=== PATIENT | male | born 1970 | race Two or more races ===

== ENCOUNTER → 2020-01-04 12:36 | Outpatient (BNVA) | payer OTHER, SELFPAY | PROVIDERS: PCP Family Medicine; Visit Provider Orthopaedic Surgery | DX: M16.0 Bilateral primary osteoarthritis of hip (principal) | CPT/HCPCS: 20610; 99203 ==

== ENCOUNTER → 2020-01-17 14:18 | Outpatient (BNVA) | payer OTHER, SELFPAY | PROVIDERS: PCP Family Medicine; Referring Provider Family Medicine; Visit Provider Internal Medicine Endocrinology, Diabetes & Metabolism | DX: E13.21 Other specified diabetes mellitus with diabetic nephropathy (principal); Z96.41 Presence of insulin pump (external) (internal); E66.9 Obesity, unspecified; Z68.34 Body mass index [BMI] 34.0-34.9, adult; E78.5 Hyperlipidemia, unspecified; I10 Essential (primary) hypertension; E55.9 Vitamin D deficiency, unspecified | CPT/HCPCS: 82947; 99214 ==

== ENCOUNTER 2020-05-30 15:51 | Outpatient (REF) | payer OTHER, SELFPAY ==
--- NOTE | ~2020-05-30 | US_ITS ---
EXAMINATION: US PENILE CLINICAL INFORMATION: Evaluate nodule at base of the dorsal penis. COMPARISON: None TECHNIQUE: Targeted ultrasound of area of clinical concern at the penile base. FINDINGS: Telephone call to the performing it disaster recovery manager Salome at 12:45 PM on 05/31/2020. Imaging findings and real-time imaging findings were reviewed. In the dorsal aspect of the penile base, is a calcific focus measuring 0.5 x 0.6 x 0.15 cm. This is in the dorsal soft tissues generally positioned between the corpus callosum. This same focus is also visualized when the penile tissue was scanned from the ventral aspect, but technically more difficult to characterize. US/US penile IMPRESSION: The palpable abnormality corresponds with a calcific focus in the dorsal soft tissues of the penile base measuring 0.5 x 0.6 x 0.15 cm as detailed above.
--- NOTE | ~2020-05-30 | US_ITS ---
EXAMINATION: US SCROTUM CLINICAL INFORMATION: Scrotal pain. COMPARISON: None TECHNIQUE: A sonogram of the scrotum was performed assessing sparrow-scale appearance and color Doppler flow. Spectral Doppler analysis of the arterial and venous flow were performed in the testes bilaterally. FINDINGS: RIGHT: Right testicle measures 4.9 x 2.4 x 3.4 cm, volume 20.9 mL. No focal testicular parenchymal lesions are visualized. Spectral Doppler analysis of the arterial and venous flow is normal in the right testis. Right epididymal head is normal in size. Epididymal head cyst measuring 1.4 x 0.3 x 0.3 cm. No right hydrocele or varicocele is seen. Right epididymal Doppler flow is normal. LEFT: Left testicle measures 4.8 x 2.5 x 3.3 cm, volume 20.7 mL. No focal testicular parenchymal lesions are visualized. Spectral Doppler analysis of the arterial and venous flow is normal in the left testis. Left epididymal head is normal in size. No left hydrocele or varicocele is seen. Left epididymal Doppler flow is normal. US/US scrotum IMPRESSION: 1. Right epididymal head cyst measuring 1.4 cm. 2. Otherwise unremarkable study.
== END 2020-05-30 15:52 | disposition home or self-care (01) ==
LOC: HO.US 15:51
PROVIDERS: Visit Provider Emergency Medicine
DX: N50.812 Left testicular pain (principal)
CPT/HCPCS: 76857; 76870

== ENCOUNTER 2020-06-25 14:24 | Outpatient (REF) | payer OTHER, SELFPAY ==
[2020-06-25 16:00] LABS: Hemoglobin 15.9 g/dl (14.0-18.0); Mean Corpuscular HGB Conc 33.8 g/dl (31.0-36.0); Mean Corpuscular Hemoglobin 29.7 pg (27.0-33.0); Mean Corpuscular Volume 87.9 fL (80-98); Mean Platelet Volume 11.4 fL (9.4-12.4); Platelet Count 273 X10*3/uL (160-400); Red Blood Count 5.35 X10*6/uL (4.60-5.80); Red Cell Distribution Width 12.1 % (11.0-16.0); White Blood Count 10.7 X10*3/uL (4.8-10.8)
[2020-06-25 16:34] LABS: Alanine Aminotransferase 17 U/L (0-40); Albumin Level 4.5 g/dL (3.5-5.0); Alkaline Phosphatase 113 U/L (39-117); Anion Gap 19 (12-20); Aspartate Amino Transferase 19 U/L (5-37); Bilirubin Total 0.5 mg/dL (0.0-1.0); Blood Urea Nitrogen 17 mg/dL (9-16); Calcium 9.7 mg/dL (8.4-10.2); Carbon Dioxide 23 mmol/L (22-29); Chloride 100 mmol/L (96-108); Cholesterol 131 mg/dL; Estimated Glomerular Filt Rate 51; Glucose Random 276 mg/dL (60-115); HDL Cholesterol 39 mg/dL; LDL Cholesterol Calculated 61 mg/dl; Potassium 4.8 mmol/L (3.3-5.1); Sodium 137 mmol/L (135-145); Total Protein 7.6 g/dL (6.5-8.0); Triglycerides 157 mg/dL
[2020-06-25 16:56] LABS: Free T4 (Free Thyroxine) 0.93 ng/dL (0.71-1.85); Thyroid Stimulating Hormone 2.28 uIU/mL (0.32-4.0); Vitamin D 25-OH Total 26.5 ng/mL (>30)
[2020-06-25 17:00] LABS: Vitamin B12 878 pg/mL (200-900)
[2020-06-25 17:38] LABS: Creatinine Urine 167.67 mg/dL; Microalbum/Creatinine Ratio Ur 17.8 ug/mg cr
[2020-06-26 06:16] LABS: LDL Cholesterol Direct 73 mg/dL (<100)
[2020-06-26 08:09] LABS: Estimated Average Glucose 260 mg/dL; Hemoglobin A1c % 10.7 %
== END 2020-06-25 14:25 | disposition home or self-care (01) ==
LOC: HO.LAB 14:24
PROVIDERS: PCP Family Medicine; Referring Provider Family Medicine; Visit Provider Internal Medicine Endocrinology, Diabetes & Metabolism
DX: E10.65 Type 1 diabetes mellitus with hyperglycemia (principal); E10.21 Type 1 diabetes mellitus with diabetic nephropathy; N50.89 Other specified disorders of the male genital organs; I10 Essential (primary) hypertension; E66.9 Obesity, unspecified; E55.9 Vitamin D deficiency, unspecified; Z87.891 Personal history of nicotine dependence; Z86.19 Personal history of other infectious and parasitic diseases; Z96.41 Presence of insulin pump (external) (internal); Z79.4 Long term (current) use of insulin; Z79.82 Long term (current) use of aspirin; Z79.899 Other long term (current) drug therapy
CPT/HCPCS: 36415; 80053; 80061; 82043; 82306; 82607; 82947; 83036; 83721; 84439; 84443; 85027; 99212

== ENCOUNTER 2020-07-01 14:54 | Outpatient (REF) | payer OTHER, SELFPAY ==
[2020-07-01 16:31] LABS: Anion Gap 16 (12-20); Blood Urea Nitrogen 18 mg/dL (9-16); Calcium 9.8 mg/dL (8.4-10.2); Carbon Dioxide 24 mmol/L (22-29); Chloride 101 mmol/L (96-108); Estimated Glomerular Filt Rate > 60; Glucose Random 138 mg/dL (60-115); Potassium 4.4 mmol/L (3.3-5.1); Sodium 137 mmol/L (135-145)
== END 2020-07-01 14:55 | disposition home or self-care (01) ==
LOC: HO.LAB 14:54
PROVIDERS: PCP Family Medicine; Visit Provider Internal Medicine Endocrinology, Diabetes & Metabolism
DX: R07.89 Other chest pain (principal)
CPT/HCPCS: 36415; 80048

== ENCOUNTER → 2020-07-04 13:53 | Outpatient (BNVA) | payer OTHER, SELFPAY | PROVIDERS: PCP Family Medicine; Visit Provider Urology | DX: R10.31 Right lower quadrant pain (principal) | CPT/HCPCS: 99202 ==

== ENCOUNTER → 2020-09-24 14:51 | Outpatient (BNVA) | payer OTHER, SELFPAY | PROVIDERS: PCP Family Medicine; Visit Provider Internal Medicine Endocrinology, Diabetes & Metabolism | DX: E13.9 Other specified diabetes mellitus without complications (principal); E10.21 Type 1 diabetes mellitus with diabetic nephropathy; E78.5 Hyperlipidemia, unspecified; E66.9 Obesity, unspecified; E55.9 Vitamin D deficiency, unspecified; I10 Essential (primary) hypertension | CPT/HCPCS: 82947; 99212 ==

== ENCOUNTER 2020-10-20 14:21 | Inpatient (IN) | payer OTHER, SELFPAY ==
--- NOTE | ~2020-10-20 | CT_ITS ---
EXAMINATION: CT ABDOMEN AND PELVIS WITH CONTRAST CLINICAL INFORMATION: Suspected abscess. COMPARISON: CT abdomen/pelvis dated 04/15/2013. TECHNIQUE: Multidetector volumetric images were obtained from the superior aspect of the liver through the pubic symphysis following administration 85 mL of Omnipaque 350 intravenous contrast. Sagittal and coronal reformatted images were obtained on the technologist's workstation. Oral contrast: No This CT examination was performed using dose optimization techniques as appropriate, variously including the following: *Automated exposure control. *Adjustment of mA and/or kV according to patient size (this includes techniques or standardized protocols for targeted exams where dose is matched to indication/reason for exam; i.e. extremities or head). *Use of iterative reconstruction technique. DLP: 868.00 mGy-cm FINDINGS: LUNG BASES: The visualized lung bases are unremarkable. LIVER, GALLBLADDER, AND BILIARY TREE: The liver is normal in size, shape, and attenuation. Redemonstration of tiny scattered parenchymal calcifications. No focal hepatic lesion or biliary ductal dilatation is present. The gallbladder is unremarkable with no evidence of radiopaque gallstones, gallbladder wall thickening, or obvious pericholecystic inflammatory changes. PANCREAS: Atrophic. SPLEEN: Unremarkable. ADRENAL GLANDS: Unremarkable. KIDNEYS AND URETERS: The kidneys are normal in size, shape, and attenuation. No hydronephrosis, hydroureter, or calculi seen. No perinephric stranding. BLADDER: Unremarkable. GASTROINTESTINAL TRACT: Sigmoid diverticulosis without evidence of acute diverticulitis. No bowel wall thickening or associated inflammatory change. No small or large bowel obstruction. Unremarkable appendix. PERITONEAL CAVITY: No intraabdominal free air or free fluid. No intra-abdominal mass or organized fluid collection/abscess formation. ABDOMINAL WALL: Tiny, fat-containing periumbilical hernia. Within the anterior right abdominal wall subcutaneous tissues, there is diffuse fat stranding with small lobulated areas of more discrete density. There is overlying skin thickening. Findings could represent cellulitis with early phlegmonous change. No peripherally enhancing fluid collection to suggest abscess formation. LYMPH NODES: Normal. VASCULAR: Unremarkable. PELVIC VISCERA: The prostate and seminal vesicles are unremarkable. OSSEOUS STRUCTURES: Unremarkable. CT/CT abdomen pelvis w con IMPRESSION: 1. Skin thickening with subcutaneous stranding and more lobulated areas of density within the right abdominal wall. Findings could represent cellulitis with early phlegmonous change. No peripherally enhancing fluid collection to suggest abscess formation. 2. Diverticulosis without evidence of acute diverticulitis. No small or large bowel obstruction. Unremarkable appendix.
[2020-10-20 14:27] VITALS: BP 131/84; PULSE 100; RESP 17; TEMP 37.6; O2SAT 96; BMI 33.2
[2020-10-20 16:17] LABS: Glucose, Whole Blood 307 mg/dL (60-115)
[2020-10-20 16:25] LABS: Hematocrit 43.2 % (42-52); Hemoglobin 14.5 g/dl (14.0-18.0); Mean Corpuscular HGB Conc 33.6 g/dl (31.0-36.0); Mean Corpuscular Hemoglobin 29.3 pg (27.0-33.0); Mean Corpuscular Volume 87.3 fL (80-98); Mean Platelet Volume 10.2 fL (9.4-12.4); Platelet Count 266 X10*3/uL (160-400); Red Blood Count 4.95 X10*6/uL (4.60-5.80); Red Cell Distribution Width 12.5 % (11.0-16.0); White Blood Count 18.2 X10*3/uL (4.8-10.8)
--- NOTE | 2020-10-20 16:48 | ECG_ITS ---
Test Reason : MEDICAL Blood Pressure : / mmHG Vent. Rate : 094 BPM Atrial Rate : 094 BPM P-R Int : 142 ms QRS Dur : 086 ms QT Int : 336 ms P-R-T Axes : 035 -15 020 degrees QTc Int : 420 ms Normal sinus rhythm Normal ECG When compared with ECG of 15-JAN-2018 10:47, No significant change was found Referred By: Kaylin Telles Electronically Signed By:Richi Hicks
[2020-10-20 16:50] LABS: Anion Gap 14 (12-20); Blood Urea Nitrogen 15 mg/dL (9-16); Calcium 8.6 mg/dL (8.4-10.2); Carbon Dioxide 22 mmol/L (22-29); Chloride 102 mmol/L (96-108); Creatinine Clr Calc Pharmacy 104.8; Estimated Glomerular Filt Rate > 60; Glucose Random 340 mg/dL (60-115); Potassium 4.1 mmol/L (3.3-5.1); Sodium 134 mmol/L (135-145)
--- NOTE | 2020-10-20 16:51 | ED_ITS ---
HPI - General Adult General Chief complaint: General Medical Stated complaint: Multiple complaints Time Seen by Provider: 10/20/20 16:36 Source: patient Mode of arrival: ambulatory Limitations: no limitations History of Present Illness HPI narrative: 50-year-old male with past medical history of type 1 insulin-dependent diabetes on insulin pump, hypertension, hyperlipidemia, anemia, chronic back pain, hepatitis, and obesity presents with right lower abdominal pain swelling and abscess. States that his insulin pump was attached and he noted that insulin was leaking out of the site starting on . He noted increased pain and swelling wounds able to express some fluid out of the site. Does report having that happen on the opposite side of his abdomen approximately 3 weeks ago. He presented today because he had subjective fevers, chills, and diaphoresis last night. He is unable to get warm and feels fatigued. He did take some Tylenol earlier today which helped him feel little bit better. He does not report any chest pain or pressure, palpitations, shortness of breath, shortness of breath on exertion, abdominal distention, dysuria, hematuria, nausea, vomiting, diarrhea, constipation, and edema. Related Data Home Medications Medication Instructions Recorded Confirmed aspirin 1 tab PO DAILY 10/20/20 10/20/20 atorvastatin 1 tab PO BEDTIME 10/20/20 10/20/20 dulaglutide [Trulicity] 1 mg SUBCUT QWEEK 10/20/20 10/20/20 insulin aspart U-100 [Novolog 0 - 130 unit SUBCUT DAILY 10/20/20 10/20/20 U-100 Insulin aspart] lisinopril 1 tab PO DAILY 10/20/20 10/20/20 sildenafil [Viagra] 0.5 tab PO DAILY PRN 10/20/20 10/20/20 Allergies Allergy/AdvReac Type Severity Reaction Status Date / Time liraglutide Allergy Unknown Unknown Verified 10/20/20 14:27 Review of Systems Review of Systems: Constitutional: Positive Fever, positive Chills, positive malaise ENT/Mouth: No Ear Pain, No Hoarseness, No sore throat Eyes: No Eye Pain, No Swelling, No Redness, No Foreign Body Cardiovascular: No Chest Pain, No SOB Respiratory: No Cough, No Dyspnea Gastrointestinal: No Nausea, No Vomiting, No Diarrhea, No abdominal Pain Genitourinary: No Dysuria, No Hematuria Musculoskeletal: No joint pain, No Myalgias, No Joint Swelling Skin: Positive swelling and erythema from multiple areas on the abdomen, No Skin lacerations, No rash Neuro: No Weakness, No Numbness, No Paresthesias, No Loss of Consciousness, No Dizziness, No Headache Psych: No Anxiety/Panic, No Depression Heme/Lymph: no easy bruising, no Lymphadenopathy Endocrine: No Polyuria, No Polydipsia Yes all other systems are reviewed and are negative [facility] Past Medical History Attestation statement: The following information was validated with the patient. 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 Oriented X3. Moderate distress. Eyes: Pupils equal, round and reactive to light. Sclera nonicteric ENT: Pharynx normal. Moist mucous membranes Neck: Normal inspection. Neck supple. No nuchal rigidity CVS: Tachycardic heart rate and rhythm. Pulses equal with brisk capillary refill to all extremities. Respiratory: No respiratory distress. Breath sounds normal. Abdomen: Soft and dermal tenderness to the dermis of abdomen, multiple areas of cellulitis Skin: Skin warm and dry. Normal skin color. Normal skin turgor. Extremities: No lower extremity edema. Neuro: No motor deficit. No sensory deficit. Course Course Course Narrative: 4:51 p.m. patient moved from [facility] to room 16. Initiated sepsis protocol at this time with fluid resuscitation at 2.5 L per ideal body weight. Will start ceftriaxone. CT abdomen pelvis shows multiple areas of cellulitis and phlegmon without abscess. Discussion with hospitalist regarding plan of care, plan is to admit. Medical Decision Making Differential Diagnosis Differential Diagnosis: Cellulitis, abscess, phlegmon, UTI Medical Records Medical records reviewed: Yes I reviewed the patient's medical records. Lab Data Lab results reviewed: Yes I reviewed the patient's lab results. Result diagrams: 10/20/20 16:19 10/20/20 16:19 Labs: Lab Results 10/20/20 10/20/20 10/20/20 Range/Units 16:13 16:19 16:19 WBC 18.2 H (4.8-10.8) X10*3/uL RBC 4.95 (4.60-5.80) X10*6/uL Hgb 14.5 (14.0-18.0) g/dl Hct 43.2 (42-52) % MCV 87.3 (80-98) fL MCH 29.3 (27.0-33.0) pg MCHC 33.6 (31.0-36.0) g/dl RDW 12.5 (11.0-16.0) % Plt Count 266 (160-400) X10*3/uL MPV 10.2 (9.4-12.4) fL Absolute Nucleated RBC 0.000 (0.0-0.012) X10*3/uL Nucleated RBC % (auto) 0.0 (0.0-0.2) /100WBC Sodium 134 L (135-145) mmol/L Potassium 4.1 (3.3-5.1) mmol/L Chloride 102 (96-108) mmol/L Carbon Dioxide 22 (22-29) mmol/L Anion Gap 14 (12-20) BUN 15 (9-16) mg/dL Creatinine 0.97 (0.5-1.4) mg/dL Estim Creat Clear Calc 104.8 Estimated GFR > 60 POC Glucose 307 H (60-115) mg/dL Random Glucose 340 H D (60-115) mg/dL Lactic Acid (0.5-2.0) mmol/L Calcium 8.6 D (8.4-10.2) mg/dL Troponin I High Sens (<3.5-35.0) ng/L Urine Color Urine Appearance Urine pH (5.0-8.0) Ur Specific [place] (1.005-1.025) Urine Protein (NEG-TRACE) MG/DL Urine Glucose (UA) (NEG) MG/DL Urine Ketones (NEG) MG/DL Urine Blood (NEG) Urine Nitrite (NEG) Ur Leukocyte Esterase (NEG) Urine RBC (0) /HPF Urine WBC (0-4) /HPF Ur Squamous Epith Cells /LPF Urine Bacteria /LPF 10/20/20 10/20/20 10/20/20 Range/Units 17:17 17:19 17:19 WBC (4.8-10.8) X10*3/uL RBC (4.60-5.80) X10*6/uL Hgb (14.0-18.0) g/dl Hct (42-52) % MCV (80-98) fL MCH (27.0-33.0) pg MCHC (31.0-36.0) g/dl RDW (11.0-16.0) % Plt Count (160-400) X10*3/uL MPV (9.4-12.4) fL Absolute Nucleated RBC (0.0-0.012) X10*3/uL Nucleated RBC % (auto) (0.0-0.2) /100WBC Sodium (135-145) mmol/L Potassium (3.3-5.1) mmol/L Chloride (96-108) mmol/L Carbon Dioxide (22-29) mmol/L Anion Gap (12-20) BUN (9-16) mg/dL Creatinine (0.5-1.4) mg/dL Estim Creat Clear Calc Estimated GFR POC Glucose 271 H (60-115) mg/dL Random Glucose (60-115) mg/dL Lactic Acid 1.2 (0.5-2.0) mmol/L Calcium (8.4-10.2) mg/dL Troponin I High Sens < 3.5 (<3.5-35.0) ng/L Urine Color Urine Appearance Urine pH (5.0-8.0) Ur Specific [place] (1.005-1.025) Urine Protein (NEG-TRACE) MG/DL Urine Glucose (UA) (NEG) MG/DL Urine Ketones (NEG) MG/DL Urine Blood (NEG) Urine Nitrite (NEG) Ur Leukocyte Esterase (NEG) Urine RBC (0) /HPF Urine WBC (0-4) /HPF Ur Squamous Epith Cells /LPF Urine Bacteria /LPF 10/20/20 10/20/20 10/20/20 Range/Units 17:19 19:31 21:03 WBC (4.8-10.8) X10*3/uL RBC (4.60-5.80) X10*6/uL Hgb (14.0-18.0) g/dl Hct (42-52) % MCV (80-98) fL MCH (27.0-33.0) pg MCHC (31.0-36.0) g/dl RDW (11.0-16.0) % Plt Count (160-400) X10*3/uL MPV (9.4-12.4) fL Absolute Nucleated RBC (0.0-0.012) X10*3/uL Nucleated RBC % (auto) (0.0-0.2) /100WBC Sodium (135-145) mmol/L Potassium (3.3-5.1) mmol/L Chloride (96-108) mmol/L Carbon Dioxide (22-29) mmol/L Anion Gap (12-20) BUN (9-16) mg/dL Creatinine (0.5-1.4) mg/dL Estim Creat Clear Calc Estimated GFR POC Glucose 258 H 297 H (60-115) mg/dL Random Glucose (60-115) mg/dL Lactic Acid (0.5-2.0) mmol/L Calcium (8.4-10.2) mg/dL Troponin I High Sens (<3.5-35.0) ng/L Urine Color YELLOW Urine Appearance CLEAR Urine pH 6.0 (5.0-8.0) Ur Specific [place] 1.015 (1.005-1.025) Urine Protein NEG (NEG-TRACE) MG/DL Urine Glucose (UA) >=1000 H (NEG) MG/DL Urine Ketones 40 (NEG) MG/DL Urine Blood NEG (NEG) Urine Nitrite NEG (NEG) Ur Leukocyte Esterase NEG (NEG) Urine RBC 0 (0) /HPF Urine WBC 0 (0-4) /HPF Ur Squamous Epith Cells NONE /LPF Urine Bacteria NONE /LPF Imaging Data CT scan - abdomen: Attestation: I personally reviewed and interpreted this imaging study as follows: Radiologist's impression: EXAMINATION: CT ABDOMEN AND PELVIS WITH CONTRAST CLINICAL INFORMATION: Suspected abscess. COMPARISON: CT abdomen/pelvis dated 04/15/2013. TECHNIQUE: Multidetector volumetric images were obtained from the superior aspect of the liver through the pubic symphysis following administration 85 mL of Omnipaque 350 intravenous contrast. Sagittal and coronal reformatted images were obtained on the technologist's workstation. Oral contrast: No This CT examination was performed using dose optimization techniques as appropriate, variously including the following: *Automated exposure control. *Adjustment of mA and/or kV according to patient size (this includes techniques or standardized protocols for targeted exams where dose is matched to indication/reason for exam; i.e. extremities or head). *Use of iterative reconstruction technique. DLP: 868.00 mGy-cm FINDINGS: LUNG BASES: The visualized lung bases are unremarkable. LIVER, GALLBLADDER, AND BILIARY TREE: The liver is normal in size, shape, and attenuation. Redemonstration of tiny scattered parenchymal calcifications. No focal hepatic lesion or biliary ductal dilatation is present. The gallbladder is unremarkable with no evidence of radiopaque gallstones, gallbladder wall thickening, or obvious pericholecystic inflammatory changes. PANCREAS: Atrophic. SPLEEN: Unremarkable. ADRENAL GLANDS: Unremarkable. KIDNEYS AND URETERS: The kidneys are normal in size, shape, and attenuation. No hydronephrosis, hydroureter, or calculi seen. No perinephric stranding. BLADDER: Unremarkable. GASTROINTESTINAL TRACT: Sigmoid diverticulosis without evidence of acute diverticulitis. No bowel wall thickening or associated inflammatory change. No small or large bowel obstruction. Unremarkable appendix. PERITONEAL CAVITY: No intraabdominal free air or free fluid. No intra-abdominal mass or organized fluid collection/abscess formation. ABDOMINAL WALL: Tiny, fat-containing periumbilical hernia. Within the anterior right abdominal wall subcutaneous tissues, there is diffuse fat stranding with small lobulated areas of more discrete density. There is overlying skin thickening. Findings could represent cellulitis with early phlegmonous change. No peripherally enhancing fluid collection to suggest abscess formation. LYMPH NODES: Normal. VASCULAR: Unremarkable. PELVIC VISCERA: The prostate and seminal vesicles are unremarkable. OSSEOUS STRUCTURES: Unremarkable. CT/CT abdomen pelvis w con IMPRESSION: 1. Skin thickening with subcutaneous stranding and more lobulated areas of density within the right abdominal wall. Findings could represent cellulitis with early phlegmonous change. No peripherally enhancing fluid collection to suggest abscess formation. 2. Diverticulosis without evidence of acute diverticulitis. No small or large bowel obstruction. Unremarkable appendix. ECG Data Attestation: I personally reviewed and interpreted this ECG as follows: Interpretation: Vent. rate 94 BPM RI interval 142 ms QRS duration 86 ms QT/QTc 336/420 ms P-R-T axes 35 -15 20 Normal sinus rhythm Normal ECG When compared with ECG of 15-JAN-2018 10:47, No significant change was found 20-OCT-2020 17:00:44 Critical Care Time Critical Care Time Critical Care Time: Yes Total Critical Care Time: 65 Attestation: I have personally provided critical care time exclusive of time spent on separately billable procedures. Time includes review of laboratory data, radio logy results, discussion with consultants, and monitoring for potential decompensation. Interventions were performed as documented. Discharge Plan Discharge Clinical Impression: Phlegmon Cellulitis Qualifiers: Site of cellulitis: trunk Site of cellulitis of trunk: abdominal wall Qualified Code(s): L03.311 - Cellulitis of abdominal wall Patient Disposition: Admitted As Inpatient
[2020-10-20 17:14] VITALS: BP 142/77; PULSE 95; RESP 18; TEMP 38.8; O2SAT 99
[2020-10-20 17:26] LABS: Glucose, Whole Blood 271 mg/dL (60-115)
[2020-10-20 17:37] LABS: Glucose Urine UA >=1000 MG/DL (NEG); Leukocyte Esterase Urine NEG (NEG); Nitrite Urine NEG (NEG); Specific Gravity - Urine 1.015 (1.005-1.025); Urine Blood NEG (NEG); Urine Ketones 40 MG/DL (NEG); Urine Protein NEG (NEG-TRACE)
[2020-10-20 17:43] LABS: Appearance Urine CLEAR; Color Urine YELLOW
[2020-10-20 17:51] LABS: RBC Urine 0 /HPF (0); WBC Urine 0 /HPF (0-4)
[2020-10-20] MEDS: Ketorolac Tromethamine 15 MG/ML VIAL IVPUSH (17:54)
[2020-10-20] MEDS: Acetaminophen 325 MG TABLET 975 MG PO (17:54)
[2020-10-20] MEDS: 0.9 % Sodium Chloride 1,000 ML 999 ML IVCONT ×2 (17:55→19:55)
[2020-10-20] MEDS: cefTRIAXone sodium 1 GM in 0.9 % Sodium Chloride 50 ML IV ×2 (17:55→23:40)
[2020-10-20 18:02] LABS: Lactic Acid 1.2 mmol/L (0.5-2.0)
[2020-10-20 18:09] LABS: Troponin-I High Sensitivity < 3.5 ng/L (<3.5-35.0)
[2020-10-20] MEDS: iohexoL 350 MG/ML 100 ML INFUS..BTL IV (19:06)
[2020-10-20 19:19] VITALS: BP 114/64; PULSE 95; RESP 16; TEMP 37; O2SAT 97
[2020-10-20 19:36] LABS: Glucose, Whole Blood 258 mg/dL (60-115)
[2020-10-20] MEDS: 0.9 % Sodium Chloride 1,000 ML 500 ML IVCONT (19:55)
[2020-10-20] MEDS: Insulin Regular, Human 100 UNIT/ML 3 ML VIAL IVPUSH (19:55)
--- NOTE | 2020-10-20 20:00 | PC.NURSE ---
Pt requested and given ham sandwich, okayed by RISSA Staley. POC Glucose to be obtained, with likely plan to administer Insulin. Will continue to monitor.
--- NOTE | 2020-10-20 20:33 | PC.NURSE ---
Hospitalist at bedside speaking with patient at this time. Aware of plan for admission.
[2020-10-20 21:07] LABS: Glucose, Whole Blood 297 mg/dL (60-115)
[2020-10-20 23:21] VITALS: BP 129/71; PULSE 99; RESP 18; TEMP 36.9; O2SAT 96
[2020-10-20] MEDS: Insulin Glargine,Hum.rec.anlog 100 UNIT/ML 10 ML VIAL 25 UNIT SUBCUT (23:39)
[2020-10-20] MEDS: oxyCODONE HCl Immed Release 5 MG TABLET PO (23:39)
[2020-10-20] MEDS: Acetaminophen 325 MG TABLET 650 MG PO (23:39)
[2020-10-20] MEDS: Enoxaparin Sodium 40 MG/0.4 ML SYRINGE SUBCUT (23:40)
[2020-10-20] MEDS: 0.9 % Sodium Chloride Flush 3 ML SYRINGE IVFLUSH (23:47)
--- NOTE | 2020-10-20 23:59 | P.HPHOSP_ITS ---
History of Present Illness Date of Service: 10/20/20 Chief Complaint: Cellulitis This is a 50-year-old male with type 1 diabetes on insulin pump for the past 5 years, hypertension, HLD, hepatitis-C who presents to the hospital with complaints of redness, and swelling at 1 of the sides for his insulin pump placement. Patient reports that he usually rotates his insulin pump are on his stomach but 1 of the sites that he usually uses has now developed redness, it is becoming more hot, and swollen with tenderness. Reports that these have been going on for the past 3 days, his also noticed a lump. The pain is 7/10. His tried to drain it by pressing on the lump and significant amount of pus came out but they feel like there is still some pus in there. He is having chills with no fever, significant night sweats the night prior, denies any chest pain, no shortness of breath, no nausea or vomiting, no diarrhea or constipation, no urinary symptoms and no lower extremity edema. Reports low oral intake. Vitals on arrival are significant for a temp of 101.8?, heart rate of 95, respiratory rate of 18, blood pressure 142/77, satting 99% on room air For WBC count of 18.2, otherwise unremarkable Skin thickening with subcutaneous stranding and more lobulated areas of density within the right abdominal wall. Finding represents cellulitis with early phlegmonous change. 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), managed as type 1 Obesity (BMI 30-39.9) Vitamin D deficiency Family History Father Diabetes Mother Diabetes Surgical History Hx of exploratory laparotomy Social History Household Members: Spouse and Children Housing: House Do you presently have visiting nurse or other home services: No Patient Tobacco Use Status: Never used Tobacco Use of substances other than those prescribed or required for medical reasons: No Advance Directives: No Advance Directives Information Provided: No Do you have thoughts of harming others: None Do you have a plan to hurt others: No Plan Recently lost weight without trying: No Nutrition Risks: No Nutritional Risk Meds Allergies Allergy/AdvReac Type Severity Reaction Status Date / Time liraglutide Allergy Unknown Unknown Verified 10/20/20 14:27 Active Medications: Current Medications Generic Name Dose Route Start Last Admin Trade Name Freq PRN Reason Stop Dose Admin Acetaminophen 650 mg 10/20/20 23:21 10/20/20 23:39 Acetaminophen 325 Mg Tablet PO 650 mg Q6H PRN Administration Pain, Mild (Pain Scale 1-3) Docusate Sodium 100 mg 10/20/20 23:21 Docusate Sodium 100 Mg Capsule PO DAILY PRN Constipation Enoxaparin Sodium 40 mg 10/20/20 23:21 10/20/20 23:40 Enoxaparin Sodium 40 Mg/0.4 Ml Syringe SUBCUT 40 mg BEDTIME CHRISTOPHER Administration Ceftriaxone Sodium 1 gm/ 50 mls @ 100 mls/hr 10/21/20 18:00 10/20/20 23:40 Sodium Chloride IV 100 mls/hr Q24H CHRISTOPHER Administration Insulin Glargine 25 unit 10/20/20 22:21 10/20/20 23:39 Insulin Glargine,Hum.Rec.Anlog 100 Unit/Ml 10 Ml Vial SUBCUT 25 unit BEDTIME CHRISTOPHER Administration Insulin Human Lispro 0 unit 10/21/20 07:30 Insulin Lispro 100 Unit/Ml 3 Ml Vial SUBCUT QIDACHS [facility] Protocol Insulin Human Lispro 8 unit 10/21/20 07:30 Insulin Lispro 100 Unit/Ml 3 Ml Vial SUBCUT TIDAC [facility] Ondansetron HCl 4 mg 10/20/20 23:21 Ondansetron Hcl 4 Mg/2 Ml Vial IVPUSH Q8H PRN Nausea and Vomiting Oxycodone HCl 5 mg 10/20/20 23:21 10/20/20 23:39 Oxycodone Hcl Immed Release 5 Mg Tablet PO 5 mg Q6H PRN Administration Pain, Severe (Pain Scale 7-10) Pharmacy Consult 1 each 10/20/20 18:35 Consult Rx Perform Med Rec MISCELLANE ONCE PRN Consult order Sodium Chloride 3 ml 10/21/20 00:00 10/20/20 23:47 0.9 % Sodium Chloride Flush 3 Ml [facility] Administration Home Medications Medication Instructions Recorded Confirmed Last Taken Type aspirin 1 tab PO DAILY 10/20/20 10/20/20 10/20/20 History atorvastatin 1 tab PO BEDTIME 10/20/20 10/20/20 10/20/20 History dulaglutide [Trulicity] 1 mg SUBCUT QWEEK 10/20/20 10/20/20 10/20/20 History insulin aspart U-100 [Novolog 0 - 130 unit SUBCUT DAILY 10/20/20 10/20/20 10/20/20 History U-100 Insulin aspart] lisinopril 1 tab PO DAILY 10/20/20 10/20/20 10/20/20 History sildenafil [Viagra] 0.5 tab PO DAILY PRN 10/20/20 10/20/20 Unknown History Physical Exam Vital Signs and Narrative: Vital Signs: Last Vital Signs Temp 98.4 F 10/20/20 23:21 Pulse 99 10/20/20 23:21 Resp 18 10/20/20 23:21 BP 129/71 10/20/20 23:21 Pulse Ox 96 10/20/20 23:21 Body Mass Index 33.2 Const: General: cooperative and no acute distress Orientation/consciousness: patient oriented x3 Eyes: General: appearance normal, both eyes and all related structures Resp: Effort & Inspection: normal respiratory effort, able to speak in complete sentences and abnormal respiratory pattern Cardio: Rate: regular rate Rhythm: regular rhythm GI: Palpation (GI): Soft to palpation Auscultation: normal bowel sounds Skin: Other: Erythema, tenderness, warmth, at the site of insulin pump placement on the right lower quadrant abdominal wall. Neuro: General: patient oriented x3 Cognition (Neuro): normal cognition Extrem: General: Yes normal to inspection and Yes no pedal edema Results Labs CBC and Chem 7: 10/20/20 16:19 10/20/20 16:19 Labs: Laboratory Results - last 24 hr 10/20/20 10/20/20 10/20/20 16:13 16:19 16:19 MCV 87.3 MCH 29.3 MCHC 33.6 RDW 12.5 Plt Count 266 MPV 10.2 Absolute Nucleated RBC 0.000 Nucleated RBC % (auto) 0.0 Anion Gap 14 Estim Creat Clear Calc 104.8 Estimated GFR > 60 POC Glucose 307 H Random Glucose 340 H D Lactic Acid Calcium 8.6 D Troponin I High Sens Urine Color Urine Appearance Urine pH Ur Specific [place] Urine Protein Urine Glucose (UA) Urine Ketones Urine Blood Urine Nitrite Ur Leukocyte Esterase Urine RBC Urine WBC Ur Squamous Epith Cells Urine Bacteria 10/20/20 10/20/20 10/20/20 17:17 17:19 17:19 MCV MCH MCHC RDW Plt Count MPV Absolute Nucleated RBC Nucleated RBC % (auto) Anion Gap Estim Creat Clear Calc Estimated GFR POC Glucose 271 H Random Glucose Lactic Acid 1.2 Calcium Troponin I High Sens < 3.5 Urine Color Urine Appearance Urine pH Ur Specific [place] Urine Protein Urine Glucose (UA) Urine Ketones Urine Blood Urine Nitrite Ur Leukocyte Esterase Urine RBC Urine WBC Ur Squamous Epith Cells Urine Bacteria 10/20/20 10/20/20 10/20/20 17:19 19:31 21:03 MCV MCH MCHC RDW Plt Count MPV Absolute Nucleated RBC Nucleated RBC % (auto) Anion Gap Estim Creat Clear Calc Estimated GFR POC Glucose 258 H 297 H Random Glucose Lactic Acid Calcium Troponin I High Sens Urine Color YELLOW Urine Appearance CLEAR Urine pH 6.0 Ur Specific [place] 1.015 Urine Protein NEG Urine Glucose (UA) >=1000 H Urine Ketones 40 Urine Blood NEG Urine Nitrite NEG Ur Leukocyte Esterase NEG Urine RBC 0 Urine WBC 0 Ur Squamous Epith Cells NONE Urine Bacteria NONE Imaging Radiologist's Impressions: Impressions Abdomen/Pelvis CT 10/20/20 17:05 IMPRESSION: 1. Skin thickening with subcutaneous stranding and more lobulated areas of density within the right abdominal wall. Findings could represent cellulitis with early phlegmonous change. No peripherally enhancing fluid collection to suggest abscess formation. 2. Diverticulosis without evidence of acute diverticulitis. No small or large bowel obstruction. Unremarkable appendix. Assessment and Plan (1) Cellulitis: Qualifiers: Site of cellulitis: trunk Site of cellulitis of trunk: abdominal wall Qualified Code(s): L03.311 - Cellulitis of abdominal wall Status: Acute (2) Phlegmon: Status: Acute (3) Sepsis: Status: Acute This is a 50-year-old male with past medical history of diabetes who presents to the hospital with abdominal wall lump/cellulitis # sepsis - secondary to cellulitis - has fever, leukocytosis - IV antibiotic - follow cultures # cellulitis of abdominal wall with phlegmon formation - warmth, tenderness, erythema - will start him on IV antibiotic - follow culture # type 1 diabetes - patient removed his pump 2 to this cellulitis - will start him on 20/5 of Lantus and 8 of lispro t.i.d., follow glucose closely and adjust insulin as needed - will also add low-dose sliding scale cover - diabetic diet # hypertension -Stable - Continue lisinopril # hyperlipidemia - continue statin DVT prophylaxis: Mozenda Quality Stroke Does the patient have a stroke diagnosis?: No VTE Prior VTE?: No VTE Risk Level:: Medical - moderate - high VTE Device Contraindication: Treatment Not Indicated VTE Drug Contraindication: N/A - Med Ordered
[2020-10-21 04:00] VITALS: BP 109/57; PULSE 93; RESP 18; TEMP 37.2; O2SAT 96
[2020-10-21] MEDS: Morphine Sulfate 4 MG/ML CARTRIDGE IVPUSH (04:53)
[2020-10-21 06:51] LABS: Basophils Percent Auto 0.1 % (0-2); Eosinophils Absolute Auto 0.1 X10*3/uL (0.0-0.4); Eosinophils Percent Auto 0.2 % (0-4); Hematocrit 39.7 % (42-52); Hemoglobin 13.1 g/dl (14.0-18.0); Imm Gran Abs Auto 0.14 X10*3/uL (0.00-0.03); Imm Gran Pct Auto 0.7 % (0.0-0.4); Lymphocytes Absolute Auto 3.3 X10*3/uL (1.2-4.9); Lymphocytes Percent Auto 16.2 % (20-40); MANUAL DIFF FLAG SCAN; Mean Corpuscular Hemoglobin 29.6 pg (27.0-33.0); Mean Corpuscular Volume 89.6 fL (80-98); Mean Platelet Volume 11.2 fL (9.4-12.4); Monocytes Absolute Auto 1.8 X10*3/uL (0.1-1.2); Monocytes Percent Auto 8.8 % (2-11); Neutrophils Absolute Auto 15.2 X10*3/uL (2.0-8.3); Platelet Count 282 X10*3/uL (160-400); Red Blood Count 4.43 X10*6/uL (4.60-5.80); Red Cell Distribution Width 12.5 % (11.0-16.0); SCAN SMEAR FLAG 1; White Blood Count 20.5 X10*3/uL (4.8-10.8)
[2020-10-21 07:17] VITALS: BP 111/65; PULSE 93; RESP 18; TEMP 36.8; O2SAT 95
[2020-10-21 07:27] LABS: SLIDE REVIEW VERIFIED
[2020-10-21 07:44] LABS: Anion Gap 14 (12-20); Blood Urea Nitrogen 11 mg/dL (9-16); Carbon Dioxide 22 mmol/L (22-29); Chloride 106 mmol/L (96-108); Estimated Glomerular Filt Rate > 60; Glucose Random 286 mg/dL (60-115); Potassium 4.3 mmol/L (3.3-5.1); Sodium 138 mmol/L (135-145)
[2020-10-21 07:54] LABS: Glucose, Whole Blood 241 mg/dL (60-115)
[2020-10-21] MEDS: Atorvastatin Calcium 40 MG TABLET PO (08:01)
[2020-10-21] MEDS: Aspirin Enteric Coated 81 MG TABLET.DR PO (08:01)
[2020-10-21] MEDS: lisinopriL 5 MG TABLET PO (08:01)
[2020-10-21] MEDS: Insulin Lispro 100 UNIT/ML 3 ML VIAL SUBCUT ×4 (08:02→21:33)
[2020-10-21] MEDS: Insulin Lispro 100 UNIT/ML 3 ML VIAL 8 UNIT SUBCUT (08:02)
[2020-10-21] MEDS: 0.9 % Sodium Chloride Flush 3 ML SYRINGE IVFLUSH ×2 (08:02→15:59)
[2020-10-21] MEDS: Doxycycline Hyclate 100 MG in 0.9 % Sodium Chloride 250 ML 166.67 MG IV ×2 (08:04→21:31)
--- NOTE | 2020-10-21 10:15 | MHC.CM.PN ---
CM MET WITH PT WHO REPORTS HE LIVES WITH HIS S/O AND KIDS. HE REPORTS HE IS INDEPENDENT WITH CARE AND MOBILITY, HAS NO SERVICES AND WORKS FT. PT DOES USE AN INSULIN PUMP BUT NO OTHER DME. PT IS UNSURE IF HE HAS A HCP AND WOULD LIKE TO TAKE A BLANK ONE WITH HIM TO DISCUSS WITH FAMILY AT A LATER DATE. DOCUMENT PROVIDED. PT CONFIRMS HIS PCP IS YOMI MANCIA CURRENT DC PLAN IS HOME WIHT NO SERVICES PT TO ARRANGE TRANSPORT
[2020-10-21 11:28] VITALS: BP 95/63; PULSE 91; RESP 18; TEMP 36.5; O2SAT 97
[2020-10-21 11:54] LABS: Glucose, Whole Blood 210 mg/dL (60-115)
--- NOTE | 2020-10-21 15:00 | P.PNIM_ITS ---
Subjective Subjective Date of Service: 10/21/20 Interval History: the patient was seen and evaluated this morning Laying in bed, feels comfortable Denies any fever, chills or shortness of breath No reported other overnight events. Systemic review: Reported chills and weakness No chest pain, palpitation No shortness of breath or coughing No abdominal pain, nausea or vomiting No urinary symptoms Pain at the site of the wound Physical Exam Vital Signs: Vital Signs: Last Vital Signs Temp 97.7 F 10/21/20 11:28 Pulse 91 10/21/20 11:28 Resp 18 10/21/20 11:28 BP 95/63 10/21/20 11:28 Pulse Ox 97 10/21/20 11:28 Body Mass Index 33.2 Const: Other: Constitutional : Alert, oriented, not in distress Neck : Normal inspection, Supple Cardiovascular : RRR, S1 S2, no lower extremity edema Respiratory : Good bilateral air entry, no crackles, wheezes or rhonchi Gastrointestinal: soft, lax, Normal bowel sounds, Non tender Skin : Warm/Dry, abdominal wall right lower induration with no drainage noted, erythema and mild tenderness Neurological : Alert & oriented x3, No focal deficit Objective Data Current Medications Generic Name Dose Route Start Last Admin Trade Name Freq PRN Reason Stop Dose Admin Acetaminophen 650 mg 10/20/20 23:21 10/20/20 23:39 Acetaminophen 325 Mg Tablet PO 650 mg Q6H PRN Administration Pain, Mild (Pain Scale 1-3) Aspirin 81 mg 10/21/20 09:00 10/21/20 08:01 Aspirin Enteric Coated 81 Mg Tablet. PO 81 mg DAILY [facility] Administration Atorvastatin Calcium 40 mg 10/21/20 21:00 10/21/20 08:01 Atorvastatin Calcium 40 Mg Tablet PO 40 mg BEDTIME [facility] Administration Docusate Sodium 100 mg 10/20/20 23:21 Docusate Sodium 100 Mg Capsule PO DAILY PRN Constipation Enoxaparin Sodium 40 mg 10/20/20 23:21 10/20/20 23:40 Enoxaparin Sodium 40 Mg/0.4 Ml Syringe SUBCUT 40 mg BEDTIME [facility] Administration Ceftriaxone Sodium 1 gm/ 50 mls @ 100 mls/hr 10/21/20 18:00 10/21/20 04:23 Sodium Chloride IV Infused Q24H [facility] Infusion Doxycycline Hyclate 100 mg/ 250 mls @ 166.67 mls/hr 10/21/20 09:00 10/21/20 09:41 Sodium Chloride IV Infused Q12H [facility] Infusion Insulin Glargine 25 unit 10/20/20 22:21 10/20/20 23:39 Insulin Glargine,Hum.Rec.Anlog 100 Unit/Ml 10 Ml Vial SUBCUT 25 unit BEDTIME [facility] Administration Insulin Human Lispro 0 unit 10/21/20 11:30 10/21/20 12:08 Insulin Lispro 100 Unit/Ml 3 Ml Vial SUBCUT Not Given QIDACHS [facility] Protocol Lisinopril 5 mg 10/21/20 09:00 10/21/20 08:01 Lisinopril 5 Mg Tablet PO 5 mg DAILY [facility] Administration Protocol Morphine Sulfate 4 mg 10/21/20 04:30 10/21/20 04:53 Morphine Sulfate 4 Mg/Ml Cartridge IVPUSH 4 mg Q4H PRN Administration Pain, Severe (Pain Scale 7-10) Ondansetron HCl 4 mg 10/20/20 23:21 Ondansetron Hcl 4 Mg/2 Ml Vial IVPUSH Q8H PRN Nausea and Vomiting Oxycodone HCl 5 mg 10/20/20 23:21 10/20/20 23:39 Oxycodone Hcl Immed Release 5 Mg Tablet PO 5 mg Q6H PRN Administration Pain, Severe (Pain Scale 7-10) Pharmacy Consult 1 each 10/20/20 18:35 Consult Rx Perform Med Rec MISCELLANE ONCE PRN Consult order Sodium Chloride 3 ml 10/21/20 00:00 10/21/20 08:02 0.9 % Sodium Chloride Flush 3 Ml Syringe IVFLUSH 3 ml QSHIFT [facility] Administration Labs CBC & Chem 7: 10/21/20 06:00 10/21/20 06:00 Labs: Laboratory Results - last 24 hr 10/20/20 10/20/20 10/20/20 16:13 16:19 16:19 WBC 18.2 H RBC 4.95 Hgb 14.5 Hct 43.2 MCV 87.3 MCH 29.3 MCHC 33.6 RDW 12.5 Plt Count 266 MPV 10.2 Immature Gran % (Auto) Neut % (Auto) Lymph % (Auto) Bowie % (Auto) Eos % (Auto) Baso % (Auto) Lymph # (Auto) Bowie # (Auto) Eos # (Auto) Baso # (Auto) Abs Immat Gran (auto) Absolute Neuts (auto) Absolute Nucleated RBC 0.000 Nucleated RBC % (auto) 0.0 Smear Tech's Comments Sodium 134 L Potassium 4.1 Chloride 102 Carbon Dioxide 22 Anion Gap 14 BUN 15 Creatinine 0.97 Estim Creat Clear Calc 104.8 Estimated GFR > 60 POC Glucose 307 H Random Glucose 340 H D Lactic Acid Calcium 8.6 D Troponin I High Sens Urine Color Urine Appearance Urine pH Ur Specific [place] Urine Protein Urine Glucose (UA) Urine Ketones Urine Blood Urine Nitrite Ur Leukocyte Esterase Urine RBC Urine WBC Ur Squamous Epith Cells Urine Bacteria 10/20/20 10/20/20 10/20/20 17:17 17:19 17:19 WBC RBC Hgb Hct MCV MCH MCHC RDW Plt Count MPV Immature Gran % (Auto) Neut % (Auto) Lymph % (Auto) Bowie % (Auto) Eos % (Auto) Baso % (Auto) Lymph # (Auto) Bowie # (Auto) Eos # (Auto) Baso # (Auto) Abs Immat Gran (auto) Absolute Neuts (auto) Absolute Nucleated RBC Nucleated RBC % (auto) Smear Tech's Comments Sodium Potassium Chloride Carbon Dioxide Anion Gap BUN Creatinine Estim Creat Clear Calc Estimated GFR POC Glucose 271 H Random Glucose Lactic Acid 1.2 Calcium Troponin I High Sens < 3.5 Urine Color Urine Appearance Urine pH Ur Specific [place] Urine Protein Urine Glucose (UA) Urine Ketones Urine Blood Urine Nitrite Ur Leukocyte Esterase Urine RBC Urine WBC Ur Squamous Epith Cells Urine Bacteria 10/20/20 10/20/20 10/20/20 17:19 19:31 21:03 WBC RBC Hgb Hct MCV MCH MCHC RDW Plt Count MPV Immature Gran % (Auto) Neut % (Auto) Lymph % (Auto) Bowie % (Auto) Eos % (Auto) Baso % (Auto) Lymph # (Auto) Bowie # (Auto) Eos # (Auto) Baso # (Auto) Abs Immat Gran (auto) Absolute Neuts (auto) Absolute Nucleated RBC Nucleated RBC % (auto) Smear Tech's Comments Sodium Potassium Chloride Carbon Dioxide Anion Gap BUN Creatinine Estim Creat Clear Calc Estimated GFR POC Glucose 258 H 297 H Random Glucose Lactic Acid Calcium Troponin I High Sens Urine Color YELLOW Urine Appearance CLEAR Urine pH 6.0 Ur Specific [place] 1.015 Urine Protein NEG Urine Glucose (UA) >=1000 H Urine Ketones 40 Urine Blood NEG Urine Nitrite NEG Ur Leukocyte Esterase NEG Urine RBC 0 Urine WBC 0 Ur Squamous Epith Cells NONE Urine Bacteria NONE 10/21/20 10/21/20 10/21/20 06:00 06:00 07:20 WBC 20.5 H RBC 4.43 L Hgb 13.1 L Hct 39.7 L MCV 89.6 MCH 29.6 MCHC 33.0 RDW 12.5 Plt Count 282 MPV 11.2 Immature Gran % (Auto) 0.7 H Neut % (Auto) 74.0 H Lymph % (Auto) 16.2 L Bowie % (Auto) 8.8 Eos % (Auto) 0.2 Baso % (Auto) 0.1 Lymph # (Auto) 3.3 Bowie # (Auto) 1.8 H Eos # (Auto) 0.1 Baso # (Auto) 0.0 Abs Immat Gran (auto) 0.14 H Absolute Neuts (auto) 15.2 H Absolute Nucleated RBC 0.000 Nucleated RBC % (auto) 0.0 Smear Tech's Comments VERIFIED Sodium 138 Potassium 4.3 Chloride 106 Carbon Dioxide 22 Anion Gap 14 BUN 11 Creatinine 0.90 Estim Creat Clear Calc 113.0 Estimated GFR > 60 POC Glucose 241 H Random Glucose 286 H Lactic Acid Calcium 8.0 L D Troponin I High Sens Urine Color Urine Appearance Urine pH Ur Specific [place] Urine Protein Urine Glucose (UA) Urine Ketones Urine Blood Urine Nitrite Ur Leukocyte Esterase Urine RBC Urine WBC Ur Squamous Epith Cells Urine Bacteria 10/21/20 11:25 WBC RBC Hgb Hct MCV MCH MCHC RDW Plt Count MPV Immature Gran % (Auto) Neut % (Auto) Lymph % (Auto) Bowie % (Auto) Eos % (Auto) Baso % (Auto) Lymph # (Auto) Bowie # (Auto) Eos # (Auto) Baso # (Auto) Abs Immat Gran (auto) Absolute Neuts (auto) Absolute Nucleated RBC Nucleated RBC % (auto) Smear Tech's Comments Sodium Potassium Chloride Carbon Dioxide Anion Gap BUN Creatinine Estim Creat Clear Calc Estimated GFR POC Glucose 210 H Random Glucose Lactic Acid Calcium Troponin I High Sens Urine Color Urine Appearance Urine pH Ur Specific [place] Urine Protein Urine Glucose (UA) Urine Ketones Urine Blood Urine Nitrite Ur Leukocyte Esterase Urine RBC Urine WBC Ur Squamous Epith Cells Urine Bacteria Imaging CT scan - abdomen: Radiologist's impression: Impressions Abdomen/Pelvis CT 10/20/20 17:05 IMPRESSION: 1. Skin thickening with subcutaneous stranding and more lobulated areas of density within the right abdominal wall. Findings could represent cellulitis with early phlegmonous change. No peripherally enhancing fluid collection to suggest abscess formation. 2. Diverticulosis without evidence of acute diverticulitis. No small or large bowel obstruction. Unremarkable appendix. Quality Stroke Does the patient have a stroke diagnosis?: No VTE Prior VTE?: No VTE Risk Level:: Medical - moderate - high VTE Device Contraindication: Treatment Not Indicated VTE Drug Contraindication: N/A - Med Ordered Assessment and Plan (1) Cellulitis: Status: Acute (2) Phlegmon: Status: Acute (3) Sepsis: Status: Acute Assessment and Plan: This is a 50-year-old male with past medical history of diabetes who presents to the hospital with abdominal wall lump/cellulitis # sepsis secondary to cellulitis with phlegmon formation Pending cultures Continue doxycycline and ceftriaxone # hyperglycemia 2/2 type 1 diabetes patient removed his pump 2 to this cellulitis Continue 25 of Lantus and SSI diabetic diet # hypertension Continue lisinopril # hyperlipidemia continue statin DVT prophylaxis: Lovenox
[2020-10-21] MEDS: oxyCODONE HCl Immed Release 5 MG TABLET PO ×2 (15:59→21:45)
[2020-10-21 16:00] VITALS: BP 116/72; PULSE 95; RESP 14; TEMP 37.3; O2SAT 95
[2020-10-21 16:39] LABS: Glucose, Whole Blood 211 mg/dL (60-115)
[2020-10-21 19:24] VITALS: BP 108/72; PULSE 86; RESP 16; TEMP 36.7; O2SAT 97
[2020-10-21 20:45] LABS: Glucose, Whole Blood 391 mg/dL (60-115)
[2020-10-21] MEDS: Insulin Glargine,Hum.rec.anlog 100 UNIT/ML 10 ML VIAL 25 UNIT SUBCUT (21:32)
[2020-10-21] MEDS: Enoxaparin Sodium 40 MG/0.4 ML SYRINGE SUBCUT (21:33)
[2020-10-21 23:47] VITALS: BP 119/76; PULSE 89; RESP 20; TEMP 36.6; O2SAT 95
[2020-10-22 04:00] VITALS: RESP 20
[2020-10-22] MEDS: cefTRIAXone sodium 1 GM in 0.9 % Sodium Chloride 50 ML IV (05:20)
[2020-10-22 06:51] LABS: Hematocrit 42.1 % (42-52); Hemoglobin 13.8 g/dl (14.0-18.0); Mean Corpuscular HGB Conc 32.8 g/dl (31.0-36.0); Mean Corpuscular Hemoglobin 29.4 pg (27.0-33.0); Mean Corpuscular Volume 89.6 fL (80-98); Mean Platelet Volume 10.6 fL (9.4-12.4); Platelet Count 268 X10*3/uL (160-400); Red Cell Distribution Width 12.2 % (11.0-16.0); White Blood Count 16.4 X10*3/uL (4.8-10.8)
[2020-10-22 07:08] LABS: Anion Gap 14 (12-20); Blood Urea Nitrogen 8 mg/dL (9-16); Carbon Dioxide 22 mmol/L (22-29); Chloride 105 mmol/L (96-108); Creatinine Clr Calc Pharmacy 130.4; Estimated Glomerular Filt Rate > 60; Glucose Random 218 mg/dL (60-115); Potassium 4.2 mmol/L (3.3-5.1); Sodium 137 mmol/L (135-145)
[2020-10-22 07:17] LABS: Glucose, Whole Blood 190 mg/dL (60-115)
--- NOTE | 2020-10-22 07:22 | PC.NURSE ---
bs at 391 notified 10 units lispro to give per sliding scale
[2020-10-22 07:46] VITALS: BP 147/88; PULSE 91; RESP 18; TEMP 37; O2SAT 99
[2020-10-22] MEDS: Insulin Lispro 100 UNIT/ML 3 ML VIAL SUBCUT ×4 (08:21→21:18)
[2020-10-22] MEDS: 0.9 % Sodium Chloride Flush 3 ML SYRINGE IVFLUSH ×3 (08:25→21:19)
[2020-10-22] MEDS: Acetaminophen 325 MG TABLET 650 MG PO (09:34)
[2020-10-22] MEDS: Doxycycline Hyclate 100 MG in 0.9 % Sodium Chloride 250 ML 166.67 MG IV ×2 (09:34→21:17)
[2020-10-22] MEDS: Aspirin Enteric Coated 81 MG TABLET.DR PO (09:34)
[2020-10-22] MEDS: lisinopriL 5 MG TABLET PO (09:34)
[2020-10-22] MEDS: Atorvastatin Calcium 40 MG TABLET PO (09:36)
--- NOTE | 2020-10-22 11:42 | HO.PM.IMPN ---
Subjective Subjective Date of Service: 10/22/20 Interval History: seen and examined this AM hoping to go home denies fevers or chills ROS General - no fevers or chills Cardiovascular - no chest pain Respiratory - no shortness of breath or cough Abdominal- no abdominal pain, nausea, vomiting, diarrhea Physical Exam Vital Signs: Vital Signs: Last Vital Signs Temp 98.6 F 10/22/20 07:46 Pulse 91 10/22/20 07:46 Resp 18 10/22/20 07:46 BP 147/88 H 10/22/20 07:46 Pulse Ox 99 10/22/20 07:46 Body Mass Index 33.2 Const: Other: General - no acute distress, appears comfortable Cardiovascular - regular rate and rhythm, S1-S2 Lungs - normal respiratory effort, clear to auscultation bilaterally, no wheezing Abdomen - soft, nontender, no rebound or guarding Extremities - no edema bilaterally Neuro - awake and alert, no focal deficits Skin - R abdominal wall with about 4 cm indurated region with some flutuance, surroudning erythema Objective Data Current Medications Generic Name Dose Route Start Last Admin Trade Name Freq PRN Reason Stop Dose Admin Acetaminophen 650 mg 10/20/20 23:21 10/22/20 09:34 Acetaminophen 325 Mg Tablet PO 650 mg Q6H PRN Administration Pain, Mild (Pain Scale 1-3) Aspirin 81 mg 10/21/20 09:00 10/22/20 09:34 Aspirin Enteric Coated 81 Mg Tablet. PO 81 mg DAILY CHRISTOPHER Administration Atorvastatin Calcium 40 mg 10/21/20 21:00 10/22/20 09:36 Atorvastatin Calcium 40 Mg Tablet PO 40 mg BEDTIME [facility] Administration Docusate Sodium 100 mg 10/20/20 23:21 Docusate Sodium 100 Mg Capsule PO DAILY PRN Constipation Enoxaparin Sodium 40 mg 10/20/20 23:21 10/21/20 21:33 Enoxaparin Sodium 40 Mg/0.4 Ml Syringe SUBCUT 40 mg BEDTIME CH[facility]STOPHER Administration Doxycycline Hyclate 100 mg/ 250 mls @ 166.67 mls/hr 10/21/20 09:00 10/22/20 11:26 Sodium Chloride IV Infused Q12H [facility] Infusion Ceftriaxone Sodium 1 gm/ 50 mls @ 100 mls/hr 10/22/20 04:00 10/22/20 06:31 Sodium Chloride IV Infused Q24H [facility] Infusion Insulin Glargine 25 unit 10/20/20 22:21 10/21/20 21:32 Insulin Glargine,Hum.Rec.Anlog 100 Unit/Ml 10 Ml Vial SUBCUT 25 unit BEDTIME [facility] Administration Insulin Human Lispro 0 unit 10/21/20 11:30 10/22/20 08:21 Insulin Lispro 100 Unit/Ml 3 Ml Vial SUBCUT 2 unit QIDACHS [facility] Administration Protocol Lisinopril 5 mg 10/21/20 09:00 10/22/20 09:34 Lisinopril 5 Mg Tablet PO 5 mg DAILY [facility] Administration Protocol Morphine Sulfate 4 mg 10/21/20 04:30 10/21/20 04:53 Morphine Sulfate 4 Mg/Ml Cartridge IVPUSH 4 mg Q4H PRN Administration Pain, Severe (Pain Scale 7-10) Ondansetron HCl 4 mg 10/20/20 23:21 Ondansetron Hcl 4 Mg/2 Ml Vial IVPUSH Q8H PRN Nausea and Vomiting Oxycodone HCl 5 mg 10/20/20 23:21 10/21/20 21:45 Oxycodone Hcl Immed Release 5 Mg Tablet PO 5 mg Q6H PRN Administration Pain, Severe (Pain Scale 7-10) Pharmacy Consult 1 each 10/20/20 18:35 Consult Rx Perform Med Rec MISCELLANE ONCE PRN Consult order Sodium Chloride 3 ml 10/21/20 00:00 10/22/20 08:25 0.9 % Sodium Chloride Flush 3 Ml Syringe IVFLUSH 3 ml QSHIFT [facility] Administration Labs CBC & Chem 7: 10/22/20 06:12 10/22/20 06:12 Labs: Laboratory Results - last 24 hr 10/21/20 10/21/20 10/21/20 11:25 16:00 20:26 WBC RBC Hgb Hct MCV MCH MCHC RDW Plt Count MPV Absolute Nucleated RBC Nucleated RBC % (auto) Sodium Potassium Chloride Carbon Dioxide Anion Gap BUN Creatinine Estim Creat Clear Calc Estimated GFR POC Glucose 210 H 211 H 391 H* Random Glucose Calcium 10/22/20 10/22/20 10/22/20 06:12 06:12 06:59 WBC 16.4 H RBC 4.70 Hgb 13.8 L Hct 42.1 MCV 89.6 MCH 29.4 MCHC 32.8 RDW 12.2 Plt Count 268 MPV 10.6 Absolute Nucleated RBC 0.000 Nucleated RBC % (auto) 0.0 Sodium 137 Potassium 4.2 Chloride 105 Carbon Dioxide 22 Anion Gap 14 BUN 8 L Creatinine 0.78 Estim Creat Clear Calc 130.4 Estimated GFR > 60 POC Glucose 190 H Random Glucose 218 H Calcium 8.0 L Microbiology Microbiology Results: Microbiology 10/20/20 17:42 Blood Culture - Preliminary Blood - Venous No growth after 24 hours. 10/20/20 17:19 Blood Culture - Preliminary Blood - Venous No growth after 24 hours. Quality Stroke Does the patient have a stroke diagnosis?: No VTE Prior VTE?: No VTE Risk Level:: Medical - moderate - high VTE Device Contraindication: Treatment Not Indicated VTE Drug Contraindication: N/A - Med Ordered Assessment and Plan (1) Cellulitis: Status: Acute (2) Phlegmon: Status: Acute (3) Sepsis: Status: Acute Assessment and Plan: This is a 50-year-old male with past medical history of diabetes who presents to the hospital with abdominal wall lump/cellulitis # sepsis secondary to cellulitis with phlegmon formation ? now some fluctance -- will get Gen Surg to see if I&D is needed Rocephin / Doxy day #2 # DM, type 1 uncontrolled has pump at home using basal bolus here # hypertension Continue lisinopril # hyperlipidemia continue statin DVT prophylaxis: Lovenox
[2020-10-22 11:53] VITALS: BP 126/78; PULSE 86; RESP 18; TEMP 36.7; O2SAT 96
[2020-10-22 11:56] LABS: Glucose, Whole Blood 205 mg/dL (60-115)
--- NOTE | 2020-10-22 15:27 | P.CONGS_ITS ---
History of Present Illness Consult details Consult date: 10/22/20 Narrative: 50-year-old male patient with history of diabetes, found to have an area of redness and swelling in the right lower quadrant at the site of his insulin pump. Patient reports that the lump is increased in size and is increasing in pain. He reports placing a needle within the area of redness and pulling up in a syringe of pus. He has been admitted to the hospitalist service and placed on IV antibiotics. He feels the redness is continue to increase in size. Surgical consultation was requested for possible incision and drainage. Review of Systems Review of Systems: Yes all other systems are reviewed and are negative Constitutional: Constitutional: Reports chills, Reports fever(s) and Reports lethargy Cardiovascular: Cardiovascular: Denies chest pain, Denies pedal edema and Denies irregular heart rhythm Respiratory: Respiratory: Denies chest congestion, Denies cough and Denies wheezing Gastrointestinal: Gastrointestinal: Reports as per HPI and Reports abdominal pain Comments: Mass in the right lower quadrant abdominal wall Allergic/Immunologic: Allergic/Immunologic: Denies wheezing PMFSH Past Medical History Medical History Diabetic nephropathy associated with type 1 diabetes mellitus Elevated serum creatinine Hypertension 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), managed as type 1 Obesity (BMI 30-39.9) Vitamin D deficiency Family History Family History Father Diabetes Mother Diabetes Surgical History Surgical History Hx of exploratory laparotomy Social History Social History Household Members: Spouse and Children Housing: House Do you presently have visiting nurse or other home services: No Patient Tobacco Use Status: Never used Tobacco Use of substances other than those prescribed or required for medical reasons: No Currently Displaying Signs/Symptoms of Drug Intoxication Withdrawal: No Advance Directives: No Advance Directives Information Provided: No Do you have thoughts of harming others: None Do you have a plan to hurt others: No Plan Recently lost weight without trying: No Nutrition Risks: No Nutritional Risk service: No Current occupational status: employed Meds Allergies Allergy/AdvReac Type Severity Reaction Status Date / Time liraglutide Allergy Unknown Unknown Verified 10/20/20 14:27 Active Medications: Current Medications Generic Name Dose Route Start Last Admin Trade Name Freq PRN Reason Stop Dose Admin Acetaminophen 650 mg 10/20/20 23:21 10/22/20 09:34 Acetaminophen 325 Mg Tablet PO 650 mg Q6H PRN Administration Pain, Mild (Pain Scale 1-3) Aspirin 81 mg 10/21/20 09:00 10/22/20 09:34 Aspirin Enteric Coated 81 Mg Tablet.Dr PO 81 mg DAILY CHRISTOPHER Administration Atorvastatin Calcium 40 mg 10/21/20 21:00 10/22/20 09:36 Atorvastatin Calcium 40 Mg Tablet PO 40 mg BEDTIME CHRISTOPHER Administration Docusate Sodium 100 mg 10/20/20 23:21 Docusate Sodium 100 Mg Capsule PO DAILY PRN Constipation Enoxaparin Sodium 40 mg 10/20/20 23:21 10/21/20 21:33 Enoxaparin Sodium 40 Mg/0.4 Ml Syringe SUBCUT 40 mg BEDTIME CHRISTOPHER Administration Doxycycline Hyclate 100 mg/ 250 mls @ 166.67 mls/hr 10/21/20 09:00 10/22/20 11:26 Sodium Chloride IV Infused Q12H CHRISTOPHER Infusion Ceftriaxone Sodium 1 gm/ 50 mls @ 100 mls/hr 10/22/20 04:00 10/22/20 06:31 Sodium Chloride IV Infused Q24H CHRISTOPHER Infusion Insulin Glargine 25 unit 10/20/20 22:21 10/21/20 21:32 Insulin Glargine,Hum.Rec.Anlog 100 Unit/Ml 10 Ml Vial SUBCUT 25 unit BEDTIME CHRISTOPHER Administration Insulin Human Lispro 0 unit 10/21/20 11:30 10/22/20 12:16 Insulin Lispro 100 Unit/Ml 3 Ml Vial SUBCUT 4 unit QIDACHS CHRISTOPHER Administration Protocol Lisinopril 5 mg 10/21/20 09:00 10/22/20 09:34 Lisinopril 5 Mg Tablet PO 5 mg DAILY CHRISTOPHER Administration Protocol Morphine Sulfate 4 mg 10/21/20 04:30 10/21/20 04:53 Morphine Sulfate 4 Mg/Ml Cartridge IVPUSH 4 mg Q4H PRN Administration Pain, Severe (Pain Scale 7-10) Ondansetron HCl 4 mg 10/20/20 23:21 Ondansetron Hcl 4 Mg/2 Ml Vial IVPUSH Q8H PRN Nausea and Vomiting Oxycodone HCl 5 mg 10/20/20 23:21 10/21/20 21:45 Oxycodone Hcl Immed Release 5 Mg Tablet PO 5 mg Q6H PRN Administration Pain, Severe (Pain Scale 7-10) Pharmacy Consult 1 each 10/20/20 18:35 Consult Rx Perform Med Rec MISCELLANE ONCE PRN Consult order Sodium Chloride 3 ml 10/21/20 00:00 10/22/20 08:25 0.9 % Sodium Chloride Flush 3 Ml Syringe IVFLUSH 3 ml QSHIFT CHRISTOPHER Administration Home Medications Medication Instructions Recorded Confirmed Last Taken Type aspirin 1 tab PO DAILY 10/20/20 10/20/20 10/20/20 History atorvastatin 1 tab PO BEDTIME 10/20/20 10/20/20 10/20/20 History dulaglutide [Trulicity] 1 mg SUBCUT QWEEK 10/20/20 10/20/20 10/20/20 History insulin aspart U-100 [Novolog 0 - 130 unit SUBCUT DAILY 10/20/20 10/20/20 10/20/20 History U-100 Insulin aspart] lisinopril 1 tab PO DAILY 10/20/20 10/20/20 10/20/20 History sildenafil [Viagra] 0.5 tab PO DAILY PRN 10/20/20 10/20/20 Unknown History Physical Exam Vital Signs: Vital Signs: Last Vital Signs Temp 98.0 F 10/22/20 11:53 Pulse 86 10/22/20 11:53 Resp 18 10/22/20 11:53 BP 126/78 10/22/20 11:53 Pulse Ox 96 10/22/20 11:53 Body Mass Index 33.2 Const: General: no acute distress and well developed Nutritional Appearance: well nourished Limitations: no limitations Resp: Effort & Inspection: normal respiratory effort, no cough and no stridor Auscultation: clear to auscultation bilaterally Cardio: Rate: regular rate Rhythm: regular rhythm Heart sounds: S1 normal heart sound present and S2 normal heart sound present GI: Other: area of inflammation in the right lower quadrant with possible abscess measuring approximately 10 cm in diameter. The subcutaneous tissue is firm suggestive of either a deep abscess or phlegmon. Site is tender to palpation. There is no definite fluctuance to palpation. Abdomen image: 1. Site of inflammation right lower quadrant Skin: Other: as noted in the abdominal exam above Extrem: General: Yes no clubbing, cyanosis or edema Results Labs Result diagrams: 10/22/20 06:12 10/22/20 06:12 Labs: Abnormal lab results 10/21/20 10/21/20 10/22/20 Range/Units 16:00 20:26 06:12 WBC 16.4 H (4.8-10.8) X10*3/uL Hgb 13.8 L (14.0-18.0) g/dl BUN (9-16) mg/dL POC Glucose 211 H 391 H* (60-115) mg/dL Random Glucose (60-115) mg/dL Calcium (8.4-10.2) mg/dL 10/22/20 10/22/20 10/22/20 Range/Units 06:12 06:59 11:52 WBC (4.8-10.8) X10*3/uL Hgb (14.0-18.0) g/dl BUN 8 L (9-16) mg/dL POC Glucose 190 H 205 H (60-115) mg/dL Random Glucose 218 H (60-115) mg/dL Calcium 8.0 L (8.4-10.2) mg/dL Short CBC 10/22/20 Range/Units 06:12 WBC 16.4 H (4.8-10.8) X10*3/uL Hgb 13.8 L (14.0-18.0) g/dl Hct 42.1 (42-52) % Plt Count 268 (160-400) X10*3/uL BMP 10/22/20 06:12 Sodium 137 Potassium 4.2 Chloride 105 Carbon Dioxide 22 BUN 8 L Creatinine 0.78 Calcium 8.0 L Urine 10/20/20 Range/Units 17:19 Urine Color YELLOW Urine Appearance CLEAR Urine pH 6.0 (5.0-8.0) Ur Specific [place] 1.015 (1.005-1.025) Urine Protein NEG (NEG-TRACE) MG/DL Urine Glucose (UA) >=1000 H (NEG) MG/DL All other labs normal. Assessment and Plan (1) Phlegmon: Status: Acute patient presents with a right lower quadrant phlegmon or possible abscess due to his insulin pump. There is a wide area of inflammation which may contain a purulence collection although it is not definitely fluctuant. I recommended incision and drainage and after discussion of the procedure, risks, and alternatives, he consents to the procedure. I will return later today for this procedure which was performed at the bedside. Procedures Date of Service Date of Service: 10/22/20
[2020-10-22 15:28] VITALS: BP 143/75; PULSE 88; RESP 18; TEMP 36.7; O2SAT 97
[2020-10-22 15:56] LABS: Glucose, Whole Blood 219 mg/dL (60-115)
--- NOTE | 2020-10-22 16:21 | P.OP_ITS ---
Operative Note Operative Note Date of Service: 10/22/20 Narrative: Preoperative diagnosis:Abscess right lower abdomen Postoperative diagnosis:same Procedure:I&D Abscess Right lower abdomen Surgeon: Erik Carlin MD [place]: no physician Anesthesia: Local Indications for procedure: Abscess right lower quadrant Operative findings: Abscess right lower quadrant Specimen:none Estimated blood loss: none Complications:none Procedure details:Procedure was performed at the bedside in a supine position. After assuring the site of surgery in the right lower quadrant, and obtaining informed consent, the skin was prepped and draped in a sterile fashion. Local was infiltrated over the abscess and an 11 blade use to incise the skin. A moderate sized abscess was drained and the wounds irrigated with saline. Wounds were then packed with 1/4 inch Nu Gauze, and covered with DSD. The patient tolerated the procedure well.
[2020-10-22] MEDS: Morphine Sulfate 4 MG/ML CARTRIDGE IVPUSH (18:09)
[2020-10-22 19:05] VITALS: BP 131/93; PULSE 92; RESP 15; TEMP 37.2; O2SAT 95
[2020-10-22 20:25] LABS: Glucose, Whole Blood 187 mg/dL (60-115)
[2020-10-22] MEDS: Enoxaparin Sodium 40 MG/0.4 ML SYRINGE SUBCUT (21:17)
[2020-10-22 23:50] VITALS: BP 130/78; PULSE 98; RESP 18; TEMP 36.6; O2SAT 96
[2020-10-23] MEDS: cefTRIAXone sodium 1 GM in 0.9 % Sodium Chloride 50 ML IV (03:21)
[2020-10-23 04:00] VITALS: BP 131/73; PULSE 100; RESP 18; TEMP 35.8; O2SAT 94
[2020-10-23 07:23] VITALS: BP 141/76; PULSE 99; RESP 18; TEMP 36.6; O2SAT 96
[2020-10-23 07:30] LABS: Glucose, Whole Blood 399 mg/dL (60-115)
[2020-10-23] MEDS: Insulin Lispro 100 UNIT/ML 3 ML VIAL SUBCUT ×2 (07:56→12:13)
[2020-10-23] MEDS: Atorvastatin Calcium 40 MG TABLET PO (07:56)
[2020-10-23] MEDS: 0.9 % Sodium Chloride Flush 3 ML SYRINGE IVFLUSH (07:57)
[2020-10-23] MEDS: Doxycycline Hyclate 100 MG in 0.9 % Sodium Chloride 250 ML 166.67 MG IV (07:57)
[2020-10-23] MEDS: lisinopriL 5 MG TABLET PO (07:57)
[2020-10-23] MEDS: Aspirin Enteric Coated 81 MG TABLET.DR PO (07:57)
[2020-10-23] MEDS: Morphine Sulfate 4 MG/ML CARTRIDGE IVPUSH (10:49)
[2020-10-23 11:40] VITALS: BP 138/81; PULSE 90; RESP 15; TEMP 36.3; O2SAT 98
[2020-10-23 11:43] LABS: Glucose, Whole Blood 236 mg/dL (60-115)
--- NOTE | 2020-10-23 13:26 | P.DS_ITS ---
DS: Providers Provider Date of Service: 10/23/20 Date of admission: 10/20/20 22:21 Primary care physician: Aubree Pinto MD Consults: 10/22/20 10:48 Consult to General Surgery Routine Consulting Provider: Erik Carlin Reason for consultation: cellulitis / early abscess -- needs beside I&D?? DS: Diagnosis Discharge Diagnosis (1) Phlegmon: Status: Acute DS: Medications Discharge Medications Home Medications: Home Medications Medication Instructions Recorded Confirmed Trulicity 1 mg SUBCUT QWEEK 10/20/20 10/20/20 aspirin 1 tab PO DAILY 10/20/20 10/20/20 atorvastatin 1 tab PO BEDTIME 10/20/20 10/20/20 insulin aspart U-100 [Novolog 0 - 130 unit SUBCUT DAILY 10/20/20 10/20/20 U-100 Insulin aspart] lisinopril 1 tab PO DAILY 10/20/20 10/20/20 sildenafil [Viagra] 0.5 tab PO DAILY PRN 10/20/20 10/20/20 Previous Rx's Medication Instructions Recorded Lantus Solostar U-100 Insulin 100 30 unit SUBCUT DAILY 30 Days #15 10/21/20 unit/mL (3 mL) subcutaneous pen ml NS amoxicillin-pot clavulanate 1 tab PO BID #10 tab 10/23/20 [Augmentin] DS: Summary Hospital Course Hospital Course: Chief Complaint: Cellulitis This is a 50-year-old male with type 1 diabetes on insulin pump for the past 5 years, hypertension, HLD, hepatitis-C who presents to the hospital with complaints of redness, and swelling at 1 of the sides for his insulin pump placement. Patient reports that he usually rotates his insulin pump are on his stomach but 1 of the sites that he usually uses has now developed redness, it is becoming more hot, and swollen with tenderness. Reports that these have been going on for the past 3 days, his also noticed a lump. The pain is 7/10. His tried to drain it by pressing on the lump and significant amount of pus came out but they feel like there is still some pus in there. He is having chil ls with no fever, significant night sweats the night prior, denies any chest pain, no shortness of breath, no nausea or vomiting, no diarrhea or constipation, no urinary symptoms and no lower extremity edema. Reports low oral intake. Vitals on arrival are significant for a temp of 101.8?, heart rate of 95, respiratory rate of 18, blood pressure 142/77, satting 99% on room air For WBC count of 18.2, otherwise unremarkable Skin thickening with subcutaneous stranding and more lobulated areas of density within the right abdominal wall. Finding represents cellulitis with early phlegmonous change. Hospital course Abdominal wall abscess/cellulitis 50-year-old male with past medical history of diabetes who presents to the hospital with abdominal wall lump/cellulitis and later noted to have an abscess, patient underwent I&D by general surgeon Dr. Carlin, and receive IV antibiotic Rocephin and doxycycline, blood cultures x2 are negative, patient is feeling better remains afebrile, WBC trending down, patient is eager to be discharged home therefore will discharge him on 5 more days of by mouth Augmentin, recommend to continue daily dressing and have outpatient follow-up with General surgery in 7-10 days and with primary care physician in 1 week. In regard to diabetes mellitus type 1 he has been recommended to resume his pump, and continue baseline medications as before Time Spent with Patient Time attestation: Total time spent providing and/or coordinating discharge services: Discharge coordination time: Greater than 30 minutes Quality: Stroke Does the patient have a stroke diagnosis?: No Physical Exam Vital Signs: Vital Signs: Last Vital Signs Temp 97.3 F 10/23/20 11:40 Pulse 90 10/23/20 11:40 Resp 15 10/23/20 11:40 BP 138/81 10/23/20 11:40 Pulse Ox 98 10/23/20 11:40 Body Mass Index 33.2 General - no acute distress, appears comfortable Cardiovascular - regular rate and rhythm, S1-S2 Lungs - normal respiratory effort, clear to auscultation bilaterally, no wheezing Abdomen - soft, nontender, no rebound or guarding, dressing to right lower abdominal in place, no drainage noted. Extremities - no edema bilaterally Neuro - awake and alert, no focal deficits DS: Data Data Completed and Pending Labs on day of discharge: Laboratory Results - last 24 hr 10/22/20 10/22/20 10/23/20 15:43 20:13 07:25 POC Glucose 219 H 187 H 399 H* 10/23/20 11:39 POC Glucose 236 H Preliminary micro results at discharge 10/20/20 17:42 Blood Culture - Preliminary Blood - Venous No growth after 48 hours. 10/20/20 17:19 Blood Culture - Preliminary Blood - Venous No growth after 48 hours. Discharge Plan Discharge Patient Disposition: Home, Self-Care Discharge Diagnosis: Anterior abdominal wall abscess/cellulitis Diabetes mellitus type 1 Referrals: Aubree Pinto MD [Primary Care Provider] - 1 Week Discharge Medications: New amoxicillin-pot clavulanate [Augmentin] 875-125 mg tablet 1 tab PO BID Qty: 10 RF: 0 Continued Lantus Solostar U-100 Insulin 100 unit/mL (3 mL) insulin pen 30 unit subcut DAILY 30 Days Qty: 15 RF: 6 atorvastatin 40 mg tablet 1 tab PO BEDTIME RF: 0 aspirin 81 mg tablet,delayed release (DR/EC) 1 tab PO DAILY RF: 0 sildenafil [Viagra] 100 mg tablet 0.5 tab PO DAILY PRN (Reason: Erectile Dysfunction) RF: 0 insulin aspart U-100 [Novolog U-100 Insulin aspart] 100 unit/mL solution 0 - 130 unit subcut DAILY RF: 0 lisinopril 5 mg tablet 1 tab PO DAILY RF: 0 Trulicity 0.75 mg/0.5 mL pen injector 1 mg subcut QWEEK RF: 0 Discharge Orders: Discharge Order (Routine); Ordered 10/23/20 Ordered By: Sachin Kong Diet: diabetic diet Activity on Discharge: As tolerated Stand Alone Forms: Patient Portal Discharge page Care Plan Goals: Continue daily dressing to abdominal wall abscess, return to check with any worsening redness fever chills, take Augmentin for 5 more days. Health Concerns: Abdominal wall abscess/diabetes mellitus type 1 Plan of Treatment: Outpatient follow-up with general surgeon in 7-10 days outpatient follow-up with primary care physician in 1 week Assessment: As above
--- NOTE | 2020-10-23 14:15 | MHC.CM.PN ---
Addendum entered by Marycruz Day RN 10/23/20 14:17: PT TO FOLLOW-UP W/DR ZHONG IN 7-10 DAYS. Original Note: PT DISCHARGING HOME SELF-CARE, PT CONFIDENT HE AND CAN PERFORM WOUND CARE AND DRESSING CHANGES, PT'S WILL TRANSPORT.
--- NOTE | 2020-10-23 14:49 | PM.PNGS ---
Subjective Subjective Date of Service: 10/23/20 Interval history: Patient reports feeling much improved with decreased abdominal pain and decreased swelling. Physical Exam Vital Signs: Vital Signs: Last Vital Signs Temp 97.3 F 10/23/20 11:40 Pulse 90 10/23/20 11:40 Resp 15 10/23/20 11:40 BP 138/81 10/23/20 11:40 Pulse Ox 98 10/23/20 11:40 Body Mass Index 33.2 Const: General: well developed and alert Nutritional Appearance: well nourished Orientation/consciousness: patient oriented x3 GI: Other: I and D site in the right lower quadrant is clean and intact. Dressings were changed in packing removed. Clean dressings were applied. The erythema is much improved. There is no residual fluctuance identified. No further drainage is noted. Skin: Other: Warm and dry, no rash Neuro: General: patient oriented x3 Progress Note: A&P Assessment and plan (1) Abscess: Status: Acute Assessment and Plan: Patient is status post incision and drainage of an abscess of the right lower quadrant yesterday. He tolerated the procedure well and feels much improved today. Dressings were changed and packing removed. He was instructed on local wound care and will return to the office in approximately 1 week for wound check. He should call sooner for any concerns. Time Spent With Patient Time: Total time spent is greater than 50% in coordination of care (as documented) at patient's floor/unit and/or counseling patient: Time with patient: 15 - 24 minutes Procedures Date of Service Date of Service: 10/23/20 Quality Stroke Does the patient have a stroke diagnosis?: No VTE Prior VTE?: No VTE Risk Level:: Medical - moderate - high VTE Device Contraindication: Treatment Not Indicated VTE Drug Contraindication: N/A - Med Ordered
== END 2020-10-23 14:33 | disposition home or self-care (01) | DRG 721 ==
LOC: HO.ED 20:11 → HO.EDOVER 22:43 → HO.S3 10-21 03:20
PROVIDERS: Family Medicine; Nurse Practitioner Family; Student in an Organized Health Care Education/Training Program; Admitting Provider Internal Medicine; Emergency Provider Internal Medicine; PCP Family Medicine; Visit Provider Hospitalist
DX: T85.72XA Infection and inflammatory reaction due to insulin pump, initial encounter (principal); A41.9 Sepsis, unspecified organism; E10.65 Type 1 diabetes mellitus with hyperglycemia; L02.211 Cutaneous abscess of abdominal wall; L03.311 Cellulitis of abdominal wall; E78.5 Hyperlipidemia, unspecified; I10 Essential (primary) hypertension; Z79.82 Long term (current) use of aspirin; Z79.899 Other long term (current) drug therapy
CPT/HCPCS: 36415; 74177; 80048; 81001; 82947; 83605; 84484; 85025; 85027; 87040; 93005; 99024; 99285; J0696; J1650; J1885; J2270; Q9967

== ENCOUNTER → 2020-10-29 13:12 | Outpatient (BNVA) | payer OTHER, SELFPAY | PROVIDERS: PCP Family Medicine; Visit Provider Surgery | DX: Z09 Encounter for follow-up examination after completed treatment for conditions other than malignant neoplasm (principal); Z87.2 Personal history of diseases of the skin and subcutaneous tissue | CPT/HCPCS: 99212 ==

== ENCOUNTER 2020-12-14 07:09 | Outpatient (REF) | payer OTHER, SELFPAY ==
[2020-12-14 08:43] LABS: Blood Urea Nitrogen 19 mg/dL (9-16); Estimated Glomerular Filt Rate > 60
[2020-12-16 11:56] LABS: Anti Glomerular Basement Memb <1.0 AI
== END 2020-12-14 07:10 | disposition home or self-care (01) ==
LOC: HO.LAB 07:09
PROVIDERS: PCP Family Medicine; Visit Provider Family Medicine
DX: N18.30 Chronic kidney disease, stage 3 unspecified (principal)
CPT/HCPCS: 36415; 82565; 83520; 84520

== ENCOUNTER 2020-12-16 12:33 | Outpatient (REF) | payer OTHER, SELFPAY ==
--- NOTE | ~2020-12-16 | CT_ITS ---
EXAMINATION: CT ABDOMEN AND PELVIS WITH CONTRAST CLINICAL INFORMATION: Right lower quadrant pain COMPARISON: Previous CT of the abdomen and pelvis most recent October 2020 TECHNIQUE: Multidetector volumetric images were obtained from the superior aspect of the liver through the pubic symphysis following administration 85 mL of Omnipaque 350 intravenous contrast. Sagittal and coronal reformatted images were obtained on the technologist's workstation. Oral contrast: Yes This CT examination was performed using dose optimization techniques as appropriate, variously including the following: *Automated exposure control *Adjustment of mA and/or kV according to patient size (this includes techniques or standardized protocols for targeted exams where dose is matched to indication/reason for exam; i.e. extremities or head) *Use of iterative reconstruction technique DLP: 1315 mGy-cm FINDINGS: LUNG BASES: The visualized lung bases are unremarkable. LIVER, GALLBLADDER, AND BILIARY TREE: There are small calcifications in the liver. The liver is otherwise unremarkable. The gallbladder is unremarkable. There is no biliary duct dilatation. PANCREAS: Unremarkable. SPLEEN: Unremarkable. ADRENAL GLANDS: Unremarkable. KIDNEYS AND URETERS: The kidneys are normal in size, shape, and attenuation. No hydronephrosis, hydroureter, or calculi seen. No perinephric stranding. BLADDER: Unremarkable. GASTROINTESTINAL TRACT: There is diverticulosis of the colon. The small and large bowel are otherwise unremarkable. The appendix is unremarkable. ABDOMINAL WALL: There is an umbilical hernia containing fat. LYMPH NODES: Normal. VASCULAR: Unremarkable. PELVIC VISCERA: Unremarkable. OSSEOUS STRUCTURES: Unremarkable. CT/CT abdomen pelvis w con IMPRESSION: Umbilical hernia containing fat. Diverticulosis of the colon. No evidence of diverticulitis.
[2020-12-16] MEDS: Barium Sulfate Oral (Vanilla) 450 ML ORAL.SUSP 900 ML PO (16:13)
[2020-12-16] MEDS: iohexoL 350 MG/ML 100 ML INFUS..BTL IV (16:13)
== END 2020-12-16 12:34 | disposition home or self-care (01) ==
LOC: HO.CT 12:33
PROVIDERS: PCP Family Medicine; Visit Provider Family Medicine
DX: R10.31 Right lower quadrant pain (principal)
CPT/HCPCS: 74177; Q9967

== ENCOUNTER 2021-04-19 08:11 | Outpatient (REF) | payer OTHER, SELFPAY ==
[2021-04-19 08:25] LABS: MANUAL DIFF FLAG NO
[2021-04-19 08:40] LABS: Basophils Percent Auto 0.4 % (0-2); Eosinophils Absolute Auto 0.2 X10*3/uL (0.0-0.4); Eosinophils Percent Auto 2.2 % (0-4); Hematocrit 45.4 % (42.0-52.0); Hemoglobin 15.3 g/dl (14.0-18.0); Imm Gran Abs Auto 0.03 X10*3/uL (0.00-0.03); Imm Gran Pct Auto 0.4 % (0.0-0.4); Lymphocytes Absolute Auto 2.4 X10*3/uL (1.2-4.9); Lymphocytes Percent Auto 29.3 % (20-40); Mean Corpuscular HGB Conc 33.7 g/dl (31.0-36.0); Mean Corpuscular Hemoglobin 29.4 pg (27.0-33.0); Mean Corpuscular Volume 87.1 fL (80.0-98.0); Mean Platelet Volume 10.1 fL (9.4-12.4); Monocytes Absolute Auto 0.6 X10*3/uL (0.1-1.2); Monocytes Percent Auto 7.6 % (2-11); Neutrophils Absolute Auto 4.9 x10*3/uL (2.0-8.3); Neutrophils Percent Auto 60.1 % (45-73); Platelet Count 316 X10*3/uL (160-400); Red Blood Count 5.21 X10*6/uL (4.60-5.80); Red Cell Distribution Width 12.4 % (11.0-16.0); White Blood Count 8.1 X10*3/uL (4.8-10.8)
[2021-04-19 09:00] LABS: Estimated Average Glucose 246 mg/dL; Hemoglobin A1c % 10.2 %
[2021-04-19 09:13] LABS: Alanine Aminotransferase 15 U/L (0-40); Albumin Level 4.1 g/dL (3.5-5.0); Alkaline Phosphatase 119 U/L (39-117); Anion Gap 11 (12-20); Aspartate Amino Transferase 15 U/L (5-37); Bilirubin Total 0.6 mg/dL (0.0-1.0); Blood Urea Nitrogen 12 mg/dL (9-16); Calcium 9.5 mg/dL (8.4-10.2); Carbon Dioxide 25 mmol/L (22-29); Chloride 104 mmol/L (96-108); Cholesterol 142 mg/dL; Estimated Glomerular Filt Rate > 60; Glucose Random 347 mg/dL (60-115); HDL Cholesterol 40 mg/dL; LDL Cholesterol Calculated 89 mg/dl; Potassium 4.4 mmol/L (3.3-5.1); Sodium 136 mmol/L (135-145); Total Protein 7.1 g/dL (6.5-8.0); Triglycerides 67 mg/dL
[2021-04-19 09:21] LABS: Creatinine Urine 97.53 mg/dL; Microalbum/Creatinine Ratio Ur 28.7 ug/mg cr
[2021-04-19 09:35] LABS: TSH reflex Free T4 1.36 uIU/mL (0.32-4.0)
== END 2021-04-19 08:12 | disposition home or self-care (01) ==
LOC: HO.LAB 08:11
PROVIDERS: PCP Family Medicine; Visit Provider Family Medicine
DX: E10.65 Type 1 diabetes mellitus with hyperglycemia (principal); N18.30 Chronic kidney disease, stage 3 unspecified
CPT/HCPCS: 36415; 80053; 80061; 82043; 83036; 84443; 85025

== ENCOUNTER → 2021-05-15 14:24 | Outpatient (BNVA) | payer OTHER, SELFPAY | PROVIDERS: PCP Family Medicine; Visit Provider Registered Nurse Diabetes Educator ==

== ENCOUNTER → 2021-06-12 13:56 | Outpatient (BNVA) | payer OTHER, SELFPAY | PROVIDERS: PCP Family Medicine; Visit Provider Registered Nurse Diabetes Educator ==

== ENCOUNTER 2021-07-24 14:57 | Outpatient (REF) | payer OTHER, SELFPAY ==
[2021-07-29 15:45] LABS: Glutamic acid decarboxylase Ab >250 IU/mL (<5)
== END 2021-07-24 14:58 | disposition home or self-care (01) ==
LOC: HO.LAB 14:57
PROVIDERS: PCP Family Medicine; Visit Provider Internal Medicine Endocrinology, Diabetes & Metabolism
DX: E13.9 Other specified diabetes mellitus without complications (principal)
CPT/HCPCS: 36415; 82947; 83036; 86341

== ENCOUNTER → 2021-10-30 15:04 | Outpatient (BNVA) | payer OTHER, SELFPAY | PROVIDERS: PCP Family Medicine; Visit Provider Internal Medicine Endocrinology, Diabetes & Metabolism | DX: E13.9 Other specified diabetes mellitus without complications (principal) | CPT/HCPCS: 82947 ==

== ENCOUNTER → 2022-02-20 12:56 | Outpatient (BNVA) | payer OTHER, SELFPAY | PROVIDERS: PCP Family Medicine; Visit Provider Internal Medicine Endocrinology, Diabetes & Metabolism | DX: E11.65 Type 2 diabetes mellitus with hyperglycemia (principal) | CPT/HCPCS: 82947; 83036 ==

== ENCOUNTER 2022-04-04 07:11 | Outpatient (REF) | payer OTHER, SELFPAY ==
[2022-04-04 08:24] LABS: Anion Gap 13 (12-20); Blood Urea Nitrogen 17 mg/dL (9-16); Carbon Dioxide 24 mmol/L (22-29); Chloride 106 mmol/L (96-108); Cholesterol 126 mg/dL; Estimated Glomerular Filt Rate > 60; Glucose Random 215 mg/dL (60-115); HDL Cholesterol 38 mg/dL; LDL Cholesterol Calculated 79 mg/dl; Potassium 4.6 mmol/L (3.3-5.1); Sodium 138 mmol/L (135-145); Triglycerides 46 mg/dL
[2022-04-04 08:50] LABS: Creatinine Urine 163.76 mg/dL; Microalbum/Creatinine Ratio Ur 14.6 ug/mg cr
== END 2022-04-04 07:12 | disposition home or self-care (01) ==
LOC: HO.LAB 07:11
PROVIDERS: Absent Provider Nurse Practitioner Family; PCP Family Medicine; Visit Provider Internal Medicine Endocrinology, Diabetes & Metabolism
DX: E13.9 Other specified diabetes mellitus without complications (principal)
CPT/HCPCS: 36415; 80048; 80061; 82043

== ENCOUNTER 2022-04-11 07:26 | Outpatient (REF) | payer OTHER, SELFPAY ==
--- NOTE | ~2022-04-11 | XR_ITS ---
EXAMINATION: XR LUMBAR SPINE WITH BENDING VIEWS XR HIPS WITH AP PELVIS, BILATERAL CLINICAL INFORMATION: Pain in right hip. COMPARISON: None TECHNIQUE: AP pelvis 1 view. 2 views each hip. Lumbar spine 6 views. FINDINGS: LUMBAR SPINE: There is normal lumbar lordosis. The vertebral heights, alignment and disc heights are normal. On flexion-extension views, there is no subluxation seen. No aggressive lytic or sclerotic process seen. SI joints are symmetrical. There is minimal ventral endplate spondylosis. The soft tissues are normal. AP PELVIS: There is normal symmetry of bilateral hip joints and SI joints. No visible acute fracture, dislocation or subluxation seen. RIGHT HIP: The right hip joint space is maintained. No visible fracture, dislocation. No bony erosive changes. The soft tissues are normal. LEFT HIP: The left hip joint space is maintained normal. No visible acute fracture or dislocation. No bony erosive changes. The soft tissues are normal. XR/XR hip BI w PEL1V IMPRESSION: 1. Unremarkable lumbar spine exam. 2. Unremarkable AP pelvis and bilateral hip exam.
--- NOTE | ~2022-04-11 | XR_ITS ---
EXAMINATION: XR LUMBAR SPINE WITH BENDING VIEWS XR HIPS WITH AP PELVIS, BILATERAL CLINICAL INFORMATION: Pain in right hip. COMPARISON: None TECHNIQUE: AP pelvis 1 view. 2 views each hip. Lumbar spine 6 views. FINDINGS: LUMBAR SPINE: There is normal lumbar lordosis. The vertebral heights, alignment and disc heights are normal. On flexion-extension views, there is no subluxation seen. No aggressive lytic or sclerotic process seen. SI joints are symmetrical. There is minimal ventral endplate spondylosis. The soft tissues are normal. AP PELVIS: There is normal symmetry of bilateral hip joints and SI joints. No visible acute fracture, dislocation or subluxation seen. RIGHT HIP: The right hip joint space is maintained. No visible fracture, dislocation. No bony erosive changes. The soft tissues are normal. LEFT HIP: The left hip joint space is maintained normal. No visible acute fracture or dislocation. No bony erosive changes. The soft tissues are normal. XR/XR lumbar spine 6V w bending IMPRESSION: 1. Unremarkable lumbar spine exam. 2. Unremarkable AP pelvis and bilateral hip exam.
[2022-04-11 08:42] LABS: Estimated Average Glucose 200 mg/dL; Hemoglobin A1c % 8.6 %
== END 2022-04-11 07:27 | disposition home or self-care (01) ==
LOC: HO.LAB 07:26
PROVIDERS: PCP Family Medicine; Referring Provider Internal Medicine Endocrinology, Diabetes & Metabolism; Visit Provider Nurse Practitioner Family
DX: M47.816 Spondylosis without myelopathy or radiculopathy, lumbar region (principal); M16.0 Bilateral primary osteoarthritis of hip; G89.29 Other chronic pain; E13.9 Other specified diabetes mellitus without complications
CPT/HCPCS: 36415; 72114; 73521; 83036

== ENCOUNTER → 2022-04-13 15:18 | Outpatient (BNVA) | payer OTHER, SELFPAY | PROVIDERS: PCP Family Medicine; Visit Provider Registered Nurse Diabetes Educator | DX: Z13.89 Encounter for screening for other disorder (principal) ==

== ENCOUNTER → 2022-05-11 13:06 | Outpatient (BNVA) | payer OTHER, SELFPAY | PROVIDERS: PCP Family Medicine; Visit Provider Nurse Practitioner Family | DX: M53.3 Sacrococcygeal disorders, not elsewhere classified (principal) ==

== ENCOUNTER → 2022-05-19 14:26 | Outpatient (BNVA) | payer OTHER, SELFPAY | PROVIDERS: PCP Family Medicine; Visit Provider Internal Medicine Endocrinology, Diabetes & Metabolism | DX: E13.9 Other specified diabetes mellitus without complications (principal); Z79.4 Long term (current) use of insulin; Z96.41 Presence of insulin pump (external) (internal) | CPT/HCPCS: 82947 ==

== ENCOUNTER 2022-06-02 06:08 | Outpatient (REF) | payer OTHER, SELFPAY ==
--- NOTE | ~2022-06-02 | FL_ITS ---
EXAMINATION: XR FLUOROSCOPY WITH IMAGES CLINICAL INFORMATION: Sacrococcygeal disorders. COMPARISON: None. TECHNIQUE: Fluoroscopy Supervised By: LUCRETIA Reid. Fluoroscopy Time: 0.3 minutes. Cumulative Dose: 11.3 mGy. DAP: 3.09 Gycm2. Images: 2. FINDINGS: There are 2 digital images obtained with needle positioned at the SI joints with contrast opacifying the soft tissues. FL/FL guidance in treatment room IMPRESSION: Fluoroscopy guidance was provided to the referrer for pain management.
== END 2022-06-02 06:09 | disposition home or self-care (01) ==
LOC: CF 06:08
PROVIDERS: Visit Provider Anesthesiology
DX: M53.3 Sacrococcygeal disorders, not elsewhere classified (principal)
CPT/HCPCS: 27096

== ENCOUNTER → 2022-06-09 14:19 | Outpatient (BNVA) | payer OTHER, SELFPAY | PROVIDERS: PCP Family Medicine; Visit Provider Nurse Practitioner Family | DX: Z13.89 Encounter for screening for other disorder (principal) ==

== ENCOUNTER 2022-06-25 17:21 | Outpatient (REF) | payer OTHER, SELFPAY ==
--- NOTE | ~2022-06-25 | MR_ITS ---
EXAMINATION: MR LUMBAR SPINE WITHOUT CONTRAST CLINICAL INFORMATION: Back pain radiating to legs COMPARISON: None TECHNIQUE: MRI of the lumbar spine was obtained using routine sequences without contrast. 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 Normal anatomic alignment. No suspicious marrow signal or focal osseous lesion. Small L5 superior endplate Schmorl's node The vertebral body heights are maintained. Mild disc desiccation with preservation of disc space height at L3-L4. The conus medullaris terminates at the level of L1. The distal spinal cord is normal in appearance. The cauda equina nerve roots appear normal. No significant abnormalities of the paraspinal musculature.. Limited evaluation of the intra-abdominal structures without significant abnormalities. The abdominal aorta is of normal contour and caliber. SPINAL LEVELS: L1-L2: No significant spinal canal or neuroforaminal narrowing. L2-L3: No significant spinal canal or neuroforaminal narrowing. L3-L4: No significant spinal canal or neuroforaminal narrowing. L4-L5: No significant spinal canal or neuroforaminal narrowing. L5-S1: No significant degenerative spinal canal or neuroforaminal narrowing. Circumferential epidural fat results in near effacement of the thecal sac. MR/MR lumbar spine wo con IMPRESSION: Motion degraded examination. 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 At L5-S1, there is near effacement of the thecal sac related to circumferential epidural fat.
== END 2022-06-25 17:22 | disposition home or self-care (01) ==
LOC: HO.MRI 17:21
PROVIDERS: PCP Family Medicine; Visit Provider Nurse Practitioner Family
DX: M47.816 Spondylosis without myelopathy or radiculopathy, lumbar region (principal); M54.16 Radiculopathy, lumbar region; M62.830 Muscle spasm of back
CPT/HCPCS: 72148

== ENCOUNTER 2022-06-27 07:12 | Outpatient (REF) | payer OTHER, SELFPAY ==
[2022-06-27 08:09] LABS: Alanine Aminotransferase 20 U/L (0-40); Albumin Level 4.2 g/dL (3.5-5.0); Alkaline Phosphatase 106 U/L (39-117); Anion Gap 18 (12-20); Aspartate Amino Transferase 17 U/L (5-37); Bilirubin Direct < 0.2 mg/dL (0.0-0.5); Bilirubin Total 0.4 mg/dL (0.0-1.0); Blood Urea Nitrogen 17 mg/dL (9-16); Calcium 9.5 mg/dL (8.4-10.2); Carbon Dioxide 20 mmol/L (22-29); Chloride 105 mmol/L (96-108); Estimated Glomerular Filt Rate > 60; Glucose Random 231 mg/dL (60-115); Potassium 5.2 mmol/L (3.3-5.1); Sodium 138 mmol/L (135-145); Total Protein 7.2 g/dL (6.5-8.0)
[2022-06-29 03:58] LABS: HIV AB/AG Nonreactive (Nonreactive); HIV Num 1 0.08 S/CO (0.00-0.99)
== END 2022-06-27 07:13 | disposition home or self-care (01) ==
LOC: HO.LAB 07:12
PROVIDERS: PCP Family Medicine; Visit Provider Family Medicine
DX: Z11.4 Encounter for screening for human immunodeficiency virus [HIV] (principal); E10.65 Type 1 diabetes mellitus with hyperglycemia; Z86.19 Personal history of other infectious and parasitic diseases
CPT/HCPCS: 36415; 80048; 80076; 87389

== ENCOUNTER → 2022-06-29 13:06 | Outpatient (BNVA) | payer OTHER, SELFPAY | PROVIDERS: PCP Family Medicine; Visit Provider Nurse Practitioner Family | DX: Z13.89 Encounter for screening for other disorder (principal) ==

== ENCOUNTER 2022-07-25 07:25 | Outpatient (REF) | payer OTHER, SELFPAY ==
[2022-07-25 08:15] LABS: Estimated Average Glucose 189 mg/dL; Hemoglobin A1c % 8.2 %
== END 2022-07-25 07:26 | disposition home or self-care (01) ==
LOC: HO.LAB 07:25
PROVIDERS: PCP Family Medicine; Visit Provider Nurse Practitioner Family
DX: E10.21 Type 1 diabetes mellitus with diabetic nephropathy (principal); E66.9 Obesity, unspecified
CPT/HCPCS: 36415; 83036

== ENCOUNTER → 2022-07-28 15:03 | Outpatient (BNVA) | payer OTHER, SELFPAY | PROVIDERS: PCP Family Medicine; Visit Provider Nurse Practitioner Family | DX: M70.61 Trochanteric bursitis, right hip (principal); M70.62 Trochanteric bursitis, left hip; M53.3 Sacrococcygeal disorders, not elsewhere classified; M47.26 Other spondylosis with radiculopathy, lumbar region | CPT/HCPCS: 99212 ==

== ENCOUNTER → 2022-08-18 15:29 | Outpatient (BNVA) | payer OTHER, SELFPAY | PROVIDERS: PCP Family Medicine; Visit Provider Internal Medicine Endocrinology, Diabetes & Metabolism | DX: E13.65 Other specified diabetes mellitus with hyperglycemia (principal); E13.21 Other specified diabetes mellitus with diabetic nephropathy; Z96.41 Presence of insulin pump (external) (internal); Z79.4 Long term (current) use of insulin | CPT/HCPCS: 82947 ==

== ENCOUNTER 2022-08-25 06:18 | Outpatient (REF) | payer OTHER, SELFPAY | END 2022-08-25 06:19 | disposition home or self-care (01) | LOC: CF 06:18 | PROVIDERS: Visit Provider Anesthesiology | DX: Z13.89 Encounter for screening for other disorder (principal) ==

== ENCOUNTER 2022-09-18 07:39 | Outpatient (REF) | payer OTHER, SELFPAY ==
--- NOTE | ~2022-09-18 | XR_ITS ---
EXAMINATION: XR ELBOW, BILATERAL CLINICAL INFORMATION: Pain. COMPARISON: 12/24/2016 TECHNIQUE: Three views of each elbow. FINDINGS: Three views of the left elbow do not demonstrate any evidence of acute fracture or dislocation. No effusion is evident. There is calcific tendinitis about the lateral epicondyle. There is olecranon spurring at site of insertion of the triceps tendon. There is minimal coronoid process spurring. Three views of the right elbow do not demonstrate any evidence of acute fracture or dislocation. Joint spaces are maintained. There is some calcification seen about the medial and lateral epicondyles consistent with calcific tendinitis. There is a small olecranon spur at site of insertion of the triceps tendon. There is minimal spurring of the coronoid process. No effusion is identified. XR/XR elbow LT min 3V IMPRESSION: Medial and lateral calcific tendinitis/epicondylitis of the right elbow. Lateral calcific tendinitis/epicondylitis of the left elbow.
--- NOTE | ~2022-09-18 | XR_ITS ---
EXAMINATION: XR ELBOW, BILATERAL CLINICAL INFORMATION: Pain. COMPARISON: 12/24/2016 TECHNIQUE: Three views of each elbow. FINDINGS: Three views of the left elbow do not demonstrate any evidence of acute fracture or dislocation. No effusion is evident. There is calcific tendinitis about the lateral epicondyle. There is olecranon spurring at site of insertion of the triceps tendon. There is minimal coronoid process spurring. Three views of the right elbow do not demonstrate any evidence of acute fracture or dislocation. Joint spaces are maintained. There is some calcification seen about the medial and lateral epicondyles consistent with calcific tendinitis. There is a small olecranon spur at site of insertion of the triceps tendon. There is minimal spurring of the coronoid process. No effusion is identified. XR/XR elbow RT min 3V IMPRESSION: Medial and lateral calcific tendinitis/epicondylitis of the right elbow. Lateral calcific tendinitis/epicondylitis of the left elbow.
== END 2022-09-18 07:40 | disposition home or self-care (01) ==
LOC: HO.HOSX 07:39
PROVIDERS: Visit Provider Physician Assistant
DX: R20.0 Anesthesia of skin (principal); M77.11 Lateral epicondylitis, right elbow; M77.12 Lateral epicondylitis, left elbow; E11.9 Type 2 diabetes mellitus without complications
CPT/HCPCS: 20551; 73080; J1020

== ENCOUNTER 2022-10-15 14:48 | Outpatient (AMB) | payer OTHER, SELFPAY ==
--- NOTE | 2022-10-15 15:34 | MHC.AMDMED ---
Intake Intake Visit Reasons: DM pump Allergies liraglutide Allergy (Unknown, Verified 09/18/22 15:12) Unknown HPI Comprehensive Diabetes Asmnt Most Recent Diabetes Results: Creatinine 0.84 mg/dL (0.5-1.4) 06/27/22 Blood Urea Nitrogen 17 mg/dL (9-16) H 06/27/22 Sodium 138 mmol/L (135-145) 06/27/22 Potassium 5.2 mmol/L (3.3-5.1) H 06/27/22 Chloride 105 mmol/L (96-108) 06/27/22 Carbon Dioxide 20 mmol/L (22-29) L 06/27/22 Calcium 9.5 mg/dL (8.4-10.2) 06/27/22 AST 17 U/L (5-37) 06/27/22 ALT 20 U/L (0-40) 06/27/22 Total Protein 7.2 g/dL (6.5-8.0) 06/27/22 Albumin 4.2 g/dL (3.5-5.0) 06/27/22 [facility] Medical History Diabetic nephropathy associated with type 1 diabetes mellitus Elevated serum creatinine Hypertension 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), managed as type 1 Obesity (BMI 30-39.9) Vitamin D deficiency Surgical History Hx of exploratory laparotomy Family History Father Diabetes Mother Diabetes Social History Household Members: Spouse and Children Housing: House Do you presently have visiting nurse or other home services: No Alcohol intake: current Alcohol intake frequency: holidays/special occasions only Alcohol type: beer Patient Tobacco Use Status: Never used Tobacco service: No Current occupational status: employed 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 Patient understands the basic concepts of pump therapy, how to give insulin for meals and snacks, how to troubleshoot for hyper and hypoglycemia. Setting verified by [facility], changes made to current basal rate based on patient's last visit with Dr. Silvestre Basal rate(s) (units/hour) : 12 AM? to 5 AM? 2.0 units / hr 5 AM? to 12 PM? 1.75 units / hr 12 PM? to 12 AM? 2.0 units / hr Bolus setting Insulin Carbohydrate Ratio (s) 12 AM to 4 AM? 1:3.5 New 12 AM to 4 AM? 1:3 4 AM to 12 AM 1:3?New 4 AM to 12 AM 1:3.5 Correction Factor / Sensitivity Factor 12 AM to 12 AM?? 1:15 Active Insulin Time:? 2 hours Target(s): 12 AM to !2 AM?? 120 to 120 Medications: Discontinued tizanidine Discontinued Reason: Doctor's Order 2 mg PO TID 30 days PRN 90 tabs 0RF muscle spasticity M54.16 - Radiculopathy, lumbar region, M62.830 - Muscle spasm of back Patient Instructions: Follow-up with ems educator in 2 months Coding Level of Care Code Est Pt Level 1 (57318) Diagnoses Diabetic nephropathy associated with type 1 diabetes mellitus E10.21
== END 2022-10-15 15:36 | disposition home or self-care (01) ==
PROVIDERS: PCP Family Medicine; Visit Provider Registered Nurse Diabetes Educator
DX: E10.21 Type 1 diabetes mellitus with diabetic nephropathy (principal)

== ENCOUNTER → 2022-10-15 14:48 | Outpatient (BNVA) | payer OTHER, SELFPAY | PROVIDERS: PCP Family Medicine; Visit Provider Registered Nurse Diabetes Educator | DX: E10.21 Type 1 diabetes mellitus with diabetic nephropathy (principal); Z46.81 Encounter for fitting and adjustment of insulin pump; Z79.4 Long term (current) use of insulin | CPT/HCPCS: 99211 ==

== ENCOUNTER 2022-11-17 06:04 | Outpatient (REF) | payer OTHER, SELFPAY | END 2022-11-17 06:05 | disposition home or self-care (01) | LOC: CF 06:04 | PROVIDERS: Visit Provider Anesthesiology | DX: Z13.89 Encounter for screening for other disorder (principal) ==

== ENCOUNTER 2022-11-24 06:09 | Outpatient (REF) | payer OTHER, SELFPAY | END 2022-11-24 06:10 | disposition home or self-care (01) | LOC: CF 06:09 | PROVIDERS: Visit Provider Anesthesiology | DX: M70.61 Trochanteric bursitis, right hip (principal); M70.62 Trochanteric bursitis, left hip; M53.3 Sacrococcygeal disorders, not elsewhere classified; M47.816 Spondylosis without myelopathy or radiculopathy, lumbar region; M54.16 Radiculopathy, lumbar region | CPT/HCPCS: 20611; J2795; J3301 ==

== ENCOUNTER 2022-11-24 14:52 | Outpatient (AMB) | payer OTHER, SELFPAY ==
[2022-11-24 15:05] VITALS: BP 108/70; PULSE 65; RESP 19; O2SAT 97; BMI 37.2
--- NOTE | 2022-11-24 15:05 | MHC.OFFVIS ---
Intake Vital Signs 11/24/22 15:05 11/24/22 15:31 Height 5 ft 9 in 5 ft 9 in Weight 252 lb 252 lb BMI 37.2 37.2 BP 108/70 120/86 Blood Pressure Location Lt brachial Lt brachial Position Supine Sitting Respiration 19 19 Pulse 65 100 Pulse Source Pulse Oximeter Pulse Oximeter Pulse Oximetry (%) 97 95 Oxygen Delivery Method Room Air Room Air Comment pre-op post-op Intake Visit Reasons: BILATERAL GREATER TROCHANTERIS BURSA INJECTIONS Allergies liraglutide Allergy (Unknown, Verified 11/24/22 15:33) Unknown [facility] Medical History Diabetic nephropathy associated with type 1 diabetes mellitus Elevated serum creatinine Hypertension 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), managed as type 1 Obesity (BMI 30-39.9) Vitamin D deficiency Surgical History Hx of exploratory laparotomy Family History Father Diabetes Mother Diabetes Social History Household Members: Spouse and Children Housing: House Do you presently have visiting nurse or other home services: No Alcohol intake: current Alcohol intake frequency: holidays/special occasions only Alcohol type: beer Patient Tobacco Use Status: Never used Tobacco service: No Current occupational status: employed 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 Informed consent was thoroughly explained to the patient before the procedure.? The patient came to the examination room.? He was positioned left lateral decubital on bed.? Time-out was performed delineating correct site and side of the procedure, nature of the injection, name and date of of the patient. The non dependent right trochanteric area was prepped with ChloraPrep and draped with sterile utility towels.? Sterilely draped ultrasound probe was brought over the operating field and picture of the trochanter was demonstrated on the screen. Trochanteric bursa was noted in the tissue. Using 1/2 inch 25 gauge needle 5 cc of ropivacaine mixed with Kenalog 20 mg was spread in fan-like fashion in the projection of the trochanteric bursa under direct vision. After that sterile Band-Aid was applied, patient was turned on the right side and the procedure was performed on the left under ultrasound guidance in the same very fashion as above. Patient tolerated procedure well. He left without immediate complications. (2) Sacroiliac joint pain: Code(s): M53.3 - Sacrococcygeal disorders, not elsewhere classified (3) Lumbar spondylosis: Code(s): M47.816 - Spondylosis without myelopathy or radiculopathy, lumbar region (4) Lumbar radiculopathy: Code(s): M54.16 - Radiculopathy, lumbar region Plan Schedule for Bilateral GTB steroid injections with local and fluoroscopy. AP pelvis and bilateral hip imaging was normal. Patient continues to reports bilateral hip pain that radiates to his groins and lateral hip. Encouraged daily physical activity, adequate hydration, healthy food choices, good posture, activity modifications, and weight optimization. All questions and concerns have been answered and patient agreed with the plan. All questions and concerns have been answered and patient agreed with the plan. Follow up after injection and sooner if needed. I hereby testify that I spent 8 minutes in conversation with this patient as well as with planning and coordinating care for this patient and organizing this note. Coding Level of Care Code Procedure Only Diagnoses Greater trochanteric bursitis of both hips M70.61; M70.62 Sacroiliac joint pain M53.3 Lumbar spondylosis M47.816 Lumbar radiculopathy M54.16
[2022-11-24 15:31] VITALS: BP 120/86; PULSE 100; RESP 19; O2SAT 95; BMI 37.2
== END 2022-11-24 15:23 | disposition home or self-care (01) ==
LOC: HO.PMCPRC 14:52
PROVIDERS: PCP Family Medicine; Visit Provider Anesthesiology
DX: M70.61 Trochanteric bursitis, right hip (principal); M70.62 Trochanteric bursitis, left hip
CPT/HCPCS: 20611

== ENCOUNTER 2022-12-21 14:45 | Outpatient (AMB) | payer OTHER, SELFPAY ==
--- NOTE | 2022-12-21 14:55 | A.OFFVIS_ITS ---
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), managed as type 1 Obesity (BMI 30-39.9) Vitamin D deficiency Surgical History Hx of exploratory laparotomy Family History Father Diabetes Mother Diabetes Social History Household Members: Spouse and Children Housing: House Do you presently have visiting nurse or other home services: No Alcohol intake: current Alcohol intake frequency: holidays/special occasions only Alcohol type: beer Patient Tobacco Use Status: Never used Tobacco service: No Current occupational status: employed 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 Also verify that patient could upgrade with guardian 3 sensor. At visit patient reported that he needed the guardian 4 sensor in order to upgrade to 780 G. I explained to patient that this was not necessarily true, however patient was insistent that guardian for was what he needed to upgrade to 780 G. Reviewed with patient importance of changing insulin delivery set/Pod every 72 hours, with site rotation. Patient understands the basic concepts of pump therapy, how to give insulin for meals and snacks, how to troubleshoot for hyper and hypoglycemia. We were unable to download pump at today's visit, at next visit add new pump to patient's [facility] account Basal rate(s) (units/hour) : 12 AM? to 5 AM? 2.0 units / hr 5 AM? to 12 PM? 1.75 units / hr 12 PM? to 12 AM? 2.0 units / hr Bolus setting Insulin Carbohydrate Ratio (s) 12 AM to 4 AM? 1:3 4 AM to 12 AM 1:3.5 Correction Factor / Sensitivity Factor 12 AM to 12 AM?? 1:15 Active Insulin Time:? 2 hours Target(s): 12 AM to !2 AM?? 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
== END 2022-12-21 15:44 | disposition home or self-care (01) ==
PROVIDERS: PCP Family Medicine; Visit Provider Registered Nurse Diabetes Educator
DX: E13.9 Other specified diabetes mellitus without complications (principal)

== ENCOUNTER → 2022-12-21 14:45 | Outpatient (BNVA) | payer OTHER, SELFPAY | PROVIDERS: PCP Family Medicine; Visit Provider Registered Nurse Diabetes Educator | DX: Z46.81 Encounter for fitting and adjustment of insulin pump (principal); E13.9 Other specified diabetes mellitus without complications | CPT/HCPCS: 99211 ==

== ENCOUNTER 2022-12-22 14:42 | Outpatient (AMB) | payer OTHER, SELFPAY ==
--- NOTE | 2022-12-22 14:47 | A.OFFVIS_ITS ---
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 Wolff. He is accompanied by his . Patient reports ongoing 50% pain relief since procedure is partial improvement in his mobility or functioning. He presents is mild localized tenderness on palpation in the projection of both greater trochanteric bursae and right groin and lateral hip pain that also travels to his posterior right thigh. 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 Patient also reports lower abdominal pain and right deep inguinal pain. He has previous history of an abscess in the right lower quadrant due to his insulin pump for which he was hospitalized in 2020. Patient has small visible umbilical hernia which was initially noted on abdominal and pelvis CT scan in 2020. I will refer patient to General surgery for re-evaluation of his hernias. Patient reports his pain is increased with weight-bearing, prolonged walking or sitting and sleeping. Patient reports pain negatively affects his mobility, work, sleep, mood, sexual activity and quality of life and his confirms this. Patient denies any fever, back pain, weakness, numbness or tingling, bowel or bladder dysfunction or saddle anesthesia. Past Procedures: 11/24/22: Bilateral Therapeutic GTB inje ctions-50% ongoing pain relief 06/02/22:Bilateral Diagnostic SIJ inject ions-0% pain relief PRIOR: Patient presents today via telehealth encounter to discuss recent A1C results and procedure discussion for his bilateral hip pain. Patient also continues to endorse lower back pain and with radiation to his buttocks and both lower extremities. Pain increased with driving, prolonged sitting, walking or sleeping. 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 Lumbar spine MRI noted for no significant degenerative spinal canal or neuroforaminal narrowing at all levels L1-S1. Circumferential epidural fat results in near effacement of the thecal sac. The exam was motion degraded per report. Patient is not candidate for steroid ERIK injections due to epidural lipomatosis. He reports bilateral hip pain that radiates to his groins and lateral hip. Previous office visit he also presented with tenderness in his greater trochnateric bursa areas. Imaging for hips was normal. Reports pain with side sleeping positions. Patient denies any cauda equina syndrome symptoms at this time. Patient denies any bowel or bladder incontinence or saddle anesthesia. Most recent A1C was 8.2, a significant decrease from 9.9. Past Procedures: 06/02/22:Bilateral Diagnostic SIJ inject ions-0% pain relief PRIOR: Patient is a 51 years old male who presents today with chronic bilateral hip pain. Patient was referred to us [address] Desai for chronic back pain. Denies any recent trauma, injury or falls. Denies any previous inciting events for hip pain. 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 Pain affects his daily activities, sleep, mood, social interactions and quality of life. Patient received GTB steroid injection on 01/04/[address] Desai which he does not recall. Patient denies previous physical therapy, chiropractic manipulation, acupuncture or TENS unit therapies. He gets a whole body massage 3 times a year with temporary pain relief. Patient also reports bilateral foot pain with decreased sensation, burning, tingling and sharp pain worse at night. His A1C today was 9.9 per endocrinology visit. He is on insulin and has a blood sugar monitoring device. Patient requests steroid injection and pain medication. I have informed the patient that he is not a candidate for steroid injections until his A1C level significantly improves. He was also informed that we do not offer opioid prescribing at this time. Patient also reports symptoms of erectile dysfunction and is interested in urology referral. He currently takes Viagra and is interested in exploring other options. Patient denies previous diabetic foot exams. Denies previous back surgery or injections. Denies any fever, malaise, weakness, abdominal or groin pain, bowel or bladder incontinence or saddle anesthesia. 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), managed as type 1 Surgical History Hx of exploratory laparotomy Family History Father Diabetes Mother Diabetes Social History Household Members: Spouse and Children Housing: House Do you presently have visiting nurse or other home services: No Alcohol intake: current Alcohol intake frequency: holidays/special occasions only Alcohol type: beer Patient Tobacco Use Status: Never used Tobacco service: No Current occupational status: employed 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 Review of Systems Const All systems reviewed & are unremarkable except as noted in HPI and below Reports as per HPI, Denies chills, Denies difficulty sleeping, Reports fatigue, Denies fever(s), Denies malaise, Denies night sweats, Denies poor appetite, Denies weakness and Denies weight loss ENT Reports Normal hearing present Neuro Reports Normal hearing present, Denies Abnormal speech present, Denies confusion, Denies Sensory deficit (Neuro) and Denies weakness Psych Denies confusion Endo Reports fatigue Physical Exam Vital Signs: Last Vital Signs Pulse 88 12/22/22 14:52 BP 127/73 12/22/22 14:52 Pulse Ox 99 12/22/22 14:52 Oxygen Delivery Method Room Air 12/22/22 14:52 BMI result Body Mass Index 36.1 Const General: cooperative, healthy appearing, no acute distress, alert and awake; No confusion Nutritional Appearance: obese centrally obese Orientation/consciousness: No confusion Limitations: no limitations HEENT Head: Yes normal to inspection and Yes normocephalic Ears: hearing grossly normal bilaterally Face and sinus: Yes normal facial exam and Yes face symmetric Eyes General: appearance normal, both eyes and all related structures Resp Effort & Inspection: normal respiratory effort, able to speak in complete sentences, no audible wheezes, no cough and symmetric chest movement Cardio Jugular venous distension: no JVD Bruits: no carotid bruits Peripheral pulses: radial pulses present, posterior tibial pulses present and dorsalis pedis present GI Inspection: Yes normal to inspection, No Abdominal wall edema, Yes Abdominal panniculus present, Yes obesity and Yes visible herniation (umbilical small hernia) Palpation (GI): Soft to palpation, nontender, No hepatosplenomegaly present and No Rebound tenderness present General: Yes no CVA tenderness Back/Spine/Pelvis Back: no CVA tenderness Cervical Spine: normal cervical lordosis, cervical ROM normal and No Cervical spine tenderness Thoracic/Lumbar Spine: thoracic and lumbar spine normal to inspection, No Thoracic/lumbar spine scar(s), thoraco-lumbar ROM normal, Lasegue's sign negative, straight leg raise negative bilaterally, paraspinal muscle tenderness, No thoracic spinal tenderness and No lumbar spinal tenderness Sacroiliac joints: bilaterally (Cj test reproduces right groin and lateral hip, not back pain) tender to palpation Skin General skin exam: no rashes or lesions noted Neuro General: moves all extremities, Normal light touch and pain sensation, CN's II- XI intact bilaterally and No confusion Cranial nerves: Yes Bilaterally intact EOM present and Yes Normal hearing present Cognition (Neuro): normal cognition Speech: No Abnormal speech present Gait exam (Neuro): Antalgic gait present and No Assistive device used Motor exam (neuro): 5/5 motor strength present throughout, no tremor noted, Normal motor muscle tone present throughout and Motor abnormalities not present Sensory Exam: No Sensory deficit (Neuro) Extrem General: Yes capillary refill normal, Yes no clubbing, cyanosis or edema and Yes no calf tenderness Right lower extremity: hip/thigh Details: normal to inspection, tenderness Location: of the hip Location: laterally and over the greater trochanter and normal ROM; no swelling, no crepitus and no unusual warmth Left lower extremity: hip/thigh Details: normal to inspection and tenderness Location: of the hip Location: laterally and over the great trochanter; no crepitus and no unusual warmth Psych Appearance: grossly normal Mental Status: mental status grossly normal Speech and movement: Normal speech and movement present Affect: normal affect Attitude: cooperative Thought process: Normal thought process present Thought content: Normal thought content present Insight: Good insight present (Psych) Judgement: Good judgement present (Psych) Results Reviewed Results Reviewed: MR LUMBAR SPINE WITHOUT CONTRAST 06/25/22 CLINICAL INFORMATION: Back pain radiating to legs FINDINGS: Motion degraded examination There is intrinsic 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 Normal anatomic alignment. No suspicious marrow signal or focal osseous lesion. Small L5 superior endplate Schmorl's node The vertebral body heights are maintained. Mild disc desiccation with preservation of disc space height at L3-L4. The conus medullaris terminates at the level of L1. The distal spinal cord is normal in appearance. The cauda equina nerve roots appear normal. No significant abnormalities of the paraspinal musculature.. Limited evaluation of the intra-abdominal structures without significant abnormalities. The abdominal aorta is of normal contour and caliber. SPINAL LEVELS: L1-L2: No significant spinal canal or neuroforaminal narrowing. L2-L3: No significant spinal canal or neuroforaminal narrowing. L3-L4: No significant spinal canal or neuroforaminal narrowing. L4-L5: No significant spinal canal or neuroforaminal narrowing. L5-S1: No significant degenerative spinal canal or neuroforaminal narrowing. Circumferential epidural fat results in near effacement of the thecal sac. IMPRESSION: Motion degraded examination. 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 At L5-S1, there is near effacement of the thecal sac related to circumferential epidural fat. XR LUMBAR SPINE WITH BENDING VIEWS XR HIPS WITH AP PELVIS, BILATERAL 04/11/22 LUMBAR SPINE: There is normal lumbar lordosis. The vertebral heights, alignment and disc heights are normal. On flexion-extension views, there is no subluxation seen. No aggressive lytic or sclerotic process seen. SI joints are symmetrical. There is minimal ventral endplate spondylosis. The soft tissues are normal. AP PELVIS: There is normal symmetry of bilateral hip joints and SI joints. No visible acute fracture, dislocation or subluxation seen. RIGHT HIP: The right hip joint space is maintained. No visible fracture, dislocation. No bony erosive changes. The soft tissues are normal. LEFT HIP: The left hip joint space is maintained normal. No visible acute fracture or dislocation. No bony erosive changes. The soft tissues are normal. IMPRESSION: 1. Unremarkable lumbar spine exam. 2. Unremarkable AP pelvis and bilateral hip exam. CT/CT abdomen pelvis w con 12/16/20 OSSEOUS STRUCTURES: Unremarkable. IMPRESSION: Umbilical hernia containing fat. Diverticulosis of the colon. No evidence of diverticulitis. Assessment & Plan Assessment & Plan (1) Deep inguinal pain, right: Code(s): R10.31 - Right lower quadrant pain (2) Periumbilical hernia: Code(s): K42.9 - Umbilical hernia without obstruction or gangrene (3) Right hip pain: Code(s): M25.551 - Pain in right hip Plan Patient is status post bilateral therapeutic GTB injections is 50% pain relief. He continues to report significant right hip and groin pain that affects his functioning, mobility, work, sleep, social interactions, and quality of life. We will proceed with right hip MRI to rule out hip pathology. Follow up with [facility] for evaluation of umbilical hernia and deep right inguinal pain. All questions and concerns have been answered and patient agreed to this plan. Follow-up for MRI results and sooner as needed. Orders: Orders MR hip RT wo con 12/22/22 M25.551 - Pain in right hip, R10.31 - Right lower quadrant pain Referrals General Surgery Referral K42.9 - Umbilical hernia without obstruction or gangrene, R10.31 - Right lower quadrant pain Medications: Discontinued meloxicam Take it with food and full glass of water. Avoid other NSAIDs. Discontinued Reason: Patient Completed Course 15 mg PO DAILY 30 days PRN 30 tabs 0RF pain M47.816 - Spondylosis without myelopathy or radiculopathy, lumbar region, M53.3 - Sacrococcygeal disorders, not elsewhere classified, M70.61 - Trochanteric bursitis, right hip, M70.62 - Trochanteric bursitis, left hip Coding Level of Care Code Est Pt Level 4 (78204) Diagnoses Deep inguinal pain, right R10.31 Periumbilical hernia K42.9 Right hip pain M25.551
[2022-12-22 14:52] VITALS: BP 127/73; PULSE 88; O2SAT 99; BMI 36.1
== END 2022-12-22 15:28 | disposition home or self-care (01) ==
PROVIDERS: PCP Family Medicine; Visit Provider Nurse Practitioner Family
DX: R10.31 Right lower quadrant pain (principal); K42.9 Umbilical hernia without obstruction or gangrene; M25.551 Pain in right hip
CPT/HCPCS: 99214

== ENCOUNTER → 2022-12-22 14:42 | Outpatient (BNVA) | payer OTHER, SELFPAY | PROVIDERS: PCP Family Medicine; Visit Provider Nurse Practitioner Family ==

== ENCOUNTER 2023-01-04 13:37 | Outpatient (AMB) | payer OTHER, SELFPAY ==
--- NOTE | 2023-01-04 13:49 | A.OFFVIS_ITS ---
Intake Vital Signs 01/04/23 13:52 Height 5 ft 9 in Weight 247 lb BMI 36.5 BP 128/91 H Blood Pressure Location Rt brachial Position Sitting Pulse 101 H Intake Visit Reasons: Umbilical hernia Intake Note: Patient referred for umbilical hernia. Has been present for 2-3yrs. C/o constant pain that spreads to rt testicle. Industrial Technologist Required: No Accompanied by: Self / Same As Patient Allergies liraglutide Allergy (Unknown, Verified 01/04/23 13:54) Unknown HPI HPI Comments History of Present Illness Details Patient presents 1. For evaluation of umbilical hernia 2. To 3 history of right testicular pain. He has had umbilical hernia for many years time. He thinks his increasing size become more symptomatic. He is otherwise tolerating a diet. He has had of normal bowel habits. He has no other GI issues or complaints. 2. Patient has had right testicular pain for least 1-2 years time which has affected his ability to have intimacy with his significant other. Does not recall having any trauma to the area. 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), managed as type 1 Surgical History Hx of exploratory laparotomy Family History Father Diabetes Mother Diabetes Social History Household Members: Spouse and Children Housing: House Do you presently have visiting nurse or other home services: No Alcohol intake: current Alcohol intake frequency: holidays/special occasions only Alcohol type: beer Patient Tobacco Use Status: Never used Tobacco service: No Current occupational status: employed 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 The markedly corpulent abdomen. Umbilical and supraumbilical reducible hernias he has approximately 2 cm in size. Abdomen otherwise soft benign. Left groin and right groin negative exams. Genitalia : bilateral testicles no obvious masses , but marked right testicular tenderness. Assessment & Plan Assessment & Plan (1) Periumbilical hernia: Code(s): K42.9 - Umbilical hernia without obstruction or gangrene (2) Testicular pain, right: Code(s): N50.811 - Right testicular pain Plan 1. Risks, benefits, alternatives umbilical and ventral hernia repair open technique with mesh were reviewed with the patient included but not limited to bleeding, infection, recurrence, numbness, pain, scarring, bowel injury and the patient wishes to proceed. All questions were answered. Arrangements made for this. 2. Range of were made for formal urologic evaluation for patient's chronic persistent right testicular pain. Coding Level of Care Code New Pt Level 5 (06415) Diagnoses Periumbilical hernia K42.9 Testicular pain, right N50.811
[2023-01-04 13:52] VITALS: BP 128/91; PULSE 101; BMI 36.5
== END 2023-01-04 14:08 | disposition home or self-care (01) ==
PROVIDERS: PCP Family Medicine; Referring Provider Family Medicine; Visit Provider Surgery
DX: K42.9 Umbilical hernia without obstruction or gangrene (principal); N50.811 Right testicular pain
CPT/HCPCS: 99214

== ENCOUNTER → 2023-01-04 13:37 | Outpatient (BNVA) | payer OTHER, SELFPAY | PROVIDERS: PCP Family Medicine; Referring Provider Family Medicine; Visit Provider Surgery ==

== ENCOUNTER 2023-02-02 18:05 | Outpatient (REF) | payer OTHER, SELFPAY ==
--- NOTE | ~2023-02-02 | MR_ITS ---
EXAMINATION: MR HIP WITHOUT CONTRAST, RIGHT CLINICAL INFORMATION: Right groin and testicular pain. COMPARISON: Hip and pelvic radiographs dated 04/11/2022. TECHNIQUE: MRI of the right hip was obtained using routine sequences on a high-field strength magnet. FINDINGS: ACETABULAR LABRUM: No displaced several tear. ARTICULAR CARTILAGE/BONE: Mild articular cartilage signal heterogeneity with thinning at the lateral acetabulum. Tiny marginal osteophytes. No stress reaction, fracture, or avascular necrosis. No concerning lytic or blastic osseous lesion. Partially visualized within the left hip is superolateral acetabular articular cartilage full-thickness loss with mild subchondral cystic change and small marginal osteophytes. The visualized lumbar spine is grossly unremarkable, however, not well evaluated. MUSCLES/TENDONS: Minimally increased T2 signal adjacent to the gluteus minimus tendon, consistent minimal tendinosis. No transverse tendon tear or tendon retraction. JOINT FLUID/BURSA: Within normal limits. INTRAPELVIC STRUCTURES: Sigmoid diverticulosis without evidence of acute diverticulitis. No soft tissue mass or fluid collection. No mass or mass effect in the region of the neurovascular bundles. MR/MR hip RT wo con IMPRESSION: 1. Mild right hip osteoarthritis. No stress reaction, fracture, or avascular necrosis. 2. Minimal gluteus minimus tendinosis. 3. Sigmoid diverticulosis.
== END 2023-02-02 18:06 | disposition home or self-care (01) ==
LOC: HO.MRI 18:05
PROVIDERS: PCP Family Medicine; Visit Provider Nurse Practitioner Family
DX: R10.31 Right lower quadrant pain (principal); M25.551 Pain in right hip
CPT/HCPCS: 73721

== ENCOUNTER 2023-02-08 15:32 | Outpatient (AMB) | payer OTHER, SELFPAY ==
--- NOTE | 2023-02-08 15:36 | MHC.OFFVIS ---
Intake Vital Signs 02/08/23 15:40 Height 5 ft 9 in Weight 249 lb 6 oz BMI 36.8 BP 144/75 H Blood Pressure Location Lt brachial Position Sitting Pulse 91 Pulse Source Pulse Oximeter Pulse Oximetry (%) 97 Oxygen Delivery Method Room Air Intake Visit Reasons: MRI FOLLOW UP/RESULTS Intake Note: Pain today 4/10 Radiator Specialist Required: No Accompanied by: Spouse Allergies liraglutide Allergy (Unknown, Verified 02/08/23 15:40) Unknown HPI HPI Comments History of Present Illness Details Patient presents today to discuss recent right hip MRI results. He continues to endorse bilateral hip pain with radiation to both groins, lateral hips and anterior thigh, worse on the left side more recently. He denies significant abdominal pain today as he took day off from work and notes partial improvement in his symptoms. Pain is rated at 4/10 today. Patient reports he was recently evaluated by Dr. Mckenna and is scheduled to undergo umbilical and ventral hernia repair on . MRI findings were discussed with patient and his today and results are noted below. Patient will follow up with Orthopedics for recent MRI findings for partially visualized within the left hip is superolateral acetabular articular cartilage full-thickness loss with mild subchondral cystic change and small marginal osteophytes. For right hip pain, will consider fluoroscopy guided therapeutic injections once he recovers from hernia repair surgery. Denies any weakness, numbness or tingling, bowel or bladder dysfunction or saddle anesthesia. PRIOR: Patient presents today for follow-up status post bilateral therapeutic GTB injections on 11/24/[address] Wolff. He is accompanied by his . Patient reports ongoing 50% pain relief since procedure is partial improvement in his mobility or functioning. He presents is mild localized tenderness on palpation in the projection of both greater trochanteric bursae and right groin and lateral hip pain that also travels to his posterior right thigh. 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 Patient also reports lower abdominal pain and right deep inguinal pain. He has previous history of an abscess in the right lower quadrant due to his insulin pump for which he was hospitalized in 2020. Patient has small visible umbilical hernia which was initially noted on abdominal and pelvis CT scan in 2020. I will refer patient to General surgery for re-evaluation of his hernias. Patient reports his pain is increased with weight-bearing, prolonged walking or sitting and sleeping. Patient reports pain negatively affects his mobility, work, sleep, mood, sexual activity and quality of life and his confirms this. Patient denies any fever, back pain, weakness, numbness or tingling, bowel or bladder dysfunction or saddle anesthesia. Past Procedures: 11/24/22: Bilateral Therapeutic GTB injections-50% ongoing pain relief 06/02/22:Bilateral Diagnostic SIJ injections-0% pain relief PRIOR: Patient presents today via telehealth encounter to discuss recent A1C results and procedure discussion for his bilateral hip pain. Patient also continues to endorse lower back pain and with radiation to his buttocks and both lower extremities. Pain increased with driving, prolonged sitting, walking or sleeping. 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 Lumbar spine MRI noted for no significant degenerative spinal canal or neuroforaminal narrowing at all levels L1-S1. Circumferential epidural fat results in near effacement of the thecal sac. The exam was motion degraded per report. Patient is not candidate for steroid ERIK injections due to epidural lipomatosis. He reports bilateral hip pain that radiates to his groins and lateral hip. Previous office visit he also presented with tenderness in his greater trochnateric bursa areas. Imaging for hips was normal. Reports pain with side sleeping positions. Patient denies any cauda equina syndrome symptoms at this time. Patient denies any bowel or bladder incontinence or saddle anesthesia. Most recent A1C was 8.2, a significant decrease from 9.9. Past Procedures: 06/02/22:Bilateral Diagnostic SIJ injections-0% pain relief PRIOR: Patient is a 51 years old male who presents today with chronic bilateral hip pain. Patient was referred to us [address] Desai for chronic back pain. Denies any recent trauma, injury or falls. Denies any previous inciting events for hip pain. 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 Pain affects his daily activities, sleep, mood, social interactions and quality of life. Patient received GTB steroid injection on 01/04/[address] Desai which he does not recall. Patient denies previous physical therapy, chiropractic manipulation, acupuncture or TENS unit therapies. He gets a whole body massage 3 times a year with temporary pain relief. Patient also reports bilateral foot pain with decreased sensation, burning, tingling and sharp pain worse at night. His A1C today was 9.9 per endocrinology visit. He is on insulin and has a blood sugar monitoring device. Patient requests steroid injection and pain medication. I have informed the patient that he is not a candidate for steroid injections until his A1C level significantly improves. He was also informed that we do not offer opioid prescribing at this time. Patient also reports symptoms of erectile dysfunction and is interested in urology referral. He currently takes Viagra and is interested in exploring other options. Patient denies previous diabetic foot exams. Denies previous back surgery or injections. Denies any fever, malaise, weakness, abdominal or groin pain, bowel or bladder incontinence or saddle anesthesia. 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), managed as type 1 Surgical History H/O colonoscopy Hx of exploratory laparotomy Family History Father Diabetes Mother Diabetes Social History Household Members: Spouse and Children Housing: House Do you presently have visiting nurse or other home services: No Alcohol intake: current Alcohol intake frequency: holidays/special occasions only Alcohol type: beer Patient Tobacco Use Status: Never used Tobacco service: No Current occupational status: employed 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 Alert and oriented. Mood and affect appropriate. Follows and participates in conversation appropriately. Respiratory effort is unlabored. No cough. Able to transition from sit to stand unassisted. Ambulates with bilaterally normal heel strike and toe off. Back/Spine/Pelvis Cervical Spine: cervical ROM normal and No Cervical spine tenderness Thoracic/Lumbar Spine: thoracic and lumbar spine normal to inspection, Lasegue's sign negative, straight leg raise negative bilaterally, pain with thoraco-lumbar ROM, No paraspinal muscle tenderness, No thoracic spinal tenderness and No lumbar spinal tenderness Extrem General: Yes full ROM, Yes capillary refill normal, Yes no clubbing, cyanosis or edema and Yes no calf tenderness Results Reviewed Results Reviewed: MR HIP WITHOUT CONTRAST, RIGHT CLINICAL INFORMATION: Right groin and testicular pain. COMPARISON: Hip and pelvic radiographs dated 04/11/2022. TECHNIQUE: MRI of the right hip was obtained using routine sequences on a high-field strength magnet. FINDINGS: ACETABULAR LABRUM: No displaced several tear. ARTICULAR CARTILAGE/BONE: Mild articular cartilage signal heterogeneity with thinning at the lateral acetabulum. Tiny marginal osteophytes. No stress reaction, fracture, or avascular necrosis. No concerning lytic or blastic osseous lesion. Partially visualized within the left hip is superolateral acetabular articular cartilage full-thickness loss with mild subchondral cystic change and small marginal osteophytes. The visualized lumbar spine is grossly unremarkable, however, not well evaluated. MUSCLES/TENDONS: Minimally increased T2 signal adjacent to the gluteus minimus tendon, consistent minimal tendinosis. No transverse tendon tear or tendon retraction. JOINT FLUID/BURSA: Within normal limits. INTRAPELVIC STRUCTURES: Sigmoid diverticulosis without evidence of acute diverticulitis. No soft tissue mass or fluid collection. No mass or mass effect in the region of the neurovascular bundles. IMPRESSION: 1. Mild right hip osteoarthritis. No stress reaction, fracture, or avascular necrosis. 2. Minimal gluteus minimus tendinosis. 3. Sigmoid diverticulosis. Assessment & Plan Assessment & Plan (1) Lumbar spondylosis: Code(s): M47.816 - Spondylosis without myelopathy or radiculopathy, lumbar region (2) Periumbilical hernia: Code(s): K42.9 - Umbilical hernia without obstruction or gangrene (3) Bilateral primary osteoarthritis of hip: Code(s): M16.0 - Bilateral primary osteoarthritis of hip (4) Chronic hip pain, bilateral: Code(s): M25.551 - Pain in right hip; M25.552 - Pain in left hip; G89.29 - Other chronic pain Plan Right hip and partially visualized left hip MRI findings discussed with patient and his family. Follow up with Orthopedics for left hip findings. Patient has upcoming umbilical and ventral hernia repair on . He will follow up with us after hernia repair recovery period for potential fluoroscopy guided right hip steroid injection. Script provided for cane per patient request. All questions and concerns have been answered and patient agreed with the plan. Follow up as needed. Medications: New cane As directed 1 ea 0RF lumbar support M25.551 - Pain in right hip, M47.816 - Spondylosis without myelopathy or radiculopathy, lumbar region, M54.16 - Radiculopathy, lumbar region Coding Level of Care Code Est Pt Level 4 (24920) Diagnoses Lumbar spondylosis M47.816 Periumbilical hernia K42.9 Bilateral primary osteoarthritis of hip M16.0 Chronic hip pain, bilateral M25.551; M25.552; G89.29
[2023-02-08 15:40] VITALS: BP 144/75; PULSE 91; O2SAT 97; BMI 36.8
== END 2023-02-08 15:57 | disposition home or self-care (01) ==
PROVIDERS: PCP Family Medicine; Visit Provider Nurse Practitioner Family
DX: M47.816 Spondylosis without myelopathy or radiculopathy, lumbar region (principal); K42.9 Umbilical hernia without obstruction or gangrene; M16.0 Bilateral primary osteoarthritis of hip; M25.551 Pain in right hip; M25.552 Pain in left hip; G89.29 Other chronic pain
CPT/HCPCS: 99214

== ENCOUNTER → 2023-02-08 15:32 | Outpatient (BNVA) | payer OTHER, SELFPAY | PROVIDERS: PCP Family Medicine; Visit Provider Nurse Practitioner Family ==

== ENCOUNTER 2023-02-11 07:23 | Day surgery (SDC) | payer OTHER, SELFPAY ==
[2023-02-08 14:51] VITALS: BMI 36.5
--- NOTE | 2023-02-10 04:28 | MHC.SHP ---
Pre-Procedural Eval Section A Date of Service: 02/10/23 The patient is an INPATIENT: No Changes since office visit: No Cold of Flu in the past 2 weeks, No New Medical Problems, No Changes in Medication and No Patient answered all questions The History & Physical has been completed within 30 days and I have reviewed it.: Yes Section B Chief Complaint: Umbilical hernia without obstruction or gangrene Allergies: Allergies Allergy/AdvReac Type Severity Reaction Status Date / Time liraglutide Allergy Unknown Unknown Verified 02/08/23 15:40 Plan I have reviewed the history and physical and performed a pertinent 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 on my patient. No changes have occurred unless specified. Time Spent With Patient Time: Total time managing care of this patient today ____ minutes.
--- NOTE | 2023-02-10 08:17 | P.CONAN_ITS ---
Documented by User: Susan Nix NP 02/10/23 08:18 HPI - Anesthesia Eval Consult details Narrative: 52yo M for Hernia Repair Ventral & umbilical hernia w/mesh PMFSH Active Problems Active Problems: All Active Problems (Updated 02/08/23 @ 14:51 by Tracy Hernandez RN) Testicular pain, right (Acute) Right hip pain (Acute) Periumbilical hernia (Acute) Diabetes (Acute) Lateral epicondylitis of both elbows (Acute) Bilateral hand numbness (Acute) Lumbar radiculopathy (Acute) Muscle spasm of back (Acute) Greater trochanteric bursitis of both hips (Acute) Sacroiliac joint pain (Acute) Bilateral foot pain (Acute) Lumbar spondylosis (Acute) Erectile dysfunction (Acute) Chronic painful diabetic neuropathy (Acute) Bilateral primary osteoarthritis of hip (Acute) Chronic hip pain, bilateral (Acute) Abscess (Acute) Deep inguinal pain, right (Acute) Knee pain (Acute) Lateral epicondylitis of elbow (Acute) Depression (Acute) Anemia (Acute) 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 (Acute) Low back pain (Acute) Dyslipidemia (Acute) Hepatitis C (Acute) Elevated serum creatinine (Acute) Vitamin D deficiency (Acute) Diabetic nephropathy associated with type 1 diabetes mellitus (Acute) Obesity (BMI 30-39.9) (Acute) Hypertension (Acute) 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), managed as type 1 (Acute) Past Medical History Medical History Back pain Depression Elevated cholesterol Elevated serum creatinine Vitamin D deficiency Diabetic nephropathy associated with type 1 diabetes mellitus Obesity (BMI 30-39.9) Hypertension 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), managed as type 1 Family History Family History Father Diabetes Mother Diabetes Surgical History Surgical History H/O colonoscopy Hx of exploratory laparotomy Social History Social History Household Members: Spouse and Children Housing: House Do you presently have visiting nurse or other home services: No Alcohol intake: current Alcohol intake frequency: holidays/special occasions only Alcohol type: beer Patient Tobacco Use Status: Never used Tobacco Use of substances other than those prescribed or required for medical reasons: No Have you been hit, kicked, punched, or otherwise hurt by someone within the past year? 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 Meds Allergies Allergy/AdvReac Type Severity Reaction Status Date / Time liraglutide Allergy Unknown Unknown Verified 02/08/23 15:40 Home Medications Medication Instructions Recorded Confirmed Last Taken Type atorvastatin 40 mg tablet 1 tab PO BEDTIME 10/20/20 02/08/23 10/20/20 History lisinopril 5 mg tablet 1 tab PO DAILY 10/20/20 02/08/23 10/20/20 History sildenafil 100 mg tablet (Viagra) 0.5 tab PO DAILY PRN Erectile 10/20/20 02/08/23 Unknown History Dysfunction COVID-19 antigen test (BinaxNOW #1 ea 11/11/21 08/18/22 Unknown History COVID-19 Ag Self Test kit) Exam Exam Date and Time: February 10, 2023816 Height,Weight and Vital Signs: Height 5 ft 9 in Weight 112.037 kg Assessment and Plan Assessment Anesthesia Assessment: Chart Reviewed Documented by User: Hung Schmidt MD 02/11/23 07:33 [facility] Past Medical History Medical History Back pain Depression Elevated cholesterol Elevated serum creatinine Vitamin D deficiency Diabetic nephropathy associated with type 1 diabetes mellitus Obesity (BMI 30-39.9) Hypertension 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), managed as type 1 Family History Family History Father Diabetes Mother Diabetes Family history of problems with anesthesia: No Surgical History Surgical History H/O colonoscopy Hx of exploratory laparotomy History of Problems with Anesthesia: No Social History Social History Household Members: Spouse and Children Housing: House Do you presently have visiting nurse or other home services: No Alcohol intake: current Alcohol intake frequency: holidays/special occasions only Alcohol type: beer Patient Tobacco Use Status: Never used Tobacco Use of substances other than those prescribed or required for medical reasons: No Have you been hit, kicked, punched, or otherwise hurt by someone within the past year? 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 Meds Allergies Allergy/AdvReac Type Severity Reaction Status Date / Time liraglutide Allergy Unknown Unknown Verified 02/08/23 15:40 Home Medications Medication Instructions Recorded Confirmed Last Taken Type atorvastatin 40 mg tablet 1 tab PO BEDTIME 10/20/20 02/08/23 10/20/20 History lisinopril 5 mg tablet 1 tab PO DAILY 10/20/20 02/08/23 10/20/20 History sildenafil 100 mg tablet (Viagra) 0.5 tab PO DAILY PRN Erectile 10/20/20 02/08/23 Unknown History Dysfunction COVID-19 antigen test (BinaxNOW #1 ea 11/11/21 08/18/22 Unknown History COVID-19 Ag Self Test kit) Exam Airway Mallampati Class: III TM Dist: >3cm Neck ROM: Limited Heart: rrr Lungs: cta Assessment and Plan Assessment Anesthesia Assessment: Anesthesia Plan Discussed Final Anesthetic Review Family History of Problems with Anesthesia: No History of Problems with Anesthesia: No NPO: Yes ASA Class: IV Final Preanesthetic Review: No Changes in Pt Med Stat, Meds/Allgs Chart Reviewed, Consent Obtained/Reviewed and Anes Risks/Benef Reviewed Patient Risk: High Procedure Risk: Low Anesthetic Plan Anesthetic Plan: GA and Agree w/ Assess. and Plan Disposition: Standard PACU
[2023-02-11] VITALS (11 sets, daily range): BP systolic 132–168; BP diastolic 72–95; PULSE 72–88; RESP 14–20; TEMP 36.2–36.4; O2SAT 95–99
[2023-02-11 07:48] LABS: Glucose, Whole Blood 280 mg/dL (60-115)
[2023-02-11] MEDS: Lactated Ringers 1,000 ML 100 ML IVCONT (08:11)
--- NOTE | 2023-02-11 09:03 | W.PM.OPN ---
Operative Note Operative Note Date of Service: 02/11/23 Narrative: Preoperative diagnosis: [] ventral incarcerated hernia and , umbilical hernia Postop diagnosis: [] single multi lobular sac incarcerated umbilical hernia Procedure [] open incarcerated umbilical herniorrhaphy with Bard mesh Surgeon: [] [employer] Analyst: [] Cat Type of Anesthesia: [] general Indication for surgery: [] morbidly obese patient with what appeared as both at umbilical and supraumbilical incarcerated ventral herniae. Intraoperative findings demonstrated a single large incarcerated umbilical hernia measuring approximately 5 cm. With omental contents Findings: [] patient brought to the operating room, placed on operative table in supine position, after adequate level of general anesthesia was induced, the patient's abdomen which is very corpulent was prepped and draped in usual sterile fashion. Using a supraumbilical curvilinear incision, this carried down through skin, subcutaneous tissue, where a multi lobular hernia sac was identified and circumferentially dissected down to the fascia as well as away from the posterior aspect of the umbilicus. Sac was opened where incarcerated omental contents and sac were amputated using Bovie. Fascia margins were circumferentially cleared. A Bard mesh was placed in the defect and the superficial layer of the mesh was circumferentially sutured to the surrounding fascia using interrupted 0 Ethibond suture. At completion the procedure, mesh was in good position with no tension no gaps. Wound was irrigated, secured hemostasis. Was closed the following manner; posterior aspect of the umbilicus was sutured to the wound floor using up to 3-0 Vicryl suture. Skin was closed using interrupted inverted dermal 3-0 Vicryl sutures followed by Steri-Strips and sterile dressings. Wounds were infiltrated 0.5% Marcaine/ 1% lidocaine at completion. Sponge, needle, instrument counts reported correct. Patient tolerated the procedure well and emerged anesthesia in stable condition. EBL minimal
[2023-02-11] MEDS: HYDROmorphone HCl 0.5 MG/0.5 ML SYRINGE 0.25 MG IVPUSH ×2 (09:21→09:26)
[2023-02-11 09:32] LABS: Glucose, Whole Blood 283 mg/dL (60-115)
[2023-02-11] MEDS: fentaNYL citrate/PF 100 MCG/2 ML VIAL 25 MCG IVPUSH (09:50)
== END 2023-02-11 11:00 | disposition home or self-care (01) ==
PROVIDERS: PCP Family Medicine; Visit Provider Surgery
PROC: (CPT 49594; principal; 2023-02-11 09:10)
DX: K42.0 Umbilical hernia with obstruction, without gangrene (principal); N50.811 Right testicular pain; E66.01 Morbid (severe) obesity due to excess calories; Z68.36 Body mass index [BMI] 36.0-36.9, adult; I10 Essential (primary) hypertension; E10.21 Type 1 diabetes mellitus with diabetic nephropathy; Z79.4 Long term (current) use of insulin; E55.9 Vitamin D deficiency, unspecified; R79.89 Other specified abnormal findings of blood chemistry; Z79.899 Other long term (current) drug therapy; Z88.8 Allergy status to other drugs, medicaments and biological substances; Z87.891 Personal history of nicotine dependence
CPT/HCPCS: 49594; 82947; 88302; C1781; J0131; J0665; J0690; J1100; J1170; J1885; J2405; J3010

== ENCOUNTER → 2023-02-11 07:23 | Outpatient (BNV) | payer OTHER, SELFPAY | PROVIDERS: PCP Family Medicine; Visit Provider Surgery | DX: K42.9 Umbilical hernia without obstruction or gangrene (principal) | CPT/HCPCS: 49594 ==

== ENCOUNTER 2023-02-22 12:58 | Outpatient (AMB) | payer OTHER, SELFPAY ==
[2023-02-22 13:15] VITALS: BP 144/87; PULSE 87; BMI 37.7
--- NOTE | 2023-02-22 13:15 | MHC.OFFVIS ---
Intake Vital Signs 02/22/23 13:15 Height 5 ft 9 in Weight 255 lb BMI 37.7 BP 144/87 H Blood Pressure Location Rt brachial Position Sitting Pulse 87 Intake Visit Reasons: S/P ventral/umbilical hernia w/mesh Intake Note: Patient s/p ventral/umbilical hernia w/mesh. Reports incisions healing well. C/o pain and tenderness to touch. Finished rx pain meds. Medical Coding Technician Required: No Accompanied by: Self / Same As Patient Allergies liraglutide Allergy (Unknown, Verified 02/22/23 13:17) Unknown Medication List - Last Reconciled 02/22/23 by Chung Mckenna MD atorvastatin 1 tab PO BEDTIME blood sugar diagnostic (Accu-Chek Guide test strips) As directed 6x per day cane As directed COVID-19 antigen test (BinaxNOW COVID-19 Ag Self Test kit) As directed insulin lispro (Humalog U-100 Insulin) 130 units (1.3 mL) subcut DAILY lisinopril 1 tab PO DAILY sildenafil (Viagra) 0.5 tabs PO DAILY PRN HPI HPI Comments History of Present Illness Details Patient presents for follow-up. Aside from mild incisional discomfort is doing well. He is tolerating his diet. Having normal bowel habits. He is increasing his activity level. 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), managed as type 1 Surgical History H/O colonoscopy Hx of exploratory laparotomy Family History Father Diabetes Mother Diabetes Social History Household Members: Spouse and Children Housing: House Do you presently have visiting nurse or other home services: No Alcohol intake: current Alcohol intake frequency: holidays/special occasions only Alcohol type: beer Patient Tobacco Use Status: Former Tobacco user service: No Current occupational status: employed 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 Wound clean dry and intact healing well. Assessment & Plan Assessment & Plan (1) Periumbilical hernia: Code(s): K42.9 - Umbilical hernia without obstruction or gangrene Plan Patient has been given local instructions, avoid strenuous activities for next several weeks time and will follow-up p.r.n. Medications: New hydrocodone-acetaminophen 5-325 mg Partial Fill upon patient request. 1 tab PO Q4-6H PRN 30 tabs 0RF pain Coding Level of Care Code Global (32906) Diagnoses Periumbilical hernia K42.9
== END 2023-02-22 13:31 | disposition home or self-care (01) ==
PROVIDERS: PCP Family Medicine; Visit Provider Surgery
DX: K42.9 Umbilical hernia without obstruction or gangrene (principal)
CPT/HCPCS: 99212

== ENCOUNTER → 2023-02-22 12:58 | Outpatient (BNVA) | payer OTHER, SELFPAY | PROVIDERS: PCP Family Medicine; Visit Provider Surgery ==

== ENCOUNTER 2023-03-04 14:47 | Outpatient (AMB) | payer OTHER, SELFPAY ==
[2023-03-04 14:48] VITALS: BP 130/82; PULSE 86; BMI 37.8
--- NOTE | 2023-03-04 14:48 | MHC.OFFVIS ---
Intake Vital Signs 03/04/23 14:48 Height 5 ft 9 in Weight 255 lb 11.779 oz BMI 37.8 BP 130/82 Blood Pressure Location Lt brachial Position Sitting Pulse 86 Pulse Source Pulse Oximeter Intake Visit Reasons: f/u Type 1 DM GAGAN-confirmed Intake Note: Patient present today to follow up on Type 1 Diabetes GAGAN. Patient receives DME supplies through: [employer] Last Diabetic Eye exam: 01/2023 Last Podiatry Visit: Does not see a Bilingual Customer Service Specialist Random Glucose: 279 mg/dl HgA1C: 8.8% Timing Machine Operator Required: No Accompanied by: Self / Same As Patient Allergies liraglutide Allergy (Unknown, Verified 03/04/23 14:54) Unknown HPI HPI Comments History of Present Illness Details 52-year-old male, today his here for follow-up visit for GAGAN .. Considering bariatric surgery He is feeling well. His pump download from -03/04 showed an average blood sugar of ?223 mg/dL, standard deviation 96 mg/dL.? .? No hypoglycemia. ? There is p,ost-breakfast hyperglycemia and post-dinner hyperglycemia His total daily insulin is?155 units daily. Basal% 67 Bolus ?33 % His changing his sets 2.6 days Basal rate(s) (units/hour) : 12 AM? to 5 AM? 2.0 units / hr 5 AM? to 12 PM? 1.75 units / hr 12 PM? to 12 AM? 2.0 units / hr Bolus setting Insulin Carbohydrate Ratio (s) 12 AM to 4 AM? 1:3 4 AM to 12 AM 1:3.5 Correction Factor / Sensitivity Factor 12 AM to 12 AM?? 1:15 Active Insulin Time:? 2 hours Target(s): 12 AM to !2 AM?? 120 to 12 He is using the auto mode 81 % of the time.? He is wearing the sensor 81% of the time.? . Sensor shows 54 % blood sugars o in range 46% hyperglycemia and 0% very hyperglycemic there is 0% hypoglycemia RaRE HYPOGLYCEMIA Complications: no retinopathy, + nephropathy, no neuropathy, CVA, CAD, PVD. 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 He lost 2 lb since last visit. Last ophthalmology evaluation: 02/2023 , no retinopathy. States he was doing well with the Trulicity 1.5 mg Q weekly tolerating it nicely and curbing his appetite. However since stopping the Trulicity, his appetite is increased his blood sugars of increased after meal Laboratory Tests 06/25/20 06/25/20 06/25/20 14:37 14:46 15:20 Hgb Hct Sodium Potassium Creatinine Estimated GFR Glucose (Clinic) 302 H Estimat Average Gl ucose Hgb A1c (Clinic) 10.7 H Calcium AST ALT Alkaline Phosphata se Albumin Triglycerides Cholesterol LDL Cholesterol Di rect LDL Cholesterol, C alc HDL Cholesterol Vitamin B12 25-OH Vitamin D To everton TSH Free T4 Urine Creatinine 167.67 Urine Microalbumin 30.0 Microalb/Creat Rat io 17.8 06/25/20 06/25/20 06/25/20 15:40 15:40 15:40 Hgb 15.9 Hct 47.0 Sodium Potassium Creatinine Estimated GFR Glucose (Clinic) Estimat Average Gl ucose Hgb A1c (Clinic) Calcium AST 19 ALT 17 Alkaline Phosphata se 113 Albumin 4.5 Triglycerides 157 Cholesterol 131 LDL Cholesterol Di rect 73 LDL Cholesterol, C alc 61 HDL Cholesterol 39 Vitamin B12 25-OH Vitamin D To everton 26.5 TSH 2.28 Free T4 0.93 Urine Creatinine Urine Microalbumin Microalb/Creat Rat io 06/25/20 06/25/20 07/01/20 15:40 15:40 15:00 Hgb Hct Sodium 137 Potassium 4.4 Creatinine 0.96 Estimated GFR > 60 Glucose (Clinic) Estimat Average Gl ucose 260 Hgb A1c (Clinic) Calcium 9.8 AST ALT Alkaline Phosphata se Albumin Triglycerides Cholesterol LDL Cholesterol Di rect LDL Cholesterol, C alc HDL Cholesterol Vitamin B12 878 25-OH Vitamin D To everton TSH Free T4 Urine Creatinine Urine Microalbumin Microalb/Creat Rat io COUNT INCLUDES THE [facility] Medical History Ventral hernia (02/11/23) Back pain Depression Elevated cholesterol Elevated serum creatinine Vitamin D deficiency Diabetic nephropathy associated with type 1 diabetes mellitus Obesity (BMI 30-39.9) Hypertension 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), managed as type 1 Surgical History (Updated 03/04/23 @ 14:55 by Dottie Antoine) History of hernia surgery H/O colonoscopy Hx of exploratory laparotomy Family History Father Diabetes Mother Diabetes Social History Household Members: Spouse and Children Housing: House Do you presently have visiting nurse or other home services: No Alcohol intake: current Alcohol intake frequency: holidays/special occasions only Alcohol type: beer Patient Tobacco Use Status: Former Tobacco user service: No Current occupational status: employed 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 Absence of acromegalic features. Neck exam reveals nl size thyroid about 15 gms. No thyroid nodules palpable. No carotid bruits present. Lungs CTA. Heart S1 S2, Reg R/R. No M/R/ G. Skin exam reveals absence of vitiligo or acanthosis nigricans. Abdominal exam reveals Soft NT/ND with NA BS. No organomegaly present. Extrem Other: Visual exam of foot performed. There is a shallow shaving of skin in the right heel but no active ulcer .No ulcerations or open lesions. No onchomycosis, no callouses.Pulses 2 + distally. Sensation intact to monofilament exam. 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 The plan is to have the patient bolus into carbohydrates prior to eating. To follow up with public health educator and discuss possibly switching the Medtronic pump to either an Ilet or Omnipod 5. 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
[2023-03-04 15:02] LABS: Glucose, Whole Blood 279 mg/dL (60-115)
== END 2023-03-04 15:23 | disposition home or self-care (01) ==
PROVIDERS: PCP Family Medicine; Visit Provider Internal Medicine Endocrinology, Diabetes & Metabolism
DX: E11.9 Type 2 diabetes mellitus without complications (principal); E13.9 Other specified diabetes mellitus without complications
CPT/HCPCS: 99214

== ENCOUNTER → 2023-03-04 14:47 | Outpatient (BNVA) | payer OTHER, SELFPAY | PROVIDERS: Visit Provider Internal Medicine Endocrinology, Diabetes & Metabolism | DX: E13.9 Other specified diabetes mellitus without complications (principal); Z96.41 Presence of insulin pump (external) (internal) | CPT/HCPCS: 82947; 83036 ==

== ENCOUNTER 2023-03-22 14:52 | Outpatient (AMB) | payer OTHER, SELFPAY ==
--- NOTE | 2023-03-22 15:06 | A.OFFVIS_ITS ---
Intake Intake Visit Reasons: t2dm/CONFIRMED Web Content Developer Required: No Accompanied by: Self / Same As Patient Allergies liraglutide Allergy (Unknown, Verified 03/04/23 14:54) Unknown HPI Comprehensive Diabetes Asmnt Most Recent Diabetes Results: Hemoglobin A1c 10.5 % 12/15/19 Microalb/Creat Ratio 14.6 ug/mg cr 04/04/22 Cholesterol 126 mg/dL 04/04/22 HDL Cholesterol 38 mg/dL 04/04/22 Triglycerides 46 mg/dL 04/04/22 Creatinine 0.84 mg/dL (0.5-1.4) 06/27/22 Blood Urea Nitrogen 17 mg/dL (9-16) H 06/27/22 Sodium 138 mmol/L (135-145) 06/27/22 Potassium 5.2 mmol/L (3.3-5.1) H 06/27/22 Chloride 105 mmol/L (96-108) 06/27/22 Carbon Dioxide 20 mmol/L (22-29) L 06/27/22 Calcium 9.5 mg/dL (8.4-10.2) 06/27/22 AST 17 U/L (5-37) 06/27/22 ALT 20 U/L (0-40) 06/27/22 Total Protein 7.2 g/dL (6.5-8.0) 06/27/22 Albumin 4.2 g/dL (3.5-5.0) 06/27/22 [facility] Medical History Ventral hernia (02/11/23) Back pain Depression Elevated cholesterol Elevated serum creatinine Vitamin D deficiency Diabetic nephropathy associated with type 1 diabetes mellitus Obesity (BMI 30-39.9) Hypertension 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), managed as type 1 Surgical History (Updated 03/04/23 @ 14:55 by Dottie Antoine) History of hernia surgery H/O colonoscopy Hx of exploratory laparotomy Family History Father Diabetes Mother Diabetes Social History Household Members: Spouse and Children Housing: House Do you presently have visiting nurse or other home services: No Alcohol intake: current Alcohol intake frequency: holidays/special occasions only Alcohol type: beer Patient Tobacco Use Status: Former Tobacco user service: No Current occupational status: employed 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 Galavantier gave patient customer service number to call to do online training for upgrade Imortance of changing insulin delivery set/Pod every 72 hours, with site rotation. Patient understands the basic concepts of pump therapy, how to give insulin for meals and snacks, how to troubleshoot for hyper and hypoglycemia. reviewed patient's [facility] reports patient is above target 40% patient is at target 60% patient below target 0% average glucose the past 2 weeks 207 mg/dL patient is having significant rise in glucose levels between 6 and 07:00 see changed to insulin to carb ratio below we were unable to reconnect insulin pump to patient's [employer] loco, patient does not have e-mail on his phone. instructed patient when he gets home to try with his to reset user name and password so that they can follow instructions on how to connect insulin pump to [employer] loco Basal rate(s) (units/hour) : 12 AM? to 5 AM? 2.0 units / hr 5 AM? to 12 PM? 1.75 units / hr 12 PM? to 12 AM? 2.0 units / hr Bolus setting Insulin Carbohydrate Ratio (s) 12 AM to 4 AM? 1:3 4 AM to 12 AM 1:3.5 New 4 AM to 12 AM 1:3 Correction Factor / Sensitivity Factor 12 AM to 12 AM?? 1:15 Active Insulin Time:? 2 hours Target(s): 12 AM to 12 AM?? 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
== END 2023-03-22 16:06 | disposition home or self-care (01) ==
PROVIDERS: PCP Family Medicine; Visit Provider Registered Nurse Diabetes Educator
DX: E13.9 Other specified diabetes mellitus without complications (principal)

== ENCOUNTER 2023-03-22 14:52 | Outpatient (REF) | payer OTHER, SELFPAY ==
[2023-03-22 16:45] LABS: Anion Gap 12 (12-20); Blood Urea Nitrogen 16 mg/dL (9-16); Carbon Dioxide 26 mmol/L (22-29); Chloride 104 mmol/L (96-108); Estimated Glomerular Filt Rate > 60; Glucose Random 208 mg/dL (60-115); Sodium 138 mmol/L (135-145)
[2023-03-22 17:02] LABS: Creatinine Urine 178.53 mg/dL; Microalbum/Creatinine Ratio Ur 21.2 ug/mg cr (<30)
== END 2023-03-22 14:53 | disposition home or self-care (01) ==
LOC: HO.LAB 14:52
PROVIDERS: PCP Family Medicine; Visit Provider Registered Nurse Diabetes Educator
DX: E10.65 Type 1 diabetes mellitus with hyperglycemia (principal)
CPT/HCPCS: 36415; 80048; 82043; 82570; 99211

== ENCOUNTER 2023-04-22 15:58 | Emergency (ER) | payer OTHER, SELFPAY ==
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
[2023-04-22 16:12] VITALS: BP 151/87; PULSE 102; RESP 20; TEMP 36.2; O2SAT 95; BMI 35.4
[2023-04-22 16:49] VITALS: BP 155/81; PULSE 102; RESP 18; O2SAT 96
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
[2023-04-22 18:00] VITALS: BP 115/69; PULSE 94; RESP 16; TEMP 36.8; O2SAT 96
[2023-04-22] MEDS: Cyclobenzaprine HCl 10 MG TABLET PO (19:13)
[2023-04-22] MEDS: Acetaminophen 325 MG TABLET 650 MG PO (19:14)
== END 2023-04-22 19:40 | disposition home or self-care (01) ==
PROVIDERS: Emergency Provider Emergency Medicine; PCP Family Medicine
DX: S39.92XA Unspecified injury of lower back, initial encounter (principal); M25.522 Pain in left elbow; M54.2 Cervicalgia; M25.532 Pain in left wrist; V47.5XXA Car driver injured in collision with fixed or stationary object in traffic accident, initial encounter; Y93.9 Activity, unspecified; Y92.410 Unspecified street and highway as the place of occurrence of the external cause; Y99.9 Unspecified external cause status
CPT/HCPCS: 72100; 73030; 73080; 73110; 99284

== ENCOUNTER 2023-05-07 13:54 | Outpatient (AMB) | payer OTHER, SELFPAY ==
--- NOTE | 2023-05-07 14:51 | A.OFFVIS_ITS ---
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: No Accompanied by: Self / Same As Patient Allergies liraglutide Allergy (Unknown, Verified 04/22/23 16:12) Unknown HPI Comprehensive Diabetes Asmnt Most Recent Diabetes Results: Microalb/Creat Ratio 21.2 ug/mg cr (<30) 03/22/23 Creatinine 0.87 mg/dL (0.5-1.4) 03/22/23 Blood Urea Nitrogen 16 mg/dL (9-16) 03/22/23 Sodium 138 mmol/L (135-145) 03/22/23 Potassium 4.0 mmol/L (3.3-5.1) 03/22/23 Chloride 104 mmol/L (96-108) 03/22/23 Carbon Dioxide 26 mmol/L (22-29) 03/22/23 Calcium 10.0 mg/dL (8.4-10.2) 03/22/23 PFSH Medical History Ventral hernia (02/11/23) Back pain Depression Elevated cholesterol Elevated serum creatinine Vitamin D deficiency Diabetic nephropathy associated with type 1 diabetes mellitus Obesity (BMI 30-39.9) Hypertension 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), managed as type 1 Surgical History History of hernia surgery H/O colonoscopy Hx of exploratory laparotomy Family History Father Diabetes Mother Diabetes Social History Household Members: Spouse and Children Housing: House Do you presently have visiting nurse or other home services: No Alcohol intake: current Alcohol intake frequency: holidays/special occasions only Alcohol type: beer Patient Tobacco Use Status: Former Tobacco user service: No Current occupational status: employed 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 Mohsen from [employer] restarted order for guardian 4 sensors Patient understands the basic concepts of pump therapy, how to give insulin for meals and snacks, how to troubleshoot for hyper and hypoglycemia. reviewed patient's [facility] reports patient is above target 43% patient is at target 56% patient below target 1% average glucose the past 2 weeks 206 mg/dL Patient has upgraded insulin pump from 770 to 780 G Patient in auto mode 85% Manual 12% Since upgrade and starting with automated corrections patient reports he has been having frequent hypoglycemic events. Discussed action insulin time, insulin on board, and automated corrections delivered through 780 G Due to patient's increase in hypoglycemic events we increased active insulin time, see changes to insulin to carb ratio below Settings verified by [facility] Basal rate(s) (units/hour) : 12 AM? to 5 AM? 2.0 units / hr 5 AM? to 12 PM? 1.75 units / hr 12 PM? to 12 AM? 2.0 units / hr Bolus setting Insulin Carbohydrate Ratio (s) 12 AM to 4 AM? 1:3 New 12 AM to 4 AM? 1:4 4 AM to 12 AM 1:3 New 4 AM to 12 AM 1:4 Correction Factor / Sensitivity Factor 12 AM to 12 AM?? 1:15 Active Insulin Time:? 2 hours New active insulin 3 hours Target(s): SmartGuard target: 100 mg/dL 12 AM to 12 AM?? 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
== END 2023-05-07 14:54 | disposition home or self-care (01) ==
PROVIDERS: PCP Family Medicine; Visit Provider Registered Nurse Diabetes Educator
DX: E13.9 Other specified diabetes mellitus without complications (principal)

== ENCOUNTER → 2023-05-07 13:54 | Outpatient (BNVA) | payer OTHER, SELFPAY | PROVIDERS: PCP Family Medicine; Visit Provider Registered Nurse Diabetes Educator | DX: Z46.81 Encounter for fitting and adjustment of insulin pump (principal); E13.9 Other specified diabetes mellitus without complications | CPT/HCPCS: 99211 ==

== ENCOUNTER 2023-06-05 07:09 | Outpatient (REF) | payer OTHER, SELFPAY ==
[2023-06-05 08:26] LABS: Creatinine Urine 215.23 mg/dL; Microalbum/Creatinine Ratio Ur 15.7 ug/mg cr (<30)
[2023-06-05 08:29] LABS: Anion Gap 13 (12-20); Blood Urea Nitrogen 19 mg/dL (9-16); Calcium 9.7 mg/dL (8.4-10.2); Carbon Dioxide 25 mmol/L (22-29); Chloride 105 mmol/L (96-108); Cholesterol 143 mg/dL (<200); Estimated Glomerular Filt Rate > 60; Glucose Random 146 mg/dL (60-115); HDL Cholesterol 39 mg/dL (>40); LDL Cholesterol Calculated 83 mg/dL (<100); Potassium 4.2 mmol/L (3.3-5.1); Sodium 139 mmol/L (135-145); Triglycerides 105 mg/dL (<150)
== END 2023-06-05 07:10 | disposition home or self-care (01) ==
LOC: HO.LAB 07:09
PROVIDERS: PCP Family Medicine; Visit Provider Internal Medicine Endocrinology, Diabetes & Metabolism
DX: E10.65 Type 1 diabetes mellitus with hyperglycemia (principal)
CPT/HCPCS: 36415; 80048; 80061; 82043; 82570

== ENCOUNTER 2023-06-08 15:09 | Outpatient (AMB) | payer OTHER, SELFPAY ==
--- NOTE | 2023-06-08 15:11 | MHC.OFFVIS ---
Intake Vital Signs 06/08/23 15:12 Height 5 ft 9 in Weight 262 lb 2.074 oz BMI 38.7 BP 124/74 Blood Pressure Location Lt brachial Position Sitting Pulse 97 Pulse Source Pulse Oximeter Intake Visit Reasons: [id number] Intake Note: Patient present today to follow up on Type 2 Diabetes Mellitus. Last Diabetic Eye exam: 02/2023 Last Podiatry Visit: Doesn't have one. Random Glucose: 211 mg/dl HgA1C: 8.3% Ocean Fishing Guide Required: No Accompanied by: Self / Same As Patient Allergies liraglutide Allergy (Unknown, Verified 06/08/23 15:20) Unknown Medication List - Last Reconciled 06/08/23 by Matt Silvestre MD atorvastatin 1 tab PO BEDTIME blood sugar diagnostic (Accu-Chek Guide test strips) As directed 6x per day cane As directed COVID-19 antigen test (BinaxNOW COVID-19 Ag Self Test kit) As directed insulin aspart U-100 (Novolog U-100 Insulin aspart) 150 units via insulin pump daily subcutaneously; lisinopril 1 tab PO DAILY sildenafil (Viagra) 0.5 tabs PO DAILY PRN HPI HPI Comments History of Present Illness Details 53-year-old male, today his here for follow-up visit for GAGAN .. Considering bariatric surgery He is feeling well. His pump download from to 06/02/2023 to 06/08/2023 showed an average blood sugar of ?165 mg/dL, standard deviation 61 mg/dL.? 68% range with 32% hyperglycemia and no hypoglycemia .? No hypoglycemia. ? There is p,ost-breakfast hyperglycemia and post-dinner hyperglycemia His total daily insulin is?134.9 units daily. Basal% 40 Bolus 50 % His changing his sets 2.6 days Basal rate(s) (units/hour) : 12 AM? to 5 AM? 2.0 units / hr 5 AM? to 12 PM? 1.75 units / hr 12 PM? to 12 AM? 2.0 units / hr Bolus setting Insulin Carbohydrate Ratio (s) 12 AM to 4 AM? 1:4 4 AM to 12 AM 1:4 Correction Factor / Sensitivity Factor 12 AM to 12 AM?? 1:15 Active Insulin Time:? 2 hours Target(s): 12 AM to !2 AM?? 120 to 12 RaRE HYPOGLYCEMIA Complications: no retinopathy, + nephropathy, no neuropathy, CVA, CAD, PVD. 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 He lost 2 lb since last visit. Last ophthalmology evaluation: 02/2023 , no retinopathy. States he was doing well with the Trulicity 1.5 mg Q weekly tolerating it nicely and curbing his appetite. However since stopping the Trulicity, his appetite is increased his blood sugars of increased after meal Laboratory Tests 06/25/20 06/25/20 06/25/20 14:37 14:46 15:20 Hgb Hct Sodium Potassium Creatinine Estimated GFR Glucose (Clinic) 302 H Estimat Average Gl ucose Hgb A1c (Clinic) 10.7 H Calcium AST ALT Alkaline Phosphata se Albumin Triglycerides Cholesterol LDL Cholesterol Di rect LDL Cholesterol, C alc HDL Cholesterol Vitamin B12 25-OH Vitamin D To everton TSH Free T4 Urine Creatinine 167.67 Urine Microalbumin 30.0 Microalb/Creat Rat io 17.8 06/25/20 06/25/20 06/25/20 15:40 15:40 15:40 Hgb 15.9 Hct 47.0 Sodium Potassium Creatinine Estimated GFR Glucose (Clinic) Estimat Average Gl ucose Hgb A1c (Clinic) Calcium AST 19 ALT 17 Alkaline Phosphata se 113 Albumin 4.5 Triglycerides 157 Cholesterol 131 LDL Cholesterol Di rect 73 LDL Cholesterol, C alc 61 HDL Cholesterol 39 Vitamin B12 25-OH Vitamin D To everton 26.5 TSH 2.28 Free T4 0.93 Urine Creatinine Urine Microalbumin Microalb/Creat Rat io 06/25/20 06/25/20 07/01/20 15:40 15:40 15:00 Hgb Hct Sodium 137 Potassium 4.4 Creatinine 0.96 Estimated GFR > 60 Glucose (Clinic) Estimat Average Gl ucose 260 Hgb A1c (Clinic) Calcium 9.8 AST ALT Alkaline Phosphata se Albumin Triglycerides Cholesterol LDL Cholesterol Di rect LDL Cholesterol, C alc HDL Cholesterol Vitamin B12 878 25-OH Vitamin D To everton TSH Free T4 Urine Creatinine Urine Microalbumin Microalb/Creat Rat io [facility] Medical History Ventral hernia (02/11/23) Back pain Depression Elevated cholesterol Elevated serum creatinine Vitamin D deficiency Diabetic nephropathy associated with type 1 diabetes mellitus Obesity (BMI 30-39.9) Hypertension 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), managed as type 1 Surgical History History of hernia surgery H/O colonoscopy Hx of exploratory laparotomy Family History Father Diabetes Mother Diabetes Social History Household Members: Spouse and Children Housing: House Do you presently have visiting nurse or other home services: No Alcohol intake: current Alcohol intake frequency: holidays/special occasions only Alcohol type: beer Patient Tobacco Use Status: Former Tobacco user service: No Current occupational status: employed 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 Absence of acromegalic features. Neck exam reveals nl size thyroid about 15 gms. No thyroid nodules palpable. No carotid bruits present. Lungs CTA. Heart S1 S2, Reg R/R. No M/R/ G. Skin exam reveals absence of vitiligo or acanthosis nigricans. Abdominal exam reveals Soft NT/ND with NA BS. No organomegaly present. Extrem Other: Visual exam of foot performed. There is a shallow shaving of skin in the right heel but no active ulcer .No ulcerations or open lesions. No onchomycosis, no callouses.Pulses 2 + distally. Sensation intact to monofilament exam. 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 The plan is to tighten insulin:carb to 1:3.5 . I also prescribed wegovy 0.25 mg Q weekly for weight loss. To follow up with hematology nurse educator . 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
[2023-06-08 15:12] VITALS: BP 124/74; PULSE 97; BMI 38.7
[2023-06-08 15:28] LABS: Glucose, Whole Blood 211 mg/dL (60-115)
== END 2023-06-08 15:51 | disposition home or self-care (01) ==
PROVIDERS: PCP Family Medicine; Referring Provider Family Medicine; Visit Provider Internal Medicine Endocrinology, Diabetes & Metabolism
DX: E13.9 Other specified diabetes mellitus without complications (principal)
CPT/HCPCS: 99214

== ENCOUNTER → 2023-06-08 15:09 | Outpatient (BNVA) | payer OTHER, SELFPAY | PROVIDERS: PCP Family Medicine; Referring Provider Family Medicine; Visit Provider Internal Medicine Endocrinology, Diabetes & Metabolism | DX: E13.9 Other specified diabetes mellitus without complications (principal); Z96.41 Presence of insulin pump (external) (internal) | CPT/HCPCS: 82947; 83036; 99212 ==

== ENCOUNTER 2023-06-21 14:55 | Outpatient (AMB) | payer OTHER, SELFPAY ==
--- NOTE | 2023-06-21 15:29 | MHC.AMDMED ---
Intake Intake Visit Reasons: 60 min Principal Architectural Firm Required: No Accompanied by: Self / Same As Patient Allergies liraglutide Allergy (Unknown, Verified 06/08/23 15:20) Unknown HPI Comprehensive Diabetes Asmnt Most Recent Diabetes Results: Microalb/Creat Ratio 15.7 ug/mg cr (<30) 06/05/23 Cholesterol 143 mg/dL (<200) 06/05/23 HDL Cholesterol 39 mg/dL (>40) L 06/05/23 Triglycerides 105 mg/dL (<150) 06/05/23 Creatinine 0.89 mg/dL (0.5-1.4) 06/05/23 Blood Urea Nitrogen 19 mg/dL (9-16) H 06/05/23 Sodium 139 mmol/L (135-145) 06/05/23 Potassium 4.2 mmol/L (3.3-5.1) 06/05/23 Chloride 105 mmol/L (96-108) 06/05/23 Carbon Dioxide 25 mmol/L (22-29) 06/05/23 Calcium 9.7 mg/dL (8.4-10.2) 06/05/23 [facility] Medical History Ventral hernia (02/11/23) Back pain Depression Elevated cholesterol Elevated serum creatinine Vitamin D deficiency Diabetic nephropathy associated with type 1 diabetes mellitus Obesity (BMI 30-39.9) Hypertension 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), managed as type 1 Surgical History History of hernia surgery H/O colonoscopy Hx of exploratory laparotomy Family History Father Diabetes Mother Diabetes Social History Household Members: Spouse and Children Housing: House Do you presently have visiting nurse or other home services: No Alcohol intake: current Alcohol intake frequency: holidays/special occasions only Alcohol type: beer Patient Tobacco Use Status: Former Tobacco user service: No Current occupational status: employed 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 reviewed patient's [facility] reports patient is above target 28% patient is at target 62% patient below target 1% average glucose the past 2 weeks 180 mg/dL Patient in auto mode 89% Manual 4% Discussed action insulin time, insulin on board, and automated corrections delivered through 780 G We did not make changes to patient's pump settings at today's visit. Patient will start Wegovy 0.25 mg when it comes in to the pharmacy Settings verified by CDCES Basal rate(s) (units/hour) : 12 AM? to 5 AM? 2.0 units / hr 5 AM? to 12 PM? 1.75 units / hr 12 PM? to 12 AM? 2.0 units / hr Bolus setting Insulin Carbohydrate Ratio (s) 12 AM to 4 AM? 1:4 4 AM to 12 AM 1:4 Correction Factor / Sensitivity Factor 12 AM to 12 AM?? 1:15 Active Insulin Time:? 3 hours Target(s): SmartGuard target: 100 mg/dL 12 AM to 12 AM?? 120 to 120 Patient Instructions: Follow-up with health educator in 6 weeks Coding Level of Care Code Est Pt Level 1 (13885) Diagnoses Diabetic nephropathy associated with type 1 diabetes mellitus E10.21
== END 2023-06-21 15:31 | disposition home or self-care (01) ==
PROVIDERS: PCP Family Medicine; Visit Provider Registered Nurse Diabetes Educator
DX: E10.21 Type 1 diabetes mellitus with diabetic nephropathy (principal)

== ENCOUNTER → 2023-06-21 14:55 | Outpatient (BNVA) | payer OTHER, SELFPAY | PROVIDERS: PCP Family Medicine; Visit Provider Registered Nurse Diabetes Educator | DX: Z46.81 Encounter for fitting and adjustment of insulin pump (principal); E10.21 Type 1 diabetes mellitus with diabetic nephropathy | CPT/HCPCS: 99211 ==

== ENCOUNTER 2023-07-28 14:21 | Outpatient (AMB) | payer OTHER, SELFPAY ==
--- NOTE | 2023-07-28 14:40 | A.OFFVIS_ITS ---
Intake Visit Reasons: Erectile Dysfunction Intake Note: New patient is present for Erectile Dysfunction Urology Med: Sildenafil Allergies liraglutide Allergy (Unknown, Verified 07/28/23 14:44) Unknown HPI Comments Details: Evan is a very pleasant male. Accompanied by his partner. He is a patient Dr. Pinto. - inguinal disruption - erectile dysfunction Background insulin-dependent diabetes on Wegovy Erectile Dysfunction and setting up insulin-dependent diabetes with component of Peyronie's Ongoing Progressive Associated with curvature of penis Has not tried maximum oral therapy Medications provided with daily tadalafil and on demand tadalafil We will also do pentoxifylline 400 mg p.o. b.i.d. to try to help with baseline mild Peyronie's Inguinal disruption Pain on the right deep inguinal canal On exam has pain was on the lateral aspect of the inguinal canal and on the medial aspect Consistent with deep inguinal tear History of injury last December Discussed natural history of recovery from the type of injury and demonstrated exercises Can follow 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), managed as type 1 Surgical History History of hernia surgery H/O colonoscopy Hx of exploratory laparotomy Family History Father Diabetes Mother Diabetes Social History Household Members: Spouse and Children Housing: House Do you presently have visiting nurse or other home services: No Alcohol intake: current Alcohol intake frequency: holidays/special occasions only Alcohol type: beer Patient Tobacco Use Status: Former Tobacco user service: No Current occupational status: employed 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 Review of Systems Const Denies chills and Denies fever(s) Card Reports no additional complaints and Denies syncope Resp Denies cough GI Denies abdominal pain and Denies heartburn Reports as per HPI and Denies change in libido Neuro Denies syncope Psych Denies change in libido Endo Denies change in libido Physical Exam Const General: cooperative, healthy appearing, comfortable and no acute distress Orientation/consciousness: patient oriented x3 HEENT Face and sinus: Yes normal facial exam Mouth: moist mucous membranes Neck Neck: Yes normal visual inspection, Yes full ROM and Yes trachea midline Chest Chest palpation & inspection: normal inspection of the chest Resp Effort & Inspection: normal respiratory effort, able to speak in complete sentences and no respiratory distress GI Inspection: Yes normal to inspection Back/Spine/Pelvis Cervical Spine: normal cervical lordosis Thoracic/Lumbar Spine: thoracic and lumbar spine normal to inspection Skin General skin exam: no rashes or lesions noted Neuro General: patient oriented x3, gait normal, tone normal and moves all extremities Extrem General: Yes normal to inspection and Yes capillary refill normal Assessment & Plan Assessment & Plan (1) Peyronie's disease: Code(s): N48.6 - Induration penis plastica Category: Medical (2) Erectile dysfunction associated with type 2 diabetes mellitus: Code(s): E11.69 - Type 2 diabetes mellitus with other specified complication; N52.1 - Erectile dysfunction due to diseases classified elsewhere Category: Medical Plan Three month follow-up tele Medications: New tadalafil 20 mg PO ONCE PRN 30 tabs 0RF sexual activity 30 days E11.69 - Type 2 diabetes mellitus with other specified complication, N52.1 - Erectile dysfunc tion due to diseases classified elsewhere tadalafil 5 mg PO DAILY 90 tabs 0RF sexual activity 90 days E11.69 - Type 2 diabetes mellitus with other specified complication, N52.1 - Erectile dysfunction due to diseases classified elsewhere pentoxifylline ER administer with meals 400 mg PO BID 180 tabs 1RF 90 days E11.69 - Type 2 diabetes mellitus with other specified complication, N52.1 - Erectile dysfunction due to diseases classified elsewhere Patient Instructions: Imaging studies, laboratory and physical exam results were discussed and reviewed in detail. No major barriers to patient understanding were identified. An opportunity to ask questions regarding the treatment plan was provided. All questions were answered. The patient expressed understanding and agreement with the above treatment plan. The patient is aware they should contact our office by phone for worsening of their current condition or the appearance of new urologic symptoms. Compliance is encouraged with any medications and followup testing that is ordered. It is a privilege to participate in the urologic care of your patient. If you have any questions or concerns regarding treatment for the above conditions, or other urologic issues, please do not hesitate to contact me. The office telephone contact is [phone]. This note is constructed using voice recognition software. While every effort has been made to ensure accuracy braid pattern setter errors may have been included. Yours sincerely, Dr Chris Wills MD, [facility] - Urology Providers of Expert, Compassionate Care for the Genitourinary System Coding Level of Care Code Est Pt Level 4 (77325) Diagnoses Peyronie's disease N48.6 Erectile dysfunction associated with type 2 diabetes mellitus E11.69; N52.1
== END 2023-07-28 15:06 | disposition home or self-care (01) ==
PROVIDERS: PCP Family Medicine; Visit Provider Urology
DX: N48.6 Induration penis plastica (principal); E11.69 Type 2 diabetes mellitus with other specified complication; N52.1 Erectile dysfunction due to diseases classified elsewhere
CPT/HCPCS: 99214

== ENCOUNTER → 2023-07-28 14:21 | Outpatient (BNVA) | payer OTHER, SELFPAY | PROVIDERS: PCP Family Medicine; Visit Provider Urology ==

== ENCOUNTER 2023-08-09 14:29 | Outpatient (AMB) | payer OTHER, SELFPAY ==
--- NOTE | 2023-08-09 15:25 | A.OFFVIS_ITS ---
Intake Intake Visit Reasons: 30 min Marketing Planning Manager Required: No Accompanied by: Self / Same As Patient Allergies liraglutide Allergy (Unknown, Verified 07/28/23 14:44) Unknown HPI Comprehensive Diabetes Asmnt Most Recent Diabetes Results: Microalb/Creat Ratio 15.7 ug/mg cr (<30) 06/05/23 Cholesterol 143 mg/dL (<200) 06/05/23 HDL Cholesterol 39 mg/dL (>40) L 06/05/23 Triglycerides 105 mg/dL (<150) 06/05/23 Creatinine 0.89 mg/dL (0.5-1.4) 06/05/23 Blood Urea Nitrogen 19 mg/dL (9-16) H 06/05/23 Sodium 139 mmol/L (135-145) 06/05/23 Potassium 4.2 mmol/L (3.3-5.1) 06/05/23 Chloride 105 mmol/L (96-108) 06/05/23 Carbon Dioxide 25 mmol/L (22-29) 06/05/23 Calcium 9.7 mg/dL (8.4-10.2) 06/05/23 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), managed as type 1 Surgical History History of hernia surgery H/O colonoscopy Hx of exploratory laparotomy Family History Father Diabetes Mother Diabetes Social History Household Members: Spouse and Children Housing: House Do you presently have visiting nurse or other home services: No Alcohol intake: current Alcohol intake frequency: holidays/special occasions only Alcohol type: beer Patient Tobacco Use Status: Former Tobacco user service: No Current occupational status: employed 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 reviewed patient's [facility] reports patient is above target 17% patient is at target 82% patient below target 1% average glucose the past 2 weeks mg/dL Patient in auto mode 84% Manual 13% Glucose levels have improved Discussed action insulin time, insulin on board, and automated corrections delivered through 780 G We did not make changes to patient's pump settings at today's visit. Patient has start Wegovy 0.25 mg when it comes in to the pharmacy, no c/o GI side effects Settings verified by CDCES Basal rate(s) (units/hour) : 12 AM? to 5 AM? 2.0 units / hr 5 AM? to 12 PM? 1.75 units / hr 12 PM? to 12 AM? 2.0 units / hr Bolus setting Insulin Carbohydrate Ratio (s) 12 AM to 4 AM? 1:3:5 New 12 AM to 4 AM? 1:4 4 AM to 12 AM 1:3:5 New 4 AM to 12 AM 1:4 Correction Factor / Sensitivity Factor 12 AM to 12 AM?? 1:15 Active Insulin Time:? 3 hours Target(s): SmartGuard target: 100 mg/dL New 12 AM to 12 AM?? 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
== END 2023-08-09 15:51 | disposition home or self-care (01) ==
PROVIDERS: PCP Family Medicine; Visit Provider Registered Nurse Diabetes Educator
DX: E13.9 Other specified diabetes mellitus without complications (principal)

== ENCOUNTER → 2023-08-09 14:29 | Outpatient (BNVA) | payer OTHER, SELFPAY | PROVIDERS: PCP Family Medicine; Visit Provider Registered Nurse Diabetes Educator | DX: E10.21 Type 1 diabetes mellitus with diabetic nephropathy (principal); Z96.41 Presence of insulin pump (external) (internal); Z79.4 Long term (current) use of insulin | CPT/HCPCS: 99211 ==

== ENCOUNTER 2023-10-06 14:18 | Outpatient (AMB) | payer OTHER, SELFPAY ==
--- NOTE | 2023-10-06 14:30 | A.OFFVIS_ITS ---
Vital Signs 10/06/23 14:32 Height 5 ft 9 in Weight 246 lb 14.684 oz BMI 36.5 BP 128/80 Blood Pressure Location Rt brachial Position Sitting Pulse 74 Pulse Source Pulse Oximeter Intake Visit Reasons: Type 1 DM-confirmed Intake Note: New Patient presents today to established treatment for DM Type 1 : Last Diabetic Eye Exam: 02/2024 Last Podiatry Exam- Does not see a Bioanalyst Random Glucose- 138 mg/dL Most recent HbA1c- 7.7%, 10/06/2023 General Service Officer Required: No Accompanied by: Self / Same As Patient Allergies liraglutide Allergy (Unknown, Verified 10/06/23 14:45) Unknown HPI Comments Details: [53] YO [M] seen in f/u for T1DM. Initially diagnosed with T1DM approximately 2013. Most recent HbA1c- 7.7%, 10/06/2023 Down from 8.8% earlier in the year Current regimen: [novolog via medtronic 780G with guardian 4 sensor] Basal rate(s) (units/hour) : 12 AM? to 5 AM? 2.0 units / hr 5 AM? to 12 PM? 1.75 units / hr 12 PM? to 12 AM? 2.0 units / hr Bolus setting Insulin Carbohydrate Ratio (s) 12 AM to 4 AM? 1:4 4 AM to 12 AM 1:4 Correction Factor / Sensitivity Factor 12 AM to 12 AM?? 1:16 Active Insulin Time:? 3 hours Target(s): SmartGuard target: 12 AM to 12 AM?? 120 to 130 He was without a sensor over the past two weeks and is now back on. His average is 171 but reports it was better while on the sensor. He is recently started 1 mg of Wegovy for weight loss. And his weight has decreased from 262-246. He is entering an average of 62 carb grams per day plus 43 carb grams. In reviewing his diet he is following a low-carbohydrate diet and is entering the grams accurately for breakfast he has having a small piece of fruit in a 4 carb g shake Patient understands the basic concepts of pump therapy, how to give insulin for meals and snacks, how to troubleshoot for hyper and hypoglycemia. He had 1 episode of hyperglycemia quite some time ago and is now able to verbalize the protocol for giving a manual injection in changing the site. He is unfamiliar with DKA. He treats his sugar low with 1 glucose tablet. Has eyes checked yearly, last eye exam [within the past year], [no] retinopathy. [Denies] neuropathy, he does not see Podiatry [Denies] nephropathy, on [THO]. UAC [] measured on []. [Has] HLD, on [statin]. Last LDL [84] measured on [06/26]. [Denies] history of CAD. He denies numbness, tingling or cramps in the extremities. He wears closed toed shoes or slippers at all times. [Had pre pump and also was seen once by Ebony DILLON after his pump was started] diabetes education. Diet/Carb counting: [Accurate] Weight: [Losing weight on vegovy] [Denies] prior episodes of DKA. Is not familiar with this [Denies] prior severe episodes of hypoglycemia requiring help or hospitalization. 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 He has 3 children 1 in senior in high school, 1 in college for nursing in an older daughter in her early 30s with 1 child. 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), managed as type 1 Surgical History History of hernia surgery H/O colonoscopy Hx of exploratory laparotomy Family History Father Diabetes Mother Diabetes Social History Household Members: Spouse and Children Housing: House Do you presently have visiting nurse or other home services: No Alcohol intake: current Alcohol intake frequency: holidays/special occasions only Alcohol type: beer Patient Tobacco Use Status: Former Tobacco user service: No Current occupational status: employed 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 Physical Exam Vital Signs: Last Vital Signs Pulse 74 10/06/23 14:32 BP 128/80 10/06/23 14:32 BMI result Body Mass Index 36.5 Const General: cooperative and healthy appearing Nutritional Appearance: overweight Orientation/consciousness: oriented to person Limitations: no limitations Neck Neck: Yes normal visual inspection Thyroid: Thyroid normal Resp Effort & Inspection: normal respiratory effort Cardio Jugular venous distension: no JVD Rate: regular rate Rhythm: regular rhythm Heart sounds: S1 normal heart sound present and S2 normal heart sound present Neuro General: oriented to person Extrem Other: Visual exam of foot performed. No ulcerations or open lesions. No onchomycosis, no callouses. Sensation intact to monofilament exam. Vibratory sensation is normal with 128 Hz tuning fork. No edema or clubbing. Results Reviewed Results Reviewed: Laboratory Last Values Glucose (Clinic) 138 mg/dL (60-115) H 10/06/23 14:37 Laboratory Tests 03/04/23 06/05/23 06/05/23 15:10 07:20 07:23 Potassium 4.2 BUN 19 H Creatinine 0.89 Estimated GFR > 60 Hgb A1c (Clinic) 8.8 H Calcium 9.7 Triglycerides 105 Cholesterol 143 LDL Cholesterol, Calc 83 HDL Cholesterol 39 L Urine Creatinine 215.23 Urine Microalbumin 34.0 Microalb/Creat Ratio 15.7 06/08/23 15:33 Potassium BUN Creatinine Estimated GFR Hgb A1c (Clinic) 8.3 H Calcium Triglycerides Cholesterol LDL Cholesterol, Calc HDL Cholesterol Urine Creatinine Urine Microalbumin Microalb/Creat Ratio Assessment & Plan Assessment & Plan (1) Diabetic nephropathy associated with type 1 diabetes mellitus: Code(s): E10.21 - Type 1 diabetes mellitus with diabetic nephropathy Category: Medical Plan: He is doing well an A1c almost near target. With the addition of Wegovy he has lost 16 lb. We will continue current settings on his Medtronic pump. The patient was counseled to always carry a source of sugar and on the rule of 15's: Take 3 glucose tablets and repeat again in 15 minutes if blood sugar is not in normal range. Continue to repeat every 15 minutes until blood sugar is normal. I reviewed backup insulin plan via his pump failure he is to take Lantus 50 units daily along with his usual dosing of his short-acting insulin pre meal. I reviewed how to recognize and treat DKA in a prescription for urine ketone strips was sent to his pharmacy. He is on medication for erectile dysfunction which has been working for him. We will obtain a morning testosterone level. He will continue to work on his diet and exercise. This Orders: Orders Free T4 (Free Thyroxine) 2 Weeks E13.9 - Other specified diabetes mellitus without complications Thyroid Stimulating Hormone 2 Weeks E13.9 - Other specified diabetes mellitus without complications Testosterone, Free/Total Today E11.69 - Type 2 diabetes mellitus with other specified complication, N52.1 - Erectile dysfunction due to diseases classified elsewhere Medications: New insulin glargine (Lantus Solostar U-100 Insulin) 50 units (0.5 mL) subcut DAILY 30 days PRN 15 mL 1RF prn pump failure, back up insulin plan E13.9 - Other specified diabetes mellitus without complications acetone (urine) test (Ketone Care strips) As directed 50 ea 1RF E13.9 - Other specified diabetes mellitus without complications Coding Level of Care Code Est Pt Level 5 (11984) Complex EM visit Add On G2211 Diagnoses Diabetic nephropathy associated with type 1 diabetes mellitus E10.21 Time Spent (min) 60 Comment Time spent reviewing labs/diagnostic reports, reviewing chart, face to face & documenting
[2023-10-06 14:32] VITALS: BP 128/80; PULSE 74; BMI 36.5
[2023-10-06 14:42] LABS: Glucose, Whole Blood 138 mg/dL (60-115)
== END 2023-10-06 15:18 | disposition home or self-care (01) ==
PROVIDERS: PCP Family Medicine; Visit Provider Nurse Practitioner Adult Health
DX: E10.21 Type 1 diabetes mellitus with diabetic nephropathy (principal)
CPT/HCPCS: 99215; G2211

== ENCOUNTER → 2023-10-06 14:18 | Outpatient (BNVA) | payer OTHER, SELFPAY | PROVIDERS: PCP Family Medicine; Visit Provider Nurse Practitioner Adult Health | DX: E10.21 Type 1 diabetes mellitus with diabetic nephropathy (principal); E10.69 Type 1 diabetes mellitus with other specified complication; N52.1 Erectile dysfunction due to diseases classified elsewhere; Z71.3 Dietary counseling and surveillance | CPT/HCPCS: 82947; 99212 ==

== ENCOUNTER 2024-01-01 07:08 | Outpatient (REF) | payer OTHER, SELFPAY ==
[2024-01-01 08:36] LABS: Free T4 (Free Thyroxine) 0.88 ng/dL (0.71-1.85); Thyroid Stimulating Hormone 1.71 uIU/mL (0.32-4.0)
[2024-01-10 14:53] LABS: Testosterone, Free 39.9 pg/mL (35.0-155.0); Testosterone, Total 279 ng/dL (250-1100)
== END 2024-01-01 07:09 | disposition home or self-care (01) ==
LOC: HO.LAB 07:08
PROVIDERS: PCP Family Medicine; Visit Provider Nurse Practitioner Adult Health
DX: E11.69 Type 2 diabetes mellitus with other specified complication (principal); N52.1 Erectile dysfunction due to diseases classified elsewhere
CPT/HCPCS: 36415; 84402; 84403; 84439; 84443

== ENCOUNTER 2024-01-06 14:39 | Outpatient (AMB) | payer OTHER, SELFPAY ==
--- NOTE | 2024-01-06 11:55 | A.OFFVIS_ITS ---
Vital Signs 01/06/24 14:41 Height 5 ft 9 in Weight 231 lb 7.766 oz BMI 34.2 BP 120/62 Blood Pressure Location Rt brachial Position Sitting Pulse 92 Pulse Source Pulse Oximeter Intake Visit Reasons: Type 1 DM/CONFIRMED Intake Note: Patient presents today for a follow-up on Type 1 Diabetes Mellitus (GAGAN): Last Diabetic Eye Exam: 05/2023 Last Podiatry Exam- Does not see a Lens Cleaner Most recent HbA1c- 8.1%, 01/06/2024 Random Glucose- 191 mg/dL, Today Roll Weigher Required: No Accompanied by: Self / Same As Patient Allergies liraglutide Allergy (Unknown, Verified 01/06/24 14:53) Unknown HPI Comments Details: 53 YO male seen in f/u for T1DM. He is on an insulin pump. He was last seen 3 months ago. Hemoglobin A1c 01/06/2024 is 8.1%. This is up from his A1c on 10/06/2023 of 7.7%. He is now on wegovy and has lost 25 lb in the last 3 months. He reports he is eating a balanced diet and in the morning having a protein shake with for carb g. His average sensor readings for the past 2 weeks are 175. Initially diagnosed with T1DM approximately 2013. Current regimen: [novolog via Source Audio 780G with guardian 4 sensor] Glucose average 175 total daily dose of insulin 94 units Basal rate(s) (units/hour) : 12 AM? to 5 AM? 2.0 units / hr 5 AM? to 12 PM? 1.75 units / hr 12 PM? to 12 AM? 2.0 units / hr Bolus setting Insulin Carbohydrate Ratio (s) 12 AM to 4 AM? 1:4 4 AM to 12 AM 1:4 Correction Factor / Sensitivity Factor 12 AM to 12 AM?? 1:16 new 1:14 Active Insulin Time:? 3 hours Target(s): SmartGuard target: 12 AM to 12 AM?? 120 to 130 Patient understands the basic concepts of pump therapy, how to give insulin for meals and snacks, how to troubleshoot for hyper and hypoglycemia. He had 1 episode of hyperglycemia quite some time ago and is now able to verbalize the protocol for giving a manual injection and changing the set/site. Has eyes checked yearly, last eye exam was within the past year, no retinopathy. Denies neuropathy, he does not see Podiatry Has nephropathy, on [THO]. 06/2023 Microalbumin 34 eGFR>60 [Has] HLD, on [statin]. Last LDL [84] measured on [06/26]. [Denies] history of CAD. Followed by Dr. Wills in Urology for hypogonadism and ED He denies numbness, tingling or cramps in the extremities. He wears closed toed shoes or slippers at all times. [Had pre pump and also was seen once by Ebony DILLON after his pump was started] diabetes education. Diet/Carb counting: [Accurate] Weight: [Losing weight on vegovy] [Denies] prior episodes of DKA. Is not familiar with this [Denies] prior severe episodes of hypoglycemia requiring help or hospitalization. 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 He has 3 children 1 in senior in high school, 1 in college for nursing in an older daughter in her early 30s with 1 child. 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), managed as type 1 Surgical History History of hernia surgery H/O colonoscopy Hx of exploratory laparotomy Family History Father Diabetes Mother Diabetes Social History Household Members: Spouse and Children Housing: House Do you presently have visiting nurse or other home services: No Alcohol intake: current Alcohol intake frequency: holidays/special occasions only Alcohol type: beer Patient Tobacco Use Status: Former Tobacco user service: No Current occupational status: employed 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 Absence of acromegalic features. Neck exam reveals nl size thyroid about 15 gms. No thyroid nodules palpable. No carotid bruits present. Lungs CTA. Heart S1 S2, Reg R/R. No M/R G. Skin exam reveals absence of vitiligo or acanthosis nigricans. 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 Setting changes made on insulin pump. Insulin correction adjusted to give patient were pre meal insulin The patient had an opportunity to ask questions regarding treatment plan. The patient expressed understanding and agreement with the above treatment plan. The patient is aware they should contact our office by phone for worsening glucose readings or for any low blood sugars which may warrant a change in diabetes medication. Compliance is encouraged with medications and any followup testing/consults which may have been ordered. 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
[2024-01-06 14:41] VITALS: BP 120/62; PULSE 92; BMI 34.2
[2024-01-06 14:50] LABS: Glucose, Whole Blood 191 mg/dL (60-115)
== END 2024-01-06 15:17 | disposition home or self-care (01) ==
PROVIDERS: PCP Family Medicine; Visit Provider Nurse Practitioner Adult Health
DX: E13.9 Other specified diabetes mellitus without complications (principal)
CPT/HCPCS: 99214; G2211

== ENCOUNTER → 2024-01-06 14:39 | Outpatient (BNVA) | payer OTHER, SELFPAY | PROVIDERS: PCP Family Medicine; Visit Provider Nurse Practitioner Adult Health | DX: Z46.81 Encounter for fitting and adjustment of insulin pump (principal); E13.9 Other specified diabetes mellitus without complications; Z79.4 Long term (current) use of insulin | CPT/HCPCS: 82947; 83036; 99212 ==

== ENCOUNTER 2024-03-06 10:45 | Outpatient (AMB) | payer OTHER, SELFPAY ==
--- NOTE | 2024-03-06 11:14 | MHC.AMDMED ---
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), managed as type 1 Surgical History History of hernia surgery H/O colonoscopy Hx of exploratory laparotomy Family History Father Diabetes Mother Diabetes Social History Household Members: Spouse and Children Housing: House Do you presently have visiting nurse or other home services: No Alcohol intake: current Alcohol intake frequency: holidays/special occasions only Alcohol type: beer Patient Tobacco Use Status: Former Tobacco user service: No Current occupational status: employed 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 Assessment & Plan Assessment & Plan (1) 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), managed as type 1: Comment: humalog insulin via insulin pump Code(s): E13.9 - Other specified diabetes mellitus without complications Plan: Patient had pump training visit for Medtronic 780 G with guardian 4 sensor Pump settings entered into patient's replacement 780 G insulin pump Patient did not bring manufacturers service representative for sensors so we were unable to connect new pump to sensor or smart phone Patient needs further assistance in setting up he can contact Medtronic or make another appointment with regional company flatbed truck driver Settings verified by [facility] Basal rate(s) (units/hour) : 12 AM? to 5 AM? 2.0 units / hr 5 AM? to 12 PM? 1.75 units / hr 12 PM? to 12 AM? 2.0 units / hr Bolus setting Insulin Carbohydrate Ratio (s) 12 AM to 4 AM? 1:4 4 AM to 12 AM 1:4 Correction Factor / Sensitivity Factor 12 AM to 12 AM?? 1:14 Active Insulin Time:? 3 hours Target(s): SmartGuard target: 100 mg/dL 12 AM to 12 AM?? 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
== END 2024-03-06 11:44 | disposition home or self-care (01) ==
PROVIDERS: PCP Family Medicine; Visit Provider Registered Nurse Diabetes Educator
DX: E13.9 Other specified diabetes mellitus without complications (principal)

== ENCOUNTER → 2024-03-06 10:45 | Outpatient (BNVA) | payer OTHER, SELFPAY | PROVIDERS: PCP Family Medicine; Visit Provider Registered Nurse Diabetes Educator | DX: E13.9 Other specified diabetes mellitus without complications (principal); Z79.4 Long term (current) use of insulin; Z96.41 Presence of insulin pump (external) (internal) | CPT/HCPCS: 99211 ==

== ENCOUNTER 2024-04-12 13:07 | Outpatient (AMB) | payer OTHER, SELFPAY ==
--- NOTE | 2024-04-12 08:48 | A.OFFVIS_ITS ---
Vital Signs 04/12/24 13:20 Height 5 ft 9 in Weight 222 lb 10.67 oz BMI 32.9 BP 120/80 Blood Pressure Location Rt brachial Position Sitting Pulse 74 Pulse Source Pulse Oximeter Intake Visit Reasons: Type 1 DM Intake Note: Patient presents today for a follow-up on Type 1 Diabetes Mellitus (GAGAN): Last Diabetic Eye Exam: 05/2023 Last Podiatry Exam- Does not see a Animation Camera Operator Most recent HbA1c- 8.2%, 04/12/2024 Random Glucose- 361 mg/dL, Today Tool Keeper Required: No Accompanied by: Self / Same As Patient Allergies liraglutide Allergy (Unknown, Verified 01/06/24 14:53) Unknown HPI Comments Details: 53 YO male seen in f/u for T1DM. He is on an insulin pump. He was last seen 3 months ago by myself 3 months ago and iin early March by Ebony DILLON. Hemoglobin A1c 04/12/24 01/06/2024 is 8.1%. 10/06/2023 of 7.7%. He is now on wegovy and has been successful in his weiht loss. He reports he had beeen eating a balanced diet and in the morning having a protein shake. HIs mother is visiting from [place] and he has been eating more. He had a low testosterone level 01/01/24 279 and additional labs were ordered at that time. He is following up with Dr. Wills urology Initially diagnosed with T1DM approximately 2013. Current regimen: [novolog via medtronic 780G with guardian 4 sensor] Dexcom average glucose: 246 ] 14day continuous glucose monitor report reviewed Readings elevated last two weeks due to not entering in all carbs. Aerage carb entered 40 carb grams Basal 69 units 57% Bolus 52 units 43% Patient understands the basic concepts of pump therapy, how to give insulin for meals and snacks, how to troubleshoot for hyper and hypoglycemia. Has eyes checked yearly, last eye exam was within the past year, no retinopathy. Denies neuropathy, he does not see Podiatry Has nephropathy, on [THO]. 06/2023 Microalbumin 34 eGFR>60 [Has] HLD, on [statin]. Last LDL [84] measured on [06/26]. [Denies] history of CAD. Followed by Dr. Wills in Urology for hypogonadism and ED He denies numbness, tingling or cramps in the extremities. He wears closed toed shoes or slippers at all times. Diet/Carb counting: [Accurate] Weight: [Losing weight on vegovy] [Denies] prior episodes of DKA. [Denies] prior severe episodes of hypoglycemia requiring help or hospitalization. 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 He has 3 children 1 in senior in high school, 1 in college for nursing in an older daughter in her early 30s with 1 child. Basal rate(s) (units/hour) : 12 AM? to 5 AM? 2.0 units / hr 5 AM? to 12 PM? 1.75 units / hr 12 PM? to 12 AM? 2.0 units / hr Bolus setting Insulin Carbohydrate Ratio (s) 12 AM to 4 AM? 1:4 4 AM to 12 AM 1:4 Correction Factor / Sensitivity Factor 12 AM to 12 AM?? 1:14 Active Insulin Time:? 3 hours Target(s): SmartGuard target: 100 mg/dL 12 AM to 12 AM?? 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), managed as type 1 Surgical History History of hernia surgery H/O colonoscopy Hx of exploratory laparotomy Family History Father Diabetes Mother Diabetes Social History Household Members: Spouse and Children Housing: House Do you presently have visiting nurse or other home services: No Alcohol intake: current Alcohol intake frequency: holidays/special occasions only Alcohol type: beer Patient Tobacco Use Status: Former Tobacco user service: No Current occupational status: employed 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 Absence of acromegalic features. Neck exam reveals nl size thyroid about 15 gms. No thyroid nodules palpable. Heart S1 S2, Reg R/R. No M/R G. Skin exam reveals absence of vitiligo or acanthosis nigricans. Visual exam of foot performed. No ulcerations or open lesions. No inter digit maceration or fissuring. No onychomycosis, no callouses. Sensation intact to monofilament exam. Vibratory sensation is normal with 128 Hz tuning fork. 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 He was encouraged to enter all carbohydrate g. It present he is entering in only 40 on average per day. Change Wegovy 2 Ozempic due to insurance changes. Glucose logs reviewed from pump download in [place] diabetes form completed at the time of visit. The patient had an opportunity to ask questions regarding treatment plan. The patient expressed understanding and agreement with the above treatment plan. The patient is aware they should contact our office by phone for worsening glucose readings or for any low blood sugars which may warrant a change in diabetes medication. Compliance is encouraged with medications and any followup testing/consults which may have been ordered. Orders: Orders Comprehensive Met. Panel Today E13.9 - Other specified diabetes mellitus without complications Lipid Panel Today E13.9 - Other specified diabetes mellitus without complications Microalbumin, Random (w Creat) Today E13.9 - Other specified diabetes mellitus without complications Creatinine Urine Today E13.9 - Other specified diabetes mellitus without complications AMB Hemoglobin A1c Today E13.9 - Other specified diabetes mellitus without complications Medications: New semaglutide (Ozempic) 2 mg (0.75 mL) subcut QWEEK 28 days 3 mL 11RF Discontinued semaglutide (weight loss) (Wegovy) administer weeks 9 through 12 of therapy Discontinued Reason: Doctor's Order 1 mg (0.5 mL) subcut QWEEK 2 mL 4RF Patient Instructions: Symptoms of DKA (diabetic ketoacidosis): early: frequent urination, dry mouth, fatigue, feeling ill, severe symptoms: ketones in the urine, abdominal pain, nausea, vomiting and weakness. It is important to hydrate with sugar free liquids every 15-30 minutes and bring the sugars down to normal levels. If you are moderate or severe with ketones or unable to bring glucose to less than 200, go to the emergency room. Troubleshooting after starting new pod or inserting new insulin set: Occlusion, adhesive tape sensitivity, redness Check BG 2 hours after site change Safety information: Importance of a backup plan, for manual injections, proper prescriptions and emergency supplies ketone strips, and rules for testing for ketones The patient was counseled to achieve a target A1C of 7% (154 avg). Fasting blood sugars should be 90-130 in the morning and less than 180 two hours after meals. Reviewed the relationship between poor diabetic control and the development of complications. Check your feet daily looking for any signs of infection, ulceration and seek medical attention if this occurs. Break in shoes gradually and do not wear open-toed shoes or walk barefooted. The patient was counseled to always carry a source of sugar and on the rule of 15's: Take 3 glucose tablets and repeat again in 15 minutes if blood sugar is not in normal range. Continue to repeat every 15 minutes until blood sugar is normal. 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
--- OUTSIDE RECORDS SUMMARY | 2024-04-12 13:09 | XMS_ITS ---
Author Organization [facility] Address [address] [place] [id number] Care Team Providers Care Python Engineer Name Role Phone Aubree Pinto MD Primary Care Provider Pamela vailable Robbie Apple, Saul Ca REASON FOR VISIT Pt no show Encounters Encounter Location Date Provider Diagnosis [facility] [address] [place] [phone] 12/10/2022 Saul Avalos Jr PLAN OF TREATMENT No Information
--- OUTSIDE RECORDS SUMMARY | 2024-04-12 13:10 | XMS_ITS | Data Portability ---
Author Organization [place] - [facility] [address] Address [address] [place] [address] Assessment No assessment recorded. Plan of Treatment Reminders Order Date Submit Date Provider Last Modified By Organization Details Last Modified Time Details Appointments None record ed. Lab None record ed. Referral None record ed. Procedures None record ed. Surgeries None record ed. Imaging None record ed. Medication Orders None record ed. Patient TargetsNo targets recorded. Patient Instructions Encounter Date Encounter Id Patient Instructions Last Modified By Organization Details Last Modified Time 04/30/2023 [id number] This physical does not replace the annual physical to be performed by your PCP. There may be additional screening tests that they will perform that we do not in the urgent care setting. Failure to follow up as recommended may result in significant adverse health consequences. ??? If your symptoms worsen or you develop new symptoms that concern you, go to the emergency department for further evaluation. carlos Not available 04/30/2023 15:38:57 Reason for Referral None Reported. Procedures Surgical History Date Name Laterality Status Provider Name and Address Organization Details Recorded Time 4 OC-DOT PHYSICAL completed Marcia Bynum PA - [facility] 04/30/2023 15:42:53 3 OC-DOT PHYSICAL completed JOSHUA MIGUEL [place] - [facility] 05/11/2022 08:56:56 Imaging Results None recorded. Procedure Notes None recorded. Medical Equipment None Reported. Medications Name Sig Start Date Stop Date Status Note LastModified by Organization Details LastModified Time celecoxib 200 mg capsule PLEASE SEE ATTACHED FOR DETAILED DIRECTIONS active Not Available Not Available N ot Available atorvastatin 40 mg tablet TAKE 1 TABLET BY MOUTH EVERYDAY AT BEDTIME active Not Available Not Available No t Available sildenafil 100 mg tablet TAKE 1/2 TABLET BY ORAL ROUTE EVERY DAY NEEDED APPROXIMATE LY 1 HOUR BEFORE SEXUAL ACTIVITY active Not Available Not Available No t Available Humalog U-100 Insulin 100 unit/mL subcutaneous solution INJECT 0-130 UNITS UNDER THE SKIN VIA PUMP active Not Available Not Available No t Available gabapentin 300 mg capsule TAKE 1 CAPSULE BY MOUTH 2 TIMES A DAY FOR PAIN FOR 30 DAYS active Not Available Not Available Not Available lisinopril 5 mg tablet TAKE 1 TABLET BY MOUTH EVERY DAY active Not Available Not Available No t Available SymlinPen 60 1,500 mcg/1.5 mL subcutaneous pen injector INJECT 30 MCG (0.03 ML) SUBCUTANEOU SLY 2 TIMES A DAY active Not Available Not Available No t Available Victoza 3-Parviz 0.6 mg/0.1 mL (18 mg/3 mL) subcutaneous pen injector INJECT 1.2MG (0.2ML) SUBCUTANEOU SLY EVERY DAY active Not Available Not Available No t Available Trulicity 1.5 mg/0.5 mL subcutaneous pen injector INJECT 1.5MG SUBCUTANEOU SLY ONE TIME PER WEEK active Not Available Not Available No t Available Accu-Chek Guide test strips TEST 6 TIMES A DAY DIRECTED active Not Available Not Available Not Available Trulicity 3 mg/0.5 mL subcutaneous pen injector INJECT 1 PEN SUBCUTANEOU SLY ONCE WEEKLY active Not Available Not Available No t Available BinaxNOW COVID-19 Ag Self Test kit TEST DIRECTED active Not Available Not Available No t Available Vitals None Recorded Social History None recorded. Functional Status None recorded. Mental Status None recorded. Family History Nothing Reported. Medical History No medical history recorded. Past Encounters Encounter ID Performer Location Encounter Start Date Encounter Closed Date Diagnosis/Indication Diagnosis SNOMED-CT Code Diagnosis ICD10 Code Diagnosis Note [id number] [address] [place] [address] 05/29/2017 15:01:54 05/29/2017 15:24:50 [id number] [address] [facility] [address] [place] [address] 12/28/2019 12:18:16 12/28/2019 13:38:21 [id number] [address] [place] [address] 11/26/2020 14:35:05 11/26/2020 19:02:39 [id number] [address] [facility] [place] [address] 05/22/2021 14:27:53 05/22/2021 16:04:17 [id number] [address] [facility] [place] [address] 03/31/2016 14:40:30 03/31/2016 15:39:46 [id number] [facility] [employer] [address] [facility] [place] [address] 05/11/2022 08:05:24 05/11/2022 09:25:12 History 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, 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 [id number] Z02.1 Documentat ion for this visit can be found on the electronic DOT form or scanned [place] [id number] [place] [address] [place] [address] 04/30/2023 13:41:19 04/30/2023 16:28:41 History 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, 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 [id number] Z02.1 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 332160470 Z02.4 Physical examination 588 0005 Z02.4 Health Concerns Section Related Observation LastModified by Organization Detai ls LastModified Time None Recorded Concern Status LastModified by Organization Details LastModified Time None Recorded Advance Directives Directive None Recorded Payers Encounter Date Sequence Insurance Name Policy Number Policy Oilvo Covered Member ID Olivo Member ID Guarantor Name 05/11/2022 DO NOT USE Evan Puente [id number] Evan Puente 04/30/2023 OC-PAY AT TIME OF SERVICE 2022 Evan Puente OTHER Evan Puente Notes Date Note Type Note Provider Name and Address Organization Details Recorded Time 04/30/2023 text/html PhysicalReported bypatient.source of patient informationpatient; Patient arrived at Urgent Care ambulatory 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
--- OUTSIDE RECORDS SUMMARY | 2024-04-12 13:10 | XMS_ITS ---
Author Organization [facility] Address [address] [place] [phone] Care Team Providers Care Trumpet Player Name Role Phone Aubree Pinto MD Primary Care Provider Pamela vailable Robbie Apple, Saul Ca REASON FOR VISIT Patient presents today for a screening colonoscopy Encounters Encounter Location Date Provider Diagnosis [facility] [address] [place] [phone] 12/10/2022 Saul Avalos Jr PLAN OF TREATMENT No Information
--- OUTSIDE RECORDS SUMMARY | 2024-04-12 13:10 | XMS_ITS | Patient Health Record ---
Author Organization [facility] Address [address] [place] [phone] Care Team Providers Care Packaging Assembler Name Role Phone Aubree Pinto MD Primary Care Provider Pamela Saul Cortez Jr Unavailable REASON FOR REFERRAL No Information MEDICATIONS Medication SIG (Take, Route, Fr equency, Duration) Notes Start Date End Date Status Lantus Active Pravastatin Sodium A ctive traMADol HCl Active metFORMIN HCl Active SOCIAL HISTORY Sex Assigned At : Social History Observation Description Sex Assigned At Unknown PROBLEMS Problem Type ICD Code Onset Dates Problem Status W/U Status Risk SNOMED Code Notes Problem Chronic hepatitis C without mention of hepatic coma (070.54) Active confirmed Chronic hepatitis C (551406055) Problem Chronic hepatitis C (070.54) Active confirmed Chronic hepatitis C (993700812) PLAN OF TREATMENT Pending Test Test Name Order Date LIVER PROFILE 01/25/2012 LIVER PROFILE 07/21/2011 FREE T4 (FT4) 07/21/2011 TSH (THYROID STIMULATING HORMONE) 2011 CBC w DIFF 07/21/2011 CBC w/o DIFF 01/25/2012 HEPATITIS C VIRAL LOAD 01/25/2012 Future Test Test Name Order Date HCV RNA BDNA RFLX TMA 01/15/2012 Insurance Providers Payer Name Payer Address Payer Phone Subscriber Number Group Number Insured Name Patient Relationship to Insured Coverage Start Date Coverage End Date [facility] [address] [facility] [phone] [id number] PALLAVI ROCA Self - patient is the insured MEDICAL (GENERAL) HISTORY Medical History History ICD Code hyperlipidemia back pain Hepatitis C diabetes mellitus
[2024-04-12 13:20] VITALS: BP 120/80; PULSE 74; BMI 32.9
[2024-04-12 13:29] LABS: Glucose, Whole Blood 361 mg/dL (60-115)
== END 2024-04-12 13:48 | disposition home or self-care (01) ==
PROVIDERS: PCP Family Medicine; Visit Provider Nurse Practitioner Adult Health
DX: E13.9 Other specified diabetes mellitus without complications (principal)
CPT/HCPCS: 99215; G2211

== ENCOUNTER → 2024-04-12 13:07 | Outpatient (BNVA) | payer OTHER, SELFPAY | PROVIDERS: PCP Family Medicine; Visit Provider Nurse Practitioner Adult Health | DX: Z46.81 Encounter for fitting and adjustment of insulin pump (principal); E13.9 Other specified diabetes mellitus without complications; Z79.4 Long term (current) use of insulin | CPT/HCPCS: 82947; 83036; 99212 ==

== ENCOUNTER → 2024-04-17 15:07 | Outpatient (BNVA) | payer SELFPAY | PROVIDERS: PCP Family Medicine; Visit Provider Physician Assistant Medical | DX: Z02.79 Encounter for issue of other medical certificate (principal) ==

== ENCOUNTER 2024-07-12 13:35 | Outpatient (AMB) | payer OTHER, SELFPAY ==
--- NOTE | 2024-07-12 09:43 | A.OFFVIS_ITS ---
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 Most recent HbA1c- 7.8%, 07/12/2024 Random Glucose- 199 mg/dL, Today Intake Clerk Required: No Allergies liraglutide Allergy (Unknown, Verified 07/12/24 14:35) Unknown Medication List - Last Reconciled 07/12/24 by Stephani Rivera NP acetone (urine) test (Ketone Care strips) As directed atorvastatin 1 tab PO BEDTIME blood sugar diagnostic (Accu-Chek Guide test strips) As directed 6x per day cane As directed COVID-19 antigen test (Client24axNOW COVID-19 Ag Self Test kit) As directed insulin aspart U-100 (Novolog U-100 Insulin aspart) 150 units (1.5 mL) subcut DAILY insulin glargine (Lantus Solostar U-100 Insulin) 50 units (0.5 mL) subcut DAILY PRN 30 days lisinopril 1 tab PO DAILY pentoxifylline ER 400 mg PO BID 90 days sildenafil (Viagra) 0.5 tabs PO DAILY PRN tadalafil 20 mg PO ONCE PRN 30 days tadalafil 5 mg PO DAILY 90 days HPI Comments Details: 54 YO male seen in f/u for DM. He is on an insulin pump. He was last seen 3 months 04/12/24 at which time Hemoglobin A1C was 8.2%, A1C today is 7.8% He was on Wegovy for over one year. He was titrated upward to 1.7 mg dosing. His insurance denied both wegovy and ozempic. Since coming off Wegovy, his weight has increased from 222 pounds to 240.He reports he had been eating a balanced diet and in the morning having a protein shake. . He had a low testosterone level 01/01/24 279 and additional labs were ordered at that time. He is following up with Dr. Wills urology Initially diagnosed with T1DM approximately 2013. Current regimen: [novolog via medtronic 780G with guardian 4 sensor] Unable to download pump at todays visits, Manually reviewed pump settings. Activ e insulin time hanged from 3.o to 2.75 Patient understands the basic concepts of pump therapy, how to give insulin for meals and snacks, how to troubleshoot for hyper and hypoglycemia. Has eyes checked yearly, last eye exam was within the past year, no retinopathy. Denies neuropathy, he does not see Podiatry Has nephropathy, on [THO]. 06/2023 Microalbumin 34 eGFR>60 [Has] HLD, on [statin]. Last LDL [84] measured on [06/26]. Denies history of CAD. Followed by Dr. Wills in Urology for hypogonadism and ED He denies numbness, tingling or cramps in the extremities. He wears closed toed shoes or slippers at all times. Diet/Carb counting: [Accurate] Weight: WEight incrase since off wegovy [Denies] prior episodes of DKA. [Denies] prior severe episodes of hypoglycemia requiring help or hospitalization. 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 He has 3 children 1 in senior in high school, 1 in college for nursing in an older daughter in her early 30s with 1 child. Basal rate(s) (units/hour) : 12 AM? to 5 AM? 2.0 units / hr 5 AM? to 12 PM? 1.75 units / hr 12 PM? to 12 AM? 2.0 units / hr Bolus setting Insulin Carbohydrate Ratio (s) 12 AM to 4 AM? 1:4 4 AM to 12 AM 1:4 Correction Factor / Sensitivity Factor 12 AM to 12 AM?? 1:14 Active Insulin Time:? 3 hours new 2.75 Target(s): SmartGuard target: 100 mg/dL 12 AM to 12 AM?? 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), managed as type 1 Surgical History History of hernia surgery H/O colonoscopy Hx of exploratory laparotomy Family History Father Diabetes Mother Diabetes Social History Household Members: Spouse and Children Housing: House Do you presently have visiting nurse or other home services: No Alcohol intake: current Alcohol intake frequency: holidays/special occasions only Alcohol type: beer Patient Tobacco Use Status: Former Tobacco user service: No Current occupational status: employed 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 Absence of acromegalic features. Neck exam reveals nl size thyroid about 15 gms. No thyroid nodules palpable. Heart S1 S2, Reg R/R. No M/R G. Skin exam reveals absence of vitiligo or acanthosis nigricans. Visual exam of foot performed. No ulcerations or open lesions. No inter digit maceration or fissuring. No onychomycosis, no callouses. Sensation intact to monofilament exam. Vibratory sensation is normal with 128 Hz tuning fork. 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 We will decrease active insulin time from 3 to 2.75 His weight has increased over 20 lb since stopping Wegovy several months ago. Ozempic and Wegovy were both declined despite prior off and letter submitted to insurance company. I will contact insurance company and request a provider review. 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
[2024-07-12 13:42] VITALS: BP 122/82; PULSE 101; O2SAT 94; BMI 35.5
[2024-07-12 13:53] LABS: Glucose, Whole Blood 199 mg/dL (60-115)
--- OUTSIDE RECORDS SUMMARY | 2024-07-12 15:45 | XMS_ITS | Clinical Summary ---
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 Name Role Phone Aubree Pinto MD Primary Care Provider [phone] Matt Silvestre MD Unavailable Chris Wills MD Unavailable Lashell Falcon Unavailable Saul Avalos MD Unavailable Allergies Active Allergy Reactions Criticality Noted Date Comments Liraglutide Unknown 04/22/2023 Medications Acetaminophen 500 MG capsuleIndication s:Low back pain potentially associated with radiculopathy Take 1 tab po tid pain 60 capsule 3 06/23/19 24 Active Omeprazole 20 MG tablet delayed-releaseIn dications:Gastroe sophageal reflux disease, unspecified whether esophagitis present Take 20 mg by mouth in the morning. 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 Active Active Problems Problem Noted Date Diagnosed Date Class 2 severe obesity due t o excess calories with serious comorbidity and body mass index (BMI) of 37.0 to 37.9 in adult 06/12/2024 Assessment & Plan (06/12/2024 10:20 AM EDT): Dietary Recommendations: Fruits, vegetables, whole grains, protein foods, and fat-free or low-fat dairy products are healthy choices. Eat different types of protein foods in your diet. This can include seafood, lean meats, poultry, beans, peas, lentils, nuts, seeds, soy products, and eggs. Limit foods and beverages higher in added sugars, saturated fat, and sodium. Exercise Recommendations: At least 150 minutes of moderate-intensity physical activity per week, or an equivalent combination of moderate- and vigorous-intensity activity Exercise counseling 06/12/2024 Dietary counseling 06/12/2024 Greater trochanteric bursitis of both hips 05/1205/12/2023 Insulin pump status 05/07/2023 Other specified health status 02/22/2023 Overview (06/12/2024): -next comprehensive annual evaluation due after 06/12/25 -eye care facilitated by [facility] -dental home [place]health care proxy on file 06/23/2023 Assessment & Plan (06/12/2024 9:32 AM EDT): -next comprehensive annual evaluation due after 06/12/25 -eye care facilitated by [facility] -d[place] home [place] -[facility] care proxy on file 06/23/2023 Assessment & Plan (10/01/2023 11:21 AM EDT): -next physical exam due after 02/23/2024 -eye care facilitated by [facility] [place] -[facility] care proxy on file 06/23/2023 Assessment & Plan (06/23/2023 4:34 PM EDT): -next physical exam due after 02/23/2024 -eye care facilitated by [facility] [place] -[facility] care proxy given on 06/23/2023 Assessment & Plan (02/22/2023 11:34 AM EST): -next physical exam due after 02/23/2024 -eye care facilitated by [facility] [place] Colon cancer screening 08/06/2022 Overview (06/12/2024): -colonoscopy scheduled 08/26/22. -Pt missed appt, gave number to reschedule 02/22/2023 -referral for colonoscopy 06/23/2023 Assessment & Plan (06/12/2024 10:20 AM EDT): -colonoscopy scheduled 08/26/22. -Pt missed appt, gave number to reschedule 02/22/2023 -referral for colonoscopy 06/23/2023 Assessment & Plan (06/23/2023 4:29 PM EDT): colonoscopy scheduled 08/26/22. -Pt missed appt, gave number to reschedule 02/22/2023 -referral for colonoscopy 06/23/2023 Assessment & Plan (02/22/2023 11:30 AM EST): colonoscopy scheduled 08/26/22. -Pt missed appt, gave number to reschedule 02/22/2023 Assessment & Plan (08/06/2022 2:16 PM EDT): colonoscopy scheduled 08/26/22. Stage 3 chronic kidney disease 04/29/2022 Overview (06/12/2024): Lab Results Component Value Date CREATININE 0.89 06/05/2023 EGFR >60 06/05/2023 MICROALBCREU 15.7 06/05/2023 MICROALBCREU 21.2 03/22/2023 LDLCHOLCAL 83 06/05/2023 -continue Lisinopril 5mg, daily. Assessment & Plan (10/01/2023 11:19 AM EDT): Lab Results Component Value Date CREATININE 0.89 06/05/2023 EGFR >60 06/05/2023 MICROALBCREU 15.7 06/05/2023 MICROALBCREU 21.2 03/22/2023 LDLCHOLCAL 83 06/05/2023 -continue Lisinopril 5mg, daily. Assessment & Plan (06/23/2023 4:29 PM EDT): -Creatine was 1.46 on 06/22/2020. -Will re-check. If still elevated we will refer to urology -Creatinie 0.93 04/19/21 ; continue Lisinopril 5mg, daily. Assessment & Plan (02/22/2023 9:38 AM EST): -Creatine was 1.46 on 06/22/2020. -Will re-check. If still elevated we will refer to urology -Creatinie 0.93 04/19/21 ; continue Lisinopril 5mg, daily. Assessment & Plan (08/06/2022 1:08 PM EDT): -Creatine was 1.46 on 06/22/2020. -Will re-check. If still elevated we will refer to urology -Creatinie 0.93 04/19/21 ; continue Lisinopril 5mg, daily. Assessment & Plan (04/29/2022 11:55 AM EST): -Creatine was 1.46 on 06/22/2020. -Will re-check. If still elevated we will refer to urology -Creatinie 0.93 04/19/21 ; continue Lisinopril 5mg, daily. Hx of hepatitis C 04/27/2022 Overview (04/29/2022): Treated successfully. Assessment & Plan (08/06/2022 1:09 PM EDT): Treated successfully. Assessment & Plan (04/29/2022 11:56 AM EST): Treated successfully. Bilateral hip pain 03/23/2022 Overview (04/29/2022): Further diagnostic evaluations ordered today include(s) X-Ray Hip Left to be performed., X-Ray Hip Right to be performed. and X-Ray Lumbar Spine 2-3 Views to be performed -seen by pain management 02/20/2022 Assessment & Plan (06/23/2023 4:28 PM EDT): Further diagnostic evaluations ordered today include(s) X-Ray Hip Left to be performed., X-Ray Hip Right to be performed. and X-Ray Lumbar Spine 2-3 Views to be performed -seen by pain management 02/20/2022 Assessment & Plan (02/22/2023 9:38 AM EST): Further diagnostic evaluations ordered today include(s) X-Ray Hip Left to be performed., X-Ray Hip Right to be performed. and X-Ray Lumbar Spine 2-3 Views to be performed -seen by pain management 02/20/2022 Assessment & Plan (08/06/2022 1:10 PM EDT): Further diagnostic evaluations ordered today include(s) X-Ray Hip Left to be performed., X-Ray Hip Right to be performed. and X-Ray Lumbar Spine 2-3 Views to be performed -seen by pain management 02/20/2022 Assessment & Plan (04/29/2022 11:53 AM EST): Further diagnostic evaluations ordered today include(s) X-Ray Hip Left to be performed., X-Ray Hip Right to be performed. and X-Ray Lumbar Spine 2-3 Views to be performed. Seen by pain management 02/20/22. Erectile dysfunction 06/19/2021 Overview (07/29/2023): -Seen by urologist Dr. Chris Wills 07/29/23 -Erectile Dysfunction and setting up insulin-dependent diabetes with component of Peyronie's associated with curvature of penis -Medications provided with daily tadalafil and on demand tadalafil -trial pentoxifylline 400 mg p.o. b.i.d. to try to help with baseline mild Peyronie's Assessment & Plan (10/01/2023 11:19 AM EDT): -Seen by urologist Dr. Chris Wills 07/29/23 -Erectile Dysfunction and setting up insulin-dependent diabetes with component of Peyronie's associated with curvature of penis -Medications provided with daily tadalafil and on demand tadalafil -trial pentoxifylline 400 mg p.o. b.i.d. to try to help with baseline mild Peyronie's Assessment & Plan (06/23/2023 4:27 PM EDT): No improvement with Viagara. Will refer to urology. Improve BS control. Assessment & Plan (02/22/2023 9:37 AM EST): No improvement with Viagara. Will refer to urology. Improve BS control. Assessment & Plan (08/06/2022 1:09 PM EDT): No improvement with Viagara. Will refer to urology. Improve BS control. Assessment & Plan (04/29/2022 11:55 AM EST): No improvement with Viagara. Will refer to urology. Improve BS control. 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 Silvestre and Stephani Rivera EXPELLER OPERATOR , seen 07/12/24 -humalog insulin via insulin pump since 05/07/23 -pump Medtronic 780 G with guardian 3 sensor , guardian 4 transmitter Lab Results Component Value Date HGBA1C 8.5 (A) 06/23/2023 HGBA1C 9.4 (A) 02/22/2023 HGBA1C 8.2 07/25/2022 Lab Results Component Value Date CREATININE 0.89 06/05/2023 EGFR >60 06/05/2023 MICROALBCREU 15.7 06/05/2023 MICROALBCREU 21.2 03/22/2023 LDLCHOLCAL 83 06/05/2023 -Leonardo/Arb: lisinopril 5mg -Statin therapy: atorvastatin 40mg -Diabetic foot exam: 06/12/24 -Last eye exam done at [facility] 05/04/24 -Continue lifestyle modifications -Continue current medications via endocrinology -humalog via pump -was doing well on Wegovy but stopped by insurance, awaiting appeal from floor inspector. - Assessment & Plan (06/12/2024 10:19 AM EDT): Pt with adult, autoimmune mediated DM Type 1 -followed by [employer] Dr. Silvestre and Stephani Rivera EXPELLER OPERATOR , seen 02/2024 -humalog insulin via insulin pump since 05/07/23 -pump Medtronic 780 G with guardian 3 sensor , guardian 4 transmitter Lab Results Component Value Date HGBA1C 8.5 (A) 06/23/2023 HGBA1C 9.4 (A) 02/22/2023 HGBA1C 8.2 07/25/2022 Lab Results Component Value Date CREATININE 0.89 06/05/2023 EGFR >60 06/05/2023 MICROALBCREU 15.7 06/05/2023 MICROALBCREU 21.2 03/22/2023 LDLCHOLCAL 83 06/05/2023 -Leonardo/Arb: lisinopril 5mg -Statin therapy: atorvastatin 40mg -Diabetic foot exam: 06/12/24 -Last eye exam done at [facility] 05/04/24 -Continue lifestyle modifications -Continue current medications via endocrinology -humalog via pump -was doing well on Wegovy but stopped by insurance, awaiting appeal from floor inspector. Assessment & Plan (10/01/2023 11:20 AM EDT): -humalog insulin via insulin pump since 05/07/23 -pump Medtronic 780 G with guardian 3 sensor , guardian 4 transmitter Lab Results Component Value Date HGBA1C 8.5 (A) 06/23/2023 HGBA1C 9.4 (A) 02/22/2023 HGBA1C 8.2 07/25/2022 Lab Results Component Value Date CREATININE 0.89 06/05/2023 EGFR >60 06/05/2023 MICROALBCREU 15.7 06/05/2023 MICROALBCREU 21.2 03/22/2023 LDLCHOLCAL 83 06/05/2023 -Leonardo/Arb: lisinopril 5mg -Statin therapy: atorvastatin 40mg -Diabetic foot exam: due -Last eye exam done at [facility] 08/06/2022 -Continue lifestyle modifications -Continue current medications via endocrinology -humalog via pump -wegovy Assessment & Plan (06/23/2023 4:26 PM EDT): Pt with adult, autoimmune mediated DM Type 1. -followed by Dr. Silvestre -Last eye exam done at [facility] 08/06/2022. Assessment & Plan (02/22/2023 9:37 AM EST): Pt with adult, autoimmune mediated DM Type 1. -followed by Dr. Silvestre -Last eye exam done at [facility] 08/06/2022. Assessment & Plan (08/06/2022 2:18 PM EDT): Pt with adult, autoimmune mediated DM Type 1. -followed by Dr. Silvestre. -Last eye exam done at [facility] 08/06/2022 Assessment & Plan (04/29/2022 1:15 PM EST): Pt with adult, autoimmune mediated DM Type 1. -followed by Dr. Silvestre Dyslipidemia 09/25/2011 Overview (06/12/2024): Lab Results Component Value Date CHOL 143 06/05/2023 CHOL 126 04/04/2022 TRIG 105 06/05/2023 TRIG 46 04/04/2022 HDL 39 (L) 06/05/2023 HDL 38 04/04/2022 LDLCHOLCAL 83 06/05/2023 LDLCHOLCAL 79 04/04/2022 -continue atorvastatin 40mg -check FLP -continue lifestyle modification Assessment & Plan (06/12/2024 10:19 AM EDT): Lab Results Component Value Date CHOL 143 06/05/2023 CHOL 126 04/04/2022 TRIG 105 06/05/2023 TRIG 46 04/04/2022 HDL 39 (L) 06/05/2023 HDL 38 04/04/2022 LDLCHOLCAL 83 06/05/2023 LDLCHOLCAL 79 04/04/2022 -continue atorvastatin 40mg -check FLP -continue lifestyle modification Assessment & Plan (10/01/2023 11:20 AM EDT): Lab Results Component Value Date CHOL 143 06/05/2023 CHOL 126 04/04/2022 TRIG 105 06/05/2023 TRIG 46 04/04/2022 HDL 39 (L) 06/05/2023 HDL 38 04/04/2022 LDLCHOLCAL 83 06/05/2023 LDLCHOLCAL 79 04/04/2022 -continue statin -continue lifestyle modification Assessment & Plan (06/23/2023 4:27 PM EDT): Lab Results Component Value Date CHOLESTEROL 171 05/22/2020 HDLCHOL 47 05/22/2020 TRIG 105 06/05/2023 LDLCHOL 92 05/22/2020 CHOLHDLRAT 3.6 05/22/2020 NONHDLCHOL 124 05/22/2020 -continue lifestyle modifications Lateral epicondylitis 09/25/2011 Low back pain potentially associated with radicu lopathy 09/25/2011 Overview (06/23/2023): Patient has have greater than 6 weeks of provider directed treatment without response. Supported treatments completed with the past three months include drugs for swelling or pain, physical therapy, and injected steroids. Despite this, upon revaluation, there is no improved symptoms. And now he has radiculopathy symptoms on the left leg suggestive of compression. -MRI ordered 06/23/23 Assessment & Plan (10/01/2023 11:20 AM EDT): Patient has have greater than 6 weeks of provider directed treatment without response. Supported treatments completed with the past three months include drugs for swelling or pain, physical therapy, and injected steroids. Despite this, upon revaluation, there is no improved symptoms. And now he has radiculopathy symptoms on the left leg suggestive of compression. -MRI ordered 06/23/23 Assessment & Plan (06/23/2023 4:28 PM EDT): Patient has have greater than 6 weeks of provider directed treatment without response. Supported treatments completed with the past three months include drugs for swelling or pain, physical therapy, and injected steroids. Despite this, upon revaluation, there is no improved symptoms. And now he has radiculopathy symptoms on the left leg suggestive of compression. -MRI ordered 06/23/23 Assessment & Plan (02/22/2023 9:38 AM EST): Referrerd to PT and pain management. Stretching reviewed. Tylenol for pain. Assessment & Plan (08/06/2022 1:09 PM EDT): Referrerd to PT and pain management. Stretching reviewed. Tylenol for pain. Assessment & Plan (04/29/2022 11:52 AM EST): Referrerd to PT and pain management. Stretching reviewed. Tylenol for pain. 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 -Anticipatory guidance discussed. -Preventative care / harm reduction discussed. Assessment & Plan (06/23/2023 4:31 PM EDT): -Normal growth and development. -Anticipatory guidance discussed. -Preventative care / harm reduction discussed. Assessment & Plan (02/22/2023 11:18 AM EST): -Normal growth and development. -Anticipatory guidance discussed. -Preventative care / harm reduction discussed. Chronic hepatitis C 08/06/2022 08/07/19 23 Lumbago with sciatica, left side 04/29/2022 08/06/2022 Overview (04/29/2022): Referrerd to PT and pain management. Stretching reviewed. Tylenol for pain. Assessment & Plan (08/06/2022 1:08 PM EDT): Referrerd to PT and pain management. Stretching reviewed. Tylenol for pain. Assessment & Plan (04/29/2022 11:53 AM EST): Referrerd to PT and pain management. Stretching reviewed. Tylenol for pain. Essential hypertension 04/29/202204/19 Overview (04/29/2022): Not controlled. Did not take meds yet. -Continue Lisnopril 5mg. -CDTM referral done 06/2021 Assessment & Plan (10/01/2023 11:18 AM EDT): Not controlled. Did not take meds yet. -Continue Lisnopril 5mg. -CDTM referral done 06/2021 Assessment & Plan (06/23/2023 4:29 PM EDT): Not controlled. Did not take meds yet. -Continue Lisnopril 5mg. -CDTM referral done 06/2021 Assessment & Plan (02/22/2023 9:38 AM EST): Not controlled. Did not take meds yet. -Continue Lisnopril 5mg. -CDTM referral done 06/2021 Assessment & Plan (08/06/2022 1:09 PM EDT): Not controlled. Did not take meds yet. -Continue Lisnopril 5mg. -CDTM referral done 06/2021 Assessment & Plan (04/29/2022 11:54 AM EST): Not controlled. Did not take meds yet. -Continue Lisnopril 5mg. 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), managed as type 1 ([facility]) (Primary Dx); Type 1 diabetes mellitus with hyperglycemia ([facility]); Stage 3 chronic kidney disease, unspecified whether stage 3a or 3b CKD ([facility]); Class 2 severe obesity due to excess calories with serious comorbidity and body mass index (BMI) of 37.0 to 37.9 in adult ([facility]); Dietary counseling; Exercise counseling; Dyslipidemia; Other specified health status; Encounter for immunization; Tremor; Colon cancer screening; Prostate cancer screening 06/12/2024 Travel 05/31/2024 Patient Outreach [facility] [address] [place] [id number] Aubree Pinto MD Pre-visit Planning (Pre-visit planning - LVM ) 04/14/[address] [id number] Aubree Pinto MD Dyslipidemia from Last 3 Months Immunizations Name Administration Dates Next Due Hep A, Adult 06/16/2018,12/07/2008 Hep B, adult 06/12/2024,06/23/2023,02/22/2023 Influenza injectable quadriv alent IIV4 with preservative 12/19/2018,01/01/2017 Influenza injectable quadriv alent preservative free 02/22/2023,04/06/2022,06/16/2018,03/12 Influenza, IIV3, injectable 12/25/2010, 9,02/22/2008 Influenza, Split (incl. maureen fied surface antigen) 01/19/2013 Moderna Covid-19 Vaccine 12+ 07/10/2020,06/13/19 21 Pfizer Covid-19 Vaccine 12+ Bivalent 04/29/2022 Pfizer Covid-19 Vaccine 12+ angelia-sucrose (Valentino Cap) 08/13/2021 Pneumococcal Conjugate PCV 20 04/29/2022 Pneumococcal Polysaccharide PPSV23 01/19/2013, Tdap 06/13/2018,01/19/2013 Family History Medical History Relation Name Comments Diabetes Father Heart disease Maternal Grandfather Diabetes Mother Cancer Neg Hx Relation Name Status Comments Father Maternal Grandfather Mother Social History Tobacco Use Types Packs/Day Years Used Date Smoking Tobacco: Never Passive Smoke Exposure: Never Smokeless Tobacco: Never Tobacco Cessation:Counseling Given: Not Answered Depression Answer Date Recorded Patient Health Questionnaire-9 Score 0 09/29/2023 Patient Health Questionnaire-9 Score 0 09/29/2023 Last PHQ-9: Questionnaire Data Not on file 0 09/29/2023 Housing Stability Answer Date Recorded What is your housing situation today? I have chloe miranda 06/15/[address] you li ve. Do you have problems with any of the following? None of the above 06/15/2023 Food Insecurity Answer Date Recorded Within the past 12 months, y ou worried that your food would run out before you got money to buy more: Never True 06/15/2023 Within the past 12 months,th e food you bought just didn't last and you didn't have enough money to get more: Never True 03/2024 Transportation Answer Date Recorded In the past 12 months, has l ack of transportation kept you from medical appts, meetings, work or from getting things needed for daily living? No 06/15/2023 Utilities Answer Date Recorded In the past 12 months, has t he electric, gas, oil or water company threatened to shut off services in your home? No 06/15/2023 Depression Answer Date Recorded Patient Health Questionnaire-2 Score 0 09/29/2023 Internet Access Answer Date Recorded Internet Access Q1 Yes 06/12/2024 Internet Access Q2 Not on file 06/12/2024 Sex and Gender Information Value Date Recorded Sex Assigned at Male 02/02/2022 10:18 AM EDT Legal Sex Male 10:18 AM EDT Gender Identity Male 02/02/2022 10:18 AM EDT Sexual Orientation Straight 02/02/2022 10 :18 AM EDT Last Filed Vital Signs Vital Sign Reading Time Taken Comments Blood Pressure 137/84 06/12/2024 9:15 AM EDT Pulse 109 06/12/2024 9:15 AM EDT Temperature 36.1 ??C (96.9 ??F) 06/12/2024 9:15 AM ED T Respiratory Rate 18 06/12/2024 9:15 AM EDT Oxygen Saturation 98% 06/12/2024 9:15 AM EDT Inhaled Oxygen Concentration - - Weight 106 kg (233 lb) 06/12/2024 9:15 AM EDT Height 175.3 cm (5' 9 ) 06/12/2024 9:15 AM EDT Body Mass Index 34.41 06/12/2024 9:15 AM EDT Plan of Treatment Health Maintenance Due Date Last Done Comments CT Colonography 1968 Colonoscopy 1968 Colorectal Cancer Screening 1968 FIT DNA/Cologuard 1968 FIT 1968 FOBT 1968 Sigmoidoscopy 1968 Diabetes: Urine Protein Screening 06/04/2024 06/05/2023, 03/22/2023, 04/04/2022, Additional history exists Lipid Panel 06/04/2024 06/05/2023, 03/07, 04/19/2021, Additional history exists Zoster Vaccines (2 of 2) 06/04/2024 04/09/2024 Diabetes: Hemoglobin A1C 09/12/2024 025, 10/06/2023, 06/23/2023, Additional history exists Depression Screening 09/28/2024 09/29/2023, 09/29/19 24 Influenza Vaccine (#1) 2024 3, 04/06/2022, 12/19/2018, Additional history exists Postponed from 12/05/2023 (Patient Refused) Alcohol/Substance Use Screening 06/12/2025 06/12/2024 COVID-19 Vaccine ( season) 2025 04/29/2022, 08/13/2021, 02/01/2021, Additional history exists Postponed from 12/05/2023 (Patient Refused) Diabetes: Foot Exam 06/12/2025 06/12/2024, 06/12/2024, 06/12/2024, Additional history exists SDOH Screening 06/12/2025 06/12/2024 Tobacco Screening 06/12/2025 06/12/2024 Eye Exam 05/04/2026 05/04/2024 DTaP/Tdap/Td Vaccines (3 - Td or Tdap) 06/13/2028 06/13/2018, 01/19/2013 RSV Patients and Patients Aged 60 years or older (1 - 1-dose 75+ series) 2043 Hepatitis A Vaccines Completed 06/16/2018, 12/08/19 Pneumococcal Vaccine: 50+ Years Completed 04/29/2022, 01/19/2013, 02/08/2012 HIV Screening Completed 06/27/2022, 05/22/2020 Hepatitis B Vaccines Completed 06/12/2024, 06/23/2023, 02/22/2023 HIB Vaccines Aged Out No longer eligi ble based on patient's age to complete this topic HPV Vaccines Aged Out No longer eligi ble based on patient's age to complete this topic IPV Vaccines Aged Out No longer eligi ble based on patient's age to complete this topic Meningococcal Vaccine Aged Out No flory guerrero eligible based on patient's age to complete this topic RSV under 20 months Aged Out No longe r eligible based on patient's age to complete this topic Rotavirus Vaccines Aged Out No longer eligible based on patient's age to complete this topic Procedures Procedure Name Priority Date/Time Associated Diagnosis Comments GLUCOSE, WHOLE BLOOD Routine 07/12/2024 1:48 PM EDT POCT GLYCATED HEMOGLOBIN, TOTAL Routine 06/12/2024 9:18 AM EDT Type 1 diabetes mellitus with hyperglycemia ([facility]) POCT GLUCOSE Routine 06/12/2024 9:17 AM EDT Type 1 diabetes mellitus with hyperglycemia ([facility]) HM DIABETES EYE EXAM Routine 05/04/2024 LIPID PANEL, STANDARD Routine 06/05/2023 7:23 AM EST ALBUMIN, RANDOM URINE W/CREATININE Routine 06/05/2023 7:20 AM EST HIV ANTIBODY/ANTIGEN ([facility]) Routine 06/27/2022 7:23 AM EDT from Last 3 Months or Most Recently Relevant to Health Maintenance Results * (ABNORMAL) Glucose, Whole Blood (07/12/2024 1:48 PM EDT) Glucose, Whole Blood 199(H) 60 - 115 mg/dL [facility] Comment:METER #: [id number] Testing performed in the Endocrinology Department [address] , [address], [facility]. 07/12/2024 1:48 PM EDT 07/12/2024 1:53 PM EDT us Generic External Data Provider LAB BLOOD ORDERAB LES Final Result Performing Organization Address City/State/[facility] Co de Phone Number [facility] [address] [place] [phone] * (ABNORMAL) POCT HGB A1C (06/12/2024 9:18 AM EDT) Hemoglobin A1C 8.4(A) 4.0 - 6.0 % QC Media Lot # [id number] Lot# Expiration Date Blood 06/12/2024 9:18 AM EDT us Aubree Pinto MD POINT OF CARE TEST ENTER/E DIT ORDERABLES Final Result * (ABNORMAL) POCT Glucose (06/12/2024 9:17 AM EDT) Glucose Blood, POC 298(A) 60 - 200 mg/dL QC Media Lot # [id number] Lot# Expiration Date [id number] Blood Capillary blood specimen / Unknown 06/12/2024 9:17 AM EDT Aubree Pinto MD POINT OF CARE TEST ENTER/E DIT ORDERABLES Final Result * Diabetes Eye Exam (05/04/2024) Eye Exam Normal Normal Comment:[facility] Historical Provider HEALTH MAINTENANCE Final Result * (ABNORMAL) Lipid Panel, Standard (06/05/2023 7:23 AM EST) Triglycerides 105 <150 mg/dL [facility] Comment:Desirable Triglyceri de: less than 150 mg/dLBorderline High Triglyceride 150-199 mg/dLHigh Triglyceride: 200-499 mg/dLVery High Triglyceride: greater than or equal to 5OO mg/dL Cholesterol 143 <200 mg/dL [facility] Comment:Desirable Cholestero l: less than 200 mg/dLBorderline High Cholesterol: 200-239 mg/dLHigh Cholesterol: greater than 239 mg/dL LDL Cholesterol Calculated 83 <100 mg/dL [facility] Comment:Desirable LDL: less than 100 mg/dLNear Optimal/Above Optimal LDL: 110- 129 mg/dLBorderline High LDL: 130-159 mg/dLHigh LDL: 160-189 mg/dLVery High LDL: greater than or equal to 190 mg/dL HDL Cholesterol 39(L) >40 mg/dL [facility] Comment:Desirable HDL: great er than 40 mg/dL Note: This HDL assay may give artificially low results in patients with liver disease. 06/05/2023 7:23 AM EST 06/05/2023 7:23 AM EST Generic External Data Provider LAB BLOOD ORDERAB LES Final Result Performing Organization Address City/[facility] de Phone Number [facility] [address] [place] [phone] * Albumin, Random Urine W/Creatinine (06/05/2023 7:20 AM EST) Creatinine, Urine 215.23 mg/dL [facility] Microalbumin Urine 34.0 mg/L [facility] Microalbum Creatinine Ratio Ur 15.7 <30 ug/mg cr [facility] Comment:Albumin/Creatinine R atio Reference Ranges: Normal: < 30 ug/mg creatinine Microalbuminuria: 30 - 300 ug/mg creatinineClinical Albuminuria: > 300 ug/mg creatinine 06/05/2023 7:20 AM EST 06/05/2023 7:48 AM EST Aubree Pinto MD LAB URINE ORDERABLES Final Result Performing Organization Address [facility] de Phone Number [facility] [address] [place] [phone] * HIV Ab/Ag ([facility]) (06/27/2022 7:23 AM EDT) HIV AB/AG Nonreactive Nonreactive [facility] Comment:HIV-1 p24 Ag and/or HIV-1/HIV-2 Ab not detected.A test result that is nonreactive does not exclude thepossibility of exposure to or infection with HIV-1 and/orHIV-2. Nonreactive results in this assay for individualswith prior exposure to HIV-1 and/or HIV-2 may be due toantigen and antibody levels that are below the limit ofdetection of this assay.[employer] HIV Ag/Ab Combo assay result andsupplemental assay results should be interpreted inconjunction with the patient's clinical presentation,history and other laboratory results. If the results areinconsistent with clinical evidence, additional testing issuggested to confirm the result. 06/27/2022 7:23 AM EDT 06/27/2022 7:23 AM EDT us [facility] External Provider LAB BLO OD ORDERABLES Final Result [facility] [address] [place] [address] [phone] from Last 3 Months or Most Recently Relevant to Health Maintenance [place] [address] [email or web address] Advance Directives Documents on File Type Date Recorded Patient Head Inspector And Center Marker Expl anation Advance Directives and Living Will 04/17/2024 Health Care Proxy 04/17/24 Advance Directives and Living Will 06/28/2023 Health Care Proxy 06/23/23 Care Teams Aircraft Machinist Relationship Specialty Start Date End Date [place], MD Aubree [address] [place] [phone] PCP - General Family Medicine 04/05/18 Matt Silvestre MD [address] [place] [address] Endocrinology 03/07/24 Chris Wills MD [address] [place] [address] Drive [address] [place] [address] Urology 04/19/24 Lashell Falcon [facility] [address] [place] [address] Ophthalmology 05/09/24 Saul Avalos MD [address] [place] [address] [address] [place] [address] Gastroenterology 06/12/24 Stephani Rivera EXPELLER OPERATOR Endocrinology 04/19/24
--- OUTSIDE RECORDS SUMMARY | 2024-07-12 15:45 | XMS_ITS | Encounter Summary ---
Author Organization [employer] Address [address] [facility] 7t [place] [address] Care Team Providers Care Insulation Worker Furnace Installer Name Role Phone Aubree Pinto MD Primary Care Provider [phone] Matt Silvestre MD Unavailable Chris Wills MD Unavailable Lashell Falcon Unavailable Saul Avalos MD Unavailable Encounter Details Date Type Department Care Team (Late st Contact Info) Description 03/15/2024 Orders Only [facility] MEDICINE [address] [place], [place] [phone] Aubree Pinto MD [address] [place], [place] [phone] Social History Tobacco Use Types Packs/Day Years Used Date Smoking Tobacco: Never Passive Smoke Exposure: Never Smokeless Tobacco: Never Depression Answer Date Recorded Patient Health Questionnaire-9 [...] Recorded Patient Health Questionnaire-2 Score 0 09/29/2023 Sex and Gender Information Value Date Recorded Sex Assigned at Male 02/02/2022 10:18 AM EDT Legal Sex Male 10:18 AM EDT Gender Identity Male 02/02/2022 10:18 AM EDT Sexual Orientation Straight 02/02/2022 10 :18 AM EDT documented as of this encounter Plan of Treatment Not on file documented as of this encounter Visit Diagnoses Not on filedocumented in this encounter Additional Health Concerns Assessment Noted Time PHQ-9 Depression Total Score: 0 09/29/19 24 2:41 PM EDT documented as of this encounter Care Teams Insulation Worker Furnace Installer Relationship Specialty Start Date End Date Aubree Pinto MD [address] [place] [address] PCP - General Family Medicine 04/05/18 Matt Silvestre MD [address] [place] [address] Endocrinology 03/07/24 Chris Wills MD [address] [place] [address] Drive [address] [place] [address] Urology 04/19/24 Lashell Falcon [address] [place] [address] Ophthalmology 05/09/24 Saul Avalos MD [address] [place] [address] [address] [place] [phone] Gastroenterology 06/12/24 Stephani Rivera LIVE STUDY MANAGER Endocrinology 04/19/24 documented as of this encounter
--- OUTSIDE RECORDS SUMMARY | 2024-07-12 15:45 | XMS_ITS | Encounter Summary ---
Author Organization [employer] [facility] Address [address] [facility] 7t [place] [address] Care Team Providers Care Print Washer Name Role Phone Aubree Pinto MD Primary Care Provider [phone] Matt Silvestre MD Unavailable Chris Wills MD Unavailable Lashell Falcon Unavailable Saul Avalos MD Unavailable [phone] Reason for Visit * Reason Comments Med Refill Encounter Details Date Type Department Care Team (Late st Contact Info) Description 08/05/2022 Refill [facility] MEDICINE [address] [place], [place] [phone] Aubree Pinto MD [address] [place], [place] [phone] Social History Tobacco Use Types Packs/Day Years Used Date Smoking Tobacco: Never Smokeless Tobacco: Never Depression Answer Date Recorded Patient Health Questionnaire-9 Score 0 04/29/2022 Depression Answer Date Recorded Patient Health Questionnaire-2 Score 0 04/29/2022 Sex and Gender Information Value Date Recorded Sex Assigned at Male 02/02/2022 10:18 AM EDT Legal Sex Male 10:18 AM EDT Gender Identity Male 02/02/2022 10:18 AM EDT Sexual Orientation Straight 02/02/2022 10 :18 AM EDT COVID-19 Exposure Response Date Recorded In the last 10 days, have yo u been in contact with someone who was confirmed or suspected to have Coronavirus/COVID-19? No / Unsure 08/06/2022 1:36 PM EDT documented as of this encounter Plan of Treatment Not on file documented as of this encounter Visit Diagnoses Not on filedocumented in this encounter Additional Health Concerns Assessment Noted Time PHQ-9 Depression Total Score: 0 04/29/19 23 11:25 AM EST documented as of this encounter Care Teams Print Washer Relationship Specialty Start Date End Date Aubree Pinto MD [address] [place] [address] PCP - General Family Medicine 04/05/18 Matt Silvestre MD [address] [place] [address] Endocrinology 03/07/24 Chris Wills MD [address] [facility] [address] [place] [address] Urology 04/19/24 Lashell Falcon [address] [place], [place] [address] Ophthalmology 05/09/24 Saul Avalos MD [address] [place] [address] [address] [place] [phone] Gastroenterology 06/12/24 Stephani Rivera WARDROBE STYLIST Endocrinology 04/19/24 documented as of this encounter
--- OUTSIDE RECORDS SUMMARY | 2024-07-12 15:45 | XMS_ITS | Data Portability ---
Author Organization [place] - [employer] [facility], [address] Address [address] [place] [address] Assessment No assessment recorded. Plan of Treatment [...] By Organization Details Last Modified Time 04/30/2023 [id number] This physical does not replace the annual physical to be performed by your PCP. There may be additional screening tests that they will perform that we do not in the urgent care setting. Failure to follow up as recommended may result in significant adverse health consequences. ? If your symptoms worsen or you develop new symptoms that concern you, go to the emergency department for further evaluation. carlos Not available 04/30/2023 15:38:57 Reason for Referral None Reported. Procedures Surgical History Date Name Laterality Status Provider Name and Address Organization Details Recorded Time 4 OC-DOT PHYSICAL completed Marcia Bynum PA - [employer] 04/30/2023 15:42:53 3 OC-DOT PHYSICAL completed JOSHUA TRENATESSA PA - [employer] [facility] 05/11/2022 08:56:56 Imaging Results None recorded. [...] SNOMED-CT Code Diagnosis ICD10 Code Diagnosis Note [id number] [address] [place] [phone] 05/29/2017 15:01:54 05/29/2017 15:24:50 [id number] [facility] [address] [place] [phone] 12/28/2019 12:18:16 12/28/2019 13:38:21 [id number] [address] [address] [place] [phone] 11/26/2020 14:35:05 11/26/2020 19:02:39 [id number] [address] [facility] [address] 05/22/2021 14:27:53 05/22/2021 16:04:17 [id number] [address]er [address] [facility] [place] [address] 03/31/2016 14:40:30 03/31/2016 15:39:46 [id number] [employer] [address] [facility] [place] [address] 05/11/2022 08:05:24 05/11/2022 09:25:12 History 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, 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 [id number] Z02.1 Documentat ion for this visit can be found on the electronic DOT form or scanned copy [id number] [place] [address] [place] [address] 04/30/2023 13:41:19 04/30/2023 16:28:41 History 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, 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 [id number] Z02.1 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 [id number] Z02.4 Physical examination 588 0005 Z02.4 Health Concerns Section Related Observation LastModified by Organization Detai ls LastModified Time None Recorded Concern Status LastModified by Organization Details LastModified Time None Recorded Advance Directives Directive None Recorded Payers Encounter Date Sequence Insurance Name Policy Number Policy Olivo Covered Member ID Olivo Member ID Guarantor Name 05/11/2022 DO NOT USE Evan Puente [id number] Evan Puente 04/30/2023 OC-PAY AT TIME OF SERVICE 2022 Evan Puente OTHER OTHER Evan Puente Notes Date Note Type Note Provider Name and Address Organization Details Recorded Time 04/30/2023 text/html PhysicalReported bypatient.source of patient informationpatient; Patient arrived at Urgent Care ambulatory 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
--- OUTSIDE RECORDS SUMMARY | 2024-07-12 15:45 | XMS_ITS | Encounter Summary ---
Author Organization [employer] Address [address] [facility] 7t [place] [address] Care Team Providers Care Electron Tube Assembler Name Role Phone Blair, Aubree OCHOA Primary Care Provider [phone] Matt Silvestre MD Unavailable [phone] Chris Wills MD Unavailable [phone] Lashell Falcon Unavailable Saul Avalos MD Unavailable Encounter Details Date Type Department Care Team (Late st Contact Info) Description 07/12/2024 Orders Only GENERIC EXTERNAL DATA DEPARTMENT Provider, Generic External Data Social History Tobacco Use Types Packs/Day Years [...] on file documented as of this encounter Procedures Procedure Name Priority Date/Time Associated Diagnosis Comments GLUCOSE, WHOLE BLOOD Routine 07/12/2024 1:48 PM EDT documented in this encounter Results * (ABNORMAL) Glucose, Whole Blood (07/12/2024 1:48 PM EDT) Glucose, Whole Blood 199(H) 60 - 115 mg/dL [facility] Comment:METER #: [id number] Testing performed in the Endocrinology Department [address] , [address], [facility]. 07/12/2024 1:48 PM EDT 07/12/2024 1:53 PM EDT us Generic External Data Provider LAB BLOOD ORDERAB LES Final Result [facility] [address] [place] [address] [phone] documented in this encounter Visit Diagnoses Not on filedocumented in this encounter Additional Health Concerns Assessment Noted Time PHQ-9 Depression Total Score: 0 09/29/19 24 2:41 PM EDT documented as of this encounter Care Teams Electron Tube Assembler Relationship Specialty Start Date End Date Aubree Pinto MD [address] [place] [address] PCP - General Family Medicine 04/05/18 Matt Silvestre MD [address] [place] [address] Endocrinology 03/07/24 Chris Wills MD [address] [place] [address] Urology 04/19/24 Lashell Falcon [facility] [address] [place] [address] Ophthalmology 05/09/24 Saul Avalos MD [address] [place] [address] [address] [place] [phone] Gastroenterology 06/12/24 Stephani Rivera SILVICULTURE TEACHER Endocrinology 04/19/24 documented as of this encounter
--- OUTSIDE RECORDS SUMMARY | 2024-07-12 15:45 | XMS_ITS | Patient Health Record ---
Author Organization [facility] Address [address] [place] [phone] Care Team Providers Care Computer Forensic Specialist Name Role Phone Aubree Pinto MD Primary Care Provider Pamela Saul Cortez Jr Unavailable [phone] Reason For Referral No Information Medications Medication SIG (Take, Route, Fr equency, Duration) Notes Start Date End Date Status Lantus Active Pravastatin Sodium A ctive traMADol HCl Active metFORMIN HCl Active Problems Problem Type SNOMED Code ICD Code Onset Dates Problem Status W/U Status Risk Notes Problem Chronic hepatitis C (928116800) Chronic hepatitis C without mention of hepatic coma (070.54) Active confirmed Problem Chronic hepatitis C (232699456) Chronic hepatitis C (070.54) Active confirmed Plan Of Treatment Pending Test Test Name Order Date LIVER [...] Insured Coverage Start Date Coverage End Date [facility] [address] [place] [phone] [id number] PALLAVI ROCA Self - patient is the insured Medical (General) History Medical History History ICD Code hyperlipidemia back pain Hepatitis C diabetes mellitus
--- OUTSIDE RECORDS SUMMARY | 2024-07-12 15:45 | XMS_ITS | Encounter Summary ---
Author Organization [employer] Address [address] [facility] 7t [place] [address] Care Team Providers Care Price Clerk Name Role Phone Aubree Pinto MD Primary Care Provider [phone] Matt Silvestre MD Unavailable Chris Wills MD Unavailable [phone] Lashell Falcon Unavailable Saul Avalos MD Unavailable Encounter Details Date Type Department Care Team (Late st Contact Info) Description 03/07/2024 Abstract [facility] MEDICINE [address] [place], [place] [phone] Aubree Pinto MD [address] [place], [place] [phone] Social History Tobacco Use Types Packs/Day Years [...] Procedure Name Priority Date/Time Associated Diagnosis Comments HEMOGLOBIN A1C Routine 10/06/2023 documented in this encounter Results * (ABNORMAL) Hemoglobin A1c (10/06/2023) Hemoglobin A1C 7.7(A) 4.0 - 6.0 % 10/06/2023 Historical Provider HEALTH MAINTENANCE Final Result documented in this encounter Visit Diagnoses Not on filedocumented in this encounter Additional Health Concerns Assessment Noted Time PHQ-9 Depression Total Score: 0 09/29/19 24 2:41 PM EDT documented as of this encounter Care Teams Price Clerk Relationship Specialty Start Date End Date Aubree Pinto MD [address] [place] [address] PCP - General Family Medicine 04/05/18 Matt Silvestre MD [address] [place] [address] Endocrinology 03/07/24 Chris Wills MD [address] [place] [address] Urology 04/19/24 Lashell Falcon [address] [place], [place] [address] Ophthalmology 05/09/24 Saul Avalos MD [address] [place] [phone] Gastroenterology 06/12/24 Stephani Rivera PUNCH MACHINE HAND Endocrinology 04/19/24 documented as of this encounter
== END 2024-07-12 14:20 | disposition home or self-care (01) ==
PROVIDERS: PCP Family Medicine; Visit Provider Nurse Practitioner Adult Health
DX: E11.69 Type 2 diabetes mellitus with other specified complication (principal); N52.1 Erectile dysfunction due to diseases classified elsewhere; E13.9 Other specified diabetes mellitus without complications
CPT/HCPCS: 99214; G2211

== ENCOUNTER → 2024-07-12 13:35 | Outpatient (BNVA) | payer OTHER, SELFPAY | PROVIDERS: PCP Family Medicine; Visit Provider Nurse Practitioner Adult Health | DX: Z46.81 Encounter for fitting and adjustment of insulin pump (principal); E13.9 Other specified diabetes mellitus without complications; E11.69 Type 2 diabetes mellitus with other specified complication; N52.1 Erectile dysfunction due to diseases classified elsewhere; Z79.4 Long term (current) use of insulin | CPT/HCPCS: 82947; 83036; 99212 ==

== ENCOUNTER 2024-07-12 14:27 | Outpatient (AMB) | payer OTHER, SELFPAY ==
--- NOTE | 2024-07-12 14:29 | A.OFFVIS_ITS ---
Intake Visit Reasons: Erectile Dysfunction Intake Note: Patient is present for ERECTILE DYS Urology Medication:TADALAFIL,PENTOXIFYLLINE Antibiotic Allergy:NONE Blood Thinner:NONE Delivery Driver Required: No Allergies liraglutide Allergy (Unknown, Verified 07/12/24 14:35) Unknown HPI Comments Details: Evan is a very pleasant male. Accompanied by his partner. He is a patient Dr. Pinto. - inguinal disruption - erectile dysfunction Background insulin-dependent diabetes on Wegovy Low testosterone 12/27 T 280 FT 40 Suggest enclomiphene Three-month follow-up Discussion about erections which he can obtain but not maintain Suggest penile constriction band Erectile Dysfunction and setting up insulin-dependent diabetes with component of Peyronie's Ongoing Progressive Associated with curvature of penis Has not tried maximum oral therapy Medications provided with daily tadalafil and on demand tadalafil We will also do pentoxifylline 400 mg p.o. b.i.d. to try to help with baseline mild Peyronie's Inguinal disruption Pain on the right deep inguinal canal On exam has pain was on the lateral aspect of the inguinal canal and on the medial aspect Consistent with deep inguinal tear History of injury last December Discussed natural history of recovery from the type of injury and demonstrated exercises Can follow [facility]r.n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), managed as type 1 Surgical History History of hernia surgery H/O colonoscopy Hx of exploratory laparotomy Family History Father Diabetes Mother Diabetes Social History Household Members: Spouse and Children Housing: House Do you presently have visiting nurse or other home services: No Alcohol intake: current Alcohol intake frequency: holidays/special occasions only Alcohol type: beer Patient Tobacco Use Status: Former Tobacco user service: No Current occupational status: employed 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 Review of Systems Const Denies chills and Denies fever(s) Card Reports no additional complaints and Denies syncope Resp Denies cough GI Denies abdominal pain and Denies heartburn Reports as per HPI and Denies change in libido Neuro Denies syncope Psych Denies change in libido Endo Denies change in libido Physical Exam Const General: cooperative, healthy appearing, comfortable and no acute distress Orientation/consciousness: patient oriented x3 HEENT Face and sinus: Yes normal facial exam Mouth: moist mucous membranes Neck Neck: Yes normal visual inspection, Yes full ROM and Yes trachea midline Chest Chest palpation & inspection: normal inspection of the chest Resp Effort & Inspection: normal respiratory effort, able to speak in complete sentences and no respiratory distress GI Inspection: Yes normal to inspection Back/Spine/Pelvis Cervical Spine: normal cervical lordosis Thoracic/Lumbar Spine: thoracic and lumbar spine normal to inspection Skin General skin exam: no rashes or lesions noted Neuro General: patient oriented x3, gait normal, tone normal and moves all extremities Extrem General: Yes normal to inspection and Yes capillary refill normal Results AMB Hemoglobin A1c AMB Hemoglobin A1c 7.8 % Last Edit by VENITA Angel on 07/12/24 14:01 Assessment & Plan Assessment & Plan (1) Erectile dysfunction associated with type 2 diabetes mellitus: Code(s): E11.69 - Type 2 diabetes mellitus with other specified complication; N52.1 - Erectile dysfunction due to diseases classified elsewhere Category: Medical Plan Trial enclomiphene Three-month follow-up Orders: Orders Albumin Level 10 Weeks E29.1 - Testicular hypofunction, E11.69 - Type 2 diabetes mellitus with other specified complication, N52.1 - Erectile dysfunction due to diseases classified elsewhere Testosterone, Free/Total 10 Weeks R68.82 - Decreased libido, E11.69 - Type 2 diabetes mellitus with other specified complication, N52.1 - Erectile dysfunction due to diseases classified elsewhere Sex Hormone Binding Globulin 10 Weeks R68.82 - Decreased libido, E11.69 - Type 2 diabetes mellitus with other specified complication, N52.1 - Erectile dysfunction due to diseases classified elsewhere Testosterone, Total 10 Weeks C61 - Malignant neoplasm of prostate, E11.69 - Type 2 diabetes mellitus with other specified complication, N52.1 - Erectile dysfunction due to diseases classified elsewhere Patient Instructions: This note is constructed using voice recognition software. While every effort has been made to ensure accuracy forming mill operator errors may have been included. Imaging studies, laboratory and physical exam results were discussed and reviewed in detail. No major barriers to patient understanding were identified. An opportunity to ask questions regarding the treatment plan was provided. All questions were answered. The patient expressed understanding and agreement with the above treatment plan. The patient is aware they should contact our office by phone for worsening of their current condition or the appearance of new urologic symptoms. Compliance is encouraged with any medications and followup testing that is ordered. It is a privilege to participate in the urologic care of your patient. If you have any questions or concerns regarding treatment for the above conditions, or other urologic issues, please do not hesitate to contact me. The office telephone contact is [phone]. Sincerely, Dr Chris Wills MD, [facility] - Urology Compassionate Specialist Care for the Genitourinary System Coding Level of Care Code Est Pt Level 4 (12337) Diagnoses Erectile dysfunction associated with type 2 diabetes mellitus E11.69; N52.1
--- OUTSIDE RECORDS SUMMARY | 2024-07-12 16:43 | XMS_ITS | Clinical Summary ---
Author Organization [employer] Address 75 [facility] 7t [place] [address] Care Team Providers Care Meat And Seafood Manager Name Role Phone Aubree Pinto MD Primary Care Provider [phone] Matt Silvestre MD Unavailable Chris Wills MD [...] due after 06/12/25 -eye care facilitated by [facility] -[place]health care proxy on file 06/23/2023 Assessment & Plan (06/12/2024 9:32 AM EDT): -next comprehensive annual evaluation due after 06/12/25 -eye care facilitated by [facility] -[place] -[facility] care proxy on file 06/23/2023 Assessment & Plan (10/01/2023 11:21 AM EDT): -next physical exam due after 02/23/2024 -eye care facilitated by [facility] [place] -[facility] care proxy on file 06/23/2023 Assessment & Plan (06/23/2023 4:34 PM EDT): -next physical exam due after 02/23/2024 -eye care facilitated by [facility] [place] -[facility] care proxy given on 06/23/2023 Assessment & Plan (02/22/2023 11:34 AM EST): -next physical exam due after 02/23/2024 -eye care facilitated by [facility] [place] Colon cancer screening 08/06/2022 Overview (06/12/2024): -colonoscopy [...] autoimmune mediated DM Type 1 -followed by [employer] Dr. Silvestre and Stephani Rivera MAINTENANCE JOURNEYMAN , seen 07/12/24 -humalog insulin via insulin [...] exam: 06/12/24 -Last eye exam done at [place] 05/04/24 -Continue lifestyle modifications -Continue current medications via endocrinology -humalog via pump -was doing well on Wegovy but stopped by insurance, awaiting appeal from mechanic/welder. - Assessment & Plan (06/12/2024 10:19 AM EDT): Pt with adult, autoimmune mediated DM Type 1 -followed by [employer] Dr. Silvestre and Stephani Rivera MAINTENANCE JOURNEYMAN , seen 02/2024 -humalog insulin via insulin [...] exam: 06/12/24 -Last eye exam done at [facility] 05/04/24 -Continue lifestyle modifications -Continue current medications via endocrinology -humalog via pump -was doing well on Wegovy but stopped by insurance, awaiting appeal from mechanic/welder. Assessment & Plan (10/01/2023 11:20 AM EDT): [...] exam: due -Last eye exam done at [facility] 08/06/2022 -Continue lifestyle modifications -Continue current medications via endocrinology -humalog via pump -wegovy Assessment & Plan (06/23/2023 4:26 PM EDT): Pt with adult, autoimmune mediated DM Type 1. -followed by Dr. Silvestre -Last eye exam done at [facility] 08/06/2022. Assessment & Plan (02/22/2023 9:37 AM EST): Pt with adult, autoimmune mediated DM Type 1. -followed by Dr. Silvestre -Last eye exam done at [facility] 08/06/2022. Assessment & Plan (08/06/2022 2:18 PM EDT): Pt with adult, autoimmune mediated DM Type 1. -followed by Dr. Silvestre. 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), managed as type 1 ([facility]) (Primary Dx); Type 1 diabetes mellitus with hyperglycemia ([facility]); Stage 3 chronic kidney disease, unspecified whether stage 3a or 3b CKD ([facility]); Class 2 severe obesity due to excess calories with serious comorbidity and body mass index (BMI) of 37.0 to 37.9 in adult ([facility]); Dietary counseling; Exercise counseling; Dyslipidemia; Other specified health status; Encounter for immunization; Tremor; Colon cancer screening; Prostate cancer screening 06/12/2024 Travel 05/31/2024 Patient Outreach [facility] [address] [place] [phone] Aubree Pinto MD Pre-visit Planning (Pre-visit planning - LVM ) 04/14/[address] [phone] Aubree Pinto MD Dyslipidemia from Last 3 [...] EDT Type 1 diabetes mellitus with hyperglycemia ([facility]) POCT GLUCOSE Routine 06/12/2024 9:17 AM EDT Type 1 diabetes mellitus with hyperglycemia ([facility]) HM DIABETES EYE EXAM Routine 05/04/2024 LIPID PANEL, STANDARD Routine 06/05/2023 7:23 AM EST ALBUMIN, RANDOM URINE W/CREATININE Routine 06/05/2023 7:20 AM EST HIV ANTIBODY/ANTIGEN ([facility]) Routine 06/27/2022 7:23 AM EDT from Last 3 Months or Most Recently Relevant to Health Maintenance Results * (ABNORMAL) Glucose, Whole Blood (07/12/2024 1:48 PM EDT) Glucose, Whole Blood 199(H) 60 - 115 mg/dL [facility] Comment:METER #: [id number] Testing performed in the Endocrinology Department [address] , [address], [facility]. 07/12/2024 1:48 PM EDT 07/12/2024 1:53 PM EDT us Generic External Data Provider LAB BLOOD ORDERAB LES Final Result Performing Organization Address City/State/[facility] Co de Phone Number [facility] [address] [place] [phone] * (ABNORMAL) POCT HGB A1C (06/12/2024 [...] Media Lot # [id number] Lot# Expiration Date [id number] Blood Capillary blood specimen / Unknown 06/12/2024 9:17 AM EDT Aubree Pinto MD POINT OF CARE TEST ENTER/E DIT ORDERABLES Final Result * Diabetes Eye Exam (05/04/2024) Eye Exam Normal Normal Comment:[facility] Historical Provider HEALTH MAINTENANCE Final Result * (ABNORMAL) Lipid Panel, Standard (06/05/2023 7:23 AM EST) Triglycerides 105 <150 mg/dL [facility] Comment:Desirable Triglyceri de: less than 150 mg/dLBorderline High Triglyceride 150-199 mg/dLHigh Triglyceride: 200-499 mg/dLVery High Triglyceride: greater than or equal to 5OO mg/dL Cholesterol 143 <200 mg/dL [facility] Comment:Desirable Cholestero l: less than 200 mg/dLBorderline High Cholesterol: 200-239 mg/dLHigh Cholesterol: greater than 239 mg/dL LDL Cholesterol Calculated 83 <100 mg/dL [facility] Comment:Desirable LDL: less than 100 mg/dLNear Optimal/Above Optimal LDL: 110- 129 mg/dLBorderline High LDL: 130-159 mg/dLHigh LDL: 160-189 mg/dLVery High LDL: greater than or equal to 190 mg/dL HDL Cholesterol 39(L) >40 mg/dL [facility] Comment:Desirable HDL: great er than 40 mg/dL Note: This HDL assay may give artificially low results in patients with liver disease. 06/05/2023 7:23 AM EST 06/05/2023 7:23 AM EST Generic External Data Provider LAB BLOOD ORDERAB LES Final Result Performing Organization Address City/[facility] de Phone Number [facility] [address] [place] [phone] * Albumin, Random Urine W/Creatinine (06/05/2023 7:20 AM EST) Creatinine, Urine 215.23 mg/dL [facility] Microalbumin Urine 34.0 mg/L [facility] Microalbum Creatinine Ratio Ur 15.7 <30 ug/mg cr [facility] Comment:Albumin/Creatinine R atio Reference Ranges: Normal: < 30 ug/mg creatinine Microalbuminuria: 30 - 300 ug/mg creatinineClinical Albuminuria: > 300 ug/mg creatinine 06/05/2023 7:20 AM EST 06/05/2023 7:48 AM EST Aubree Pinto MD LAB URINE ORDERABLES Final Result Performing Organization Address [facility] de Phone Number [facility] [address] [place] [phone] * HIV Ab/Ag ([place] [facility]) (06/27/2022 7:23 AM EDT) HIV AB/AG Nonreactive Nonreactive [facility] Comment:HIV-1 p24 Ag and/or HIV-1/HIV-2 Ab not detected.A test result that is nonreactive does not exclude thepossibility of exposure to or infection with HIV-1 and/orHIV-2. Nonreactive results in this assay for individualswith prior exposure to HIV-1 and/or HIV-2 may be due toantigen and antibody levels that are below the limit ofdetection of this assay.The Pa Implementation Lead HIV Ag/Ab Combo assay result andsupplemental assay results should be interpreted inconjunction with the patient's clinical presentation,history and other laboratory results. If the results areinconsistent with clinical evidence, additional testing issuggested to confirm the result. 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 Advance Directives and Living Will 04/17/2024 Health Care Proxy 04/17/24 Advance Directives and Living Will 06/28/2023 Health Care Proxy 06/23/23 Care Teams Meat And Seafood Manager Relationship Specialty Start Date End Date Pondera, MD Aubree [address] [place] [phone] PCP - General Family Medicine 04/05/18 Matt Silvestre MD [address] [place] [address] Endocrinology 03/07/24 Chris Wills MD [address] [place] [address] Drive [address] [place] [address] Urology 04/19/24 Lashell Falcon [facility] [address] [address] Ophthalmology 05/09/24 Saul Avalos MD [address] [place] [address] [address] [place] [address] Gastroenterology 06/12/24 Stephani Rivera MAINTENANCE JOURNEYMAN Endocrinology 04/19/24
--- OUTSIDE RECORDS SUMMARY | 2024-07-12 16:43 | XMS_ITS | Encounter Summary ---
Author Organization [employer] Address 75 [facility] 7t [place] [address] Care Team Providers Care Audio Technician Name Role Phone Blair, Aubree OCHOA Primary Care Provider [phone] Matt Silvestre MD Unavailable [phone] Chris Wills MD Unavailable [phone] Lashell Falcon Unavailable Saul Avalos MD Unavailable [phone] Encounter Details Date Type Department Care Team [...] Whole Blood 199(H) 60 - 115 mg/dL [facility] Comment:METER #: [id number] Testing performed in the Endocrinology Department [address] , [address], [facility]. 07/12/2024 1:48 PM EDT 07/12/2024 1:53 PM EDT us Generic External Data Provider LAB BLOOD ORDERAB LES Final Result [facility] [address] [place] [address] [phone] documented in this encounter Visit Diagnoses Not on filedocumented in this encounter Additional Health Concerns Assessment Noted Time PHQ-9 Depression Total Score: 0 09/29/19 24 2:41 PM EDT documented as of this encounter Care Teams Audio Technician Relationship Specialty Start Date End Date Aubree Pinto MD [address] [place] [phone] PCP - General Family Medicine 04/05/18 Matt Silvestre MD [address] [place] [address] Endocrinology 03/07/24 Chris Wills MD [address] [place] [address] Urology 04/19/24 Lashell Falcon [facility] [address] [address] Ophthalmology 05/09/24 Saul Avalos MD [address] [place] [address] [address] [place] [phone] Gastroenterology 06/12/24 Stephani Rivera QUARTER INSPECTOR Endocrinology 04/19/24 documented as of this encounter
--- OUTSIDE RECORDS SUMMARY | 2024-07-12 16:43 | XMS_ITS | Encounter Summary ---
Author Organization [employer] Address 75 [facility] 7t [place] [address] Care Team Providers Care Software Quality Test Engineer Name Role Phone Aubree Pinto MD Primary Care Provider [phone] Matt Silvestre MD Unavailable [phone] Chris Wills MD Unavailable [phone] Lashell Falcon Unavailable Saul Avalos MD Unavailable [phone] Encounter Details Date Type Department Care Team (Late st Contact Info) Description 03/07/2024 Abstract [facility] [address] [place], [place] [phone] Aubree Pinto MD [address] [place], [place] [phone] Social History Tobacco Use Types Packs/Day Years [...] documented as of this encounter Care Teams Software Quality Test Engineer Relationship Specialty Start Date End Date Aubree Pinto MD [address] [place] [address] PCP - General Family Medicine 04/05/18 Matt Silvestre MD [address] [place] [address] Endocrinology 03/07/24 Chris Wills MD [address] [place] [address] Urology 04/19/24 Lashell Falcon [address] [place] [address] Ophthalmology 05/09/24 Saul Avalos MD [address] [place] [phone] Gastroenterology 06/12/24 Stephani Rivera PRIVATE ADVISOR Endocrinology 04/19/24 documented as of this encounter
--- OUTSIDE RECORDS SUMMARY | 2024-07-12 16:43 | XMS_ITS | Encounter Summary ---
Author Organization [facility] Address 75 [facility] 7t [place] [address] Care Team Providers Care Clip Bolter And Wrapper Name Role Phone Aubree Pinto MD Primary Care Provider [phone] Matt Silvestre MD Unavailable Chris Wills MD Unavailable Lashell Falcon Unavailable Saul Avalos MD Unavailable [phone] Reason for Visit * Reason Comments Med Refill Encounter Details Date Type Department Care Team (Late st Contact Info) Description 08/05/2022 Refill [facility] [address] [place], [place] [phone] Aubree Pinto MD [address] [place], [place] [phone] Social History Tobacco Use Types Packs/Day Years [...] documented as of this encounter Care Teams Clip Bolter And Wrapper Relationship Specialty Start Date End Date Aubree Pinto MD [address] [place] [address] PCP - General Family Medicine 04/05/18 Matt Silvestre MD [address] [place] [address] Endocrinology 03/07/24 Chris Wills MD [address] [facility] [address] [place] [address] Urology 04/19/24 Lashell Falcon [address] [place] [address] Ophthalmology 05/09/24 Saul Avalos MD [address] [place] [address] [address] [place] [phone] Gastroenterology 06/12/24 Stephani Rivera BOX FOLDING MACHINE OPERATOR Endocrinology 04/19/24 documented as of this encounter
--- OUTSIDE RECORDS SUMMARY | 2024-07-12 16:43 | XMS_ITS | Encounter Summary ---
Author Organization [employer] Address 75 [facility] 7t [place] [address] Care Team Providers Care Nuclear Criticality Safety Engineer Name Role Phone Aubree Pinto MD Primary Care Provider [phone] Matt Silvestre MD Unavailable Chris Wills MD Unavailable Lashell Falcon Unavailable Saul Avalos MD Unavailable Encounter Details Date Type Department Care Team (Late st Contact Info) Description 03/15/2024 Orders Only [facility] MED[facility]INE [address] [place], [place] [phone] Aubree Pinto MD [address] [place], [place] [phone] Social History Tobacco Use Types Packs/Day Years [...] documented as of this encounter Care Teams Nuclear Criticality Safety Engineer Relationship Specialty Start Date End Date Aubree Pinto MD [address] [place] [address] PCP - General Family Medicine 04/05/18 Matt Silvestre MD [address] [address] [place] [address] Endocrinology 03/07/24 Chris Wills MD [address] [place] [address] [address] [place] [address] Urology 04/19/24 Lashell Falcon [address] [place], [place] [address] Ophthalmology 05/09/24 Saul Avalos MD [address] [place] [address] [address] [place] [phone] Gastroenterology 06/12/24 Stephani Rivera WORKERS COMPENSATION DEFENSE ATTORNEY Endocrinology 04/19/24 documented as of this encounter
== END 2024-07-12 15:10 | disposition home or self-care (01) ==
LOC: HO.HUSH 14:27
PROVIDERS: PCP Family Medicine; Visit Provider Urology
DX: E11.69 Type 2 diabetes mellitus with other specified complication (principal); N52.1 Erectile dysfunction due to diseases classified elsewhere
CPT/HCPCS: 99214

== ENCOUNTER 2024-07-13 13:33 | Outpatient (REF) | payer OTHER, SELFPAY ==
[2024-07-13 15:30] LABS: Estimated Average Glucose 177 mg/dL; Hemoglobin A1C 240.7175 umol/L; Hemoglobin A1c % 7.8 % (<6.0); Total Hemoglobin (HGBA1C) 3872.3837 umol/L
[2024-07-13 15:51] LABS: Creatinine Urine 98.24 mg/dL; Microalbum/Creatinine Ratio Ur 6.1 ug/mg cr (<30)
--- OUTSIDE RECORDS SUMMARY | 2024-07-13 16:22 | XMS_ITS | Patient Health Record ---
Author Organization [facility] Address [address] [place] [phone] Care Team Providers Care Flexboard Operator Name Role Phone Aubree Pinto MD Primary Care Provider Pamela Saul Cortez Jr Unavailable [phone] Reason For Referral No Information Medications Medication SIG (Take, Route, Fr equency, Duration) Notes Start Date End Date Status Lantus Active Pravastatin Sodium A ctive traMADol HCl Active metFORMIN HCl Active Problems Problem Type SNOMED Code ICD Code Onset Dates Problem Status W/U Status Risk Notes Problem Chronic hepatitis C (280265165) Chronic hepatitis C without mention of hepatic coma (070.54) Active confirmed Problem Chronic hepatitis C (543460646) Chronic hepatitis C (070.54) Active confirmed Plan [...] Insured Coverage Start Date Coverage End Date [facility] [address] [place] [phone] [id number] PALLAVI ROCA Self - patient is the insured Medical (General) History Medical History History ICD Code hyperlipidemia back pain Hepatitis C diabetes mellitus
--- OUTSIDE RECORDS SUMMARY | 2024-07-13 16:23 | XMS_ITS | Data Portability ---
Author Organization [place] - [employer], [address] Address [address] [place] [address] Assessment No assessment recorded. Plan of Treatment [...] By Organization Details Last Modified Time 04/30/2023 [id number] This physical does not replace the annual [...] OC-DOT PHYSICAL completed Marcia Bynum PA - [employer] 04/30/2023 15:42:53 3 OC-DOT PHYSICAL completed JOSHUA TRENATESSA PA - [employer] [facility] 05/11/2022 08:56:56 Imaging Results None recorded. [...] SNOMED-CT Code Diagnosis ICD10 Code Diagnosis Note [id number] [address] [place] [phone] 05/29/2017 15:01:54 05/29/2017 15:24:50 [id number] [facility] [address] [place] [address] 12/28/2019 12:18:16 12/28/2019 13:38:21 [id number] [facility] [address] [place] [address] 11/26/2020 14:35:05 11/26/2020 19:02:39 [id number] [address] [facility] [place] [address] 05/22/2021 14:27:53 05/22/2021 16:04:17 [id number] [address]er [address] [facility] [place] [address] 03/31/2016 14:40:30 03/31/2016 15:39:46 [id number] [employer] [address] [facility] [place] [address] 05/11/2022 08:05:24 05/11/2022 09:25:12 History 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, 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 [id number] Z02.1 Documentat ion for this visit can be found on the electronic DOT form or scanned [place] [id number] [place] [address] [place] [address] 04/30/2023 13:41:19 04/30/2023 16:28:41 History 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, 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 [id number] 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 [id number] Z02.4 Physical examination 588 0005 Z02.4 Health Concerns Section Related Observation LastModified by Organization Detai ls LastModified Time None Recorded Concern Status LastModified by Organization Details LastModified Time None Recorded Advance Directives Directive None Recorded Payers Encounter Date Sequence Insurance Name Policy Number Policy Olivo Covered Member ID Olivo Member ID Guarantor Name 05/11/2022 DO NOT USE Evan Puente [id number] Evan Puente 04/30/2023 OC-PAY AT TIME OF SERVICE 2022 Evan Puente OTHER OTHER Evan Puente Notes Date Note Type Note Provider Name and Address Organization Details Recorded Time 04/30/2023 text/html PhysicalReported bypatient.source of patient informationpatient; Patient arrived at Urgent Care ambulatory 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
--- OUTSIDE RECORDS SUMMARY | 2024-07-13 16:23 | XMS_ITS | Clinical Summary ---
Author Organization [email or web address] Address [address] [facility] 7t [place] [address] Care Team Providers Care Service Order Expediter Name Role Phone Aubree Pinto MD Primary Care Provider [phone] Matt Silvestre MD Unavailable [phone] Chris Wills MD Unavailable Lashell Falcon Unavailable [...] due after 06/12/25 -eye care facilitated by [facility] -dental home [place] -health care proxy on file 06/23/2023 Assessment & Plan (06/12/2024 9:32 AM EDT): -next comprehensive annual evaluation due after 06/12/25 -eye care facilitated by [facility] -d[place] home [place] -[facility] care proxy on file 06/23/2023 Assessment & Plan (10/01/2023 11:21 AM EDT): -next physical exam due after 02/23/2024 -eye care facilitated by [facility] [place] care proxy on file 06/23/2023 Assessment & Plan (06/23/2023 4:34 PM EDT): -next physical exam due after 02/23/2024 -eye care facilitated by [facility] [place] care proxy given on 06/23/2023 Assessment & Plan (02/22/2023 11:34 AM EST): -next physical exam due after 02/23/2024 -eye care facilitated by [facility] [place] Colon cancer screening 08/06/2022 Overview (06/12/2024): -colonoscopy [...] autoimmune mediated DM Type 1 -followed by Health Promotion Coordinator Dr. Silvestre and Stephani Rivera SPEED BELT SANDER TENDER , seen 07/12/24 -humalog insulin via insulin [...] exam: 06/12/24 -Last eye exam done at [place] 05/04/24 -Continue lifestyle modifications -Continue current medications via endocrinology -humalog via pump -was doing well on Wegovy but stopped by insurance, awaiting appeal from [employer]. - Assessment & Plan (06/12/2024 10:19 AM EDT): Pt with adult, autoimmune mediated DM Type 1 -followed by Health Promotion Coordinator Dr. Silvestre and Stephani Rivera SPEED BELT SANDER TENDER , seen 02/2024 -humalog insulin via insulin [...] exam: 06/12/24 -Last eye exam done at [facility] 05/04/24 -Continue lifestyle modifications -Continue current medications via endocrinology -humalog via pump -was doing well on Wegovy but stopped by insurance, awaiting appeal from [employer]. Assessment & Plan (10/01/2023 11:20 AM EDT): [...] exam: due -Last eye exam done at [facility] 08/06/2022 -Continue lifestyle modifications -Continue current medications via endocrinology -humalog via pump -wegovy Assessment & Plan (06/23/2023 4:26 PM EDT): Pt with adult, autoimmune mediated DM Type 1. -followed by Dr. Silvestre -Last eye exam done at [facility] 08/06/2022. Assessment & Plan (02/22/2023 9:37 AM EST): Pt with adult, autoimmune mediated DM Type 1. -followed by Dr. Silvestre -Last eye exam done at [facility] 08/06/2022. Assessment & Plan (08/06/2022 2:18 PM EDT): Pt with adult, autoimmune mediated DM Type 1. -followed by Dr. Silvestre. 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), managed as type 1 ([facility]) (Primary Dx); Type 1 diabetes mellitus with hyperglycemia ([facility]); Stage 3 chronic kidney disease, unspecified whether stage 3a or 3b CKD ([facility]); Class 2 severe obesity due to excess calories with serious comorbidity and body mass index (BMI) of 37.0 to 37.9 in adult ([facility]); Dietary counseling; Exercise counseling; Dyslipidemia; Other specified health status; Encounter for immunization; Tremor; Colon cancer screening; Prostate cancer screening 06/12/2024 Travel 05/31/2024 Patient Outreach [facility] [address] [place] [phone] Aubree Pinto MD Pre-visit Planning (Pre-visit planning - LVM ) 04/14/[address] [phone] Aubree Pinto MD Dyslipidemia from Last 3 [...] 1968 FIT 1968 FOBT 1968 Sigmoidoscopy 1968 Lipid Panel 06/04/2024 06/05/2023, 12/3 04/2021, 04/19/2021, Additional history exists Zoster Vaccines (2 of 2) 06/04/2024 04/09/2024 Depression Screening 09/28/2024 09/29/2023, 09/29/19 24 Influenza Vaccine (#1) 2024 3, 04/06/2022, 12/19/2018, Additional history exists Postponed from 12/05/2023 (Patient Refused) Diabetes: Hemoglobin A1C 10/12/2024 025, 06/12/2024, 10/06/2023, Additional history exists Alcohol/Substance Use Screening 06/12/2025 06/12/2024 COVID-19 Vaccine ( season) 2025 04/29/2022, 08/13/2021, 02/01/2021, Additional history exists Postponed from 12/05/2023 (Patient Refused) Diabetes: Foot Exam 06/12/2025 06/12/2024, 06/12/2024, 06/12/2024, Additional history exists SDOH Screening 06/12/2025 06/12/2024 Tobacco Screening 06/12/2025 06/12/2024 Diabetes: Urine Protein Screening 07/13/2025 07/13/2024, 06/05/2023, 03/22/2023, Additional history exists Eye Exam 05/04/2026 05/04/2024 DTaP/Tdap/Td Vaccines (3 [...] Date/Time Associated Diagnosis Comments HEMOGLOBIN A1C Routine 07/13/2024 1:46 PM EDT Type 1 diabetes mellitus with hyperglycemia (CMS/HCC) ALBUMIN, RANDOM URINE W/CREATININE Routine 07/13/2024 1:45 PM EDT Type 1 diabetes mellitus with hyperglycemia (CMS/HCC) GLUCOSE, WHOLE BLOOD Routine 07/12/2024 1:48 PM EDT POCT GLYCATED HEMOGLOBIN, TOTAL Routine 06/12/2024 9:18 AM EDT Type 1 diabetes mellitus with hyperglycemia (CMS/HCC) POCT GLUCOSE Routine 06/12/2024 9:17 AM EDT Type 1 diabetes mellitus with hyperglycemia (CMS/HCC) HM DIABETES EYE EXAM Routine 05/04/2024 LIPID PANEL, STANDARD Routine 06/05/2023 7:23 AM EST HIV ANTIBODY/ANTIGEN ([place] [facility]) Routine 06/27/2022 7:23 AM EDT from Last 3 Months or Most Recently Relevant to Health Maintenance Results * (ABNORMAL) Hemoglobin A1c (07/13/2024 1:46 PM EDT) Hemoglobin A1c 7.8(H) <6.0 % [facility] Comment:Hemoglobin A1C Refer ence Range Adults: 4.8 - 6.0 % Non diabetic: < 6.0 % Goal: < 7.0 %Additional Action Suggested: > 8.0 %Note: Hemoglobin A1c results are invalid for patients with abnormal amounts of HbF. Blood transfusions may impact the HbA1c concentration in the patient sample. Estimated Average Glucose 177 mg/dL [facility] Comment:eAG = Estimated ave rage glucose which is %A1C expressed asaverage glucose, using the formula of the H0Q-FndmvqjFrqtnyw Glucose study (ADAG), Diabetes Care, Vol.31,#8,Nov. 2007 Blood Venous blood specimen / Unknown 07/13/2024 1:46 PM EDT 07/13/2024 1:46 PM EDT us Aubree Pinto MD LAB BLOOD ORDERABLES Final Result [facility] [address] [place] [address] [phone] * Albumin, Random Urine W/Creatinine (07/13/2024 1:45 PM EDT) Creatinine, Urine 98.24 mg/dL [facility] Microalbumin Urine 6.0 mg/L [facility] Microalbum Creatinine Ratio Ur 6.1 <30 ug/mg cr [facility] Comment:Albumin/Creatinine R atio Reference Ranges: Normal: < 30 ug/mg creatinine Microalbuminuria: 30 - 300 ug/mg creatinineClinical Albuminuria: > 300 ug/mg creatinine Urine 07/13/2024 1:45 PM EDT 07/13/2024 3:20 PM EDT us Aubree Pinto MD LAB URINE ORDERABLES Final Result Performing Organization Address [facility]/ZIP Co de Phone Number [facility] [address] [place] [phone] * (ABNORMAL) Glucose, Whole Blood (07/12/2024 1:48 PM EDT) [facility] Glucose, Whole Blood 199(H) 60 - 115 mg/dL [facility] Comment:METER #: [id number] Testing performed in the Endocrinology Department [address] , [address], [facility]. 07/12/2024 1:48 PM EDT 07/12/2024 1:53 PM EDT us Generic External Data Provider LAB BLOOD ORDERAB LES Final Result Performing Organization Address [facility] Co de Phone Number [facility] [address] [place] [address] [phone] * (ABNORMAL) POCT HGB A1C (06/12/2024 9:18 AM EDT) Hemoglobin A1C 8.4(A) 4.0 - 6.0 % QC Media Lot # [id number] Lot# Expiration Date [id number] Blood 06/12/2024 9:18 AM EDT Aubree Pinto MD POINT OF CARE TEST ENTER/E DIT ORDERABLES Final Result * (ABNORMAL) POCT Glucose (06/12/2024 9:17 AM EDT) Glucose Blood, POC 298(A) 60 - 200 mg/dL QC Media Lot # [id number] Lot# Expiration Date [id number] Blood Capillary blood specimen / Unknown 06/12/2024 9:17 AM EDT Aubree Pinto MD POINT OF CARE TEST ENTER/E DIT ORDERABLES Final Result * Hm Diabetes Eye Exam (05/04/2024) Eye Exam Normal Normal Comment:[facility] Provider HEALTH MAINTENANCE Final Result * (ABNORMAL) Lipid Panel, Standard (06/05/2023 7:23 AM EST) Triglycerides 105 <150 mg/dL [facility] Comment:Desirable Triglyceri de: less than 150 mg/dLBorderline High Triglyceride 150-199 mg/dLHigh Triglyceride: 200-499 mg/dLVery High Triglyceride: greater than or equal to 5OO mg/dL Cholesterol 143 <200 mg/dL [facility] Comment:Desirable Cholestero l: less than 200 mg/dLBorderline High Cholesterol: 200-239 mg/dLHigh Cholesterol: greater than 239 mg/dL LDL Cholesterol Calculated 83 <100 mg/dL [facility] Comment:Desirable LDL: less than 100 mg/dLNear Optimal/Above Optimal LDL: 110- 129 mg/dLBorderline High LDL: 130-159 mg/dLHigh LDL: 160-189 mg/dLVery High LDL: greater than or equal to 190 mg/dL HDL Cholesterol 39(L) >40 mg/dL [facility] Comment:Desirable HDL: great er than 40 mg/dL Note: This HDL assay may give artificially low results in patients with liver disease. 06/05/2023 7:23 AM EST 06/05/2023 7:23 AM EST Generic External Data Provider LAB BLOOD ORDERAB LES Final Result Performing Organization Address [facility]/ZIP Co de Phone Number [facility] [address] [place] [address] [phone] * HIV Ab/Ag ([facility]) (06/27/2022 7:23 AM EDT) Pathologist [facility] HIV AB/AG Nonreactive Nonreactive [facility] Comment:HIV-1 p24 Ag and/or HIV-1/HIV-2 Ab not detected.A test result that is nonreactive does not exclude thepossibility of exposure to or infection with HIV-1 and/orHIV-2. Nonreactive results in this assay for individualswith prior exposure to HIV-1 and/or HIV-2 may be due toantigen and antibody levels that are below the limit ofdetection of this assay.The Pa Senior Power Plant Operator HIV Ag/Ab Combo assay result andsupplemental assay results should be interpreted inconjunction with the patient's clinical presentation,history and other laboratory results. If the results areinconsistent with clinical evidence, additional testing issuggested to confirm the result. 06/27/2022 7:23 AM EDT 06/27/2022 7:23 AM EDT [facility] External Provider LAB BLO OD ORDERABLES Final Result Performing Organization Address 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 Expl anation Advance Directives and Living Will 04/17/2024 Health Care Proxy 04/17/24 Advance Directives and Living Will 06/28/2023 Health Care Proxy 06/23/23 Care Teams Service Order Expediter Relationship Specialty Start Date End Date Ogle, MD Aubree [address] [place] [phone] PCP - General Family Medicine 04/05/18 Matt Silvestre MD [address] [place] [address] Endocrinology 03/07/24 Chris Wills MD [address] [place] [address] Urology 04/19/24 Lashell Falcon [facility] Nathan Leavitt [address] [place] [phone] Ophthalmology 05/09/24 Saul Avalos MD [address] [place] [address] DR [facility] [address] [place] [phone] Gastroenterology 06/12/24 Stephani Rivera NP Endocrinology 04/19/24
--- OUTSIDE RECORDS SUMMARY | 2024-07-13 16:23 | XMS_ITS | Encounter Summary ---
Author Organization [employer] Address [address] [facility] 7t [place] [address] Care Team Providers Care Bolt Machine Operator Name Role Phone Aubree Pinto MD Primary Care Provider [phone] Matt Silvestre MD Unavailable [phone] Chris Wills MD Unavailable [phone] Lashell Falcon Unavailable Saul Avalos MD Unavailable [phone] Encounter Details Date Type Department Care Team (Late st Contact Info) Description 03/15/2024 Orders Only [facility] [address] [place], [place] [phone] Aubree Pinto MD [address] [place], [place] [phone] Social History Tobacco Use Types Packs/Day Years [...] documented as of this encounter Care Teams Bolt Machine Operator Relationship Specialty Start Date End Date Aubree Pinto MD [address] [place] [address] PCP - General Family Medicine 04/05/18 Matt Silvestre MD [address] [place] [address] Endocrinology 03/07/24 Chris Wills MD [address] [place] [address] Drive [address] [place] [address] Urology 04/19/24 Lashell Falcon [address] [place] [address] Ophthalmology 05/09/24 Saul Avalos MD [address] [place] [address] [address] [place] [phone] Gastroenterology 06/12/24 Stephani Rivera CAD DETAILER Endocrinology 04/19/24 documented as of this encounter
--- OUTSIDE RECORDS SUMMARY | 2024-07-13 16:23 | XMS_ITS | Encounter Summary ---
Author Organization [employer] [facility] Address [address] [facility] 7t [place] [address] Care Team Providers Care Field Sales Consultant Name Role Phone Aubree Pinto MD Primary Care Provider [phone] Matt Silvestre MD Unavailable [phone] Chris Wills MD Unavailable [phone] Lashell Falcon Unavailable Saul Avalos MD Unavailable Reason for Visit * Reason Comments Med Refill Encounter Details Date Type Department Care Team (Late st Contact Info) Description 08/05/2022 Refill [facility] [address] [place], [place] [phone] Aubree Pinto MD [address] [place], [place] [phone] Social History Tobacco Use Types Packs/Day Years [...] documented as of this encounter Care Teams Field Sales Consultant Relationship Specialty Start Date End Date Aubree Pinto MD [address] [place] [address] PCP - General Family Medicine 04/05/18 Matt Silvestre MD [address] [place] [address] Endocrinology 03/07/24 Chris Wills MD [address] [place] [address] Urology 04/19/24 Lashell Falcon [address] [place] [address] Ophthalmology 05/09/24 Saul Avalos MD [address] [place] [address] [address] [place] [phone] Gastroenterology 06/12/24 Stephani Rivera BROADBAND INSTALLER Endocrinology 04/19/24 documented as of this encounter
--- OUTSIDE RECORDS SUMMARY | 2024-07-13 16:23 | XMS_ITS | Encounter Summary ---
Author Organization [employer] Address [address] [facility] 7t [place] [address] Care Team Providers Care Project Management Professor Name Role Phone Aubree Pinto MD Primary Care Provider [phone] Matt Silvestre MD Unavailable [phone] Chris Wills MD Unavailable [phone] Lashell Falcon Unavailable Saul Avalos MD Unavailable Encounter Details Date Type Department Care Team (Late st Contact Info) Description 03/07/2024 Abstract [facility] [address] [place], [place] [phone] Aubree Pinto MD [address] [place], [place] [phone] Social History Tobacco Use Types Packs/Day Years [...] documented as of this encounter Care Teams Project Management Professor Relationship Specialty Start Date End Date Aubree Pinto MD [address] [place] [phone] PCP - General Family Medicine 04/05/18 Matt Silvestre MD [address] [place] [address] Endocrinology 03/07/24 Chris Wills MD [address] [place] [address] Urology 04/19/24 Lashell Falcon [address] [place] [address] Ophthalmology 05/09/24 Saul Avalos MD [address] [place] [phone] Gastroenterology 06/12/24 Stephani Rivera ASSISTANT PROFESSOR OF ECONOMICS Endocrinology 04/19/24 documented as of this encounter
--- OUTSIDE RECORDS SUMMARY | 2024-07-13 16:23 | XMS_ITS | Encounter Summary ---
Author Organization [employer] Address [address] [facility] 7t [place] [address] Care Team Providers Care Reel Tender Name Role Phone [place], Aubree OCHOA Primary Care Provider [phone] Matt Silvestre MD Unavailable [phone] Chris Wills MD Unavailable [phone] Lashell Falcon Unavailable Saul Avalos MD Unavailable [phone] Encounter Details Date Type Department Care Team [...] Whole Blood 199(H) 60 - 115 mg/dL [facility] Comment:METER #: [id number] Testing performed in the Endocrinology Department [address] , [address], [facility]. 07/12/2024 1:48 PM EDT 07/12/2024 1:53 PM EDT us Generic External Data Provider LAB BLOOD ORDERAB LES Final Result [facility] [address] [place] [address] [phone] documented in this encounter Visit Diagnoses Not on filedocumented in this encounter Additional Health Concerns Assessment Noted Time PHQ-9 Depression Total Score: 0 09/29/19 24 2:41 PM EDT documented as of this encounter Care Teams Reel Tender Relationship Specialty Start Date End Date Aubree Pinto MD [address] [place] [address] PCP - General Family Medicine 04/05/18 Matt Silvestre MD [address] [place] [address] Endocrinology 03/07/24 Chris Wills MD [address] [place] [address] Urology 04/19/24 Lashell Falcon [facility] [address] [place] [address] Ophthalmology 05/09/24 Saul Avalos MD [address] [place] [address] [address] [place] [phone] Gastroenterology 06/12/24 Stephani Rivera FORESTRY SCIENTIST Endocrinology 04/19/24 documented as of this encounter
[2024-07-13 16:42] LABS: Alanine Aminotransferase 28 U/L (0-40); Albumin Level 4.2 g/dL (3.5-5.0); Alkaline Phosphatase 121 U/L (39-117); Anion Gap 15 (12-20); Aspartate Amino Transferase 29 U/L (5-37); Bilirubin Direct 0.2 mg/dL (0.0-0.5); Bilirubin Total 0.5 mg/dL (0.0-1.0); Blood Urea Nitrogen 24 mg/dL (9-16); Calcium 9.7 mg/dL (8.4-10.2); Carbon Dioxide 24 mmol/L (22-29); Chloride 105 mmol/L (96-108); Cholesterol 153 mg/dL (<200); Estimated Glomerular Filt Rate > 60; Glucose Random 187 mg/dL (60-115); HDL Cholesterol 44 mg/dL (>40); LDL Cholesterol Calculated 82 mg/dL (<100); Sodium 140 mmol/L (135-145); Total Protein 7.1 g/dL (6.5-8.0); Triglycerides 137 mg/dL (<150)
[2024-07-13 16:58] LABS: Prostate Specific Antigen 0.12 ng/mL (<0.05-4.0); TSH reflex Free T4 1.85 uIU/mL (0.32-4.0)
[2024-07-14 07:24] LABS: C Peptide 0.46 ng/mL (0.80-3.85)
== END 2024-07-13 13:34 | disposition home or self-care (01) ==
LOC: HO.LAB 13:33
PROVIDERS: Absent Provider Nurse Practitioner Adult Health; PCP Family Medicine; Visit Provider Family Medicine
DX: E10.65 Type 1 diabetes mellitus with hyperglycemia (principal); R25.1 Tremor, unspecified; Z12.5 Encounter for screening for malignant neoplasm of prostate
CPT/HCPCS: 36415; 80053; 80061; 80076; 82043; 82248; 82570; 83036; 84153; 84443; 84681

== ENCOUNTER 2024-10-11 14:16 | Outpatient (REF) | payer OTHER, SELFPAY ==
--- OUTSIDE RECORDS SUMMARY | 2024-10-11 14:54 | XMS_ITS | Clinical Summary ---
Author Organization [employer] Address [address] [place] [address] Care Team Providers Care Shoe Repairer Name Role Phone Aubree Pinto MD Primary Care Provider [phone] Matt Silvestre MD Unavailable Chris Wills MD [...] 7 DAYS, ADMINISTER WEEKS 13-16 OF THERAPY 03/31/20 24 Active insulin aspart (NovoLOG, Fiasp) 100 [...] equivalent combination of moderate- and vigorous-intensity activity Greater trochanteric bursitis of both hips 05/1205/12/2023 Insulin pump status 05/07/2023 Other specified health status 02/22/2023 Overview (06/12/2024): -next comprehensive annual evaluation due after 06/12/25 -eye care facilitated by [facility] -dental home is [place] -[facility] care proxy on file 06/23/2023 Assessment & Plan (06/12/2024 9:32 AM EDT): -next comprehensive annual evaluation due after 06/12/25 -eye care facilitated by [facility] -[place] -health care proxy on file 06/23/2023 Assessment & Plan (10/01/2023 11:21 AM EDT): -next physical exam due after 02/23/2024 -eye care facilitated by [facility] is [place] -health care proxy on file 06/23/2023 Assessment & Plan (06/23/2023 4:34 PM EDT): -next physical exam due after 02/23/2024 -eye care facilitated by [facility] is [place] -health care proxy given on 06/23/2023 Assessment & Plan (02/22/2023 11:34 AM EST): -next physical exam due after 02/23/2024 -eye care facilitated by [facility] is [place] Colon cancer screening 08/06/2022 Overview (06/12/2024): -colonoscopy [...] pain management 02/20/22. Erectile dysfunction 06/19/2021 Overview (09/14/2024): -Seen by urologist Dr. Chris Wills 07/29/23, note from 09/13/24 reveiwed -Erectile Dysfunction and setting up insulin-dependent diabetes [...] autoimmune mediated DM Type 1 -followed by Radiotelegraph Operator Dr. Silvestre and Stephani Rivera PIECE MEAT TRIMMER , seen 07/12/24 -humalog insulin via insulin [...] exam: 06/12/24 -Last eye exam done at [facility] 05/04/24 -Continue lifestyle modifications -Continue current medications via endocrinology -humalog via pump -was doing well on Wegovy but stopped by insurance, awaiting appeal from radiologist. - Assessment & Plan (06/12/2024 10:19 AM EDT): Pt with adult, autoimmune mediated DM Type 1 -followed by Radiotelegraph Operator Dr. Silvestre and Stephani Rivera PIECE MEAT TRIMMER , seen 02/2024 -humalog insulin via insulin [...] exam: 06/12/24 -Last eye exam done at [facility] 05/04/24 -Continue lifestyle modifications -Continue current medications via endocrinology -humalog via pump -was doing well on Wegovy but stopped by insurance, awaiting appeal from radiologist. Assessment & Plan (10/01/2023 11:20 AM EDT): [...] exam: due -Last eye exam done at [facility] 08/06/2022 -Continue lifestyle modifications -Continue current medications via endocrinology -humalog via pump -wegovy Assessment & Plan (06/23/2023 4:26 PM EDT): Pt with adult, autoimmune mediated DM Type 1. -followed by Dr. Silvestre -Last eye exam done at [facility] 08/06/2022. Assessment & Plan (02/22/2023 9:37 AM EST): Pt with adult, autoimmune mediated DM Type 1. -followed by Dr. Silvestre -Last eye exam done at [facility] 08/06/2022. Assessment & Plan (08/06/2022 2:18 PM EDT): Pt with adult, autoimmune mediated DM Type 1. -followed by Dr. Silvestre. -Last eye exam done at [facility] 08/06/2022 Assessment & Plan (04/29/2022 1:15 PM [...] Problem Noted Date Diagnosed Date Resolved Date Exercise counseling 06/12/2024 09/15/19 Dietary counseling 06/12/2024 Type 1 diabetes mellitus with hyperglycemia 04/19/2024 [...] Encounters Date Type Department Care Team Description 10/03/2024 Telephone [facility] [address] [place] [address] Aubree Pinto MD december Recalls 10/03/2024 Travel 08/30/2024 Telephone [facility] [address] [place] [address] Harper Braswell RN 07/13/2024 Orders Only GENERIC EXTERNAL DATA DEPARTMENT Provider, Generic External Data 07/12/2024 Orders Only GENERIC EXTERNAL DATA DEPARTMENT Provider, Generic External Data from Last 3 Months Immunizations Immunization Administration Dates Next Due Hep A, Adult [...] 109 06/12/2024 9:15 AM EDT Temperature 36.1 C (96.9 F) 06/12/2024 9:15 AM EDT Respiratory Rate 18 06/12/2024 9:15 AM EDT Oxygen Saturation 98% 06/12/2024 9:15 AM EDT Inhaled Oxygen Concentration - - Weight 106 kg (233 lb) 06/12/2024 9:15 AM EDT Height 175.3 cm (5' 9 ) 06/12/2024 9:15 AM EDT Body Mass Index 34.41 06/12/2024 9:15 AM EDT Plan of Treatment Upcoming Encounters Date Type Department Care Team (Late st Contact Info) Description 12/28/2024 9:45 AM EDT Office Visit [facility] [address] [place] [address] Aubree Pinto MD [address] [place], [place] [phone] Health Maintenance Due Date Last Done Comments CT Colonography 1968 Colonoscopy 1968 Colorectal Cancer Screening 1968 FIT DNA/Cologuard 1968 FIT 1968 FOBT 1968 Sigmoidoscopy 1968 Disability Screening 1968 Depression Screening 09/28/2024 09/29/2023, 09/29/19 24 Diabetes: Hemoglobin A1C 10/12/2024 025, 06/12/2024, 10/06/2023, Additional history exists Influenza Vaccine (#1) 2024 3, 04/06/2022, 12/19/2018, Additional history exists Alcohol/Substance Use Screening 06/12/2025 06/12/2024 COVID-19 Vaccine ( season) 2025 04/29/2022, 08/13/2021, 02/01/2021, Additional history exists Postponed from 12/05/2023 (Patient Refused) Diabetes: Foot Exam 06/12/2025 06/12/2024, 06/12/2024, 06/12/2024, Additional history exists SDOH Screening 06/12/2025 06/12/2024 Tobacco Screening 06/12/2025 06/12/2024 Diabetes: Urine Protein Screening 07/13/2025 07/13/2024, 06/05/2023, 03/22/2023, Additional history exists Lipid Panel 07/13/2025 07/13/2024, 03/0 05/2023, 04/04/2022, Additional history exists Eye Exam 05/04/2026 05/04/2024 DTaP/Tdap/Td Vaccines (3 - Td or Tdap) 06/13/2028 06/13/2018, 01/19/2013 RSV Patients and Patients Aged 60 years or older (1 - 1-dose 75+ series) 2043 Hepatitis A Vaccines Completed 06/16/2018, 12/08/19 Pneumococcal Vaccine: 50+ Years Completed 04/29/2022, 01/19/2013, 02/08/2012 HIV Screening Completed 06/27/2022, 05/22/2020 Hepatitis B Vaccines Completed 06/12/2024, 06/23/2023, 02/22/2023 Zoster Vaccines Completed 06/29/2024, 04/09/2024 HIB Vaccines Aged Out No longer eligi ble based on patient's age to complete this topic HPV Vaccines Aged Out No longer eligi ble based on patient's age to complete this topic IPV Vaccines Aged Out No longer eligi ble based on patient's age to complete this topic Meningococcal B Vaccine Aged Out No l onger eligible based on patient's age to complete [...] Procedure Name Priority Date/Time Associated Diagnosis Comments C-PEPTIDE Routine 07/13/2024 1:46 PM EDT COMPREHENSIVE METABOLIC PANEL Routine 07/13/2024 1:46 PM EDT PSA, TOTAL Routine 07/13/2024 1:46 PM EDT Prostate cancer screening TSH W/REFLEX TO FT4 Routine 07/13/2024 1 :46 PM EDT Tremor HEMOGLOBIN A1C Routine 07/13/2024 1:46 PM EDT Type 1 diabetes mellitus with hyperglycemia (CMS/HCC) LIPID PANEL, STANDARD Routine 07/13/2024 1:46 PM EDT Type 1 diabetes mellitus with hyperglycemia (CMS/HCC) HEPATIC FUNCTION PANEL Routine 07/13/2024 1:46 PM EDT Type 1 diabetes mellitus with hyperglycemia (CMS/HCC) ALBUMIN, RANDOM URINE W/CREATININE Routine 07/13/2024 1:45 PM EDT Type 1 diabetes mellitus with hyperglycemia ([facility]/HCC) GLUCOSE, WHOLE BLOOD Routine 07/12/2024 1:48 PM EDT DIABETES EYE EXAM Routine 05/04/2024 HIV ANTIBODY/ANTIGEN ([facility]) Routine 06/27/2022 7:23 AM EDT from Last 3 Months or Most Recently Relevant to Health Maintenance Results * TSH W/Reflex to FT4 (07/13/2024 1:46 PM EDT) Pathologist [facility] TSH reflex Free T4 1.85 0.32 - 4.0 uIU/mL [facility] Blood Venous blood specimen / Unknown 07/13/2024 1:46 PM EDT 07/13/2024 1:46 PM EDT us Aubree Pinto MD LAB BLOOD ORDERABLES Final Result [facility] [address] [place] [phone] * (ABNORMAL) C-Peptide (07/13/2024 1:46 PM EDT) Pathologist [facility] C-Peptide 0.46(L) 0.80 - 3.85 ng/mL [facility] Comment:THIS TEST WAS PERFOR MED AT:[employer] [place] [phone] BOWEN MD 07/13/2024 1:46 PM EDT 07/13/2024 1:46 PM EDT us Generic External Data Provider LAB BLOOD ORDERAB LES Final Result Performing Organization Address [facility]/ZIP Co de Phone Number [facility] [address] [place] [phone] * PSA,Total (07/13/2024 1:46 PM EDT) Prostate Specific Antigen 0.12 <0.05 - 4.0 ng/mL [facility] Comment:PSA methodology: Abb dunacn Enriquez i ChemiluminescentMicroparticle Immunoassay (CMIA) Blood Venous blood specimen / Unknown 07/13/2024 1:46 PM EDT 07/13/2024 1:46 PM EDT us Aubree Pinto MD LAB BLOOD ORDERABLES Final Result Performing Organization Address [facility] Co de Phone Number [facility] [address] [place] [phone] * (ABNORMAL) Hemoglobin A1c (07/13/2024 1:46 PM EDT) Hemoglobin A1c 7.8(H) <6.0 % [facility] Comment:Hemoglobin A1C Refer ence Range Adults: 4.8 - 6.0 % Non diabetic: < 6.0 % Goal: < 7.0 %Additional Action Suggested: > 8.0 %Note: Hemoglobin A1c results are invalid for patients with abnormal amounts of HbF. Blood transfusions may impact the HbA1c concentration in the patient sample. Estimated Average Glucose 177 mg/dL [facility] Comment:eAG = Estimated ave rage glucose which is %A1C expressed asaverage glucose, using the formula of the H0H-LzcleubEsjcpkw Glucose study (ADAG), Diabetes Care, Vol.31,#8,2007 Blood Venous blood specimen / Unknown 07/13/2024 1:46 PM EDT 07/13/2024 1:46 PM EDT Aubree Pinto MD LAB BLOOD ORDERABLES Final Result Performing Organization Address [facility]/ZIP Co de Phone Number [facility] [address] [place] [phone] * Hepatic Function Panel (07/13/2024 1:46 PM EDT) Bilirubin, Direct 0.2 0.0 - 0.5 mg/dL [facility] Blood Venous blood specimen / Unknown 07/13/2024 1:46 PM EDT 07/13/2024 1:46 PM EDT Aubree Pinto MD LAB BLOOD ORDERABLES Final Result Performing Organization Address [facility] Co de Phone Number [facility] [address] [place] [phone] * Lipid Panel, Standard (07/13/2024 1:46 PM EDT) Triglycerides 137 <150 mg/dL [facility] Comment:Desirable Triglyceri de: less than 150 mg/dLBorderline High Triglyceride 150-199 mg/dLHigh Triglyceride: 200-499 mg/dLVery High Triglyceride: greater than or equal to 5OO mg/dL Cholesterol 153 <200 mg/dL [facility] Comment:Desirable Cholestero l: less than 200 mg/dLBorderline High Cholesterol: 200-239 mg/dLHigh Cholesterol: greater than 239 mg/dL LDL Cholesterol Calculated 82 <100 mg/dL [facility] Comment:Desirable LDL: less than 100 mg/dLNear Optimal/Above Optimal LDL: 110- 129 mg/dLBorderline High LDL: 130-159 mg/dLHigh LDL: 160-189 mg/dLVery High LDL: greater than or equal to 190 mg/dL HDL Cholesterol 44 >40 mg/dL [facility] Comment:Desirable HDL: great er than 40 mg/dL Note: This HDL assay may give artificially low results in patients with liver disease. Blood Venous blood specimen / Unknown 07/13/2024 1:46 PM EDT 07/13/2024 1:46 PM EDT Aubree Pinto MD LAB BLOOD ORDERABLES Final Result [facility] [address] [place] [phone] * (ABNORMAL) Comprehensive Metabolic Panel (07/13/2024 1:46 PM EDT) Sodium 140 135 - 145 mmol/L [facility] Potassium 4.0 3.3 - 5.1 mmol/L [facility] Chloride 105 96 - 108 mmol/L [facility] Carbon Dioxide 24 22 - 29 mmol/L [facility] Anion Gap 15 12 - 20 [facility] Urea Nitrogen (BUN) 24(H) 9 - 16 mg/dL [facility] Creatinine, Serum 0.81 0.5 - 1.4 mg/dL [facility] Estimated Glomerular Filt Rate >60 [facility] Comment:Chronic Kidney Disea se: Estimated GFR < 60 mL/min/1.32h5Oqavmt Kidney Disease: Estimated GFR < 15 mL/min/1.73m2 Glucose 187(H) 60 - 115 mg/dL [facility] Calcium 9.7 8.4 - 10.2 mg/dL [facility] Bilirubin, Total 0.5 0.0 - 1.0 mg/dL [facility] Aspartate Amino Transferase 29 5 - 37 U/L [facility] Alanine Aminotransferase 28 0 - 40 U/L [facility] Total Protein 7.1 6.5 - 8.0 g/dL [facility] Albumin Level 4.2 3.5 - 5.0 g/dL [facility] Alkaline Phosphatase 121(H) 39 - 117 U/L [facility] 07/13/2024 1:46 PM EDT 07/13/2024 1:46 PM EDT us Generic External Data Provider LAB BLOOD ORDERAB LES Final Result Performing Organization Address [facility]/ZIP Co de Phone Number [facility] [address] [place] [phone] * Albumin, Random Urine W/Creatinine (07/13/2024 1:45 PM EDT) Creatinine, Urine 98.24 mg/dL [facility] Microalbumin Urine 6.0 mg/L [facility] Microalbum Creatinine Ratio Ur 6.1 <30 ug/mg cr [facility] Comment:Albumin/Creatinine R atio Reference Ranges: Normal: < 30 ug/mg creatinine Microalbuminuria: 30 - 300 ug/mg creatinineClinical Albuminuria: > 300 ug/mg creatinine Urine 07/13/2024 1:45 PM EDT 07/13/2024 3:20 PM EDT Aubree Pinto MD LAB URINE ORDERABLES Final Result Performing Organization Address [facility] de Phone Number [facility] [address] [place] [phone] * (ABNORMAL) Glucose, Whole Blood (07/12/2024 1:48 PM EDT) Glucose, Whole Blood 199(H) 60 - 115 mg/dL [facility] Comment:METER #: [id number] Testing performed in the Endocrinology Department [address] , [address], [facility]. 07/12/2024 1:48 PM EDT 07/12/2024 1:53 PM EDT us Generic External Data Provider LAB BLOOD ORDERAB LES Final Result Performing Organization Address [facility]/ZIP Co de Phone Number [facility] [address] [place] [address] [place] [phone] * Diabetes Eye Exam (05/04/2024) Eye Exam Normal Normal Comment:[facility] Historical Provider MD HEALTH MAINTENANCE Final Result * HIV Ab/Ag (KIAH GAMBLE) (06/27/2022 7:23 AM EDT) HIV AB/AG Nonreactive Nonreactive [facility] Comment:HIV-1 p24 Ag and/or HIV-1/HIV-2 Ab not detected.A test result that is nonreactive does not exclude thepossibility of exposure to or infection with HIV-1 and/orHIV-2. Nonreactive results in this assay for individualswith prior exposure to HIV-1 and/or HIV-2 may be due toantigen and antibody levels that are below the limit ofdetection of this assay.[employer] Specialist HIV Ag/Ab Combo assay result andsupplemental assay results should be interpreted inconjunction with the patient's clinical presentation,history and other laboratory results. If the results areinconsistent with clinical evidence, additional testing issuggested to confirm the result. 06/27/2022 7:23 AM EDT 06/27/2022 7:23 AM EDT [facility] External Provider LAB BLO OD ORDERABLES Final Result [facility] [address] [place] [phone] from Last 3 Months or Most Recently Relevant to Health Maintenance Insurance [facility] [address] [facility] Advance Directives Documents on File Type Date Recorded Patient Press Helper Expl anation Advance Directives and Living Will 04/17/2024 Health Care Proxy 04/17/24 Advance Directives and Living Will 06/28/2023 Health Care Proxy 06/23/23 Care Teams Shoe Repairer Relationship Specialty Start Date End Date Blair, MD Aubree [address] [place] [phone] PCP - General Family Medicine 04/05/18 Matt Silvestre MD [address] [place] [address] Endocrinology 03/07/24 Chris Wills MD [address] [place] [address] Urology 04/19/24 Lashell Falcon [facility] [address], [place] [address] Ophthalmology 05/09/24 Saul Avalos MD [address] [place] [address] [address] [place] [phone] Gastroenterology 06/12/24 Stephani Rivera PIECE MEAT TRIMMER Endocrinology 04/19/24
--- OUTSIDE RECORDS SUMMARY | 2024-10-11 14:54 | XMS_ITS | Data Portability ---
Author Organization [facility] [employer] [facility] [facility] [address] Address [address] [place] [address] Assessment No assessment recorded. Plan of Treatment [...] By Organization Details Last Modified Time 04/30/2023 [id number] This physical does not replace the annual physical to be performed by your PCP. There may be additional screening tests that they will perform that we do not in the urgent care setting. Failure to follow up as recommended may result in significant adverse health consequences. If your symptoms worsen or you develop new symptoms that concern you, go to the emergency department for further evaluation. carlos Not available 04/30/2023 15:38:57 Reason for Referral None Reported. Procedures Surgical History Date Name Laterality Status Provider Name and Address Organization Details Recorded Time 4 OC[facility]DOT PHYSICAL completed Marcia Bynum [employer] [facility] [employer] [facility] [employer] 04/30/2023 15:42:53 3 OC-DOT PHYSICAL completed JOSHUA MIGUEL PA - [facility] [employer] 05/11/2022 08:56:56 Imaging Results None recorded. Procedure [...] SNOMED-CT Code Diagnosis ICD10 Code Diagnosis Note [id number] [facility] [address] [place] [address] 05/29/2017 15:01:54 05/29/2017 15:24:50 [id number] [address] [facility] [address] [place] [phone] 12/28/2019 12:18:16 12/28/2019 13:38:21 [id number] [facility] [address] [facility] [address] [place] [phone] 11/26/2020 14:35:05 11/26/2020 19:02:39 [id number] [address] [facility] [address] [place] [address] 05/22/2021 14:27:53 05/22/2021 16:04:17 [id number] [address] [facility] [address] [facility] [place] [address] 03/31/2016 14:40:30 03/31/2016 15:39:46 [id number] [facility] [employer] [address] [facility] [place] [address] 05/11/2022 08:05:24 05/11/2022 09:25:12 History 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, 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 [id number] Z02.1 Documentat ion for this visit can be found on the electronic DOT form or scanned [place] [id number] [place] [address] [place] [address] 04/30/2023 13:41:19 04/30/2023 16:28:41 History 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, 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 [id number] 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 [id number] Z02.4 Physical examination [phone] Z02.4 Health Concerns Section Related Observation LastModified by Organization Detai ls LastModified Time None Recorded Concern Status LastModified by Organization Details LastModified Time None Recorded Advance Directives Directive None Recorded Payers Insurance Date Sequence Insurance Name Policy Number Policy Olivo Covered Member ID Olivo Member ID Guarantor Name 05/11/2022 DO NOT USE Evan Puente [id number] Evan Puente 05/12/2022 PAY AT TOS Evan Puente [id number] Evan Puente 04/30/2023 OC-PAY AT TIME OF SERVICE 2022 Evan Puente OTHER OTHER Evan Puente 04/30/2023 1 [facility] (O) [id number] Evan Puente [id number] Evan Puente Notes Date Note Type Note Provider Name and Address Organization Details Recorded Time 04/30/2023 text/html PhysicalReported bypatient.source of patient informationpatient; Patient arrived at Urgent Care ambulatory 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
[2024-10-11 15:35] LABS: Alanine Aminotransferase 26 U/L (0-40); Albumin Level 4.2 g/dL (3.5-5.0); Anion Gap 11 (12-20); Aspartate Amino Transferase 28 U/L (5-37); Blood Urea Nitrogen 18 mg/dL (9-16); Calcium 9.3 mg/dL (8.4-10.2); Carbon Dioxide 26 mmol/L (22-29); Chloride 103 mmol/L (96-108); Cholesterol 115 mg/dL (<200); Estimated Glomerular Filt Rate 56; HDL Cholesterol 35 mg/dL (>40); Potassium 4.1 mmol/L (3.3-5.1); Sodium 136 mmol/L (135-145); Triglycerides 113 mg/dL (<150)
[2024-10-16 18:33] LABS: Testosterone, Free 54.3 pg/mL (35.0-155.0)
== END 2024-10-11 14:17 | disposition home or self-care (01) ==
LOC: HO.LAB 14:16
PROVIDERS: Nurse Practitioner Adult Health; PCP Family Medicine; Visit Provider Urology
DX: E10.69 Type 1 diabetes mellitus with other specified complication (principal); E10.21 Type 1 diabetes mellitus with diabetic nephropathy; C61 Malignant neoplasm of prostate; E29.1 Testicular hypofunction; N52.1 Erectile dysfunction due to diseases classified elsewhere; R68.82 Decreased libido; Z79.899 Other long term (current) drug therapy; Z79.4 Long term (current) use of insulin
CPT/HCPCS: 36415; 80048; 80061; 82040; 82043; 82570; 82947; 83036; 84270; 84402; 84403; 84450; 84460; 99212

== ENCOUNTER 2024-10-11 14:45 | Outpatient (AMB) | payer OTHER, SELFPAY ==
--- NOTE | 2024-10-11 12:39 | A.OFFVIS_ITS ---
Vital Signs 10/11/24 14:47 Height 5 ft 9 in Weight 240 lb 4.862 oz BMI 35.5 BP 120/80 Blood Pressure Location Rt brachial Position Sitting Pulse 86 Pulse Source Pulse Oximeter Pulse Oximetry (%) 98 Oxygen Delivery Method Room Air Intake Visit Reasons: T1DM Intake Note: Patient presents today for a follow-up on Type 1 Diabetes Mellitus (GAGAN): Last Diabetic Eye Exam: DUE Last Podiatry Exam- Does not see a Continuous Mining Machine Lode Miner Most recent HbA1c- 8.2%, 10/11/2024 Random Glucose- 302 mg/dL, Today Recreation Officer Required: No Accompanied by: Self / Same As Patient Allergies liraglutide Allergy (Unknown, Verified 10/11/24 15:17) Unknown HPI Comments Details: 54 YO male seen in f/u for DM. He is on an insulin pump. He was last seen 3 months ago. Hemoglobin A1C was 8.2%is 8.2% He has been on both wegovy and ozempic. Since coming off Wegovy, his weight has increased from 222 pounds to 240.He reports he had been eating a balanced diet and in the morning having a protein shake. He is now on mounjaro 10mg weekly. He had a low testosterone level 01/01/24 279 and additional labs were ordered at that time. He is following up with Dr. Wills urology Initially diagnosed with T1DM approximately 2013. Current regimen: mounjaro 10mg [novolog via medtronic 780G with guardian 4 sensor] Unable to download pump at todays visits, Manually reviewed pump settings. Active insulin time hanged from 2.75 reduced to 2.15 Patient understands the basic concepts of pump therapy, how to give insulin for meals and snacks, how to troubleshoot for hyper and hypoglycemia. Has eyes checked yearly, last eye exam was within the past year, no retinopathy. Denies neuropathy, he does not see Podiatry Has nephropathy, on [THO]. 06/2023 Microalbumin 34 eGFR>60 [Has] HLD, on [statin]. Last LDL [84] measured on [06/26]. Denies history of CAD. Followed by Dr. Wills in Urology for hypogonadism and ED He denies numbness, tingling or cramps in the extremities. He wears closed toed shoes or slippers at all times. Diet/Carb counting: [Accurate] Weight: WEight incrase since off wegovy [Denies] prior episodes of DKA. [Denies] prior severe episodes of hypoglycemia requiring help or hospitalization. 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 He has 3 children 1 in senior in high school, 1 in college for nursing in an older daughter in her early 30s with 1 child. Basal rate(s) (units/hour) : 12 AM? to 5 AM? 2.0 units / hr 5 AM? to 12 PM? 1.75 units / hr 12 PM? to 12 AM? 2.0 units / hr Bolus setting Insulin Carbohydrate Ratio (s) 12 AM to 4 AM? 1:4 4 AM to 12 AM 1:4 Correction Factor / Sensitivity Factor 12 AM to 12 AM?? 1:14 Active Insulin Time:? 2.75 new 2hr 15 min Target(s): SmartGuard target: 100 mg/dL 12 AM to 12 AM?? 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), managed as type 1 Surgical History History of hernia surgery H/O colonoscopy Hx of exploratory laparotomy Family History Father Diabetes Mother Diabetes Social History Household Members: Spouse and Children Housing: House Do you presently have visiting nurse or other home services: No Alcohol intake: current Alcohol intake frequency: holidays/special occasions only Alcohol type: beer Patient Tobacco Use Status: Former Tobacco user [employer] service: No Current occupational status: employed 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 Absence of acromegalic features. Neck exam reveals nl size thyroid about 15 gms. No thyroid nodules palpable. Heart S1 S2, Reg R/R. No M/R G. Skin exam reveals absence of vitiligo or acanthosis nigricans. No edema Visual exam of foot performed. No ulcerations or open lesions. No inter digit maceration or fissuring. No onychomycosis, no callouses. Sensation intact to monofilament exam. Vibratory sensation is normal with 128 Hz tuning fork. 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 His active insulin time was decreased to 2 hours and 15 minutes. He was advised to consistently enter his carbohydrate g before the meal. The patient had an opportunity to ask questions regarding treatment plan. The patient expressed understanding and agreement with the above treatment plan. The patient is aware they should contact our office by phone for worsening glucose readings or for any low blood sugars which may warrant a change in diabetes medication. Compliance is encouraged with medications and any followup testing/consults which may have been ordered. Orders: Orders AMB Hemoglobin A1c 10/11/24 E13.9 - Other specified diabetes mellitus without complications Medications: New ciclopirox 0.77% 1 appl topical BID 30 grams 1RF 4 weeks NS Changed From insulin glargine (Lantus Solostar U-100 Insulin) 50 units (0.5 mL) subcut DAILY 30 days PRN 15 mL 1RF prn pump failure, back up insulin plan E13.9 - Other specified diabetes mellitus without complications To Lantus Solostar U-100 Insulin (insulin glargine) 50 units (0.5 mL) subcut DAILY PRN 15 mL 4RF prn pump failure, back up insulin plan 30 days NS E13.9 - Other specified diabetes mellitus without complications From atorvastatin 1 tab PO BEDTIME To atorvastatin 40 mg PO BEDTIME 30 tabs 6RF 30 days Patient Instructions: Check your feet daily looking for any signs of infection, drainage, redness, ulceration and seek medical attention if this occurs. Break in shoes gradually and do not wear open-toed shoes or walk stocking footed or barefooted. Symptoms of DKA (diabetic ketoacidosis): early: frequent urination, dry mouth, fatigue, feeling ill, severe symptoms: ketones in the urine, abdominal pain, nausea, vomiting and weakness. It is important to hydrate with sugar free liquids every 15-30 minutes and bring the sugars down to normal levels. If you are moderate or severe with ketones or unable to bring glucose to less than 200, go to the emergency room. 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
[2024-10-11 14:47] VITALS: BP 120/80; PULSE 86; O2SAT 98; BMI 35.5
[2024-10-11 15:31] LABS: Glucose, Whole Blood 302 mg/dL (60-115)
== END 2024-10-11 16:11 | disposition home or self-care (01) ==
LOC: HO.ENCR 14:46
PROVIDERS: PCP Family Medicine; Visit Provider Nurse Practitioner Adult Health
DX: E13.9 Other specified diabetes mellitus without complications (principal)
CPT/HCPCS: 99214; G2211

== ENCOUNTER 2024-11-17 13:41 | Outpatient (AMB) | payer OTHER, SELFPAY ==
--- OUTSIDE RECORDS SUMMARY | 2024-11-17 13:44 | XMS_ITS | Clinical Summary ---
Author Organization [employer] Address [address] [place] [address] Care Team Providers Care Circuit Board Inspector Name Role Phone Aubree Pinto MD Primary Care Provider [phone] Matt Silvestre MD Unavailable Chris Wills MD [...] due after 06/12/25 -eye care facilitated by [facility] -dental home is [place] -[facility] care proxy on file 06/23/2023 Assessment & Plan (06/12/2024 9:32 AM EDT): -next comprehensive annual evaluation due after 06/12/25 -eye care facilitated by [facility] -[place] -health care proxy on file 06/23/2023 Assessment & Plan (10/01/2023 11:21 AM EDT): -next physical exam due after 02/23/2024 -eye care facilitated by [facility] is [place] -health care proxy on file 06/23/2023 Assessment & Plan (06/23/2023 4:34 PM EDT): -next physical exam due after 02/23/2024 -eye care facilitated by [facility] is [place] -health care proxy given on 06/23/2023 Assessment & Plan (02/22/2023 11:34 AM EST): -next physical exam due after 02/23/2024 -eye care facilitated by [facility] is [place] Colon cancer screening 08/06/2022 Overview (06/12/2024): -colonoscopy [...] (GAGAN), managed as type 1 05/19/2012 Overview (10/12/2024): Pt with adult, autoimmune mediated DM Type 1 -followed by [facility] Specialist Dr. Silvestre and Stephani Rivera ENGINE ROOM OPERATOR , seen 07/12/24 -humalog insulin via insulin pump since 05/07/23 -pump Medtronic 780 G with guardian 3 sensor , guardian 4 transmitter Lab Results Component Value Date HGBA1C 7.8 (H) 07/13/2024 HGBA1C 8.4 (A) 06/12/2024 HGBA1C 7.7 (A) 10/06/2023 Lab Results Component Value Date CREATININE 1.33 10/11/2024 EGFR 56 10/11/2024 MICROALBCREU TNP 10/11/2024 MICROALBCREU 6.1 07/13/2024 LDLCHOLCAL 58 10/11/2024 -[place]/Arb: lisinopril 5mg -Statin therapy: atorvastatin 40mg -Diabetic foot exam: 06/12/24 -Last eye exam done at [facility] 05/04/24 -Continue lifestyle modifications -Continue current medications via endocrinology -humalog via pump -was doing well on Wegovy but stopped by insurance, awaiting appeal from phonograph cartridge assembler. - Assessment & Plan (06/12/2024 10:19 AM EDT): Pt with adult, autoimmune mediated DM Type 1 -followed by [facility] Dr. Silvestre and Stephani Rivera ENGINE ROOM OPERATOR , seen 02/2024 -humalog insulin via [...] exam: 06/12/24 -Last eye exam done at [facility] 05/04/24 -Continue lifestyle modifications -Continue current medications via endocrinology -humalog via pump -was doing well on Wegovy but stopped by insurance, awaiting appeal from phonograph cartridge assembler. Assessment & Plan (10/01/2023 11:20 AM EDT): [...] exam: due -Last eye exam done at [facility] 08/06/2022 -Continue lifestyle modifications -Continue current medications via endocrinology -humalog via pump -wegovy Assessment & Plan (06/23/2023 4:26 PM EDT): Pt with adult, autoimmune mediated DM Type 1. -followed by Dr. Silvestre -Last eye exam done at [facility] 08/06/2022. Assessment & Plan (02/22/2023 9:37 AM EST): Pt with adult, autoimmune mediated DM Type 1. -followed by Dr. Silvestre -Last eye exam done at [facility] 08/06/2022. Assessment & Plan (08/06/2022 2:18 PM EDT): Pt with adult, autoimmune mediated DM Type 1. -followed by Dr. Silvestre. -Last eye exam done at [facility] 08/06/2022 Assessment & Plan (04/29/2022 1:15 PM [...] Encounters Date Type Department Care Team Description 10/11/2024 Orders Only GENERIC EXTERNAL DATA DEPARTMENT Provider, Generic External Data 10/03/2024 Telephone [facility] MED[facility] [address] [place] [phone] Aubree Pinto MD december Recalls 10/03/2024 Travel 08/30/2024 Telephone [facility] MEDICINE [address] [place] [address] Harper Braswell RN from Last 3 Months Immunizations Immunization Administration [...] Description 12/28/2024 9:45 AM EDT Office Visit [facility] [address], [place] [phone] Aubree Pinto MD [address] [place], [place] [phone] Health Maintenance Due Date Last Done Comments CT Colonography 1968 Colonoscopy 1968 Colorectal Cancer Screening 1968 FIT DNA/Cologuard 1968 FIT 1968 FOBT 1968 Sigmoidoscopy 1968 Disability Screening 1968 Depression Screening 09/28/2024 09/29/2023, 09/29/19 24 Diabetes: Hemoglobin A1C 10/12/2024 025, 06/12/2024, 10/06/2023, Additional history exists Influenza Vaccine (#1) 2024 , 04/06/2022, 12/19/2018, Additional history exists Alcohol/Substance Use Screening 06/12/2025 06/12/2024 COVID-19 Vaccine ( season) 2025 04/29/2022, 08/13/2021, 02/01/2021, Additional history exists Postponed from 12/05/2023 (Patient Refused) Diabetes: Foot Exam 06/12/2025 06/12/2024, 06/12/2024, 06/12/2024, Additional history exists SDOH Screening 06/12/2025 06/12/2024 Tobacco Screening 06/12/2025 06/12/2024 Diabetes: Urine Protein Screening 10/11/2025 10/11/2024, 07/13/2024, 06/05/2023, Additional history exists Lipid Panel 10/11/2025 10/11/2024, 04/, 06/05/2023, Additional history exists Eye Exam 05/04/2026 05/04/2024 [...] Associated Diagnosis Comments GLUCOSE, WHOLE BLOOD Routine 10/11/2024 3:25 PM EDT TESTOSTERONE, FREE (DIALYSIS) AND TOTAL,MS Routine 10/11/2024 2:30 PM EDT SEX HORMONE BINDING GLOBULIN Routine 10/11/2024 2:30 PM EDT LIPID PANEL, STANDARD Routine 10/11/2024 2:30 PM EDT ALBUMIN Routine 10/11/2024 2:30 PM EDT ALT Routine 10/11/2024 2:30 PM EDT AST Routine 10/11/2024 2:30 PM EDT BASIC METABOLIC PANEL Routine 10/11/2024 2:30 PM EDT Type 1 diabetes mellitus with hyperglycemia (CMS/HCC) ALBUMIN, RANDOM URINE W/CREATININE Routine 10/11/2024 2:24 PM EDT HEMOGLOBIN A1C Routine 07/13/2024 1:46 PM EDT Type 1 diabetes mellitus with hyperglycemia (CMS/HCC) HM DIABETES EYE EXAM Routine 05/04/2024 HIV ANTIBODY/ANTIGEN ([place] DPH) Routine 06/27/2022 7:23 AM EDT from Last 3 Months or Most Recently Relevant to Health Maintenance Results * (ABNORMAL) Glucose, Whole Blood (10/11/2024 3:25 PM EDT) Glucose, Whole Blood 302(H) 60 - 115 mg/dL [facility] Comment:METER #: [id number] 5Testing performed in the Endocrinology Department [address] , [address], [facility]. 10/11/2024 3:25 PM EDT 10/11/2024 3:30 PM EDT us Generic External Data Provider LAB BLOOD ORDERAB LES Final Result [facility] [address] [place] [phone] * Sex Hormone Binding Globulin (SHBG) (10/11/2024 2:30 PM EDT) Sex Hormone Binding Globulin 38 22 - 77 nmol/L [facility] Comment:THIS TEST WAS PERFOR MED AT:[employer] [place] [phone] BOWEN MD 10/11/2024 2:30 PM EDT 10/11/2024 2:30 PM EDT us Generic External Data Provider LAB BLOOD ORDERAB LES Final Result [facility] [address] [place] [phone] * Testosterone, Free (Dialysis) And Total, MS (10/11/2024 2:30 PM EDT) Testosterone, Total 396 250 - 1100 ng/dL [facility] Comment:For additional infor shira, please refer tohttp://education.[employer]/faq/[email or web address](This link is being provided for informational/educational purposes only.)This test was developed and its analytical performancecharacteristics have been determined by [place] It hasnot been cleared or approved by the U.S. Food and DrugAdministration. This assay has been validated pursuantto the CLIA regulations and is used for clinicalpurposes. Testosterone, Free 54.3 35.0 - 155.0 pg/mL [facility] Comment:This test was develo ped and its analytical performancecharacteristics have been determined by [employer] [place], [place]. It hasnot been cleared or approved by the U.S. Food and DrugAdministration. This assay has been validated pursuantto the CLIA regulations and is used for clinicalpurposes.THIS TEST WAS PERFORMED AT:[employer]/[id number] [place] [phone] SANTANA MD,PHD 10/11/2024 2:30 PM EDT 10/11/2024 2:30 PM EDT us Generic External Data Provider LAB BLOOD ORDERAB LES Final Result Performing Organization Address [facility] de Phone Number [facility] [address] [place] [phone] * ALT (10/11/2024 2:30 PM EDT) Alanine Aminotransferase 26 0 - 40 U/L [facility] 10/11/2024 2:30 PM EDT 10/11/2024 2:30 PM EDT us Generic External Data Provider LAB BLOOD ORDERAB LES Final Result Performing Organization Address [facility] Phone Number [facility] [address] [place] [phone] * AST (10/11/2024 2:30 PM EDT) Aspartate Amino Transferase 28 5 - 37 U/L [facility] 10/11/2024 2:30 PM EDT 10/11/2024 2:30 PM EDT us Generic External Data Provider LAB BLOOD ORDERAB LES Final Result Performing Organization Address [facility] de Phone Number [facility] [address] [place] [phone] * Albumin (10/11/2024 2:30 PM EDT) Albumin Level 4.2 3.5 - 5.0 g/dL [facility] 10/11/2024 2:30 PM EDT 10/11/2024 2:30 PM EDT us Generic External Data Provider LAB BLOOD ORDERAB LES Final Result Performing Organization Address [facility] Co de Phone Number [facility] [address] [place] [phone] * (ABNORMAL) Lipid Panel, Standard (10/11/2024 2:30 PM EDT) Triglycerides 113 <150 mg/dL [facility] Comment:Desirable Triglyceri de: less than 150 mg/dLBorderline High Triglyceride 150-199 mg/dLHigh Triglyceride: 200-499 mg/dLVery High Triglyceride: greater than or equal to 5OO mg/dL Cholesterol 115 <200 mg/dL [facility] Comment:Desirable Cholestero l: less than 200 mg/dLBorderline High Cholesterol: 200-239 mg/dLHigh Cholesterol: greater than 239 mg/dL LDL Cholesterol Calculated 58 <100 mg/dL [facility] Comment:Desirable LDL: less than 100 mg/dLNear Optimal/Above Optimal LDL: 110- 129 mg/dLBorderline High LDL: 130-159 mg/dLHigh LDL: 160-189 mg/dLVery High LDL: greater than or equal to 190 mg/dL HDL Cholesterol 35(L) >40 mg/dL [facility] Comment:Desirable HDL: great er than 40 mg/dL Note: This HDL assay may give artificially low results in patients with liver disease. 10/11/2024 2:30 PM EDT 10/11/2024 2:30 PM EDT us Generic External Data Provider LAB BLOOD ORDERAB LES Final Result [facility] [address] [place] [phone] * (ABNORMAL) Basic Metabolic Panel (10/11/2024 2:30 PM EDT) Sodium 136 135 - 145 mmol/L [facility] Potassium 4.1 3.3 - 5.1 mmol/L [facility] Chloride 103 96 - 108 mmol/L [facility] Carbon Dioxide 26 22 - 29 mmol/L [facility] Anion Gap 11(L) 12 - 20 [facility] Urea Nitrogen (BUN) 18(H) 9 - 16 mg/dL [facility] Creatinine, Serum 1.33 0.5 - 1.4 mg/dL [facility] Estimated Glomerular Filt Rate 56 [facility] Comment:Chronic Kidney Disea se: Estimated GFR < 60 mL/min/1.49c4Xycudl Kidney Disease: Estimated GFR < 15 mL/min/1.73m2 Glucose 299(H) 60 - 115 mg/dL [facility] Calcium 9.3 8.4 - 10.2 mg/dL [facility] Blood Venous blood specimen / Unknown 10/11/2024 2:30 PM EDT 10/11/2024 2:30 PM EDT Aubree Pinto MD LAB BLOOD ORDERABLES Final Result Performing Organization Address [facility]/ZIP Co de Phone Number [facility] [address] [place] [phone] * Albumin, Random Urine W/Creatinine (10/11/2024 2:24 PM EDT) Creatinine, Urine 109.88 mg/dL [facility] Microalbumin Urine <5.0 mg/L [facility] Microalbum Creatinine Ratio Ur TNP <30 ug/mg cr [facility] Comment:Unable to calculate albumin/creatinine ratio due to lowmicroalbumin or creatinine result. 10/11/2024 2:24 PM EDT 10/11/2024 3:27 PM EDT us Generic External Data Provider LAB URINE ORDERAB LES Final Result Performing Organization Address City/[facility]/ZIP Co de Phone Number [facility] [address] [place] [phone] * (ABNORMAL) Hemoglobin A1c (07/13/2024 1:46 PM EDT) Hemoglobin A1c 7.8(H) <6.0 % [facility] Comment:Hemoglobin A1C Refer ence Range Adults: 4.8 - 6.0 % Non diabetic: < 6.0 % Goal: < 7.0 %Additional Action Suggested: > 8.0 %Note: Hemoglobin A1c results are invalid for patients with abnormal amounts of HbF. Blood transfusions may impact the HbA1c concentration in the patient sample. Estimated Average Glucose 177 mg/dL [facility] Comment:eAG = Estimated ave rage glucose which is %A1C expressed asaverage glucose, using the formula of the N2F-ItruddyZpgxsac Glucose study (ADAG), Diabetes Care, Vol.31,#8,2007 Blood Venous blood specimen / Unknown 07/13/2024 1:46 PM EDT 07/13/2024 1:46 PM EDT Aubree Pinto MD LAB BLOOD ORDERABLES Final Result [facility] [address] [place] [phone] * Diabetes Eye Exam (05/04/2024) Eye Exam Normal Normal Comment:[facility] Chan Encarnacion MD HEALTH MAINTENANCE Final Result * HIV Ab/Ag (KIAH VELASCO) (06/27/2022 7:23 AM EDT) HIV AB/AG Nonreactive Nonreactive [facility] Comment:HIV-1 p24 Ag and/or HIV-1/HIV-2 Ab not detected.A test result that is nonreactive does not exclude thepossibility of exposure to or infection with HIV-1 and/orHIV-2. Nonreactive results in this assay for individualswith prior exposure to HIV-1 and/or HIV-2 may be due toantigen and antibody levels that are below the limit ofdetection of this assay.The Pa [employer] Web Developer HIV Ag/Ab Combo assay result andsupplemental assay results should be interpreted inconjunction with the patient's clinical presentation,history and other laboratory results. If the results areinconsistent with clinical evidence, additional testing issuggested to confirm the result. 06/27/2022 7:23 AM EDT 06/27/2022 7:23 AM EDT us [facility] External Provider LAB BLO OD ORDERABLES Final Result [facility] [address] [place] [phone] from Last 3 Months or Most Recently Relevant to Health Maintenance Insurance [facility] Advance Directives Documents on File Type Date Recorded Patient [employer] Expl anation Advance Directives and Living Will 04/17/2024 Health Care Proxy 04/17/24 Advance Directives and Living Will 06/28/2023 Health Care Proxy 06/23/23 Care Teams Circuit Board Inspector Relationship Specialty Start Date End Date Karnak, MD Aubree [address] [place] [phone] PCP - General Family Medicine 04/05/18 Matt Silvestre MD [address] [place] [phone] Endocrinology 03/07/24 Chris Wills MD [address] [place] [address] Drive [address] [place] [address] Urology 04/19/24 Lashell Falcon [address] [place], [place] [address]cristel Leavitt [address] [place] [phone] Ophthalmology 05/09/24 Saul Avalos MD [address] [place] [address] [address] [place] [phone] Gastroenterology 06/12/24 Stephani Rivera ENGINE ROOM OPERATOR Endocrinology 04/19/24
--- OUTSIDE RECORDS SUMMARY | 2024-11-17 13:44 | XMS_ITS | Patient Health Record ---
Author Organization [facility] Address [address] [place] [phone] Care Team Providers Care Electrification Adviser Name Role Phone Aubree Pinto MD Primary Care Provider Pamela Saul Cortez Jr Unavailable Reason For Referral No Information Medications Medication SIG (Take, Route, Fr equency, Duration) Notes Start Date End Date Status Lantus Active Pravastatin Sodium A ctive traMADol HCl Active metFORMIN HCl Active Problems Problem Type SNOMED Code ICD Code Onset Dates Problem Status W/U Status Risk Notes Problem Chronic hepatitis C (898490720) Chronic hepatitis C without mention of hepatic coma (070.54) Active confirmed Problem Chronic hepatitis C (938175002) Chronic hepatitis C (070.54) Active confirmed Plan [...] Insured Coverage Start Date Coverage End Date [facility] [address] [place] [phone] [id number] PALLAVI ROCA Self - patient is the insured Medical (General) History Medical History History ICD Code hyperlipidemia back pain Hepatitis C diabetes mellitus
--- NOTE | 2024-11-17 13:45 | A.OFFVIS_ITS ---
Intake Visit Reasons: 3M follow up/ Testo(testo?) Intake Note: Patient is present for 3 mo follow up Urology Medication:TADALAFIL,enclomiphenr Antibiotic Allergy:NONE Blood Thinner:NONE Labs done 10/11/24 : Total testosterone : 396,Fr Testosterone : 54.3, SHB 38 Travel Rn Required: No Accompanied by: Self / Same As Patient Allergies liraglutide Allergy (Unknown, Verified 11/30/24 15:13) Unknown HPI Comments Details: Evan is a very pleasant male. Accompanied by his partner. He is a patient Dr. Pinto. - inguinal disruption - erectile dysfunction Three-month follow-up Enclomiphene - increased testosterone to 400 Background insulin-dependent diabetes on Wegovy Low testosterone 12/27 T 280 FT 40 Would like link for penile pump Re add daily tadalafil Refill enclompihene Erectile Dysfunction and setting up insulin-dependent diabetes with component of Peyronie's Ongoing Progressive Associated with curvature of penis Has not tried maximum oral therapy Medications provided with daily tadalafil and on demand tadalafil We will also do pentoxifylline 400 mg p.o. b.i.d. to try to help with baseline mild Peyronie's Inguinal disruption Pain on the right deep inguinal canal On exam has pain was on the lateral aspect of the inguinal canal and on the medial aspect Consistent with deep inguinal tear History of injury last December Discussed natural history of recovery from the type of injury and demonstrated exercises Can follow p.r.n. 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), managed as type 1 Surgical History Hx laparoscopic cholecystectomy (11/21/24) History of hernia surgery H/O colonoscopy Hx of exploratory laparotomy Family History Father Diabetes Mother Diabetes Social History Household Members: Spouse and Children Housing: House Do you presently have visiting nurse or other home services: No Alcohol intake: current Alcohol intake frequency: holidays/special occasions only Alcohol type: beer Patient Tobacco Use Status: Former Tobacco user service: No Current occupational status: employed 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 Review of Systems Const Denies chills and Denies fever(s) Card Reports no additional complaints and Denies syncope Resp Denies cough GI Denies abdominal pain and Denies heartburn Reports as per HPI and Denies change in libido Neuro Denies syncope Psych Denies change in libido Endo Denies change in libido Physical Exam Const General: cooperative, healthy appearing, comfortable and no acute distress Orientation/consciousness: patient oriented x3 HEENT Face and sinus: Yes normal facial exam Mouth: moist mucous membranes Neck Neck: Yes normal visual inspection, Yes full ROM and Yes trachea midline Chest Chest palpation & inspection: normal inspection of the chest Resp Effort & Inspection: normal respiratory effort, able to speak in complete sentences and no respiratory distress GI Inspection: Yes normal to inspection Back/Spine/Pelvis Cervical Spine: normal cervical lordosis Thoracic/Lumbar Spine: thoracic and lumbar spine normal to inspection Skin General skin exam: no rashes or lesions noted Neuro General: patient oriented x3, gait normal, tone normal and moves all extremities Extrem General: Yes normal to inspection and Yes capillary refill normal Assessment & Plan Assessment & Plan (1) Hypogonadism in male: Code(s): E29.1 - Testicular hypofunction Category: Medical Plan Continue enclomiphene Continue tadalafil 5 mg daily Orders: Orders Testosterone, Total 3 Months E29.1 - Testicular hypofunction Medications: Refilled tadalafil 5 mg PO DAILY 90 tabs 0RF sexual activity 90 days E11.69 - Type 2 diabetes mellitus with other specified complication, N52.1 - Erectile dysfunction due to diseases classified elsewhere Patient Instructions: This note is constructed using voice recognition software. While every effort has been made to ensure accuracy licensed final expense agents errors may have been included. Imaging studies, laboratory and physical exam results were discussed and reviewed in detail. No major barriers to patient understanding were identified. An opportunity to ask questions regarding the treatment plan was provided. All questions were answered. The patient expressed understanding and agreement with the above treatment plan. The patient is aware they should contact our office by phone for worsening of their current condition or the appearance of new urologic symptoms. Compliance is encouraged with any medications and followup testing that is ordered. It is a privilege to participate in the urologic care of your patient. If you have any questions or concerns regarding treatment for the above conditions, or other urologic issues, please do not hesitate to contact me. The office telephone contact is [phone]. Sincerely, Dr Chris Wills MD, [facility] - Urology Compassionate Specialist Care for the Genitourinary System Coding Level of Care Code Est Pt Level 3 (97297) Diagnoses Hypogonadism in male E29.1
== END 2024-11-17 14:44 | disposition home or self-care (01) ==
LOC: HO.HUSH 13:42
PROVIDERS: PCP Family Medicine; Visit Provider Urology
DX: E29.1 Testicular hypofunction (principal)
CPT/HCPCS: 99213

== ENCOUNTER → 2024-11-17 13:41 | Outpatient (BNVA) | payer OTHER, SELFPAY | PROVIDERS: PCP Family Medicine; Visit Provider Urology | DX: E29.1 Testicular hypofunction (principal); E11.69 Type 2 diabetes mellitus with other specified complication; N52.1 Erectile dysfunction due to diseases classified elsewhere | CPT/HCPCS: 99212 ==

== ENCOUNTER 2024-11-20 06:34 | Inpatient (IN) | payer OTHER, SELFPAY ==
[2024-11-20] VITALS (11 sets, daily range): BP systolic 124–150; BP diastolic 58–88; PULSE 60–80; RESP 14–30; TEMP 36.1–37.4; O2SAT 97–99; BMI 34.7; BMI 35.2
--- NOTE | ~2024-11-20 | US_ITS ---
EXAMINATION: US ABDOMEN LIMITED/GALLBLADDER. CLINICAL INFORMATION: CT abdomen pelvis dated November 20, 2024 reported cholelithiasis.. COMPARISON: Correlated to CT dated November 20, 2024. TECHNIQUE: Real-time ultrasound of the right upper quadrant abdomen, gallbladder. Limited. FINDINGS: There is a 2.3 cm hyperechoic abnormality in the gallbladder neck. The gallbladder is nondistended. The gallbladder wall measures 5 m. No pericholecystic fluid collection. Common bile duct measures 4 mm. US/US abdomen limited IMPRESSION: Cholelithiasis with gallbladder wall thickening. Acute calculus cholecystitis cannot be excluded. No choledocholithiasis. Electronically signed by: Woody Stock MD 11/20/2024 10:44 AM EDT
--- NOTE | ~2024-11-20 | CT_ITS ---
EXAMINATION: CT ABDOMEN AND PELVIS WITH CONTRAST CLINICAL INFORMATION: Severe epigastric pain. COMPARISON: 12/16/2020. TECHNIQUE: Multidetector volumetric images were obtained from the superior aspect of the liver through the pubic symphysis following administration 85 mL of Omnipaque 350 intravenous contrast. Sagittal and coronal reformatted images were obtained on the technologist's workstation. Oral contrast: No This CT examination was performed using dose optimization techniques as appropriate, variously including the following: *Automated exposure control *Adjustment of mA and/or kV according to patient size (this includes techniques or standardized protocols for targeted exams where dose is matched to indication/reason for exam; i.e. extremities or head) *Use of iterative reconstruction technique FINDINGS:1 LUNG BASES: The visualized lung bases are unremarkable. LIVER, GALLBLADDER, AND BILIARY TREE: The liver is normal in size and shape. There is mild diffuse fatty infiltration. There are a few scattered calcified granulomata. No focal hepatic lesion or biliary ductal dilatation is present. There is a 3.2 cm oval gallstone in the gallbladder neck. There are smaller gallstones present as well. No definite gallbladder wall thickening or inflammation. PANCREAS: Unremarkable. SPLEEN: Unremarkable. ADRENAL GLANDS: Unremarkable. KIDNEYS AND URETERS: The kidneys are normal in size, shape, and attenuation. No hydronephrosis, hydroureter, or calculi seen. No perinephric stranding. BLADDER: Unremarkable. GASTROINTESTINAL TRACT: There are no acute findings. The appendix is normal. Moderate diverticulosis of the descending and sigmoid colon without evidence of inflammation or wall thickening. No rectal abnormality. No small bowel abnormality. The stomach is somewhat decompressed but appears grossly normal. The duodenum appears grossly normal. ABDOMINAL WALL: No significant hernia is appreciated. LYMPH NODES: Normal. VASCULAR: Mild calcific atheromatous disease of the aorta and iliac vessels. No aneurysm. PELVIC VISCERA: The prostate and seminal vesicles are unremarkable. OSSEOUS STRUCTURES: No suspicious lytic or blastic bone lesions. Mild spinal and bilateral hip joint degenerative changes present. CT/CT abdomen pelvis w IV con IMPRESSION: 1. There is a 3.2 cm gallstone within the region of the neck of the gallbladder. No gallbladder inflammation or wall thickening grossly. There are additional smaller gallstones. 2. Mild diffuse fatty infiltration of the liver. No biliary dilatation present. 3. Diverticulosis of the left colon without evidence of acute diverticulitis. Electronically signed by: Hugo Coates MD 11/20/2024 09:45 AM EDT
--- NOTE | 2024-11-20 06:51 | ECG_ITS ---
Test Reason : ABDOMINAL PAIN Blood Pressure : */* mmHG Vent. Rate : 56 BPM Atrial Rate : 56 BPM P-R Int : 126 ms QRS Dur : 82 ms QT Int : 404 ms P-R-T Axes : 46 -10 15 degrees QTcB Int : 389 ms Sinus bradycardia Otherwise normal ECG When compared with ECG of 20-Oct-2020 17:00, Vent. rate has decreased by 38 bpm Referred By: Alma Rosa Perea Electronically Signed By: CHAZ ZAPATA MD
--- NOTE | 2024-11-20 06:53 | ED_ITS ---
HPI - Abdominal Pain General Chief Complaint: Abdominal Pain Stated Complaint: abd pain Time Seen by Provider: 11/20/24 06:47 Source: patient, EMS and old records reviewed Mode of arrival: EMS Limitations: no limitations History of Present Illness ED Provider: TRUDY HPI narrative: 54 yo male with PMH of HTN, HLD, hep C, anemia, has been on zepbound for 6 months, he notes he ate a jalapeno last night then started with severe abdominal pain n/v it started upper then moved lower. He states he feels terrible after all of this vomiting. He notes he feels weak and dizzy. He has no diarrhea. He states he has no other issues to cause this. He denies CP/SOB. No fevers reported. MD elicited complaint: abdominal pain Pertinent past history: none Onset (ago): hour(s) (3am) Pain Consistency: constant Location: diffuse Severity: severe Quality: cramping and aching Radiation: none Migration to: no migration Exacerbating factors: eating and vomiting Relieving factors: nothing Context: other Associated symptoms: nausea and vomiting Related Data Home Medications ?Medication ?Instructions ?Recorded ?Confirmed lisinopril 5 mg tablet 1 tab PO DAILY 10/20/2009/25 sildenafil 100 mg tablet (Viagra) 0.5 tab PO DAILY PRN Erectile 10/20/20 02/08/23 Dysfunction COVID-19 antigen test (BinaxNOW #1 ea 11/11/21 3 COVID-19 Ag Self Test kit) Previous Rx's ?Medication ?Instructions ?Recorded cane #1 ea 02/08/23 pentoxifylline 400 mg 400 mg PO BID 90 days #180 t abs 07/28/23 tablet,extended release acetone (urine) test (Ketone Care #50 ea 10/06/23 strips) blood sugar diagnostic (Accu-Chek #200 ea 02/16/24 Guide test strips) insulin aspart U-100 100 unit/mL 150 unit (1.5 mL) sub cut DAILY #60 06/05/24 subcutaneous solution (Novolog mL U-100 Insulin aspart) tadalafil 5 mg tablet 5 mg PO DAILY sexual activit y 90 07/12/24 days #90 tabs tadalafil 20 mg tablet 20 mg PO ONCE PRN sexual act ivity 08/14/24 30 days #30 tabs Lantus Solostar U-100 Insulin 100 50 unit (0.5 mL) sub cut DAILY PRN 10/11/24 unit/mL (3 mL) subcutaneous pen prn pump failure, back up insulin (insulin glargine) plan 30 days #15 mL atorvastatin 40 mg tablet 40 mg PO BEDTIME 30 days #30 tabs 10/11/24 ciclopirox 0.77 % topical cream 1 appl topical BID 4 w eeks #30 10/11/24 grams Zepbound 10 mg/0.5 mL subcutaneous 10 mg (0.5 mL) subc ut QWEEK 28 11/13/24 pen injector (tirzepatide (weight days #2 mL loss)) tadalafil 5 mg tablet 5 mg PO DAILY sexual activit y 90 11/17/24 days #90 tabs Allergies Allergy/AdvReac Type Severity Reaction Status Date / Time liraglutide Allergy Unknown Unknown Verified 11/20/24 06:53 Review of Systems Review of Systems Constitutional : No Weight loss, No Fever, No Chills ENT/Mouth : No sore throat, No Rhinorrhea Eyes: No Swelling, No Redness Cardiovascular : No Chest Pain, No SOB, NoEdema Respiratory : No Cough, No Sputum, No Wheezing Gastrointestinal : Positive Nausea, Positive Vomiting, no Diarrhea, positive abdominal Pain, No Hematochezia, No Melena Genitourinary : No Dysuria, No Urinary Frequency, No Hematuria, No Urgency Musculoskeletal : No joint pain, No Myalgias, No Joint Swelling Skin : No Skin Lesions, No rash Neuro : No Weakness, No Numbness, No Dizziness, No Headache All other systems reviewed and are negative. [facility] Past Medical History Attestation statement: The following information was validated with the patient. 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), managed as type 1 Surgical History History of hernia surgery H/O colonoscopy Hx of exploratory laparotomy Family History Family History Father Diabetes Mother Diabetes Social History Social History Household Members: Spouse and Children Housing: House Do you presently have visiting nurse or other home services: No Alcohol intake: current Alcohol intake frequency: holidays/special occasions only Alcohol type: beer Patient Tobacco Use Status: Former Tobacco user Advance Directives: No Advance Directives Information Provided: Yes service: No Current occupational status: employed 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 Oriented X3. Mild acute distress. He is actively vomiting and stating he has pain, patient is sticking his fingers down his throat. He was advised to stop doing this immediately Eyes: Pupils equal, round and reactive to light. ENT: Pharynx normal. Neck: Normal inspection. Neck supple. CVS: Normal heart rate and rhythm. Pulses normal. Respiratory: No respiratory distress. Breath sounds normal. Abdomen: Soft and diffuse ttp no rebound or guarding. Skin: Skin warm and dry. Normal skin color. Normal skin turgor. Extremities: No lower extremity edema. Neuro: Oriented X 3. No motor deficit. No sensory deficit. CN2-12 intact Course Course Course Narrative: pain improved with IV dilaudid 942am Reevaluation(s) Reevaluation #1: given CT scan possible cholecystitis, infection suspected at 1020am I have ordered lactic acid and blood cultures as well as nano Perea DO 11/20/24 1020 Reevaluation #2: delay in cultures and lactic acid as patient out of ED for radiology studies Medical Decision Making Medical Decision Making MDM Narrative: 54 yo male with PMH of HTN, HLD, hep C, anemia, has been on zepbound for 6 months, now here with severe abdominal pain starting at 3am - he has n/v. He notes the only new thing that happened was he ate a jalapeno. He denies GIB symptoms, no CP/SOB. At this time will need basic labs, CT scan, IV medications for pain. Possible pancreatitis, gastritis, GERD, PUD, gastroparesis Differential Diagnosis Differential Diagnoses: The differential diagnosis associated with the presentation includes gastritis, pancreatitis, GERD, PUD, gastoparesis Admission/Observation Consideration of admission/observation: Escalation of care including admission/observation considered admit for cholecystitis Consult Healthcare Provider Management of the patient was discussed with: [employer] Supervisor (surgery will admit) Lab Data MDM Lab Attestation statement: I reviewed the patient's lab results. 11/20/24 07:12 11/20/24 07:12 Labs: Lab Results 11/20/24 Range/Units 07:12 WBC 16.8 H (4.8-10.8) X10*3/uL RBC 4.92 (4.60-5.80) X10*6/uL Hgb 15.0 (14.0-18.0) g/dl Hct 42.1 (42.0-52.0) % MCV 85.6 (80.0-98.0) fL MCH 30.5 (27.0-33.0) pg MCHC 35.6 (31.0-36.0) g/dl RDW 12.9 (11.0-16.0) % Plt Count 285 (160-400) X10*3/uL MPV 10.1 (9.4-12.4) fL Immature Gran % (Auto) 0.5 H (0.0-0.4) % Neut % (Auto) 78.4 H (45-73) % Lymph % (Auto) 13.0 L (20-40) % Hidalgo % (Auto) 7.1 (2-11) % Eos % (Auto) 0.7 (0-4) % Baso % (Auto) 0.3 (0-2) % Lymph # (Auto) 2.2 (1.2-4.9) X10*3/uL [place]go # (Auto) 1.2 (0.1-1.2) X10*3/uL Eos # (Auto) 0.1 (0.0-0.4) X10*3/uL Baso # (Auto) 0.1 (0.0-0.2) X10*3/uL Abs Immat Gran (auto) 0.08 H (0.00-0.03) X10*3/uL Absolute Neuts (auto) 13.2 H (2.0-8.3) x10*3/uL Absolute Nucleated RBC 0.000 (0.0-0.012) X10*3/uL Nucleated RBC % (auto) 0.0 (0.0-0.2) /100WBC Sodium 136 (135-145) mmol/L Potassium 4.0 (3.3-5.1) mmol/L Chloride 105 (96-108) mmol/L Carbon Dioxide 18 L (22-29) mmol/L Anion Gap 17 (12-20) BUN 19 H (9-16) mg/dL Creatinine 0.98 (0.5-1.4) mg/dL Estim Creat Clear Calc 101.2 Estimated GFR > 60 Random Glucose 322 H (60-115) mg/dL Calcium 9.0 (8.4-10.2) mg/dL Magnesium 1.5 L (1.6-2.6) mg/dL Total Bilirubin 0.4 (0.0-1.0) mg/dL Direct Bilirubin 0.2 (0.0-0.5) mg/dL AST 36 (5-37) U/L ALT 25 (0-40) U/L Alkaline Phosphatase 95 (39-117) U/L Troponin I High Sens 3.8 (<3.5-35.0) ng/L Total Protein 6.7 (6.5-8.0) g/dL Albumin 4.1 (3.5-5.0) g/dL Lipase 122 H (8-78) U/L Ethyl Alcohol < 10 mg/dL Independent Interpretation I performed an independent interpretation of an: EKG, Ultrasound (cholecystitis) and CT Scan (impacted gallstone) Interpretation: Rate: 56 Rhythm: sinus bradycardia [place]: left Normal P waves. Normal LUISA. Normal QRS complex. ST T wave : normal no VIC qTC: 389 prior studies: no acute ischemia The study has been interpreted contemporaneously by me. . Radiology Impression Discussion of test interpretation with radiology: I have reviewed the radiologist's reading. Medications Administered Discontinued Medications Generic Name Dose Route Start Last Admin Trade Name Freq PRN Reason Stop Dose Admin Diazepam 2.5 mg 11/20/24 07:05 11/20/24 07:28 Diazepam 10 Mg/2 Ml Cartridge IVPUSH 11/20/24 07:06 2.5 mg STAT STA Administration Hydromorphone HCl 1 mg 11/20/24 08:01 11/20/24 08:12 Hydromorphone Hcl 1 Mg/Ml Syringe IVPUSH 11/20/24 08:02 1 mg ONCE ONE Administration Protocol Lactated Ringer's 1,000 mls @ 999 mls/hr 11/20/24 06:51 11/20/24 09:35 Lr IV 11/20/24 07:51 Infused .Q1H1M ONE Infusion Magnesium Sulfate 2 gm in 50 mls @ 25 mls/hr 11/20/24 08:01 11/20/24 10:20 Magnesium Sulfate/H2o IV 11/20/24 10:00 Infused ONCE ONE Infusion Iohexol 100 ml 11/20/24 09:14 11/20/24 09:15 Iohexol 350 Mg/Ml 100 Ml Infus..Btl IV 11/20/24 09:15 85 ml ONCE ONE Administration Morphine Sulfate 4 mg 11/20/24 06:51 11/20/24 07:26 Morphine Sulfate 4 Mg/Ml Cartridge IVPUSH 11/20/24 06:52 4 mg ONCE ONE Administration Protocol Ondansetron HCl 4 mg 11/20/24 06:51 11/20/24 07:27 Ondansetron Hcl 4 Mg/2 Ml Vial IVPUSH 11/20/24 06:52 4 mg ONCE ONE Administration Critical Care Time Critical Care Time Critical Care Time: Yes Total Critical Care Time: 40 Attestation: IV magnesium to prevent arrythmia, review of records, repeat IV dilaudid for acute pain with some improvement, admission, medical consult to surgery I attest to this time spent taking care of the patient Discharge Plan Discharge Clinical Impression: Acute cholecystitis Abdominal pain Qualifiers: Abdominal location: right upper quadrant Qualified Code(s): R10.11 - Right upper quadrant pain Patient Disposition: Admitted As Inpatient Print Language: Bengali
[2024-11-20 07:16] LABS: MANUAL DIFF FLAG NO
[2024-11-20 07:19] LABS: Hematocrit 42.1 % (42.0-52.0); Hemoglobin 15.0 g/dl (14.0-18.0); Imm Gran Abs Auto 0.08 X10*3/uL (0.00-0.03); Imm Gran Pct Auto 0.5 % (0.0-0.4); Lymphocytes Absolute Auto 2.2 X10*3/uL (1.2-4.9); Mean Corpuscular HGB Conc 35.6 g/dl (31.0-36.0); Mean Corpuscular Hemoglobin 30.5 pg (27.0-33.0); Mean Corpuscular Volume 85.6 fL (80.0-98.0); NRBC Abs Auto 0.000 X10*3/uL (0.0-0.012); NRBC Pct Auto 0.0 /100WBC (0.0-0.2); Platelet Count 285 X10*3/uL (160-400); Red Blood Count 4.92 X10*6/uL (4.60-5.80); White Blood Count 16.8 X10*3/uL (4.8-10.8)
[2024-11-20] MEDS: Lactated Ringers 1,000 ML 999 ML IV (07:28)
[2024-11-20] MEDS: diazePAM 10 MG/2 ML CARTRIDGE 2.5 MG IVPUSH (07:28)
--- OUTSIDE RECORDS SUMMARY | 2024-11-20 07:54 | XMS_ITS | Patient Health Record ---
Author Organization [facility] Address [address] [place] [id number] Care Team Providers Care Director Cpg Name Role Phone Aubree Pinto MD Primary [...] Status Risk Notes Problem Chronic hepatitis C (477939171) Chronic hepatitis C without mention of hepatic coma (070.54) Active confirmed Problem Chronic hepatitis C (061657234) Chronic hepatitis C (070.54) Active confirmed Plan [...] Coverage Start Date Coverage End Date [facility] [address] [place] [phone] [id number] PALLAVI ROCA Self - patient is the insured Medical (General) History Medical History History ICD Code hyperlipidemia back pain Hepatitis C diabetes mellitus
--- OUTSIDE RECORDS SUMMARY | 2024-11-20 07:54 | XMS_ITS | Clinical Summary ---
Author Organization [employer] Address [address] [place] [address] Care Team Providers Care Form Setter Name Role Phone Aubree Pinto MD Primary Care Provider [phone] Matt Silvestre MD Unavailable Chris Wills MD Unavailable [phone] Lashell Falcon Unavailable Saul Avalos MD [...] due after 06/12/25 -eye care facilitated by [facility] -dental home [place] -[facility] care proxy on file 06/23/2023 Assessment & Plan (06/12/2024 9:32 AM EDT): -next comprehensive annual evaluation due after 06/12/25 -eye care facilitated by [facility] -dental [place] -health care proxy on file 06/23/2023 Assessment & Plan (10/01/2023 11:21 AM EDT): -next physical exam due after 02/23/2024 -eye care facilitated by [facility] [place] -health care proxy on file 06/23/2023 Assessment & Plan (06/23/2023 4:34 PM EDT): -next physical exam due after 02/23/2024 -eye care facilitated by [facility] [place] -health care proxy given on 06/23/2023 Assessment & Plan (02/22/2023 11:34 AM EST): -next physical exam due after 02/23/2024 -eye care facilitated by [facility] [place] Colon cancer screening 08/06/2022 Overview (06/12/2024): -colonoscopy [...] autoimmune mediated DM Type 1 -followed by Roll Tester Dr. Silvestre and Stephani Rivera PHYSIOLOGY TEACHER , seen 07/12/24 -humalog insulin via insulin pump since 05/07/23 -pump Medtronic 780 G with guardian 3 sensor , guardian 4 transmitter Lab Results Component Value Date HGBA1C 7.8 (H) 07/13/2024 HGBA1C 8.4 (A) 06/12/2024 HGBA1C 7.7 (A) 10/06/2023 Lab Results Component Value Date CREATININE 1.33 10/11/2024 EGFR 56 10/11/2024 MICROALBCREU TNP 10/11/2024 MICROALBCREU 6.1 07/13/2024 LDLCHOLCAL 58 10/11/2024 -Leonardo/Arb: lisinopril 5mg -Statin therapy: atorvastatin 40mg -Diabetic foot exam: 06/12/24 -Last eye exam done at [facility] 05/04/24 -Continue lifestyle modifications -Continue current medications via endocrinology -humalog via pump -was doing well on Wegovy but stopped by insurance, awaiting appeal from special education para professional. - Assessment & Plan (06/12/2024 10:19 AM EDT): Pt with adult, autoimmune mediated DM Type 1 -followed by Roll Tester Dr. Silvestre and Stephani Rivera PHYSIOLOGY TEACHER , seen 02/2024 -humalog insulin via insulin [...] exam: 06/12/24 -Last eye exam done at [facility] 05/04/24 -Continue lifestyle modifications -Continue current medications via endocrinology -humalog via pump -was doing well on Wegovy but stopped by insurance, awaiting appeal from special education para professional. Assessment & Plan (10/01/2023 11:20 AM EDT): [...] exam: due -Last eye exam done at [facility] 08/06/2022 -Continue lifestyle modifications -Continue current medications via endocrinology -humalog via pump -wegovy Assessment & Plan (06/23/2023 4:26 PM EDT): Pt with adult, autoimmune mediated DM Type 1. -followed by Dr. Silvestre -Last eye exam done at [facility] 08/06/2022. Assessment & Plan (02/22/2023 9:37 AM EST): Pt with adult, autoimmune mediated DM Type 1. -followed by Dr. Silvestre -Last eye exam done at [facility] 08/06/2022. Assessment & Plan (08/06/2022 2:18 PM EDT): Pt with adult, autoimmune mediated DM Type 1. -followed by Dr. Silvestre. -Last eye exam done at [facility] 08/06/2022 Assessment & Plan (04/29/2022 1:15 PM [...] DEPARTMENT Provider, Generic External Data 10/03/2024 Telephone [facility] [address] [place] [address] Aubree Pinto MD december Recalls 10/03/2024 Travel 08/30/2024 Telephone [facility] [address] [place] [address] Harper Braswell RN from Last 3 Months [...] Description 12/28/2024 9:45 AM EDT Office Visit [facility] [address], [place] [phone] Aubree Pinto MD [address] [place], [place] [phone] Health Maintenance Due Date Last Done Comments [...] Whole Blood 302(H) 60 - 115 mg/dL [facility] Comment:METER #: [id number] 5Testing performed in the Endocrinology Department [address] , [address], [facility]. 10/11/2024 3:25 PM EDT 10/11/2024 3:30 PM EDT us Generic External Data Provider LAB BLOOD ORDERAB LES Final Result [facility] [address] [place] [phone] * Sex Hormone Binding Globulin (SHBG) (10/11/2024 2:30 PM EDT) Sex Hormone Binding Globulin 38 22 - 77 nmol/L [facility] Comment:THIS TEST WAS PERFOR MED AT:[facility] [place] [phone] BOWEN MD 10/11/2024 2:30 PM EDT 10/11/2024 2:30 PM EDT us Generic External Data Provider LAB BLOOD ORDERAB LES Final Result [facility] [address] [place] [address] [phone] * Testosterone, Free (Dialysis) And Total, MS (10/11/2024 2:30 PM EDT) Testosterone, Total 396 250 - 1100 ng/dL [facility] Comment:For additional infor shira, please refer tohttp://education.[employer]rap[employer]/faq/[email or web address](This link is being provided for informational/educational purposes only.)This test was developed and its analytical performancecharacteristics have been determined by [place] It hasnot been cleared or approved by the U.S. Food and DrugAdministration. This assay has been validated pursuantto the CLIA regulations and is used for clinicalpurposes. Testosterone, Free 54.3 35.0 - 155.0 pg/mL [facility] Comment:This test was develo ped and its analytical performancecharacteristics have been determined by [employer] [place], [place]. It hasnot been cleared or approved by the U.S. Food and DrugAdministration. This assay has been validated pursuantto the CLIA regulations and is used for clinicalpurposes.THIS TEST WAS PERFORMED AT:[employer] [id number] [place] [phone] SANTANA MD,PHD 10/11/2024 2:30 PM EDT 10/11/2024 2:30 PM EDT us Generic External Data Provider LAB BLOOD ORDERAB LES Final Result Performing Organization Address [facility] de Phone Number [facility] [address] [place] [phone] * ALT (10/11/2024 2:30 PM EDT) Alanine Aminotransferase 26 0 - 40 U/L [facility] 10/11/2024 2:30 PM EDT 10/11/2024 2:30 PM EDT us Generic External Data Provider LAB BLOOD ORDERAB LES Final Result Performing Organization Address [facility] Phone Number [facility] [address] [place] [phone] * AST (10/11/2024 2:30 PM EDT) Aspartate Amino Transferase 28 5 - 37 U/L [facility] 10/11/2024 2:30 PM EDT 10/11/2024 2:30 PM EDT us Generic External Data Provider LAB BLOOD ORDERAB LES Final Result Performing Organization Address [facility] de Phone Number [facility] [address] [place] [phone] * Albumin (10/11/2024 2:30 PM EDT) Albumin Level 4.2 3.5 - 5.0 g/dL [facility] 10/11/2024 2:30 PM EDT 10/11/2024 2:30 PM EDT us Generic External Data Provider LAB BLOOD ORDERAB LES Final Result Performing Organization Address [facility] Co de Phone Number [facility] [address] [place] [phone] * (ABNORMAL) Lipid Panel, Standard (10/11/2024 2:30 PM EDT) Triglycerides 113 <150 mg/dL [facility] Comment:Desirable Triglyceri de: less than 150 mg/dLBorderline High Triglyceride 150-199 mg/dLHigh Triglyceride: 200-499 mg/dLVery High Triglyceride: greater than or equal to 5OO mg/dL Cholesterol 115 <200 mg/dL [facility] Comment:Desirable Cholestero l: less than 200 mg/dLBorderline High Cholesterol: 200-239 mg/dLHigh Cholesterol: greater than 239 mg/dL LDL Cholesterol Calculated 58 <100 mg/dL [facility] Comment:Desirable LDL: less than 100 mg/dLNear Optimal/Above Optimal LDL: 110- 129 mg/dLBorderline High LDL: 130-159 mg/dLHigh LDL: 160-189 mg/dLVery High LDL: greater than or equal to 190 mg/dL HDL Cholesterol 35(L) >40 mg/dL [facility] Comment:Desirable HDL: great er than 40 mg/dL Note: This HDL assay may give artificially low results in patients with liver disease. 10/11/2024 2:30 PM EDT 10/11/2024 2:30 PM EDT us Generic External Data Provider LAB BLOOD ORDERAB LES Final Result [facility] [address] [place] [phone] * (ABNORMAL) Basic Metabolic Panel (10/11/2024 2:30 PM EDT) Sodium 136 135 - 145 mmol/L [facility] Potassium 4.1 3.3 - 5.1 mmol/L [facility] Chloride 103 96 - 108 mmol/L [facility] Carbon Dioxide 26 22 - 29 mmol/L [facility] Anion Gap 11(L) 12 - 20 [facility] Urea Nitrogen (BUN) 18(H) 9 - 16 mg/dL [facility] Creatinine, Serum 1.33 0.5 - 1.4 mg/dL [facility] Estimated Glomerular Filt Rate 56 [facility] Comment:Chronic Kidney Disea se: Estimated GFR < 60 mL/min/[id number] Kidney Disease: Estimated GFR < 15 mL/min/1.73m2 Glucose 299(H) 60 - 115 mg/dL [facility] Calcium 9.3 8.4 - 10.2 mg/dL [facility] Blood Venous blood specimen / Unknown 10/11/2024 2:30 PM EDT 10/11/2024 2:30 PM EDT Aubree Pinto MD LAB BLOOD ORDERABLES Final Result Performing Organization Address [facility]/ZIP Co de Phone Number [facility] [address] [place] [phone] * Albumin, Random Urine W/Creatinine (10/11/2024 2:24 PM EDT) Creatinine, Urine 109.88 mg/dL [facility] Microalbumin Urine <5.0 mg/L [facility] Microalbum Creatinine Ratio Ur TNP <30 ug/mg cr [facility] Comment:Unable to calculate albumin/creatinine ratio due to lowmicroalbumin or creatinine result. 10/11/2024 2:24 PM EDT 10/11/2024 3:27 PM EDT us Generic External Data Provider LAB URINE ORDERAB LES Final Result Performing Organization Address City/[facility]/ZIP Co de Phone Number [facility] [address] [place] [phone] * (ABNORMAL) Hemoglobin A1c (07/13/2024 1:46 PM EDT) Hemoglobin A1c 7.8(H) <6.0 % [facility] Comment:Hemoglobin A1C Refer ence Range Adults: 4.8 - 6.0 % Non diabetic: < 6.0 % Goal: < 7.0 %Additional Action Suggested: > 8.0 %Note: Hemoglobin A1c results are invalid for patients with abnormal amounts of HbF. Blood transfusions may impact the HbA1c concentration in the patient sample. Estimated Average Glucose 177 mg/dL [facility] Comment:eAG = Estimated ave rage glucose which is %A1C expressed asaverage glucose, using the formula of the L3O-MvtxjgsJxvhecn Glucose study (ADAG), Diabetes Care, Vol.31,#8,2007 Blood Venous blood specimen / Unknown 07/13/2024 1:46 PM EDT 07/13/2024 1:46 PM EDT Aubree Pinto MD LAB BLOOD ORDERABLES Final Result [facility] [address] [place] [phone] * Diabetes Eye Exam (05/04/2024) Eye Exam Normal Normal Comment:[facility] Chan Encarnacion MD HEALTH MAINTENANCE Final Result * HIV Ab/Ag (KIAH VELASCO) (06/27/2022 7:23 AM EDT) HIV AB/AG Nonreactive Nonreactive [facility] Comment:HIV-1 p24 Ag and/or HIV-1/HIV-2 Ab not detected.A test result that is nonreactive does not exclude thepossibility of exposure to or infection with HIV-1 and/orHIV-2. Nonreactive results in this assay for individualswith prior exposure to HIV-1 and/or HIV-2 may be due toantigen and antibody levels that are below the limit ofdetection of this assay.The [employer] HIV Ag/Ab Combo assay result andsupplemental assay results should be interpreted inconjunction with the patient's clinical presentation,history and other laboratory results. If the results areinconsistent with clinical evidence, additional testing issuggested to confirm the result. 06/27/2022 7:23 AM EDT 06/27/2022 7:23 AM EDT us [facility] External Provider LAB BLO OD ORDERABLES Final Result [facility] [address] [place] [phone] from Last 3 Months or Most Recently Relevant to Health Maintenance Insurance [facility] Advance Directives Documents on File Type Date Recorded Patient Mobile Application Development Lead Expl anation Advance Directives and Living Will 04/17/2024 Health Care Proxy 04/17/24 Advance Directives and Living Will 06/28/2023 Health Care Proxy 06/23/23 Care Teams Form Setter Relationship Specialty Start Date End Date [place], MD Aubree [address] [place] [phone] PCP - General Family Medicine 04/05/18 Matt Silvestre MD [address] [place] [phone] Endocrinology 03/07/24 Chris Wills MD [address] [place] [address] Drive [address] [place] [address] Urology 04/19/24 Lashell Falcon [address] [place], [place] [address]cristel Leaivtt [address] [place] [phone] Ophthalmology 05/09/24 Saul Avalos MD [address] [place] [address] DR [address] [place] [phone] Gastroenterology 06/12/24 Stephani Rivera PHYSIOLOGY TEACHER Endocrinology 04/19/24
[2024-11-20 07:58] LABS: Alanine Aminotransferase 25 U/L (0-40); Albumin Level 4.1 g/dL (3.5-5.0); Alkaline Phosphatase 95 U/L (39-117); Anion Gap 17 (12-20); Aspartate Amino Transferase 36 U/L (5-37); Blood Urea Nitrogen 19 mg/dL (9-16); Calcium 9.0 mg/dL (8.4-10.2); Carbon Dioxide 18 mmol/L (22-29); Chloride 105 mmol/L (96-108); Creatinine Clr Calc Pharmacy 101.2; Estimated Glomerular Filt Rate > 60; Lipase 122 U/L (8-78); Magnesium 1.5 mg/dL (1.6-2.6); Potassium 4.0 mmol/L (3.3-5.1); Sodium 136 mmol/L (135-145); Total Protein 6.7 g/dL (6.5-8.0); Troponin-I High Sensitivity 3.8 ng/L (<3.5-35.0)
[2024-11-20] MEDS: Magnesium Sulfate/H2O 2 GM/50 ML PIGGYBACK IV (08:13)
[2024-11-20] MEDS: iohexoL 350 MG/ML 100 ML INFUS..BTL IV (09:15)
--- NOTE | 2024-11-20 10:17 | PC.NURSE ---
Pt taken to ultrasound
[2024-11-20 11:09] LABS: Appearance Urine Clear; Glucose Urine UA >=1000 mg/dL (Negative); PH 5.5 (5.0-9.0); Specific Gravity - Urine >= 1.030 (1.005-1.025); UMIC TRIGGER UACC YES
[2024-11-20 11:20] LABS: Cannabinoid Screen Urine Not Detected (Not Detect)
--- NOTE | 2024-11-20 11:52 | PM.HPGS ---
History of Present Illness History of Present Illness Date of Service: 11/20/24 Chief complaint: abd pain Narrative: Evan Puente is a 54 year old male presenting with a previous history of hepatitis-C, type 1 diabetes mellitus and elevated cholesterol with complaints of abdominal pain mainly in the epigastrium. The pain began approximately 03:00 in the morning today and woken from sleep. He reports eating at all of garden yesterday having pasta with cheese sauce and salad. He denies a previous history of similar pain but did have a prolonged history of pain in the right groin. He reports nausea without vomiting. He felt chills but denied fevers. He presented to the emergency department and was found to have an elevated WBC of 16.8. CT of the abdomen and pelvis reveals a 3.2 cm gallstone within the neck of the gallbladder. This was confirmed by ultrasound of the abdomen. Also noted by ultrasound was wall thickening consistent with acute cholecystitis. He is admitted to the surgical service for further management of acute cholecystitis. 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), managed as type 1 Family History Family History Father Diabetes Mother Diabetes Surgical History Surgical History History of hernia surgery H/O colonoscopy Hx of exploratory laparotomy Social History Social History Household Members: Spouse and Children Housing: House Do you presently have visiting nurse or other home services: No Alcohol intake: current Alcohol intake frequency: holidays/special occasions only Alcohol type: beer Patient Tobacco Use Status: Former Tobacco user Advance Directives: No Advance Directives Information Provided: Yes service: No Current occupational status: employed 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 Meds Allergies Allergy/AdvReac Type Severity Reaction Status Date / Time liraglutide Allergy Unknown Unknown Verified 11/20/24 06:53 Active Medications: Current Medications Hydromorphone HCl (Hydromorphone Hcl 0.5 Mg/0.5 Ml Syringe) 0.5 mg IVPUSH Q3H PRN; Protocol PRN Reason: Pain, Severe (Pain Scale 7-10) Lactated Ringer's (Lr) 1,000 mls @ 100 mls/hr IVCONT .Q10H CHRISTOPHER Acetaminophen (Ofirmev) 1,000 mg in 100 mls @ 400 mls/hr IV Q6H PRN PRN Reason: Pain, Mild (Pain Scale 1-3) Piperacillin Sod/Tazobactam (Sod 3.375 gm/ Sodium Chloride) 50 mls @ 100 mls/hr IV Q6H CHRISTOPHER Ondansetron HCl (Ondansetron Hcl 4 Mg/2 Ml Vial) 4 mg IVPUSH QID PRN PRN Reason: Nausea Oxycodone HCl (Oxycodone Hcl Immed Release 5 Mg Tablet) 5 mg PO Q6H PRN PRN Reason: Pain, Moderate(Pain Scale 4-6) Home Medications ?Medication ?Instructions ?Recorded ?Confirmed ?Last Taken ?Type lisinopril 5 mg tablet 5 mg PO DAILY 10/20/20 11/20/24 11/19/24 History COVID-19 antigen test (SkipaxNOW #1 ea 11/11/21 08/18/22 Unknown History COVID-19 Ag Self Test kit) amoxicillin 500 mg capsule 500 mg PO Q8H 11/20/24 11/20/24 11/19/24 History insulin aspart U-100 100 unit/mL 150 unit continuous subcutaneous 11/20/24 11/20/24 11/19/24 History subcutaneous solution (Novolog infusion DAILY U-100 Insulin aspart) tirzepatide (weight loss) 10 10 mg subcut MO 11/20/24 11/20/24 11/13/24 History mg/0.5 mL subcutaneous pen injector (Zepbound) Physical Exam Vital Signs: Vital Signs: Last Vital Signs Temp 98.1 F 11/20/24 11:09 Pulse 65 11/20/24 11:09 Resp 14 11/20/24 11:09 BP 135/58 L 11/20/24 11:09 Pulse Ox 97 11/20/24 11:09 O2 Del Method Room Air 11/20/24 11:09 BMI result Body Mass Index 34.7 Const: General: cooperative and no acute distress Nutritional Appearance: well nourished Orientation/consciousness: patient oriented x3 Limitations: no limitations HEENT: Head: Yes normocephalic and Yes atraumatic Ears: hearing grossly normal bilaterally Resp: Effort & Inspection: normal respiratory effort, no audible wheezes, no cough and no respiratory distress Cardio: Jugular venous distension: no JVD GI: Inspection: Yes normal to inspection Palpation (GI): Soft to palpation and Tenderness to palpation present (GI) in the epigastrum, in the RUQ and Madrigal's sign positive Percussion: Yes normal to percussion Auscultation: normal bowel sounds Rectal Exam - Male: Yes deferred Skin: Other: Warm, dry, no rash Neuro: General: patient oriented x3 Extrem: General: Yes no clubbing, cyanosis or edema Results Results Labs: Short CBC 11/20/24 Range/Units 07:12 WBC 16.8 H (4.8-10.8) X10*3/uL Hgb 15.0 (14.0-18.0) g/dl Hct 42.1 (42.0-52.0) % Plt Count 285 (160-400) X10*3/uL BMP 11/20/24 07:12 Sodium 136 Potassium 4.0 Chloride 105 Carbon Dioxide 18 L BUN 19 H Creatinine 0.98 Calcium 9.0 Liver Function 11/20/24 Range/Units 07:12 Total Bilirubin 0.4 (0.0-1.0) mg/dL Direct Bilirubin 0.2 (0.0-0.5) mg/dL AST 36 (5-37) U/L ALT 25 (0-40) U/L Alkaline Phosphatase 95 (39-117) U/L Albumin 4.1 (3.5-5.0) g/dL Urine 11/20/24 Range/Units 10:59 Urine Color Yellow Urine Appearance Clear Urine pH 5.5 (5.0-9.0) Ur Specific [place] >= 1.030 H (1.005-1.025) Urine Protein Negative (Neg-Trace) mg/dL Urine Glucose (UA) >=1000 H (Negative) mg/dL Assessment and Plan (1) Acute cholecystitis: Status: Acute (2) Hepatitis C: Status: Acute Plan 54-year-old male patient presenting with complaints of epigastric abdominal pain radiating to the right upper quadrant and back. Workup revealed a large gallstone within the gallbladder with wall thickening of the gallbladder consistent with acute cholecystitis. He is admitted to the surgical service for further management of his acute cholecystitis. Hospitalist consultation will be requested for management of diabetes and other medical issues. He is tentatively scheduled for OR tomorrow for laparoscopic or possible open cholecystectomy. Quality Stroke Does the patient have a stroke diagnosis?: No VTE Prior VTE?: No VTE Risk Level:: Surgical - moderate VTE Device Contraindication: N/A - Device Ordered VTE Drug Contraindication: Treatment Not Indicated Procedures Date of Service Date of Service: 11/20/24
--- NOTE | 2024-11-20 11:53 | PHA.MEDREC ---
Addendum entered by Anthony Shearer RPh 11/20/24 12:54: Reviewed by [facility] Original Note: Pharmacy Consult ? Medication Reconciliation Pharmacy has completed the medication reconciliation. Spoke to patient to confirm med list. Patient states he is no longer taking Prntoxifylline 40 mg. Patient confirmed Novolog up to 150 units via insulin pump ( Madtronic ) and Lantus 50 units is only when pump fails, Amoxicillin 500 mg. Zepbound 10 mg every Wednesday, last dose11/13/24. Patient last had his medications yesterday.
[2024-11-20] MEDS: Lactated Ringers 1,000 ML 100 ML IVCONT ×2 (12:25→21:47)
--- NOTE | 2024-11-20 14:59 | HO.ANESPROP2 ---
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), managed as type 1: on insulin pump, A1C 8.2% in October 2024 per pt Anesthesia Pre-Procedure Meds Is the patient on any of the following meds?: GLP1/DPP4 (last dose was 11/13/24) PMFSH Active Problems Active Problems: All Active Problems Acute cholecystitis (Acute) Abdominal pain (Acute) Hypogonadism in male (Acute) Erectile dysfunction due to diabetes mellitus (Acute) Erectile dysfunction associated with type 2 diabetes mellitus (Acute) Peyronie's disease (Acute) Testicular pain, right (Acute) Right hip pain (Acute) Periumbilical hernia (Acute) Diabetes (Acute) Lateral epicondylitis of both elbows (Acute) Bilateral hand numbness (Acute) Lumbar radiculopathy (Acute) Muscle spasm of back (Acute) Greater trochanteric bursitis of both hips (Acute) Sacroiliac joint pain (Acute) Bilateral foot pain (Acute) Lumbar spondylosis (Acute) Erectile dysfunction (Acute) Chronic painful diabetic neuropathy (Acute) Bilateral primary osteoarthritis of hip (Acute) Chronic hip pain, bilateral (Acute) Abscess (Acute) Deep inguinal pain, right (Acute) Knee pain (Acute) Lateral epicondylitis of elbow (Acute) Depression (Acute) Anemia (Acute) 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 (Acute) Low back pain (Acute) Dyslipidemia (Acute) Hepatitis C (Acute) Elevated serum creatinine (Acute) Vitamin D deficiency (Acute) Diabetic nephropathy associated with type 1 diabetes mellitus (Acute) Obesity (BMI 30-39.9) (Acute) Hypertension (Acute) 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), managed as type 1 (Acute) Past Medical History Medical History Ventral hernia (02/11/23) Back pain Depression Elevated cholesterol Elevated serum creatinine Vitamin D deficiency Diabetic nephropathy associated with type 1 diabetes mellitus Obesity (BMI 30-39.9) Hypertension 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), managed as type 1 Family History Family History Father Diabetes Mother Diabetes Family history of problems with anesthesia: No Surgical History Surgical History History of hernia surgery H/O colonoscopy Hx of exploratory laparotomy History of Problems with Anesthesia: No Social History Social History Household Members: Spouse and Children Housing: House Do you presently have visiting nurse or other home services: No Alcohol intake: current Alcohol intake frequency: holidays/special occasions only Alcohol type: beer Patient Tobacco Use Status: Former Tobacco user Smoked in Last 30 Days: No Use of substances other than those prescribed or required for medical reasons: No Currently Displaying Signs/Symptoms of Drug Intoxication Withdrawal: No Have you been hit, kicked, punched, or otherwise hurt by someone within the past year? 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 Meds Allergies Allergy/AdvReac Type Severity Reaction Status Date / Time liraglutide Allergy Unknown Unknown Verified 11/20/24 06:53 Active Medications: Current Medications Hydromorphone HCl (Hydromorphone Hcl 0.5 Mg/0.5 Ml Syringe) 0.5 mg IVPUSH Q3H PRN; Protocol PRN Reason: Pain, Severe (Pain Scale 7-10) Last Admin: 11/20/24 14:32 Dose: 0.5 mg Lactated Ringer's (Lr) 1,000 mls @ 100 mls/hr IVCONT .Q10H [facility] Last Admin: 11/20/24 12:25 Dose: 100 mls/hr Acetaminophen (Ofirmev) 1,000 mg in 100 mls @ 400 mls/hr IV Q6H PRN PRN Reason: Pain, Mild (Pain Scale 1-3) Piperacillin Sod/Tazobactam (Sod 3.375 gm/ Sodium Chloride) 50 mls @ 100 mls/hr IV Q6H [facility] Ondansetron HCl (Ondansetron Hcl 4 Mg/2 Ml Vial) 4 mg IVPUSH QID PRN PRN Reason: Nausea Oxycodone HCl (Oxycodone Hcl Immed Release 5 Mg Tablet) 5 mg PO Q6H PRN PRN Reason: Pain, Moderate(Pain Scale 4-6) Sodium Chloride (0.9 % Sodium Chloride Flush 3 Ml Syringe) 3 ml IVFLUSH QSHIFT [facility] Home Medications ?Medication ?Instructions ?Recorded ?Confirmed ?Last Taken ?Type lisinopril 5 mg tablet 5 mg PO DAILY 10/20/20 11/20/24 11/19/24 History COVID-19 antigen test ([facility] #1 ea 11/11/21 08/18/22 Unknown History COVID-19 Ag Self Test kit) amoxicillin 500 mg capsule 500 mg PO Q8H 11/20/24 11/20/24 11/19/24 History insulin aspart U-100 100 unit/mL 150 unit continuous subcutaneous 11/20/24 11/20/24 11/19/24 History subcutaneous solution (Novolog infusion DAILY U-100 Insulin aspart) tirzepatide (weight loss) 10 10 mg subcut MO 11/20/24 11/20/24 11/13/24 History mg/0.5 mL subcutaneous pen injector (Zepbound) Exam Height,Weight and Vital Signs: Height 5 ft 9 in Weight 106.594 kg Last Vital Signs Temp 98.1 F 11/20/24 11:09 Pulse 65 11/20/24 11:09 Resp 14 11/20/24 11:09 BP 135/58 L 11/20/24 11:09 Pulse Ox 97 11/20/24 11:09 O2 Del Method Room Air 11/20/24 11:09 Pertinent Lab Results Pertinent Lab Results: Laboratory Tests 11/20/24 11/20/24 07:12 10:59 WBC 16.8 H RBC 4.92 Hgb 15.0 Hct 42.1 MCV 85.6 MCH 30.5 MCHC 35.6 RDW 12.9 Plt Count 285 MPV 10.1 Immature Gran % (Auto) 0.5 H Neut % (Auto) 78.4 H Lymph % (Auto) 13.0 L [place] % (Auto) 7.1 Eos % (Auto) 0.7 Baso % (Auto) 0.3 Lymph # (Auto) 2.2 [place] # (Auto) 1.2 Eos # (Auto) 0.1 Baso # (Auto) 0.1 Abs Immat Gran (auto) 0.08 H Absolute Neuts (auto) 13.2 H Absolute Nucleated RBC 0.000 Nucleated RBC % (auto) 0.0 Sodium 136 Potassium 4.0 Chloride 105 Carbon Dioxide 18 L Anion Gap 17 BUN 19 H Creatinine 0.98 Estim Creat Clear Calc 101.2 Estimated GFR > 60 Random Glucose 322 H Lactic Acid 1.3 Calcium 9.0 Magnesium 1.5 L Total Bilirubin 0.4 Direct Bilirubin 0.2 AST 36 ALT 25 Alkaline Phosphatase 95 Troponin I High Sens 3.8 Total Protein 6.7 Albumin 4.1 Lipase 122 H Urine Color Yellow Urine Appearance Clear Urine pH 5.5 Ur Specific [place] >= 1.030 H Urine Protein Negative Urine Glucose (UA) >=1000 H Urine Ketones 40 Urine Blood Negative Urine Nitrite Negative Ur Leukocyte Esterase Negative Urine RBC 0-2 Urine WBC 0-5 Ur Squamous Epith Cells 0-2 Urine Bacteria None Seen Hyaline Casts 0-2 Urine Opiates Screen POSITIVE H Ur Buprenorphine Scrn Not Detected Ur Oxycodone Screen Not Detected Urine Methadone Screen Not Detected Urine Fentanyl Screen Not Detected Ur Barbiturates Screen Not Detected Ur Phencyclidine Scrn Not Detected Ur Amphetamines Screen Not Detected U Benzodiazepines Scrn Not Detected Urine Cocaine Screen Not Detected U Marijuana (THC) Screen Not Detected Ethyl Alcohol < 10 Narrative Narrative: EKG 11/20/24 Vent. Rate : 56 BPM Atrial Rate : 56 BPM P-R Int : 126 ms QRS Dur : 82 ms QT Int : 404 ms P-R-T Axes : 46 -10 15 degrees QTcB Int : 389 ms Sinus bradycardia Otherwise normal ECG When compared with ECG of 20-Oct-2020 17:00, Vent. 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), managed as type 1 Family History Family History Father Diabetes Mother Diabetes Surgical History Surgical History History of hernia surgery H/O colonoscopy Hx of exploratory laparotomy Social History Social History Household Members: Spouse and Children Housing: House Do you presently have visiting nurse or other home services: No Alcohol intake: current Alcohol intake frequency: holidays/special occasions only Alcohol type: beer Patient Tobacco Use Status: Former Tobacco user Smoked in Last 30 Days: No Use of substances other than those prescribed or required for medical reasons: No Currently Displaying Signs/Symptoms of Drug Intoxication Withdrawal: No Have you been hit, kicked, punched, or otherwise hurt by someone within the past year? 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 Meds Allergies Allergy/AdvReac Type Severity Reaction Status Date / Time liraglutide Allergy Unknown Unknown Verified 11/20/24 06:53 Home Medications ?Medication ?Instructions ?Recorded ?Confirmed ?Last Taken ?Type lisinopril 5 mg tablet 5 mg PO DAILY 10/20/20 11/20/24 11/19/24 History COVID-19 antigen test ([facility]elle[facility] #1 ea 11/11/21 08/18/22 Unknown History COVID-19 Ag Self Test kit) amoxicillin 500 mg capsule 500 mg PO Q8H 11/20/24 11/20/24 11/19/24 History insulin aspart U-100 100 unit/mL 150 unit continuous subcutaneous 11/20/24 11/20/24 11/19/24 History subcutaneous solution (Novolog infusion DAILY U-100 Insulin aspart) tirzepatide (weight loss) 10 10 mg subcut MO 11/20/24 11/20/24 11/13/24 History mg/0.5 mL subcutaneous pen injector (Zepbound) Assessment and Plan Assessment Anesthesia Assessment: Anesthesia Plan Discussed and Chart Reviewed Final Anesthetic Review NPO: Yes ASA Class: III Final Preanesthetic Review: No Changes in Pt Med Stat, Meds/Allgs Chart Reviewed, Consent Obtained/Reviewed and Anes Risks/Benef Reviewed Patient Risk: Intermediate Procedure Risk: Low Anesthetic Plan Disposition: Standard PACU
[2024-11-20] MEDS: oxyCODONE HCl Immed Release 5 MG TABLET PO ×2 (16:09→22:24)
--- NOTE | 2024-11-20 16:11 | PC.NURSE ---
assumed care of patient at 1600 in overflow, patient stood and pivot into hospital bed. patient has LR running 100ml/hr. patient requesting pain medication, patient pain 10/12, informed patient he is not yet due to dilaudid patient agreeable to oxycodone po. patient medicated per JUN.
[2024-11-20 16:21] LABS: Glucose, Whole Blood 77 mg/dL (60-115)
--- NOTE | 2024-11-20 16:32 | PC.NURSE ---
patient informed this RN that he had heart burn, inpatient provider made aware. patient medicated per MAR
--- NOTE | 2024-11-20 18:50 | HO.PM.IMCN ---
History of Present Illness Data of Consult Service Date: 11/20/24 Primary Care Provider: Aubree Pinto MD [facility] Reason for consult: Medical management Pt is a 54-year-old male with PMH significant for HTN, HLD, and insulin-dependent diabetes who presented to the ED with epigastric abd pain radiating to RUQ and back and was admitted to the general surgery service for acute cholecystitis. Plan is to make pt NPO after midnight for possible lap shahrzad tomorrow. Hospitalist consult for medical management. Pt continues to complains of epigastric pain and nausea, but no recent vomiting. Has been able to tolerate some clear liquids. Pt states he is a type 1 diabetic diagnosed 12 or so years ago when he was in his 40s. Has an insulin pump which he has since stopped using. Last POC 107. No SOB or difficulty breathing. No CP/pressure. 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), managed as type 1 Family History Father Diabetes Mother Diabetes Surgical History History of hernia surgery H/O colonoscopy Hx of exploratory laparotomy Social History Household Members: Spouse and Children Housing: House Do you presently have visiting nurse or other home services: No Alcohol intake: current Alcohol intake frequency: holidays/special occasions only Alcohol type: beer Patient Tobacco Use Status: Former Tobacco user Smoked in Last 30 Days: No Use of substances other than those prescribed or required for medical reasons: No Have you been hit, kicked, punched, or otherwise hurt by someone within the past year? 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 Glucose (Glucose Gel 15 Gm Gel..Gram.) 15 gm PO Q15M PRN; Protocol PRN Reason: per Hypoglycemia Standing Ord. Hydromorphone HCl (Hydromorphone Hcl 0.5 Mg/0.5 Ml Syringe) 0.5 mg IVPUSH Q3H PRN; Protocol PRN Reason: Pain, Severe (Pain Scale 7-10) Last Admin: 11/20/24 18:23 Dose: 0.5 mg Lactated Ringer's (Lr) 1,000 mls @ 100 mls/hr IVCONT .Q10H [facility] Last Admin: 11/20/24 12:25 Dose: 100 mls/hr Acetaminophen (Ofirmev) 1,000 mg in 100 mls @ 400 mls/hr IV Q6H PRN PRN Reason: Pain, Mild (Pain Scale 1-3) Piperacillin Sod/Tazobactam (Sod 3.375 gm/ Sodium Chloride) 50 mls @ 100 mls/hr IV Q6H [facility] Last Infusion: 11/20/24 17:00 Dose: Infused Insulin Human Lispro (Insulin Lispro 100 Unit/Ml 3 Ml Vial) 0 unit SUBCUT QIDACHS [facility]; Protocol Omeprazole (Omeprazole 20 Mg Capsule.Dr) 20 mg PO BID@0630,1630 [facility] Last Admin: 11/20/24 16:28 Dose: 20 mg Ondansetron HCl (Ondansetron Hcl 4 Mg/2 Ml Vial) 4 mg IVPUSH QID PRN PRN Reason: Nausea Last Admin: 11/20/24 16:27 Dose: 4 mg Oxycodone HCl (Oxycodone Hcl Immed Release 5 Mg Tablet) 5 mg PO Q6H PRN PRN Reason: Pain, Moderate(Pain Scale 4-6) Last Admin: 11/20/24 16:09 Dose: 5 mg Sodium Chloride (0.9 % Sodium Chloride Flush 3 Ml Syringe) 3 ml IVFLUSH QSHIFT [facility] Last Admin: 11/20/24 15:36 Dose: Not Given Home Medications ?Medication ?Instructions ?Recorded ?Confirmed ?Last Taken ?Type lisinopril 5 mg tablet 5 mg PO DAILY 10/20/20 11/20/24 11/19/24 History COVID-19 antigen test ([facility]axNOW #1 ea 11/11/21 08/18/22 Unknown History COVID-19 Ag Self Test kit) amoxicillin 500 mg capsule 500 mg PO Q8H 11/20/24 11/20/24 11/19/24 History insulin aspart U-100 100 unit/mL 150 unit continuous subcutaneous 11/20/24 11/20/24 11/19/24 History subcutaneous solution (Novolog infusion DAILY U-100 Insulin aspart) tirzepatide (weight loss) 10 10 mg subcut MO 11/20/24 11/20/24 11/13/24 History mg/0.5 mL subcutaneous pen injector (Zepbound) Physical Exam Vital Signs and Narrative: Vital Signs: Last Vital Signs Temp 99.3 F 11/20/24 18:08 Pulse 64 11/20/24 18:08 Resp 18 11/20/24 18:08 BP 147/78 H 11/20/24 18:08 Pulse Ox 97 11/20/24 18:08 O2 Del Method Room Air 11/20/24 18:08 BMI result Body Mass Index 34.7 General: AOx3, no acute distress Resp: CTA bilaterally CVS: S1, S2, RRR GI: +BS, no distention, epigastric and RUQ tenderness Skin: Warm, dry Neuro: Cranial nerves II-XII grossly intact bilaterally. Motor grossly intact bilaterally Extremities: No edema Psych: Appropriate affect Results Labs 11/20/24 07:12 11/20/24 18:33 Labs: Laboratory Results - last 24 hr 11/20/24 11/20/24 11/20/24 07:12 10:59 16:17 MCV 85.6 MCH 30.5 MCHC 35.6 RDW 12.9 Plt Count 285 MPV 10.1 Immature Gran % (Auto) 0.5 H Neut % (Auto) 78.4 H Lymph % (Auto) 13.0 L [place] % (Auto) 7.1 Eos % (Auto) 0.7 Baso % (Auto) 0.3 Lymph # (Auto) 2.2 [place] # (Auto) 1.2 Eos # (Auto) 0.1 Baso # (Auto) 0.1 Abs Immat Gran (auto) 0.08 H Absolute Neuts (auto) 13.2 H Absolute Nucleated RBC 0.000 Nucleated RBC % (auto) 0.0 Anion Gap 17 Estim Creat Clear Calc 101.2 Estimated GFR > 60 POC Glucose 77 Random Glucose 322 H Lactic Acid 1.3 Calcium 9.0 Magnesium 1.5 L Total Bilirubin 0.4 Direct Bilirubin 0.2 AST 36 ALT 25 Alkaline Phosphatase 95 Total Protein 6.7 Albumin 4.1 Lipase 122 H Urine Color Yellow Urine Appearance Clear Urine pH 5.5 Ur Specific [place] >= 1.030 H Urine Protein Negative Urine Glucose (UA) >=1000 H Urine Ketones 40 Urine Blood Negative Urine Nitrite Negative Ur Leukocyte Esterase Negative Urine RBC 0-2 Urine WBC 0-5 Ur Squamous Epith Cells 0-2 Urine Bacteria None Seen Hyaline Casts 0-2 Urine Opiates Screen POSITIVE H Ur Buprenorphine Scrn Not Detected Ur Oxycodone Screen Not Detected Urine Methadone Screen Not Detected Urine Fentanyl Screen Not Detected Ur Barbiturates Screen Not Detected Ur Phencyclidine Scrn Not Detected Ur Amphetamines Screen Not Detected U Benzodiazepines Scrn Not Detected Urine Cocaine Screen Not Detected U Marijuana (THC) Screen Not Detected Ethyl Alcohol < 10 Imaging Radiologist's Impressions: Impressions Abdomen/Pelvis CT 11/20/24 08:08 IMPRESSION: 1. There is a 3.2 cm gallstone within the region of the neck of the gallbladder. No gallbladder inflammation or wall thickening grossly. There are additional smaller gallstones. 2. Mild diffuse fatty infiltration of the liver. No biliary dilatation present. 3. Diverticulosis of the left colon without evidence of acute diverticulitis. Electronically signed by: Hugo Coates MD 11/20/2024 09:45 AM EDT Abdomen Ultrasound 11/20/24 10:18 IMPRESSION: Cholelithiasis with gallbladder wall thickening. Acute calculus cholecystitis cannot be excluded. No choledocholithiasis. Electronically signed by: Woody Stock MD 11/20/2024 10:44 AM EDT RP Assessment and Plan (1) Acute cholecystitis: Status: Acute Plan Pt is a 54-year-old male with PMH significant for HTN, HLD, and insulin-dependent diabetes who presented to the ED with epigastric abd pain radiating to RUQ and back and was admitted to the general surgery service for acute cholecystitis. Plan is to make pt NPO after midnight for possible lap shahrzad tomorrow. Hospitalist consult for medical management. Acute cholecystitis Plan for possible lap shahrzad tomorrow Plan as per general surgery Insulin dependent diabetes ?type 1 vs type 2 Reports diagnosed around 12 years ago, type 2 more likely Stop insulin pump; do not restart until tolerating a full diet Will cover with SSI for now Monitor POC closely HTN Continue lisinopril HLD Continue statin Thank you for allowing us to participate in the care of this patient. Will continue to follow along with you.
[2024-11-20 19:11] LABS: Anion Gap 13 (12-20); Blood Urea Nitrogen 12 mg/dL (9-16); Calcium 8.5 mg/dL (8.4-10.2); Carbon Dioxide 22 mmol/L (22-29); Chloride 108 mmol/L (96-108); Creatinine Clr Calc Pharmacy 125.6; Estimated Glomerular Filt Rate > 60; Potassium 4.0 mmol/L (3.3-5.1); Sodium 139 mmol/L (135-145)
--- NOTE | 2024-11-20 19:55 | PC.NURSE ---
pt reported that the PRN pain medications given previously have given short effect and pain returns to 8/9, currently in pain and no PRNs available at this time. reached out to MD Cooper who changed PRN Dilaudid order to 1mg IVP and states this can be administered now. awaiting verification by Pharmacy. report written for admission and awaiting transport to S3 unit.
[2024-11-20 21:46] LABS: Glucose, Whole Blood 262 mg/dL (60-115)
[2024-11-20] MEDS: 0.9 % Sodium Chloride Flush 3 ML SYRINGE IVFLUSH (21:47)
[2024-11-21] VITALS (15 sets, daily range): BP systolic 113–136; BP diastolic 54–74; PULSE 80–106; RESP 15–20; TEMP 36.3–37.1; O2SAT 92–97
[2024-11-21 06:42] LABS: Alanine Aminotransferase 29 U/L (0-40); Albumin Level 3.7 g/dL (3.5-5.0); Alkaline Phosphatase 70 U/L (39-117); Anion Gap 15 (12-20); Aspartate Amino Transferase 41 U/L (5-37); Blood Urea Nitrogen 11 mg/dL (9-16); Calcium 8.7 mg/dL (8.4-10.2); Carbon Dioxide 21 mmol/L (22-29); Chloride 104 mmol/L (96-108); Creatinine Clr Calc Pharmacy 117.5; Estimated Glomerular Filt Rate > 60; Potassium 4.1 mmol/L (3.3-5.1); Sodium 136 mmol/L (135-145); Total Protein 6.1 g/dL (6.5-8.0)
[2024-11-21 07:34] LABS: Glucose, Whole Blood 322 mg/dL (60-115)
[2024-11-21] MEDS: 0.9 % Sodium Chloride Flush 3 ML SYRINGE IVFLUSH ×2 (07:56→16:25)
--- NOTE | 2024-11-21 08:41 | P.PNGS_ITS ---
Subjective Subjective Date of Service: 11/21/24 Interval history: Has persistent RUQ pain. Overall pain slightly improved since admission. Awaiting surgery today. Physical Exam 2 Vital Signs: Vital Signs: Last Vital Signs Temp 98.7 F 11/21/24 07:15 Pulse 103 H 11/21/24 07:15 Resp 18 11/21/24 07:50 BP 117/65 11/21/24 07:15 Pulse Ox 94 11/21/24 07:15 O2 Del Method Room Air 11/21/24 07:15 BMI result Body Mass Index 35.2 Const: General: comfortable, no acute distress and alert O rientation/consciousness: patient oriented x3 Resp: Effort & Inspection: normal respiratory effort GI: Inspection: No distended Palpation (GI): Soft to palpation, Tenderness to palpation present (GI) in the RUQ and no guarding Skin: General skin exam: no rashes or lesions noted and no jaundice Neuro: General: patient oriented x3 Objective Data Active Medications Atorvastatin Calcium (Atorvastatin Calcium 40 Mg Tablet) 40 mg PO BEDTIME CHRISTOPHER Calcium Carbonate (Calcium Carbonate 750 Mg Tab.Chew) 750 mg PO Q6H PRN PRN Reason: Heartburn Last Admin: 11/20/24 22:23 Dose: 750 mg Documented By: JOSE MIGUEL Dextrose (Dextrose 50 % 25 Gm/50 Ml Syringe) 25 gm IVPUSH Q15M PRN; Protocol PRN Reason: per Hypoglycemia Standing Ord. Glucose (Glucose Gel 15 Gm Gel..Gram.) 15 gm PO Q15M PRN; Protocol PRN Reason: per Hypoglycemia Standing Ord. Hydromorphone HCl (Hydromorphone Hcl 1 Mg/Ml Syringe) 1 mg IVPUSH Q3H PRN; Protocol PRN Reason: Pain, Severe (Pain Scale 7-10) Last Admin: 11/21/24 07:50 Dose: 1 mg Documented By: SYLVIE Lactated Ringer's (Lr) 1,000 mls @ 100 mls/hr IVCONT .Q10H [facility] Last Infusion: 11/21/24 06:02 Dose: 100 mls/hr Documented By: JOSE MIGUEL Acetaminophen (Ofirmev) 1,000 mg in 100 mls @ 400 mls/hr IV Q6H PRN PRN Reason: Pain, Mild (Pain Scale 1-3) Piperacillin Sod/Tazobactam (Sod 3.375 gm/ Sodium Chloride) 50 mls @ 100 mls/hr IV Q6H [facility] Last Infusion: 11/21/24 06:02 Dose: Infused Documented By: JOSE MIGUEL Insulin Human Lispro (Insulin Lispro 100 Unit/Ml 3 Ml Vial) 0 unit SUBCUT QIDACHS [facility]; Protocol Last Admin: 11/21/24 08:12 Dose: Not Given Documented By: SYLVIE Non-Admin Reason: Physician Held Med Lisinopril (Lisinopril 5 Mg Tablet) 5 mg PO DAILY [facility]; Protocol Omeprazole (Omeprazole 20 Mg Capsule.) 20 mg PO BID@0630,1630 [facility] Last Admin: 11/21/24 05:33 Dose: Not Given Documented By: JOSE MIGUEL Non-Admin Reason: NPO Ondansetron HCl (Ondansetron Hcl 4 Mg/2 Ml Vial) 4 mg IVPUSH QID PRN PRN Reason: Nausea Last Admin: 11/21/24 07:53 Dose: 4 mg Documented By: SYLVIE Oxycodone HCl (Oxycodone Hcl Immed Release 5 Mg Tablet) 5 mg PO Q6H PRN PRN Reason: Pain, Moderate(Pain Scale 4-6) Last Admin: 11/20/24 22:24 Dose: 5 mg Documented By: JOSE MIGUEL Sodium Chloride (0.9 % Sodium Chloride Flush 3 Ml Syringe) 3 ml IVFLUSH QSHIFT [facility] Last Admin: 11/21/24 07:56 Dose: 3 ml Documented By: SYLVIE Labs 11/20/24 07:12 11/21/24 05:03 Labs: Laboratory Results - last 24 hr 11/20/24 11/20/24 11/20/24 07:12 10:59 16:17 Hold Purple Top Anion Gap Estim Creat Clear Calc Estimated GFR POC Glucose 77 Random Glucose Lactic Acid 1.3 Calcium Total Bilirubin AST ALT Alkaline Phosphatase Total Protein Albumin Urine Color Yellow Urine Appearance Clear Urine pH 5.5 Ur Specific [place] >= 1.030 H Urine Protein Negative Urine Glucose (UA) >=1000 H Urine Ketones 40 Urine Blood Negative Urine Nitrite Negative Ur Leukocyte Esterase Negative Urine RBC 0-2 Urine WBC 0-5 Ur Squamous Epith Cells 0-2 Urine Bacteria None Seen Hyaline Casts 0-2 Urine Opiates Screen POSITIVE H Ur Buprenorphine Scrn Not Detected Ur Oxycodone Screen Not Detected Urine Methadone Screen Not Detected Urine Fentanyl Screen Not Detected Ur Barbiturates Screen Not Detected Ur Phencyclidine Scrn Not Detected Ur Amphetamines Screen Not Detected U Benzodiazepines Scrn Not Detected Urine Cocaine Screen Not Detected U Marijuana (THC) Screen Not Detected Ethyl Alcohol < 10 11/20/24 11/20/24 11/21/24 18:33 21:41 05:03 Hold Purple Top SEE NOTE Anion Gap 13 15 Estim Creat Clear Calc 125.6 117.5 Estimated GFR > 60 > 60 POC Glucose 262 H Random Glucose 107 315 H Lactic Acid Calcium 8.5 8.7 Total Bilirubin 1.1 H AST 41 H ALT 29 Alkaline Phosphatase 70 Total Protein 6.1 L Albumin 3.7 Urine Color Urine Appearance Urine pH Ur Specific [place] Urine Protein Urine Glucose (UA) Urine Ketones Urine Blood Urine Nitrite Ur Leukocyte Esterase Urine RBC Urine WBC Ur Squamous Epith Cells Urine Bacteria Hyaline Casts Urine Opiates Screen Ur Buprenorphine Scrn Ur Oxycodone Screen Urine Methadone Screen Urine Fentanyl Screen Ur Barbiturates Screen Ur Phencyclidine Scrn Ur Amphetamines Screen U Benzodiazepines Scrn Urine Cocaine Screen U Marijuana (THC) Screen Ethyl Alcohol 11/21/24 07:19 Hold Purple Top Anion Gap Estim Creat Clear Calc Estimated GFR POC Glucose 322 H Random Glucose Lactic Acid Calcium Total Bilirubin AST ALT Alkaline Phosphatase Total Protein Albumin Urine Color Urine Appearance Urine pH Ur Specific [place] Urine Protein Urine Glucose (UA) Urine Ketones Urine Blood Urine Nitrite Ur Leukocyte Esterase Urine RBC Urine WBC Ur Squamous Epith Cells Urine Bacteria Hyaline Casts Urine Opiates Screen Ur Buprenorphine Scrn Ur Oxycodone Screen Urine Methadone Screen Urine Fentanyl Screen Ur Barbiturates Screen Ur Phencyclidine Scrn Ur Amphetamines Screen U Benzodiazepines Scrn Urine Cocaine Screen U Marijuana (THC) Screen Ethyl Alcohol Procedures Date of Service Date of Service: 11/21/24 Progress Note: A&P Assessment and plan (1) Acute cholecystitis: Status: Acute Plan Plan for laparoscopic cholecystectomy, possible open today. Risks, benefits, alternatives of laparoscopic possible open cholecystectomy were reviewed with the patient including but not limited to bleeding, infection, numbness, pain, poor healing, injury to the liver, bowel or bile ducts, leak, retained stones.? All questions were answered. Cont IV zosyn for now. Time Spent With Patient Time: Total time managing care of this patient today ____ minutes. Quality Stroke Does the patient have a stroke diagnosis?: No VTE Prior VTE?: No VTE Risk Level:: Surgical - moderate VTE Device Contraindication: N/A - Device Ordered VTE Drug Contraindication: Treatment Not Indicated
[2024-11-21] MEDS: Lactated Ringers 1,000 ML 100 ML IVCONT ×2 (09:09→17:46)
[2024-11-21 11:19] LABS: Glucose, Whole Blood 249 mg/dL (60-115)
--- NOTE | 2024-11-21 11:44 | PC.NURSE ---
Pt. POC was 322 this am, pt. gave himself 12 units Novolog without staff communication, pt. stated earlier his pump was off but decided to attach and administer insulin. Pt. was advised to have pump stored by pharmacy or to let the provider know so they can put order for own Insulin, pt. refused stated it's too expensive, he will have family bring it back to his home.
[2024-11-21 12:11] LABS: Glucose, Whole Blood 223 mg/dL (60-115)
[2024-11-21] MEDS: Lactated Ringers 1,000 ML 50 ML IVCONT (12:47)
--- NOTE | 2024-11-21 14:21 | P.OP_ITS ---
Operative Note Operative Note Date of Service: 11/21/24 Narrative: Preoperative diagnosis: acute cholecystitis, cholelithiasis Postoperative diagnosis: Same, gangrenous gallbladder Procedure: Laparoscopic cholecystectomy Surgeon: Erik Carlin MD Turn Down Worker: Lisa Shelton PA-C Anesthesia: General endotracheal Indications for procedure: 54-year-old male patient presenting with a 24 hour history of abdominal pain located in the epigastrium found on workup to have a d istended gallbladder with thickened gallbladder wall and a large gallstone at the neck of the gallbladder. Findings were consistent with acute cholecystitis. On examination the patient is tender in the right upper quadrant with a positive Madrigal sign. Operative findings: Markedly distended gallbladder with gangrenous wall and large gallstone at the neck of the gallbladder. Specimen: Gallbladder Estimated blood loss: 20 mL Complications: None Procedure details: Patient was brought to the OR and placed in a supine position. After administering general anesthesia the patient's abdomen was prepped with ChloraPrep and draped in a sterile fashion. A surgical time-out was called the consent confirmed. Patient received preoperative antibiotics and Venodyne boots were in place. The patient had a previous umbilical incision for hernia repair with mesh therefore an incision was made in the epigastric region measuring approximately 2 cm. This was carried out through subcutaneous tissue, past fascia and into the peritoneum. A 12 mm trocar was then inserted in the abdomen insufflated to a pressure 15 mmHg. A 5 mm trocar was then placed in the periumbilical location away from the previous hernia repair. Two 5 mm trocars were also placed in the right upper quadrant by the senior underwriting assistant under direct vision. The patient was then placed in a reverse Trendelenburg position and rot ated to the left. The gallbladder was drained using a laparoscopic needle. The gallbladder was then grasped by the senior underwriting assistant at the fundus and retracted cephalad. The infundibulum was then grasped and retracted away from the liver bed. Peritoneum was then dissected off the infundibulum to revealed a junction with the cystic duct. A cystic artery was noted just posterior to this with a large node of Calot overlying the cystic artery. After obtaining a critical view the cystic duct was doubly clipped and divided with the scissors. In a similar fashion the cystic artery was doubly clipped and divided. A lateral branch was noted of the artery and this was also doubly clipped and divided. The gallbladder was then dissected off the liver edge using electrocautery with a hook. Adequate hemostasis was assured at all times using electrocautery. The gallbladder was completely dissected free and placed in Endo-Catch bag. This was then brought out through the epigastric incision. Wounds were then irrigated with saline solution and suctioned dry. A large Haroon-Cesar drain (10) was placed in the liver bed and brought out through a lateral trocar site. This was connected to a small bulb suctioned. The drain was secured to the skin using a 3-0 nylon suture. CO2 was then evacuated and all trocars removed under direct vision. No bleeding was noted from the trocar sites. Fascia was closed at the epigastric incision using a [id number] 0 Polysorb suture. Skin was closed in all incisions using a subcuticular 4-0 Polysorb suture. Steri-Strips, 4 x 4 gauze and Tegader m were then applied. The patient tolerated the procedure well. Sponge, instrument, and needle counts reported as correct. The patient was transferred to PACU in stable condition.
--- NOTE | 2024-11-21 15:35 | MHC.CM.PN ---
Male 54 DX Cholelithiasis Patient lives with his He is independent with all functional mobility. No DME Declined the offer to document a HCP. PCP Aubree Pinto He is scheduled for the OR today for a Cholecystectomy. DP Home self care. His will provide transportation home.
[2024-11-21 16:20] LABS: Glucose, Whole Blood 261 mg/dL (60-115)
[2024-11-21 20:25] LABS: Glucose, Whole Blood 370 mg/dL (60-115)
[2024-11-22] MEDS: Lactated Ringers 1,000 ML 100 ML IVCONT (01:09)
--- NOTE | 2024-11-22 02:22 | PC.NURSE ---
11/21/242039 poc-370 10 units of lispro insulin given per sliding scale. notified no additional insulin ordered.
[2024-11-22 03:30] VITALS: BP 106/60; PULSE 85; RESP 18; TEMP 36.7; O2SAT 93
--- NOTE | 2024-11-22 06:39 | P.PNGS_ITS ---
Subjective Subjective Date of Service: 11/22/24 [facility] Last Filed: 11/22/24 07:11> 11/22/24 <Lisa Shelton PA-C - Last Filed: 11/22/24 07:47> Interval history: The patient is a 54 y/o M with PMH of T2DM POD #1 s/p cholecystectomy secondary to acute cholecystitis. Upon entering the room, the patient appeared to be resting but was easily arousable. He reports a brief episode of chills at around 9pm without associated fever. He currently has 7/10 pain in the RUQ associated with his MUSA tube. he has not passed gas or had a bowel movement yet. He was up and ambulating yesterday. His dressings are in place. He is having no trouble with urination and has eaten without any N/V. Spirometry was removed from his room so he has not been using it, but reports pain in RUQ with deep breathing. He denies shortness of breath, chest pain. ROS negative for fever, dysuria, anuria, nausea, vomiting, shortness of breath, chest pain. <[facility] Filed: 11/22/24 07:11> Physical Exam 2 Vital Signs: Vital Signs: Last Vital Signs Temp 98.1 F 11/22/24 03:30 Pulse 85 11/22/24 03:30 Resp 18 11/22/24 03:30 BP 106/60 11/22/24 03:30 Pulse Ox 93 11/22/24 03:30 O2 Del Method Room Air 11/22/24 03:30 O2 Flow Rate 3 11/21/24 15:34 BMI result Body Mass Index 35.2 <[facility] Last Filed: 11/22/24 07:11> Const: General: cooperative, comfortable, no acute distress and tired appearing <[facility] Filed: 11/22/24 07:11> Orientation/consciousness: patient oriented x3 <[facility] Filed: 11/22/24 07:11> Resp: Effort & Inspection: normal respiratory effort and able to speak in complete sentences <[facility] Filed: 11/22/24 07:11> Auscultation: clear to auscultation bilaterally <[facility] Filed: 11/22/24 07:11> Cardio: Rate: regular rate <[facility] Filed: 11/22/24 07:11> Rhythm: regular rhythm <[facility] Filed: 11/22/24 07:11> Heart sounds: S1 normal heart sound present and S2 normal heart sound present <[facility] Filed: 11/22/24 07:11> GI: Inspection: Yes J-tube present (Sanguineous fluid in MUSA tube) <[facility] Filed: 11/22/24 07:11> Palpation (GI): Soft to palpation, Tenderness to palpation present (GI), no guarding and not rigid <[facility] Filed: 11/22/24 07:11> Percussion: Yes normal to percussion (LUQ, LLQ, LRQ) and Yes tympanic to percussion (RUQ only) <[facility] Filed: 11/22/24 07:11> Auscultation: normal bowel sounds <[facility] Filed: 11/22/24 07:11> Skin: Other: Dressings in place without purulent drainage or pus. No erythema in surrounding skin. <[facility] Filed: 11/22/24 07:11> Neuro: General: patient oriented x3 <[facility] Filed: 11/22/24 07:11> Objective Data Active Medications Atorvastatin Calcium (Atorvastatin Calcium 40 Mg Tablet) 40 mg PO BEDTIME CHRISTOPHER Last Admin: 11/21/24 20:41 Dose: 40 mg Documented By: JS Calcium Carbonate (Calcium Carbonate 750 Mg Tab.Chew) 750 mg PO Q6H PRN PRN Reason: Heartburn Last Admin: 11/20/24 22:23 Dose: 750 mg Documented By: JOSE MIGUEL Dextrose (Dextrose 50 % 25 Gm/50 Ml Syringe) 25 gm IVPUSH Q15M PRN; Protocol PRN Reason: per Hypoglycemia Standing Ord. Glucose (Glucose Gel 15 Gm Gel..Gram.) 15 gm PO Q15M PRN; Protocol PRN Reason: per Hypoglycemia Standing Ord. Hydromorphone HCl (Hydromorphone Hcl 1 Mg/Ml Syringe) 1 mg IVPUSH Q3H PRN; Protocol PRN Reason: Pain, Severe (Pain Scale 7-10) Last Admin: 11/22/24 04:41 Dose: 1 mg Documented By: JS Lactated Ringer's (Lr) 1,000 mls @ 100 mls/hr IVCONT .Q10H [facility] Last Admin: 11/22/24 01:09 Dose: 100 mls/hr Documented By: JS Acetaminophen (Ofirmev) 1,000 mg in 100 mls @ 400 mls/hr IV Q6H PRN PRN Reason: Pain, Mild (Pain Scale 1-3) Piperacillin Sod/Tazobactam (Sod 3.375 gm/ Sodium Chloride) 50 mls @ 100 mls/hr IV Q6H [facility] Last Infusion: 11/22/24 05:20 Dose: Infused Documented By: JS Insulin Human Lispro (Insulin Lispro 100 Unit/Ml 3 Ml Vial) 0 unit SUBCUT QIDACHS [facility]; Protocol Last Admin: 11/21/24 20:41 Dose: 10 unit Documented By: JS Lisinopril (Lisinopril 5 Mg Tablet) 5 mg PO DAILY [facility]; Protocol Last Admin: 11/21/24 10:44 Dose: Not Given Documented By: SYLVIE Non-Admin Reason: hold, pending surgery Naloxone HCl (Naloxone Hcl 0.4 Mg/Ml Vial) 0.04 mg IVPUSH Q5M PRN PRN Reason: Excessive sedation or RR < 8 Omeprazole (Omeprazole 20 Mg Capsule.Dr) 20 mg PO BID@0630,1630 [facility] Last Admin: 11/22/24 04:41 Dose: 20 mg Documented By: JS Ondansetron HCl (Ondansetron Hcl 4 Mg/2 Ml Vial) 4 mg IVPUSH QID PRN PRN Reason: Nausea Last Admin: 11/21/24 07:53 Dose: 4 mg Documented By: SYLVIE Oxycodone HCl (Oxycodone Hcl Immed Release 5 Mg Tablet) 5 mg PO Q6H PRN PRN Reason: Pain, Moderate(Pain Scale 4-6) Last Admin: 11/20/24 22:24 Dose: 5 mg Documented By: JOSE MIGUEL Sodium Chloride (0.9 % Sodium Chloride Flush 3 Ml Syringe) [facility] Last Admin: 11/21/24 22:56 Dose: Not Given Documented By: JS Non-Admin Reason: IV Running <[facility] - Last Filed: 11/22/24 07:11> Labs CBC & Chem 7: 11/20/24 07:12 11/21/24 05:03 <Mayr Gonsalezh - Last Filed: 11/22/24 07:11> Labs: Laboratory Results - last 24 hr 11/21/24 11/21/24 11/21/24 05:03 07:19 11:04 Anion Gap 15 Estim Creat Clear Calc 117.5 Estimated GFR > 60 POC Glucose 322 H 249 H Random Glucose 315 H Calcium 8.7 Total Bilirubin 1.1 H AST 41 H ALT 29 Alkaline Phosphatase 70 Total Protein 6.1 L Albumin 3.7 11/21/24 11/21/24 11/21/24 12:07 16:15 20:17 Anion Gap Estim Creat Clear Calc Estimated GFR POC Glucose 223 H 261 H 370 H* Random Glucose Calcium Total Bilirubin AST ALT Alkaline Phosphatase Total Protein Albumin <[facility] Last Filed: 11/22/24 07:11> Microbiology Microbiology Results: Microbiology 11/20/24 10:59 Blood Culture - Preliminary Blood - Venous No growth after 24 hours. 11/20/24 10:59 Blood Culture - Preliminary Blood - Venous No growth after 24 hours. <Mary Gonsalezh - Last Filed: 11/22/24 07:11> Procedures Date of Service Date of Service: 11/22/24 <Mary Gonsalezh - Last Filed: 11/22/24 07:11> 11/22/24 <Lisa Shelton PA-C - Last Filed: 11/22/24 07:47> Progress Note: A&P Assessment and plan (1) S/P laparoscopic cholecystectomy: Status: Acute <[facility] - Last Filed: 11/22/24 07:11> Assessment and Plan: The patient is a 54 y/o M with PMH of T2DM POD #1 s/p cholecystectomy secondary to acute cholecystitis. He is currently in pain but otherwise doing well. Patient was given 1mg hydromorphone IV at around 5am; dose may need adjustment. On exam he was having RUQ abdominal pain associated around the site of his MUSA tube. He is tolerating clear liquids currently. Depending on his ability to pass gas/have a BM today, he may be able to advance his diet. Per nursing, MUSA tube output 50mL; continue monitoring and consider removal of MUSA tube if output remains low. Spirometry was removed from his room so he has not been using it. PLAN Dressing changes Continue to ambulate as tolerated Pain management as needed Give patient spirometry device & encourage use up to 10x per hour Continue monitoring for flatus/BM <Mary Wray Last Filed: 11/22/24 07:11> The patient is a 54 y/o M with PMH of T2DM POD #1 s/p cholecystectomy secondary to acute cholecystitis. He is currently in pain but otherwise doing well. Patient was given 1mg hydromorphone IV at around 5am; dose may need adjustment. On exam he was having RUQ abdominal pain associated around the site of his MUSA tube. He is tolerating clear liquids currently. Depending on his ability to pass gas/have a BM today, he may be able to advance his diet. Per nursing, MUSA tube output 50mL; continue monitoring and consider removal of MUSA tube if output remains low. Spirometry was removed from his room so he has not been using it. PLAN Dressing changes Continue to ambulate as tolerated Pain management as needed Give patient spirometry device & encourage use up to 10x per hour Continue monitoring for flatus/BM Agree with above assessment and plan by [facility] MS-3. Patient is POD #1 s/p lap shahrzad found to have gangrenous acute cholecystitis. He is overall doing well post op, but c/o pain mostly at drain site. Tolerating solid diet, OOB and ambulating. VSS. Abd exam benign with clean and intact dressings. MUSA drain is serosanguineous, low and therefore removed uneventfully at bedside. Will reassess later today, if comfortable on oral analgesics, stable for dc to home today. patient and comfortable with plan. Encouraged OOB/ambulation and educated on IS use 10x/hr. <Lisa Shelton PA-C - Last Filed: 11/22/24 07:47> Time Spent With Patient Time: Total time managing care of this patient today ____ minutes. <Mary Esquivel - Last Filed: 11/22/24 07:11> Quality Stroke Does the patient have a stroke diagnosis?: No <Mary Wray Last Filed: 11/22/24 07:11> VTE Prior VTE?: No <[facility] Last Filed: 11/22/24 07:11> VTE Risk Level:: Surgical - moderate <[facility] Last Filed: 11/22/24 07:11> VTE Device Contraindication: N/A - Device Ordered <Daniachristy Gonsalezh Last Filed: 11/22/24 07:11> VTE Drug Contraindication: Treatment Not Indicated [facility] Last Filed: 11/22/24 07:11>
[2024-11-22 07:55] LABS: Glucose, Whole Blood 205 mg/dL (60-115)
[2024-11-22 08:00] VITALS: BP 118/78; PULSE 97; RESP 16; TEMP 36.3; O2SAT 94
--- NOTE | 2024-11-22 08:50 | HO.POSTANES ---
Post Anesthesia Evaluation Post Anesthesia Evaluation Date of Service: 11/22/24 Vital Signs: Vital Signs Temp Pulse Resp BP Pulse Ox O2 Del Method 11/22/24 08:00 97.4 F 97 16 118/78 94 Room Air 11/22/24 03:30 98.1 F 85 18 106/60 93 Room Air Anesthesia: General Mental Status: Awake Pain Control: Satisfactory Nausea/Vomiting: None Hydration: Adequate Anesthesia-Related Issues: No Anes. Related Issues
[2024-11-22] MEDS: Insulin Glargine,Hum.rec.anlog 100 UNIT/ML 10 ML VIAL 15 UNIT SUBCUT (08:52)
--- NOTE | 2024-11-22 10:56 | PC.NURSE ---
per PA ok for pt to no longer have IV access and stop IV abx. pt is allowed to shower now per PA
--- NOTE | 2024-11-22 11:06 | HO.PM.IMPN ---
Subjective Subjective Date of Service: 11/22/24 Interval History: Underwent lap shahrzad yesterday MUSA drain removed this morning Reports continued abdominal pain, moderately well-controlled with current analgesics Hoping to go home today POCs noted to be increasing as high as 370 last night Continue to hold insulin pump while in the hospital Will add Lantus 15 units daily to help cover Review of Systems Review of Systems: Yes all other systems are reviewed and are negative Physical Exam Exam: Exam: General: AOx3, no acute distress Resp: CTA bilaterally CVS: S1, S2, RRR GI: +BS, no distention, appropriate tenderness at surgical sites Skin: Warm, dry Neuro: Cranial nerves II-XII grossly intact bilaterally. Motor grossly intact bilaterally Extremities: No edema Psych: Appropriate affect Vital Signs: Vital Signs: Last Vital Signs Temp 97.4 F 11/22/24 08:00 Pulse 97 11/22/24 08:00 Resp 16 11/22/24 08:00 BP 118/78 11/22/24 08:00 Pulse Ox 94 11/22/24 08:00 O2 Del Method Room Air 11/22/24 08:00 O2 Flow Rate 3 11/21/24 15:34 BMI result Body Mass Index 35.2 Objective Data Active Medications Atorvastatin Calcium (Atorvastatin Calcium 40 Mg Tablet) 40 mg PO BEDTIME CHRISTOPHER Last Admin: 11/21/24 20:41 Dose: 40 mg Documented By: JS Calcium Carbonate (Calcium Carbonate 750 Mg Tab.Chew) 750 mg PO Q6H PRN PRN Reason: Heartburn Last Admin: 11/20/24 22:23 Dose: 750 mg Documented By: JOSE MIGUEL Dextrose (Dextrose 50 % 25 Gm/50 Ml Syringe) 25 gm IVPUSH Q15M PRN; Protocol PRN Reason: per Hypoglycemia Standing Ord. Glucose (Glucose Gel 15 Gm Gel..Gram.) 15 gm PO Q15M PRN; Protocol PRN Reason: per Hypoglycemia Standing Ord. Hydromorphone HCl (Hydromorphone Hcl 1 Mg/Ml Syringe) 1 mg IVPUSH Q3H PRN; Protocol PRN Reason: Pain, Severe (Pain Scale 7-10) Last Admin: 11/22/24 08:36 Dose: 1 mg Documented By: SERA Acetaminophen (Ofirmev) 1,000 mg in 100 mls @ 400 mls/hr IV Q6H PRN PRN Reason: Pain, Mild (Pain Scale 1-3) Piperacillin Sod/Tazobactam (Sod 3.375 gm/ Sodium Chloride) 50 mls @ 100 mls/hr IV Q6H [facility] Last Infusion: 11/22/24 10:56 Dose: Infused Documented By: SERA Insulin Glargine (Insulin Glargine,Hum.Rec.Anlog 100 Unit/Ml 10 Ml Vial) 15 unit SUBCUT DAILY [facility] Last Admin: 11/22/24 08:52 Dose: 15 unit Documented By: SERA Insulin Human Lispro (Insulin Lispro 100 Unit/Ml 3 Ml Vial) 0 unit SUBCUT QIDACHS [facility]; Protocol Last Admin: 11/22/24 08:30 Dose: 4 unit Documented By: SERA Lisinopril (Lisinopril 5 Mg Tablet) 5 mg PO DAILY [facility]; Protocol Last Admin: 11/22/24 08:30 Dose: 5 mg Documented By: SERA Naloxone HCl (Naloxone Hcl 0.4 Mg/Ml Vial) 0.04 mg IVPUSH Q5M PRN PRN Reason: Excessive sedation or RR < 8 Omeprazole (Omeprazole 20 Mg Capsule.Dr) 20 mg PO BID@0630,1630 [facility] Last Admin: 11/22/24 04:41 Dose: 20 mg Documented By: JS Ondansetron HCl (Ondansetron Hcl 4 Mg/2 Ml Vial) 4 mg IVPUSH QID PRN PRN Reason: Nausea Last Admin: 11/21/24 07:53 Dose: 4 mg Documented By: SYLVIE Oxycodone HCl (Oxycodone Hcl Immed Release 5 Mg Tablet) 5 mg PO Q6H PRN PRN Reason: Pain, Moderate(Pain Scale 4-6) Last Admin: 11/20/24 22:24 Dose: 5 mg Documented By: JOSE MIGUEL Sodium Chloride (0.9 % Sodium Chloride Flush 3 Ml Syringe) 3 ml IVFLUSH QSHIFT [facility] Last Admin: 11/22/24 07:20 Dose: Not Given Documented By: SERA Non-Admin Reason: Previously Administered Labs 11/20/24 07:12 11/21/24 05:03 Labs: Laboratory Results - last 24 hr 11/21/24 11/21/2411/21/25 11:04 12:07 16:15 POC Glucose 249 H 223 H 261 H 11/21/24 11/22/24 20:17 07:43 POC Glucose 370 H* 205 H Microbiology Microbiology Results: Microbiology 11/20/24 10:59 Blood Culture - Preliminary Blood - Venous No growth after 24 hours. 11/20/24 10:59 Blood Culture - Preliminary Blood - Venous No growth after 24 hours. Assessment and Plan (1) Acute cholecystitis: Status: Acute (2) S/P laparoscopic cholecystectomy: Status: Acute Plan Pt is a 54-year-old male with PMH significant for HTN, HLD, and insulin-dependent diabetes who presented to the ED with epigastric abd pain radiating to RUQ and back and was admitted to the general surgery service for acute cholecystitis. Plan is to make pt NPO after midnight for possible lap shahrzad tomorrow. Hospitalist consult for medical management. Acute cholecystitis S/P laparoscopic cholecystectomy on 11/21 Plan as per general surgery Insulin dependent diabetes ?type 1 vs type 2 Reports diagnosed around 12 years ago, type 2 more likely Stop insulin pump; will hold while inpatient Will cover with SSI for now, add Lantus 15 units daily Monitor POC closely Resume insulin pump upon discharge HTN Continue lisinopril HLD Continue statin Thank you for allowing us to participate in the care of this patient. Will continue to follow along with you while in the hospital. Quality Stroke Does the patient have a stroke diagnosis?: No VTE Prior VTE?: No VTE Risk Level:: Surgical - moderate VTE Device Contraindication: N/A - Device Ordered VTE Drug Contraindication: Treatment Not Indicated
[2024-11-22 11:23] LABS: Glucose, Whole Blood 288 mg/dL (60-115)
[2024-11-22] MEDS: oxyCODONE HCl Immed Release 5 MG TABLET PO (11:40)
--- NOTE | 2024-11-22 12:02 | MHC.CM.PN ---
Patient is discharged today. He will discharge to home self care. He has arranged for his to provide transportation home.
--- NOTE | 2024-11-22 12:34 | P.DS_ITS ---
DS: Providers Provider Date of Service: 11/22/24 Date of admission: 11/20/24 15:04 Date of discharge: 11/22/24 Primary care physician: Aubree Pinto MD Attending physician on admission: Erik Carlin Consults: 11/20/24 11:46 Consult to Hospitalist Routine Comment: Consulting Provider: [facility] Hospitalists Reason For Exam: Type 1 diabetes on insulin pump, acute cholecystit Attending physician on discharge: Erik Carlin DS: Diagnosis Discharge Diagnosis (1) Acute cholecystitis: Status: Acute (2) S/P laparoscopic cholecystectomy: Status: Acute DS: Summary Hospital Course Hospital Course: HPI AT ADMISSION: Evan Puente is a 54 year old male presenting with a previous history of hepatitis-C, type 1 diabetes mellitus and elevated cholesterol with complaints of abdominal pain mainly in the epigastrium. The pain began approximately 03:00 in the morning today and woken from sleep. He reports eating at all of [employer] yesterday having pasta with cheese sauce and salad. He denies a previous history of similar pain but did have a prolonged history of pain in the right groin. He reports nausea without vomiting. He felt chills but denied fevers. He presented to the emergency department and was found to have an elevated WBC of 16.8. CT of the abdomen and pelvis reveals a 3.2 cm gallstone within the neck of the gallbladder. This was confirmed by ultrasound of the abdomen. Also noted by ultrasound was wall thickening consistent with acute cholecystitis. HOSPITAL COURSE: The patient was admitted to the surgical service for further treatment of the acute cholecystitis. He was started on IV zosyn, IVF. He elected to proceed with laparoscopic cholecystectomy, possible open. He was added onto the OR schedule for the following day. On 11/21/24, a laparoscopic cholecystectomy was performed by Dr. Carlin without complication. The patient was found to have gangrenous acute cholecystitis and a MUSA drain was placed intraoperatively. The patient tolerated the procedure well. He had an uncomplicated recovery course. On POD #1, he felt well and was tolerating a solid diet without nausea or vomiting, had good pain control and was ambulating without difficulty. He was hemodynamically stable. His abdomen was benign with appropriate post op tenderness and clean and intact dressings. His MUSA drain had scant serosanguineous drainage and was removed uneventfully. He felt ready for discharge. He was discharged to home on 11/22/24 in stable condition. He is to follow up in the office in 1 week. Time Attestation Discharge Coordination Time (in mins): 30 Quality: Safe Use of Opioids Does Pt have an Active Cancer Diagnosis on the Problem List?: No Quality: Stroke Does the patient have a stroke diagnosis?: No Physical Exam Vital Signs: Vital Signs: Last Vital Signs Temp 97.4 F 11/22/24 08:00 Pulse 97 11/22/24 08:00 Resp 16 11/22/24 08:00 BP 118/78 11/22/24 08:00 Pulse Ox 94 11/22/24 08:00 O2 Del Method Room Air 11/22/24 08:00 O2 Flow Rate 3 11/21/24 15:34 BMI result Body Mass Index 35.2 Const: General: comfortable, no acute distress and alert Orientation/consciousness: patient oriented x3 Resp: Effort & Inspection: normal respiratory effort GI: Other: dressings clean and intact MUSA with scant serosanguineous drainage, removed and dry dressing placed Inspection: No distended Palpation (GI): Soft to palpation, Tenderness to palpation present (GI) (mild incisional), no guarding and not rigid Skin: General skin exam: no rashes or lesions noted and no jaundice Neuro: General: patient oriented x3 and moves all extremities DS: Data Data Completed and Pending Completed studies during hospitalization [Text1]: Procedures Drainage of Abdomen Skin, External Approach (10/20/20) Pending studies at discharge: Pending at discharge 11/21/24 13:59 Surgical [PTH] Routine Labs on day of discharge: Laboratory Results - last 24 hr 11/21/24 11/21/24 11/22/24 16:15 20:17 07:43 POC Glucose 261 H 370 H* 205 H 11/22/24 11:18 POC Glucose 288 H Preliminary micro results at discharge 11/20/24 10:59 Blood Culture - Preliminary Blood - Venous No growth after 24 hours. 11/20/24 10:59 Blood Culture - Preliminary Blood - Venous No growth after 24 hours. Discharge Plan Discharge Anticipated Discharge Date/Time: 11/22/24 07:51 Patient Disposition: Home, Self-Care Discharge Diagnosis: acute cholecystitis, s/p laparoscopic cholecystectomy Referrals: Aubree Pinto MD [Primary Care Provider, Family Practice] - 1 Week Erik Carlin MD [Physician, General Surgery] - 1 Week Discharge Medications: New oxycodone 5 mg tablet 5 mg PO Q4H PRN (Reason: pain (scale score 7-10)) Qty: 24 0RF Rx Instructions: Partial Fill upon patient request. docusate sodium [Colace] 100 mg capsule 100 mg PO BID PRN (Reason: constipation) Qty: 30 0RF Continued (DME) Accu-Chek Guide test strips Strip See Rx Instructions .Route Qty: 200 2RF Rx Instructions: As directed 6x per day tadalafil 20 mg tablet 20 mg PO ONCE PRN (Reason: sexual activity) 30 Days Qty: 30 1RF lisinopril 5 mg tablet 5 mg PO DAILY insulin aspart U-100 [Novolog U-100 Insulin aspart] 100 unit/mL solution 150 unit continuous subcutaneous infusion DAILY Rx Instructions: pump Zepbound 10 mg/0.5 mL pen injector 10 mg subcut MO (DME) BinaxNOW COVID-19 Ag Self Test Kit See Rx Instructions .ROUTE DIRECTED Qty: 1 Rx Instructions: As directed (DME) Ketone Care Strip See Rx Instructions .Route Qty: 50 1RF Rx Instructions: As directed insulin glargine [Lantus Solostar U-100 Insulin] 100 unit/mL (3 mL) insulin pen 50 unit subcut DAILY PRN (Reason: prn pump failure, back up insulin plan) 30 Days Qty: 15 4RF atorvastatin 40 mg tablet 40 mg PO BEDTIME 30 Days Qty: 30 6RF ciclopirox 0.77 % cream 1 appl topical BID 28 Days Qty: 30 1RF (DME) cane Device See Rx Instructions .Route Qty: 1 0RF Rx Instructions: As directed Discontinued amoxicillin 500 mg capsule 500 mg PO Q8H Discharge Orders: Discharge Order (Routine); Ordered 11/22/24 Ordered By: Lisa Shelton Diet: Diabetic diet Activity on Discharge: No heavy lifting Stand Alone Forms: Patient Portal Discharge page Print Language: Nepali Activity Restrictions/Additional Instructions: If the incision area is tender, you may apply an ice pack for short intervals (No more than 20 minutes on, followed by at least 20 minutes off). Do not apply heat. Do not use creams, lotions, or topical antibiotics. Ok to shower. Remove clear dressings 3 days following your procedure. You have steri strips (small white strips) covering your incision- these will fall off ~1 week. Keep old drain site covered with dry sponge or band aid while it remains open and continues to drain. No heavy lifting (>10lbs) or strenuous activity! Take Tylenol Extra-strength 1-2 tabs every 6 hours for the first day, then as needed. Oxycodone every 6-8 hours as needed for pain. Colace 100 mg every day as needed for constipation. Follow up in office with Dr. Carlin in 1 week. ([phone]) Call Your Doctor If: -Your temperature exceeds 101.5? F -You experience excessive pain or swelling -You have an unexpected reaction to medication -You have excessive bleeding -You experience continued vomiting/nausea -Your incision begins to separate -Your incision shows signs of infection such as increased redness, swelling, excessive pain, drainage (light blood or clear fluid is normal) or heat Care Plan Goals: Return to baseline health and resume normal activities following recovery period. Health Concerns: acute gangrenous cholecystitis diabetes mellitus Plan of Treatment: s/p laparoscopic cholecystectomy f/u in office in 1 week pain control Assessment: Doing well post op.
== END 2024-11-22 12:45 | disposition home or self-care (01) | DRG 263 ==
LOC: HO.ED 12:17 → HO.EDOVER 15:05 → HO.S3 19:44
PROVIDERS: Internal Medicine; Admitting Provider Surgery; Emergency Provider Emergency Medicine; PCP Family Medicine; Visit Provider Surgery
PROC: 0FT44ZZ Resection of Gallbladder, Percutaneous Endoscopic Approach (ICD-10-PCS; CPT 47562; principal; 2024-11-21 12:30)
DX: K80.00 Calculus of gallbladder with acute cholecystitis without obstruction (principal); K82.A1 Gangrene of gallbladder in cholecystitis; E11.9 Type 2 diabetes mellitus without complications; E78.5 Hyperlipidemia, unspecified; I10 Essential (primary) hypertension; Z96.41 Presence of insulin pump (external) (internal); Z87.891 Personal history of nicotine dependence; Z79.4 Long term (current) use of insulin; Z79.899 Other long term (current) drug therapy
CPT/HCPCS: 47562; 36415; 74177; 76705; 80048; 80053; 80076; 80307; 81001; 82947; 83605; 83690; 83735; 84484; 85025; 87040; 88304; 93005; 99285; J0131; J1171; J2003; J2270; J2405; J2543; J2704; J3010; J3360; J3475; J7120; Q9967

== ENCOUNTER → 2024-11-20 06:51 | Outpatient (BNV) | payer OTHER, SELFPAY | PROVIDERS: Emergency Provider Emergency Medicine; PCP Family Medicine; Visit Provider Internal Medicine Cardiovascular Disease | DX: R00.1 Bradycardia, unspecified (principal) | CPT/HCPCS: 93010 ==

== ENCOUNTER → 2024-11-20 07:05 | Outpatient (BNV) | payer OTHER, SELFPAY | PROVIDERS: Emergency Provider Emergency Medicine; PCP Family Medicine; Visit Provider Radiology Diagnostic Radiology | DX: K80.20 Calculus of gallbladder without cholecystitis without obstruction (principal); K57.30 Diverticulosis of large intestine without perforation or abscess without bleeding | CPT/HCPCS: 74177; 76705 ==

== ENCOUNTER → 2024-11-20 07:52 | Outpatient (BNV) | payer OTHER, SELFPAY | PROVIDERS: Emergency Provider Emergency Medicine; PCP Family Medicine; Visit Provider Surgery | DX: K81.0 Acute cholecystitis (principal); B19.20 Unspecified viral hepatitis C without hepatic coma | CPT/HCPCS: 99222 ==

== ENCOUNTER → 2024-11-20 15:04 | Outpatient (BNV) | payer OTHER, SELFPAY | PROVIDERS: Admitting Provider Surgery; Emergency Provider Emergency Medicine; PCP Family Medicine; Visit Provider Student in an Organized Health Care Education/Training Program | DX: K81.0 Acute cholecystitis (principal); Z90.49 Acquired absence of other specified parts of digestive tract | CPT/HCPCS: 99223; 99233 ==

== ENCOUNTER 2024-11-30 14:53 | Outpatient (AMB) | payer OTHER, SELFPAY ==
--- NOTE | 2024-11-30 15:05 | A.OFFVIS_ITS ---
Vital Signs 11/30/24 15:14 Height 5 ft 9 in Weight 229 lb 11.547 oz BMI 33.9 BP 110/72 Blood Pressure Location Lt brachial Position Sitting Intake Visit Reasons: s/p cholecystectomy Intake Note: Patient is seen in office for post op assessment post laparoscopic cholecystectomy. Pt c/o: admits to diarrhea, reflux and couple of days ago had night chills- no fever surgery:11/21/24 Division Operations Specialist Required: No Accompanied by: Self / Same As Patient Allergies liraglutide Allergy (Unknown, Verified 11/30/24 15:13) Unknown Medication List - Last Reconciled 11/30/24 by Erik Carlin MD acetone (urine) test (Ketone Care strips) As directed atorvastatin 40 mg PO BEDTIME 30 days blood sugar diagnostic (Accu-Chek Guide test strips) As directed 6x per day cane As directed ciclopirox 0.77% 1 appl topical BID 4 weeks NS COVID-19 antigen test (BinaxNOW COVID-19 Ag Self Test kit) As directed docusate sodium (Colace) 100 mg PO BID PRN insulin aspart U-100 (Novolog U-100 Insulin aspart) 150 units continuous subcutaneous infusion DAILY Lantus Solostar U-100 Insulin (insulin glargine) 50 units (0.5 mL) subcut DAILY PRN 30 days NS lisinopril 5 mg PO DAILY tadalafil 20 mg PO ONCE PRN 30 days tirzepatide (weight loss) (Zepbound) 10 mg subcut MO HPI Comments Details: 54-year-old male patient returning 1 week following laparoscopic cholecystectomy for acute cholecystitis performed on 11/21/2024. OR findings were consistent with acute cholecystitis with marked distention of the gall bladder wall with gangrenous wall changes and a large gallstone noted at the neck of the gallbladder. He reports some discomfort in the epigastric incision but generally feels improved. He denies any nausea or vomiting. 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), managed as type 1 Surgical History Hx laparoscopic cholecystectomy (11/21/24) History of hernia surgery H/O colonoscopy Hx of exploratory laparotomy Family History Father Diabetes Mother Diabetes Social History Household Members: Spouse and Children Housing: House Do you presently have visiting nurse or other home services: No Alcohol intake: current Alcohol intake frequency: holidays/special occasions only Alcohol type: beer Patient Tobacco Use Status: Former Tobacco user service: No Current occupational status: employed 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 Neuro General: patient oriented x3 Extrem Other: No edema Assessment & Plan Assessment & Plan (1) S/P laparoscopic cholecystectomy: Code(s): Z90.49 - Acquired absence of other specified parts of digestive tract Category: Surgical Plan 54-year-old male patient returning 1 week following laparoscopic cholecystectomy. He tolerated the procedure well in his wounds are healing nicely. He should continue to avoid fatty/fried foods for the next month and avoid lifting greater than 10 lb for the next week. Should follow up as needed. Coding Level of Care Code Global (03168) Diagnoses S/P laparoscopic cholecystectomy Z90.49
[2024-11-30 15:14] VITALS: BP 110/72; BMI 33.9
--- OUTSIDE RECORDS SUMMARY | 2024-11-30 15:36 | XMS_ITS | Encounter Summary ---
Author Organization [employer] Address [address] [facility] [address] [place] [address] Care Team Providers Care Custom Designer Name Role Phone Aubree Pinto MD Primary Care Provider [phone] Matt Silvestre MD Unavailable Chris Wills MD Unavailable [phone] Unavailable Saul Avalos MD Unavailable Reason for Visit * Reason Comments Med Refill Encounter Details Date Type Department Care Team (Late st Contact Info) Description 08/05/2022 Refill [facility] [address] [place], [place] [phone] Aubree Pinto MD [address] [place], [place] [phone] Social History Tobacco Use Types Packs/Day Years [...] as of this encounter Plan of Treatment Upcoming Encounters Date Type Department Care Team (Late st Contact Info) Description 12/28/2024 9:45 AM EDT Office Visit [facility] [address] [place] [address] Aubree Pinto MD [address] [place] [address] documented as of this encounter Visit Diagnoses Not on filedocumented in this encounter Additional Health Concerns Assessment Noted Time PHQ-9 Depression Total Score: 0 04/29/19 23 11:25 AM EST documented as of this encounter Care Teams Custom Designer Relationship Specialty Start Date End Date Aubree Pinto MD [address] [place] [address] PCP - General Family Medicine 04/05/18 Matt Silvestre MD [address] [place] [address] Endocrinology 03/07/24 Chris Wills MD [address] [place] [address] Drive [address] [place] [address] Urology 04/19/24 Lashell Falcon [address] [place] [address] Ophthalmology 05/09/24 Saul Avalos MD [address] [place] [address] [address] [facility] [address] [place] [phone] Gastroenterology 06/12/24 Stephani Rivera COMMISSIONING SPECIALIST Endocrinology 04/19/24 documented as of this encounter
--- OUTSIDE RECORDS SUMMARY | 2024-11-30 15:36 | XMS_ITS | Encounter Summary ---
Author Organization [employer] Address [address] [facility] [address] [place] [address] Care Team Providers Care Song And Dance Performer Name Role Phone Aubree Pinto MD Primary Care Provider [phone] Matt Silvestre MD Unavailable Chris Wills MD Unavailable [phone] Lashell Falcon Unavailable Saul Avalos MD Unavailable Encounter Details Date Type Department Care Team (Late st Contact Info) Description 03/15/2024 Orders Only [facility] [address] [place], [place] [phone] Aubree Pinto MD [address] [place], [place] [phone] Social History Tobacco Use Types Packs/Day Years Used Date Smoking Tobacco: Never Passive Smoke Exposure: Never Smokeless Tobacco: Never Depression Answer Date Recorded Patient Health Questionnaire-9 Score 0 09/29/2023 Patient Health Questionnaire-9 Score 0 09/29/2023 Last PHQ-9: Questionnaire Data Not on file 0 09/29/2023 Housing Stability Answer Date Recorded What is your housing situation today? I have chloe sing 06/15/[address] you li [...] Description 12/28/2024 9:45 AM EDT Office Visit [facility] [address] [place] [address] Aubree Pinto MD [address] [place] [address] documented as of this encounter Visit Diagnoses Not on filedocumented in this encounter Additional Health Concerns Assessment Noted Time PHQ-9 Depression Total Score: 0 09/29/19 24 2:41 PM EDT documented as of this encounter Care Teams Song And Dance Performer Relationship Specialty Start Date End Date Aubree Pinto MD [address] [place] [address] PCP - General Family Medicine 04/05/18 Matt Silvestre MD [address] [place] [address] Endocrinology 03/07/24 Chris Wills MD [address] [place] [address] Urology 04/19/24 Lashell Falcon [address] [address] Ophthalmology 05/09/24 Saul Avalos MD [address] [place] [address] [address] [place] [phone] Gastroenterology 06/12/24 Stephani Rivera PARALEGAL INSTRUCTOR Endocrinology 04/19/24 documented as of this encounter
--- OUTSIDE RECORDS SUMMARY | 2024-11-30 15:36 | XMS_ITS | Patient Health Record ---
Author Organization [facility] Address [address] [place] [phone] Care Team Providers Care Poultry Slaughterer Name Role Phone Aubree Pinto MD Primary [...] Status Risk Notes Problem Chronic hepatitis C (828174324) Chronic hepatitis C without mention of hepatic coma (070.54) Active confirmed Problem Chronic hepatitis C (056062360) Chronic hepatitis C (070.54) Active confirmed Plan [...] Insured Coverage Start Date Coverage End Date [facility] [address] [place] [phone] [id number] PALLAVI ROCA Self - patient is the insured Medical (General) History Medical History History ICD Code hyperlipidemia back pain Hepatitis C diabetes mellitus
--- OUTSIDE RECORDS SUMMARY | 2024-11-30 15:36 | XMS_ITS | Clinical Summary ---
Author Organization [employer] Address [address] [place] [address] Care Team Providers Care Stacker Attendant Name Role Phone Aubree Pinto MD Primary Care Provider [phone] Matt Silvestre MD Unavailable Chris Wills MD Unavailable [phone] Falcon Unavailable Saul Avalos MD Unavailable Allergies Active Allergy Reactions Criticality Noted Date Comments Liraglutide Unknown 04/22/2023 Medications Acetaminophen 500 MG capsuleIndication s:Low back pain potentially associated with radiculopathy Take 1 tab po tid pain 60 capsule 3 024 Active Omeprazole 20 MG tablet delayed-releaseIn dications:Gastroe sophageal reflux disease, unspecified whether esophagitis present Take 20 mg by mouth in the morning. 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 Active ciclopirox (Loprox) 0.77 % cream Apply topically 2 times daily. Active Docusate Sodium (DSS) 100 MG capsule Take 100 mg by mouth if needed in the morning and at bedtime. Active NovoLOG 100 UNIT/ML solution Inject 150 units via insulin pump daily subcutaneously Active Zepbound 10 MG/0.5ML solution auto-injector Inject 0.5 mL under the skin every 7 (seven) days. Active polyethylene glycol, PEG, 3350 (MiraLax) 17 GM/SCOOP powderIndications :Slow transit constipation Take 17 g by mouth Once per day. 527 g 2024 Active acetaminophen (Tylenol Extra Strength) 500 MG tabletIndications :S/P laparoscopic cholecystectomy Take 2 tablets (1,000 mg) by mouth every 8 (eight) hours if needed for moderate pain for up to 10 days. 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 2024 Discontinued( Med list cleanup (will not trigger notification to Pharmacy)) oxyCODONE (Roxicodone) 5 MG immediate release tablet Take 1 tablet by mouth every 4 (four) hours if needed (pain). 2024 Active Problems Problem Noted Date Diagnosed Date Slow transit constipation 11/24/2024 Assessment & Plan (11/24/2024 4:37 PM EDT): I advised patient to drink plenty of water, add fiber to the diet I added to his Colace MiraLAX S/P laparoscopic cholecystectomy 11/24/2024 Assessment & Plan (11/24/2024 4:37 PM EDT): Follow-up with surgery do not miss the appointment I prescribed for patient recommend continue taking as needed for pain or discomfort Class 2 severe obesity due t o [...] due after 06/12/25 -[facility] [place] [facility] care proxy on file 06/23/2023 Assessment & Plan (06/12/2024 9:32 AM EDT): -next comprehensive annual evaluation due after 06/12/25 -[facility] care [facility] [place] [facility] care proxy on file 06/23/2023 Assessment & Plan (10/01/2023 11:21 AM EDT): -next physical exam due after 02/23/2024 -eye care facilitated by [facility] [place] [facility] care proxy on file 06/23/2023 Assessment & Plan (06/23/2023 4:34 PM EDT): -next physical exam due after 02/23/2024 -eye care facilitated by [facility] [place] [facility] care proxy given on 06/23/2023 Assessment & Plan (02/22/2023 11:34 AM EST): -next physical exam due after 02/23/2024 -eye care facilitated by [facility] [place] Colon cancer screening 08/06/2022 Overview (06/12/2024): -colonoscopy [...] autoimmune mediated DM Type 1 -followed by Animation Director Dr. Silvestre and Stephani Rivera DATA MANAGEMENT SPECIALIST , seen 07/12/24 -humalog insulin via insulin [...] exam: 06/12/24 -Last eye exam done [facility] 05/04/24 -Continue lifestyle modifications -Continue current medications via endocrinology -humalog via pump -was doing well on Wegovy but stopped by insurance, awaiting appeal from settlement worker. - Assessment & Plan (06/12/2024 10:19 AM EDT): Pt with adult, autoimmune mediated DM Type 1 -followed by Animation Director Dr. Silvestre and Stephani Rivera DATA MANAGEMENT SPECIALIST , seen 02/2024 -humalog insulin via insulin [...] exam: 06/12/24 -Last eye exam done at [facility] 05/04/24 -Continue lifestyle modifications -Continue current medications via endocrinology -humalog via pump -was doing well on Wegovy but stopped by insurance, awaiting appeal from settlement worker. Assessment & Plan (10/01/2023 11:20 AM EDT): [...] exam: due -Last eye exam done at [facility] 08/06/2022 -Continue lifestyle modifications -Continue current medications via endocrinology -humalog via pump -wegovy Assessment & Plan (06/23/2023 4:26 PM EDT): Pt with adult, autoimmune mediated DM Type 1. -followed by Dr. Silvestre -Last eye exam done at [facility] 08/06/2022. Assessment & Plan (02/22/2023 9:37 AM EST): Pt with adult, autoimmune mediated DM Type 1. -followed by Dr. Silvestre -Last eye exam done at [facility] 08/06/2022. Assessment & Plan (08/06/2022 2:18 PM EDT): Pt with adult, autoimmune mediated DM Type 1. -followed by Dr. Silvestre. -Last eye exam done at [facility] 08/06/2022 Assessment & Plan (04/29/2022 1:15 PM [...] Date Resolved Date Exercise counseling 06/12/2024 09/15/19 25 Dietary counseling 06/12/2024 5 Type 1 diabetes mellitus with hyperglycemia 04/19/2024 [...] Encounters Date Type Department Care Team Description 11/24/2024 1:00 PM EDT Office Visit [facility] [address] [place] [address] Tammie Castle MD S/P laparoscopic cholecystectomy (Primary Dx); Slow transit constipation 11/24/2024 Travel 11/23/2024 Telephone [facility] [address] [place] [address] Aubree Pinto MD Hospital Follow-up 11/20/2024 Orders Only [facility] External Provider, [facility] 10/11/2024 Orders Only GENERIC EXTERNAL DATA DEPARTMENT Provider, Generic External Data 10/03/2024 Telephone [facility] [address] [place] [address] Aubree Pinto MD december Recalls 10/03/2024 Travel 08/30/2024 Telephone [facility] [address] [place] [address] Harper Braswell RN from Last 3 Months [...] Sign Reading Time Taken Comments Blood Pressure 139/80 11/24/2024 12:59 PM EDT Pulse 76 11/24/2024 12:59 PM EDT Temperature 36.4 C (97.6 F) 11/24/2024 12:59 PM EDT Respiratory Rate 22 11/24/2024 12:59 PM EDT Oxygen Saturation 95% 11/24/2024 12:59 PM EDT Inhaled Oxygen Concentration - - Weight 109 kg (239 lb 9.6 oz) 11/24/2024 12:59 P M EDT Height 175.3 cm (5' 9 ) 11/24/2024 12:59 PM EDT Body Mass Index 35.38 11/24/2024 12:59 PM EDT Plan of Treatment Upcoming Encounters Date Type Department Care Team (Late st Contact Info) Description 12/28/2024 9:45 AM EDT Office Visit [facility] [address] [place] [address] Aubree Pinto MD [address] [place] [address] Health Maintenance Due Date Last Done Comments CT Colonography 1970 Colonoscopy 1968 Colorectal Cancer Screening 1968 FIT DNA/Cologuard 1968 FIT 1968 FOBT 1968 Sigmoidoscopy 1968 Disability Screening 1968 Depression Screening 09/28/2024 09/29/2023, 09/29/19 24 Diabetes: Hemoglobin A1C 10/12/2024 042 025, 06/12/2024, 10/06/2023, Additional history exists Influenza Vaccine (#1) 2024 3, 04/06/2022, 12/19/2018, Additional history exists Alcohol/Substance Use Screening 06/12/2025 06/12/2024 COVID-19 Vaccine ( season) 2025 04/29/2022, 08/13/2021, 02/01/2021, Additional history exists Postponed from 12/05/2023 (Patient Refused) Diabetes: Foot Exam 06/12/2025 06/12/2024, 06/12/2024, 06/12/2024, Additional history exists SDOH Screening 06/12/2025 06/12/2024 Diabetes: Urine Protein Screening 10/11/2025 10/11/2024, 07/13/2024, 06/05/2023, Additional history exists Lipid Panel 10/11/2025 10/11/2024, 07/04, 06/05/2023, Additional history exists Tobacco Screening 11/24/2025 11/24/2024 Eye Exam 05/04/2026 05/04/2024 DTaP/Tdap/Td Vaccines (3 [...] Procedure Name Priority Date/Time Associated Diagnosis Comments LACTIC ACID Routine 11/20/2024 10:59 AM EDT DRUG MONITOR, PANEL 1, SCREEN, URINE Routine 11/20/2024 10:59 AM EDT URINALYSIS, COMPLETE, WITH REFLEX TO CULTURE Routine 11/20/2024 10:59 AM EDT US ABDOMEN LIMITED Routine 11/20/2024 10 :[address] ABDOMEN PELVIS W CONTRAST Routine 11/20/2024 8:08 AM EDT GLUCOSE, WHOLE BLOOD Routine 10/11/2024 3:25 PM [...] Relevant to Health Maintenance Results * (ABNORMAL) Urinalysis, Complete, with Reflex to Culture (11/20/2024 10:59 AM EDT) Color Urine Yellow [facility] Appearance Urine Clear [facility] PH 5.5 5.0 - 9.0 [facility] Glucose Urine UA >=1000(A) Negative mg/dL [facility] Urine Blood Negative Negative [facility] Specific [place] - Urine >=1.030(H) 1.005 - 1.025 [facility] Urine Protein Negative Neg-Trace mg/dL [facility] Urine Ketones 40 Negative mg/dL [facility] Nitrite Urine Negative Negative [facility] Leukocyte Esterase Urine Negative Negative [facility] RBC Urine 0-2 0 - 2 /HPF [facility] Urine WBC 0-5 0 - 5 /HPF [facility] Urine Squamous Epithelial Cell 0-2 0 - 2 /HPF [facility] Urine Bacteria None Seen None Seen [facility] Hyaline Casts, Urine 0-2 0 - 2 /LPF [facility] 11/20/2024 10:5 9 AM EDT 11/20/2024 11:03 AM EDT Narrative [facility] - 11/20/2024 11:48 AM EDT [id number], Clean Catch us Generic External Data Provider LAB URINE ORDERAB LES Final Result [facility] [address] [place] [phone] * (ABNORMAL) Drug Monitoring, Panel 1, Screen, Urine (11/20/2024 10:59 AM EDT) Opiate Screen Urine POSITIVE(A) Not Detect [facility] Comment:Opiate cut-off is 30 0 ng/mL.Positive results are unconfirmed and should not be used fornon-medical purposes. Barbiturates, Urine Not Detected Not Detect [facility] Comment:Barbiturate cut-off is 200 ng/mL.Positive results are unconfirmed and should not be used fornon-medical purposes. Phencyclidine Screen Urine Not Detected Not Detect [facility] Comment:Phencyclidine cut-of f is 25 ng/mL.Positive results are unconfirmed and should not be used fornon-medical purposes. Amphetamine Screen Urine Not Detected Not Detect [facility] Comment:Amphetamine cut-off is 1000 ng/mL.Positive results are unconfirmed and should not be used fornon-medical purposes. Benzodiazepines Screen Urine Not Detected Not Detect [facility] Comment:Benzodiazepine cut-o ff is 200 ng/mL.Positive results are unconfirmed and should not be used fornon-medical purposes. Cocaine Screen Urine Not Detected Not Detect [facility] Comment:Cocaine cut-off is 3 00 ng/mL.Positive results are unconfirmed and should not be used fornon-medical purposes. Cannabinoid Screen Urine Not Detected Not Detect [facility] Comment:Cannabinoid cut-off is 50 ng/mL.Positive results are unconfirmed and should not be used fornon-medical purposes. Methadone Screen, Urine Not Detected Not Detect ng/mL [facility] Comment:Methadone cut-off is 300 ng/mL.Positive results are unconfirmed and should not be used fornon-medical purposes. FENTANYL URINE Not Detected Not Detect [facility] Comment:Fentanyl cut-off is 1 ng/mL.Positive results are unconfirmed and should not be used fornon-medical purposes. Oxycodone Urine Screen Not Detected Not Detect ng/mL [facility] Comment:Oxycodone cut-off is 100 ng/mL.Positive results are unconfirmed and should not be used fornon-medical purposes. Buprenorphine Screen Not Detected Not Detect ng/mL [facility] Comment:Buprenorphine cut-of f is 5 ng/mL.Positive results are unconfirmed and should not be used fornon-medical purposes. 11/20/2024 10:5 9 AM EDT 11/20/2024 11:03 AM EDT us Generic External Data Provider LAB URINE ORDERAB LES Final Result [facility] [address] [place] [phone] [phone] * Lactic Acid (11/20/2024 10:59 AM EDT) Lactic Acid 1.3 0.5 - 2.0 mmol/L [facility] 11/20/2024 10:5 9 AM EDT 11/20/2024 11:03 AM EDT us Generic External Data Provider LAB BLOOD ORDERAB LES Final Result [facility] [address] [place] [phone] * US Abdomen Limited (11/20/2024 10:18 AM EDT) Anatomical Region Laterality Modality Abdomen Ultrasound 11/20/2024 10:1 8 AM EDT Narrative 11/20/2024 10:48 AM EDT [address] [address] Ultrasound Report Signed Patient: Evan Puente MR#: [id number] : 1970 Acct:[id number] Age/Sex: 54 / M ADM Date: 11/20/24 Loc: .ED Attending Dr: Ordering Physician: Alma Rosa Perea DO Date of Service: 11/20/24 Procedure(s): US abdomen limited Accession Number(s): [id number] cc: Aubree Pinto MD; Alma Rosa Perea DO EXAMINATION: US ABDOMEN LIMITED/GALLBLADDER. CLINICAL INFORMATION: CT abdomen pelvis dated November 20, 2024 reported cholelithiasis.. COMPARISON: Correlated to CT dated November 20, 2024. TECHNIQUE: Real-time ultrasound of the right upper quadrant abdomen, gallbladder. Limited. FINDINGS: There is a 2.3 cm hyperechoic abnormality in the gallbladder neck. The gallbladder is nondistended. The gallbladder wall measures 5 m. No pericholecystic fluid collection. Common bile duct measures 4 mm. US/US abdomen limited IMPRESSION: Cholelithiasis with gallbladder wall thickening. Acute calculus cholecystitis cannot be excluded. No choledocholithiasis. Electronically signed by: Woody Stock MD 11/20/2024 10:44 AM EDT RP Dictated By: Woody Qureshi MD Signed By: <Electronically signed by Woody Baez MD in OV> 11/20/24 1044 DD/ 1018 TD/TT: 11/20/24 1020 Transverse Abdominal Muscle Nurse: Procedure Note Donotuseinterpreter, Image - 11/20/[address] [address] Ultrasound Report Signed Patient: Evan PuenteMR#: [id number] : 1970Acct:[id number] Age/Sex: 54 / MADM Date: 11/20/24 Loc: HO.ED Attending Dr: Ordering Physician: Alma Rosa Perea DO Date of Service: 11/20/24 Procedure(s): US abdomen limited Accession Number(s): [id number] cc: Aubree Pinto MD; Alma Rosa Perea DO EXAMINATION: US ABDOMEN LIMITED/GALLBLADDER. CLINICAL INFORMATION: CT abdomen pelvis dated November 20, 2024 reported cholelithiasis.. COMPARISON: Correlated to CT dated November 20, 2024. TECHNIQUE: Real-time ultrasound of the right upper quadrant abdomen, gallbladder. Limited. FINDINGS: There is a 2.3 cm hyperechoic abnormality in the gallbladder neck. The gallbladder is nondistended. The gallbladder wall measures 5 m. No pericholecystic fluid collection. Common bile duct measures 4 mm. US/US abdomen limited IMPRESSION: Cholelithiasis with gallbladder wall thickening. Acute calculus cholecystitis cannot be excluded. No choledocholithiasis. Electronically signed by: Woody Stock MD 11/20/2024 10:44 AM EDT RP Dictated By: Woody Qureshi MD Signed By: <Electronically signed by Woody Baez MDin OV> 11/20/24 1044 DD/ 1018 TD/TT: 11/20/24 1020 Transverse Abdominal Muscle Nurse: us [facility] External Provider IMG US PROCEDURES Final Result * CT Abdomen Pelvis w/ Contrast (11/20/2024 8:08 AM EDT) Anatomical Region Laterality Modality Body, Pelvis, Abdomen Computed T omography 11/20/2024 8:08 AM EDT Narrative 11/20/2024 9:48 AM EDT [address] [address] [address] Scan Report Signed Patient: Evan Puente MR#: [id number] : 1970 Acct:[id number] Age/Sex: 54 / M ADM Date: 11/20/24 Loc: .ED Attending Dr: Ordering Physician: Alma Rosa Perea DO Date of Service: 11/20/24 Procedure(s): CT abdomen pelvis w IV con Accession Number(s): [id number] cc: Aubree Pinto MD; Alma Rosa Perea DO Report Number: [id number]: Total DLP = 722.00 mGy-cm EXAMINATION: CT ABDOMEN AND PELVIS WITH CONTRAST CLINICAL INFORMATION: Severe epigastric pain. COMPARISON: 12/16/2020. TECHNIQUE: Multidetector volumetric images were obtained from the superior aspect of the liver through the pubic symphysis following administration 85 mL of Omnipaque 350 intravenous contrast. Sagittal and coronal reformatted images were obtained on the technologist's workstation. Oral contrast: No This CT examination was performed using dose optimization techniques as appropriate, variously including the following: *Automated exposure control *Adjustment of mA and/or kV according to patient size (this includes techniques or standardized protocols for targeted exams where dose is matched to indication/reason for exam; i.e. extremities or head) *Use of iterative reconstruction technique FINDINGS:1 LUNG BASES: The visualized lung bases are unremarkable. LIVER, GALLBLADDER, AND BILIARY TREE: The liver is normal in size and shape. There is mild diffuse fatty infiltration. There are a few scattered calcified granulomata. No focal hepatic lesion or biliary ductal dilatation is present. There is a 3.2 cm oval gallstone in the gallbladder neck. There are smaller gallstones present as well. No definite gallbladder wall thickening or inflammation. PANCREAS: Unremarkable. SPLEEN: Unremarkable. ADRENAL GLANDS: Unremarkable. KIDNEYS AND URETERS: The kidneys are normal in size, shape, and attenuation. No hydronephrosis, hydroureter, or calculi seen. No perinephric stranding. BLADDER: Unremarkable. GASTROINTESTINAL TRACT: There are no acute findings. The appendix is normal. Moderate diverticulosis of the descending and sigmoid colon without evidence of inflammation or wall thickening. No rectal abnormality. No small bowel abnormality. The stomach is somewhat decompressed but appears grossly normal. The duodenum appears grossly normal. ABDOMINAL WALL: No significant hernia is appreciated. LYMPH NODES: Normal. VASCULAR: Mild calcific atheromatous disease of the aorta and iliac vessels. No aneurysm. PELVIC VISCERA: The prostate and seminal vesicles are unremarkable. OSSEOUS STRUCTURES: No suspicious lytic or blastic bone lesions. Mild spinal and bilateral hip joint degenerative changes present. CT/CT abdomen pelvis w IV con IMPRESSION: 1. There is a 3.2 cm gallstone within the region of the neck of the gallbladder. No gallbladder inflammation or wall thickening grossly. There are additional smaller gallstones. 2. Mild diffuse fatty infiltration of the liver. No biliary dilatation present. 3. Diverticulosis of the left colon without evidence of acute diverticulitis. Electronically signed by: Hugo Coates MD 11/20/2024 09:45 AM EDT Dictated By: Hugo Coates MD Signed By: <Electronically signed by Hugo Coates MD in OV> 11/20/24 0945 DD/ 0808 TD/TT: 11/20/24 0930 Transverse Abdominal Muscle Nurse: Procedure Note Donotuseinterpreter, Image - 11/20/[address] [address] [address] Scan Report Signed Patient: Evan PuenteMR#: [id number] : 1970Acct:[id number] Age/Sex: 54 / MADM Date: 11/20/24 Loc: HO.ED Attending Dr: Ordering Physician: Alma Rosa Perea DO Date of Service: 11/20/24 Procedure(s): CT abdomen pelvis w IV con Accession Number(s): [id number] cc: Aubree Pinto MD; Alma Rosa Perea DO Report Number: [id number]: Total DLP = 722.00 mGy-cm EXAMINATION: CT ABDOMEN AND PELVIS WITH CONTRAST CLINICAL INFORMATION: Severe epigastric pain. COMPARISON: 12/16/2020. TECHNIQUE: Multidetector volumetric images were obtained from the superior aspect of the liver through the pubic symphysis following administration 85 mL of Omnipaque 350 intravenous contrast. Sagittal and coronal reformatted images were obtained on the technologist's workstation. Oral contrast: No This CT examination was performed using dose optimization techniques as appropriate, variously including the following: *Automated exposure control *Adjustment of mA and/or kV according to patient size (this includes techniques or standardized protocols for targeted exams where dose is matched to indication/reason for exam; i.e. extremities or head) *Use of iterative reconstruction technique FINDINGS:1 LUNG BASES: The visualized lung bases are unremarkable. LIVER, GALLBLADDER, AND BILIARY TREE: The liver is normal in size and shape. There is mild diffuse fatty infiltration. There are a few scattered calcified granulomata. No focal hepatic lesion or biliary ductal dilatation is present. There is a 3.2 cm oval gallstone in the gallbladder neck. There are smaller gallstones present as well. No definite gallbladder wall thickening or inflammation. PANCREAS: Unremarkable. SPLEEN: Unremarkable. ADRENAL GLANDS: Unremarkable. KIDNEYS AND URETERS: The kidneys are normal in size, shape, and attenuation. No hydronephrosis, hydroureter, or calculi seen. No perinephric stranding. BLADDER: Unremarkable. GASTROINTESTINAL TRACT: There are no acute findings. The appendix is normal. Moderate diverticulosis of the descending and sigmoid colon without evidence of inflammation or wall thickening. No rectal abnormality. No small bowel abnormality. The stomach is somewhat decompressed but appears grossly normal. The duodenum appears grossly normal. ABDOMINAL WALL: No significant hernia is appreciated. LYMPH NODES: Normal. VASCULAR: Mild calcific atheromatous disease of the aorta and iliac vessels. No aneurysm. PELVIC VISCERA: The prostate and seminal vesicles are unremarkable. OSSEOUS STRUCTURES: No suspicious lytic or blastic bone lesions. Mild spinal and bilateral hip joint degenerative changes present. CT/CT abdomen pelvis w IV con IMPRESSION: 1. There is a 3.2 cm gallstone within the region of the neck of the gallbladder. No gallbladder inflammation or wall thickening grossly. There are additional smaller gallstones. 2. Mild diffuse fatty infiltration of the liver. No biliary dilatation present. 3. Diverticulosis of the left colon without evidence of acute diverticulitis. Electronically signed by: Hugo Coates MD 11/20/2024 09:45 AM EDT RP Dictated By: Hugo Coates MD Signed By: <Electronically signed by Hugo Coates MD in OV> 11/20/24944 DD/ 7 TD/TT: 11/20/24929 Transverse Abdominal Muscle Nurse: [facility] External Provider IMG CT PROCEDURES Final Result * (ABNORMAL) Glucose, Whole Blood (10/11/2024 3:25 PM EDT) Glucose, Whole Blood 302(H) 60 - 115 mg/dL [facility] Comment:METER #: [id number] 5Testing performed in the Endocrinology Department [address] , [address], [facility]. 10/11/2024 3:25 PM EDT 10/11/2024 3:30 PM EDT Generic External Data Provider LAB BLOOD ORDERAB LES Final Result Performing Organization Address [facility] de Phone Number [facility] [address] [place] [phone] * Sex Hormone Binding Globulin (SHBG) (10/11/2024 2:30 PM EDT) Sex Hormone Binding Globulin 38 22 - 77 nmol/L [facility] Comment:THIS TEST WAS PERFOR MED AT:[employer] [place] [place] [phone] BOWEN MD 10/11/2024 2:30 PM EDT 10/11/2024 2:30 PM EDT Generic External Data Provider LAB BLOOD ORDERAB LES Final Result Performing Organization Address [facility] Co de Phone Number [facility] [address] [place] [phone] [phone] * Testosterone, Free (Dialysis) And Total, MS (10/11/2024 2:30 PM EDT) Testosterone, Total 396 250 - 1100 ng/dL [facility] Comment:For additional infor shira, please refer [email or web address]/[email or web address](This link is being provided for informational/educational purposes only.)This test was developed and its analytical performancecharacteristics have been determined by [facility] [place] [place]. It hasnot been cleared or approved by the U.S. Food and DrugAdministration. This assay has been validated pursuantto the CLIA regulations and is used for clinicalpurposes. Testosterone, Free 54.3 35.0 - 155.0 pg/mL [facility] Comment:This test was develo ped and its analytical performancecharacteristics have been determined by [facility] [place] [place]. It hasnot been cleared or approved by the U.S. Food and DrugAdministration. This assay has been validated pursuantto the CLIA regulations and is used for clinicalpurposes.THIS TEST WAS PERFORMED AT:[employer]/[id number] [place] [id number] SANTANA MD,PHD 10/11/2024 2:30 PM EDT 10/11/2024 2:30 PM EDT us Generic External Data Provider LAB BLOOD ORDERAB LES Final Result [facility] [address] [place] [phone] * ALT (10/11/2024 2:30 PM EDT) Alanine Aminotransferase 26 0 - 40 U/L [facility] 10/11/2024 2:30 PM EDT 10/11/2024 2:30 PM EDT us Generic External Data Provider LAB BLOOD ORDERAB LES Final Result Performing Organization Address [facility] Co de Phone Number [facility] [address] [place] [phone] * AST (10/11/2024 2:30 PM EDT) Aspartate Amino Transferase 28 5 - 37 U/L [facility] 10/11/2024 2:30 PM EDT 10/11/2024 2:30 PM EDT us Generic External Data Provider LAB BLOOD ORDERAB LES Final Result Performing Organization Address [facility] de Phone Number [facility] [address] [place] [phone] * Albumin (10/11/2024 2:30 PM EDT) Albumin Level 4.2 3.5 - 5.0 g/dL [facility] 10/11/2024 2:30 PM EDT 10/11/2024 2:30 PM EDT us Generic External Data Provider LAB BLOOD ORDERAB LES Final Result Performing Organization Address [facility] Phone Number [facility] [address] [place] [phone] * (ABNORMAL) Lipid Panel, Standard (10/11/2024 2:30 PM EDT) Triglycerides 113 <150 mg/dL [facility] Comment:Desirable Triglyceri de: less than 150 mg/dLBorderline High Triglyceride 150-199 mg/dLHigh Triglyceride: 200-499 mg/dLVery High Triglyceride: greater than or equal to 5OO mg/dL Cholesterol 115 <200 mg/dL [facility] Comment:Desirable Cholestero l: less than 200 mg/dLBorderline High Cholesterol: 200-239 mg/dLHigh Cholesterol: greater than 239 mg/dL LDL Cholesterol Calculated 58 <100 mg/dL [facility] Comment:Desirable LDL: less than 100 mg/dLNear Optimal/Above Optimal LDL: 110- 129 mg/dLBorderline High LDL: 130-159 mg/dLHigh LDL: 160-189 mg/dLVery High LDL: greater than or equal to 190 mg/dL HDL Cholesterol 35(L) >40 mg/dL [facility] Comment:Desirable HDL: great er than 40 mg/dL Note: This HDL assay may give artificially low results in patients with liver disease. 10/11/2024 2:30 PM EDT 10/11/2024 2:30 PM EDT us Generic External Data Provider LAB BLOOD ORDERAB LES Final Result [facility] [address] [place] [phone] * (ABNORMAL) Basic Metabolic Panel (10/11/2024 2:30 PM EDT) Sodium 136 135 - 145 mmol/L [facility] Potassium 4.1 3.3 - 5.1 mmol/L [facility] Chloride 103 96 - 108 mmol/L [facility] Carbon Dioxide 26 22 - 29 mmol/L [facility] Anion Gap 11(L) 12 - 20 [facility] Urea Nitrogen (BUN) 18(H) 9 - 16 mg/dL [facility] Creatinine, Serum 1.33 0.5 - 1.4 mg/dL [facility] Estimated Glomerular Filt Rate 56 [facility] Comment:Chronic Kidney Disea se: Estimated GFR < 60 mL/min/1.68v9Nlnqsw Kidney Disease: Estimated GFR < 15 mL/min/1.73m2 Glucose 299(H) 60 - 115 mg/dL [facility] Calcium 9.3 8.4 - 10.2 mg/dL [facility] Blood Venous blood specimen / Unknown 10/11/2024 2:30 PM EDT 10/11/2024 2:30 PM EDT us Aubree Pinto MD LAB BLOOD ORDERABLES Final Result Performing Organization Address [facility]/ZIP Co de Phone Number [facility] [address] [place] [phone] * Albumin, Random Urine W/Creatinine (10/11/2024 2:24 PM EDT) Creatinine, Urine 109.88 mg/dL [facility] Microalbumin Urine <5.0 mg/L [facility] Microalbum Creatinine Ratio Ur TNP <30 ug/mg cr [facility] Comment:Unable to calculate albumin/creatinine ratio due to lowmicroalbumin or creatinine result. 10/11/2024 2:24 PM EDT 10/11/2024 3:27 PM EDT us Generic External Data Provider LAB URINE ORDERAB LES Final Result Performing Organization Address [facility] Co de Phone Number [facility] [address] [place] [phone] * (ABNORMAL) Hemoglobin A1c (07/13/2024 1:46 PM EDT) Hemoglobin A1c 7.8(H) <6.0 % [facility] Comment:Hemoglobin A1C Refer ence Range Adults: 4.8 - 6.0 % Non diabetic: < 6.0 % Goal: < 7.0 %Additional Action Suggested: > 8.0 %Note: Hemoglobin A1c results are invalid for patients with abnormal amounts of HbF. Blood transfusions may impact the HbA1c concentration in the patient sample. Estimated Average Glucose 177 mg/dL [facility] Comment:eAG = Estimated ave rage glucose which is %A1C expressed asaverage glucose, using the formula of the H3Z-[id number] Glucose study (ADAG), Diabetes Care, Vol.31,#8,Nov. 2007 Blood Venous blood specimen / Unknown 07/13/2024 1:46 PM EDT 07/13/2024 1:46 PM EDT Result [facility] Aubree Pinto MD LAB BLOOD ORDERABLES Final Result Performing Organization Address [facility] Co de Phone Number [facility] [address] [place] [phone] * Diabetes Eye Exam (05/04/2024) Eye Exam Normal Normal Comment:[facility] Result [facility] Historical Provider HEALTH MAINTENANCE Final Result * HIV Ab/Ag ([facility]) (06/27/2022 7:23 AM EDT) HIV AB/AG Nonreactive Nonreactive [facility] Comment:HIV-1 p24 Ag and/or HIV-1/HIV-2 Ab not detected.A test result that is nonreactive does not exclude thepossibility of exposure to or infection with HIV-1 and/orHIV-2. Nonreactive results in this assay for individualswith prior exposure to HIV-1 and/or HIV-2 may be due toantigen and antibody levels that are below the limit ofdetection of this assay.The Pa Tipping Machine Operator Automatic HIV Ag/Ab Combo assay result andsupplemental assay results should be interpreted inconjunction with the patient's clinical presentation,history and other laboratory results. If the results areinconsistent with clinical evidence, additional testing issuggested to confirm the result. 06/27/2022 7:23 AM EDT 06/27/2022 7:23 AM EDT [facility] External Provider LAB BLO OD ORDERABLES Final Result Performing Organization Address 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 Advance Directives and Living Will 04/17/2024 Health Care Proxy 04/17/24 Advance Directives and Living Will 06/28/2023 Health Care Proxy 06/23/23 Care Teams Stacker Attendant Relationship Specialty Start Date End Date Blair, MD Aubree [address] [place] [phone] PCP - General Family Medicine 04/05/18 Matt Silvestre MD [address] [place] [address] Endocrinology 03/07/24 Chris Wills MD [address] [place] [address] Urology 04/19/24 Lashell Falcon [facility] [place] [address] [address] Ophthalmology 05/09/24 Saul Avalos MD [address] [place] [address] [address] [place] [phone] Gastroenterology 06/12/24 Stephani Rivera NP Endocrinology 04/19/24
--- OUTSIDE RECORDS SUMMARY | 2024-11-30 15:36 | XMS_ITS | Encounter Summary ---
Author Organization [employer] Address [address] [facility] [address] [place] [address] Care Team Providers Care Vp Integrity Name Role Phone Aubree Pinto MD Primary Care Provider [phone] Matt Silvestre MD Unavailable Chris Wills MD Unavailable [phone] Lashell Flacon Unavailable Saul Avalos MD Unavailable [phone] Encounter Details Date Type Department Care Team (Late st Contact Info) Description 03/07/2024 Abstract [facility] [address] [place] [address] Aubree Pinto MD [address] [place], [place] [phone] Social History Tobacco Use Types Packs/Day Years [...] Description 12/28/2024 9:45 AM EDT Office Visit [facility] [address] [place] [phone] Aubree Pinto MD [address] [place] [phone] documented as of this encounter Procedures Procedure [...] documented as of this encounter Care Teams Vp Integrity Relationship Specialty Start Date End Date Aubree Pinto MD [address] [place] [phone] PCP - General Family Medicine 04/05/18 Matt Silvestre MD [address] [place] [address] Endocrinology 03/07/24 Chris Wills MD [address] [place] [address] Urology 04/19/24 Lashell Falcon [address] [place] [address] Ophthalmology 05/09/24 Saul Avalos MD [address] [place] [address] [address] [place] [phone] Gastroenterology 06/12/24 Stephani Rivera TENNIS PLAYER Endocrinology 04/19/24 documented as of this encounter
== END 2024-11-30 15:18 | disposition home or self-care (01) ==
LOC: HO.HGS 14:54
PROVIDERS: PCP Family Medicine; Visit Provider Surgery
DX: Z90.49 Acquired absence of other specified parts of digestive tract (principal)
CPT/HCPCS: 99024

== ENCOUNTER → 2024-11-30 14:53 | Outpatient (BNVA) | payer OTHER, SELFPAY | PROVIDERS: PCP Family Medicine; Visit Provider Surgery | DX: Z98.890 Other specified postprocedural states (principal); Z90.49 Acquired absence of other specified parts of digestive tract | CPT/HCPCS: 99212 ==

== ENCOUNTER 2025-01-11 15:05 | Outpatient (AMB) | payer OTHER, SELFPAY ==
[2025-01-11 15:13] VITALS: BP 140/78; PULSE 91; O2SAT 95; BMI 33.3
--- NOTE | 2025-01-11 15:13 | A.OFFVIS_ITS ---
Vital Signs 3 01/11/25 15:13 Height 5 ft 9 in Weight 225 lb 8.526 oz BMI 33.3 BP 140/78 H Blood Pressure Location Lt brachial Position Sitting Pulse 91 Pulse Source Pulse Oximeter Pulse Oximetry (%) 95 Oxygen Delivery Method Room Air Intake Visit Reasons: T1DM Intake Note: Patient present today for Type 1 Diabetes Mellitus Last Diabetic eye exam: Last exam was on 05/2024 Last Podiatry Visit: Doesn't have one Random Glucose: 161 mg/dl HgA1C: 7.6% Hazardous Materials Handler Required: No Accompanied by: Self / Same As Patient Allergies liraglutide Allergy (Unknown, Verified 01/11/25 15:19) Unknown Medication List - Last Reconciled 01/11/25 by Eboni Su MD acetone (urine) test (Ketone Care strips) As directed atorvastatin 40 mg PO BEDTIME 30 days blood sugar diagnostic (Accu-Chek Guide test strips) As directed 6x per day cane As directed ciclopirox 0.77% 1 appl topical BID 4 weeks NS COVID-19 antigen test ([employer] COVID-19 Ag Self Test kit) As directed insulin aspart U-100 (Novolog U-100 Insulin aspart) 150 units continuous subcutaneous infusion DAILY Lantus Solostar U-100 Insulin (insulin glargine) 50 units (0.5 mL) subcut DAILY PRN 30 days NS lisinopril 5 mg PO DAILY tadalafil 20 mg PO ONCE PRN 30 days tirzepatide (weight loss) (Zepbound) 10 mg subcut MO HPI Comments Details: 54 YO male seen in f/u for type 1 diabetes mellitus on Medtronic 780 G with guardian for sensor with complications of nephropathy.. Hemoglobin A1C POC 01/11/25 7.6% October 2024 8.2% Last seen October 2024 by Stephani Leger APRN He has been on both wegovy and ozempic in the past. Since coming off Wegovy, his weight has increased from 222 pounds to 240.He reports he had been eating a balanced diet and in the morning having a protein shake. He is now on zepbound 10mg weekly. started in early 2024 , lost has been on 10 mg for 2 months He had a low testosterone level 01/01/24 279 and additional labs were ordered at that time. He is following up with Dr. Wills urology Initially diagnosed with T1DM approximately 2013. Current regimen: mounjaro 10mg [novolog via medtronic 780G with guardian 4 sensor] Medtronic 780 G with guardian 4 sensor downloaded for the past 14 days Average blood glucose 159 mg/dL G NM 7.1% Coefficient of variation 36.1% Within target range 74% High 19% Very high 7% Low 0% Interpretation: Excellent glycemic control, having some hyperglycemia post dinner. Total daily dose: 92.4 units of insulin per day Basal 56.9 units, 62% Bolus 35.6 units, 38% Basal rate(s) (units/hour) : 12 AM? to 5 AM? 2.0 units / hr 5 AM? to 12 PM? 1.75 units / hr 12 PM? to 12 AM? 2.0 units / hr Bolus setting Insulin Carbohydrate Ratio (s) 12 AM to 4 AM? 1:3.5 4 AM to 12 AM 1:3.5 Correction Factor / Sensitivity Factor 12 AM to 12 AM?? 1:14 Active Insulin Time:? 2hr 15 min Target(s): SmartGuard target: 100 mg/dL 12 AM to 12 AM?? 120 to 130 Patient understands the basic concepts of pump therapy, how to give insulin for meals and snacks, how to troubleshoot for hyper and hypoglycemia. Has eyes checked yearly, last eye exam was May 2024, no retinopathy. Denies neuropathy, he does not see Podiatry Has nephropathy, on [lisinopril 5 mg daily]. 06/2023 Microalbumin 34 eGFR>60 [Has] HLD, on [atorvastatin 40 mg daily]. Last LDL [84] measured on [06/26]. Denies history of CAD. Followed by Dr. Wills in Urology for hypogonadism and ED He denies numbness, tingling or cramps in the extremities. He wears closed toed shoes or slippers at all times. Diet/Carb counting: [Accurate] Weight: WEight incrase since off wegovy [Denies] prior episodes of DKA. [Denies] prior severe episodes of hypoglycemia requiring help or hospitalization. 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 He has 3 children 1 in senior in high school, 1 in college for nursing in an older daughter in her early 30s with 1 child. Physical exam General: sitting comfortably in no acute distress HEENT: normocephalic/atraumatic, Cardiac: normal heart sounds Pulm: normal breath sounds B/L, no added breath sounds Abd: not distended, no tenderness Extremities: no edema, no signs of myxedema Laboratory Tests 10/11/24 10/11/24 10/11/24 14:24 14:30 15:44 Hgb Hct Plt Count Glucose (Clinic) Hgb A1c (Clinic) 8.2 H AST ALT Triglycerides 113 Cholesterol 115 LDL Cholesterol, Calc 58 HDL Cholesterol 35 L Urine Creatinine 109.88 Urine Microalbumin < 5.0 11/20/24 11/21/24 01/11/25 07:12 05:03 15:21 Hgb 15.0 Hct 42.1 Plt Count 285 Glucose (Clinic) 161 H Hgb A1c (Clinic) AST 41 H ALT 29 Triglycerides Cholesterol LDL Cholesterol, Calc HDL Cholesterol Urine Creatinine Urine Microalbumin 01/11/25 15:24 Hgb Hct Plt Count Glucose (Clinic) Hgb A1c (Clinic) 7.6 H AST ALT Triglycerides Cholesterol LDL Cholesterol, Calc HDL Cholesterol Urine Creatinine Urine Microalbumin PFSH Medical History Ventral hernia (02/11/23) Back pain Depression Elevated cholesterol Elevated serum creatinine Vitamin D deficiency Diabetic nephropathy associated with type 1 diabetes mellitus Obesity (BMI 30-39.9) Hypertension 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), managed as type 1 Surgical History Hx laparoscopic cholecystectomy (11/21/24) History of hernia surgery H/O colonoscopy Hx of exploratory laparotomy Family History Father Diabetes Mother Diabetes Social History Household Members: Spouse and Children Housing: House Do you presently have visiting nurse or other home services: No Alcohol intake: current Alcohol intake frequency: holidays/special occasions only Alcohol type: beer Patient Tobacco Use Status: Former Tobacco user service: No Current occupational status: employed 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 Physical Exam Vital Signs: Last Vital Signs Pulse 91 01/11/25 15:13 BP 140/78 H 01/11/25 15:13 Pulse Ox 95 10/09/25 15:13 Oxygen Delivery Method Room Air 01/11/25 15:13 BMI result Body Mass Index 33.3 Office Procedures Glucose Monitoring Details Details: See [facility] [address] - Glucose monitoring, continuous-physician I&R Procedure code (CPT) selection complete Results AMB Hemoglobin A1c 2 AMB Hemoglobin A1c 7.6 % Last Edit by VENITA Alegria on 01/11/25 15:37 Results Reviewed Results Reviewed: Laboratory Last Values Glucose (Clinic) 161 mg/dL (60-115) H 01/11/25 15:21 Hgb A1c (Clinic) 7.6 % (4.0-6.0) H 01/11/25 15:24 Assessment & Plan Assessment & Plan (1) 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 He is doing very well, with 74% times in range, no hypoglycemia however he is not entering carbs consistently. He was advised to consistently enter his carbohydrate g before the meal. The patient had an opportunity to ask questions regarding treatment plan. The patient expressed understanding and agreement with the above treatment plan. The patient is aware they should contact our office by phone for worsening glucose readings or for any low blood sugars which may warrant a change in diabetes medication. Compliance is encouraged with medications and any followup testing/consults which may have been ordered. (2) Obesity (BMI 30-39.9): Code(s): E66.9 - Obesity, unspecified Category: Medical Plan: Weight has plateaued for the past 4 injections. Current BMI 33 point kg per meters squared, Increase Zepbound to 12.5 mg weekly injection Plan I spent 30 minutes in reviewing the record, seeing the patient and documenting in the medical record. 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
[2025-01-11 15:25] LABS: Glucose, Whole Blood 161 mg/dL (60-115)
== END 2025-01-11 15:53 | disposition home or self-care (01) ==
LOC: HO.ENCR 15:05
PROVIDERS: PCP Family Medicine; Visit Provider Student in an Organized Health Care Education/Training Program
DX: E13.9 Other specified diabetes mellitus without complications (principal); E66.9 Obesity, unspecified; Z13.9 Encounter for screening, unspecified
CPT/HCPCS: 95251; 99214

== ENCOUNTER → 2025-01-11 15:05 | Outpatient (BNVA) | payer OTHER, SELFPAY | PROVIDERS: PCP Family Medicine; Visit Provider Student in an Organized Health Care Education/Training Program | DX: Z46.81 Encounter for fitting and adjustment of insulin pump (principal); E13.9 Other specified diabetes mellitus without complications; E66.9 Obesity, unspecified; Z68.33 Body mass index [BMI] 33.0-33.9, adult; Z79.4 Long term (current) use of insulin | CPT/HCPCS: 82947; 83036; 99212 ==

== ENCOUNTER 2025-01-23 14:48 | Outpatient (AMB) | payer OTHER, SELFPAY ==
--- NOTE | 2025-01-23 15:14 | A.OFFVIS_ITS ---
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 Accompanied by: Self / Same As Patient Allergies liraglutide Allergy (Unknown, Verified 01/11/25 15:19) Unknown HPI Comprehensive Diabetes Asmnt Most Recent Diabetes Results: 2 Hemoglobin A1c 10.5 % 12/15/19 Microalb/Creat Ratio TNP 10/11/24 Cholesterol, (<200) 115 mg/dL 10/11/24 HDL Cholesterol, (>40) 35 mg/dL L 10/11/24 Triglycerides, (<150) 113 mg/dL 10/11/24 Creatinine, (0.5-1.4) 0.85 mg/dL 11/21/24 BUN, (9-16) 11 mg/dL 11/21/24 Sodium, (135-145) 136 mmol/L 11/21/24 Potassium, (3.3-5.1) 4.1 mmol/L 11/21/24 Chloride, (96-108) 104 mmol/L 11/21/24 Carbon Dioxide, (22-29) 21 mmol/L L 11/21/24 Calcium, (8.4-10.2) 8.7 mg/dL 11/21/24 AST, (5-37) 41 U/L H 11/21/24 ALT, (0-40) 29 U/L 11/21/24 Total Protein, (6.5-8.0) 6.1 g/dL L 11/21/24 Albumin, (3.5-5.0) 3.7 g/dL 11/21/24 [facility] Medical History Ventral hernia (02/11/23) Back pain Depression Elevated cholesterol Elevated serum creatinine Vitamin D deficiency Diabetic nephropathy associated with type 1 diabetes mellitus Obesity (BMI 30-39.9) Hypertension 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), managed as type 1 Surgical History Hx laparoscopic cholecystectomy (11/21/24) History of hernia surgery H/O colonoscopy Hx of exploratory laparotomy Family History Father Diabetes Mother Diabetes Social History Household Members: Spouse and Children Housing: House Do you presently have visiting nurse or other home services: No Alcohol intake: current Alcohol intake frequency: holidays/special occasions only Alcohol type: beer Patient Tobacco Use Status: Former Tobacco user service: No Current occupational status: employed 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 Avoiding fried foods, and high carbohydrate foods Patient in range 76% at target At today's visit we discussed the 2 new options for CGM for Medtronic 780 G We compared the Instinct sensor and Simplera Sync sensor Patient reports that he would prefer the 15 day Instinct sensor Patient given copy of handout with instructions on how to contact [employer] for loco update to be able to be compatible with new sensor No changes made to insulin pump settings today. Settings verified by CDCES Basal rate(s) (units/hour) : 12 AM? to 5 AM? 2.0 units / hr 5 AM? to 12 PM? 1.75 units / hr 12 PM? to 12 AM? 2.0 units / hr Bolus setting Insulin Carbohydrate Ratio (s) 12 AM to 4 AM? 1:3.5 4 AM to 12 AM 1:3.5 Correction Factor / Sensitivity Factor 12 AM to 12 AM?? 1:14 Active Insulin Time:? 2 hours 15 minutes Target(s): SmartGuard target: 100 mg/dL 12 AM to 12 AM?? 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
--- OUTSIDE RECORDS SUMMARY | 2025-01-23 20:01 | XMS_ITS | Patient Health Record ---
Author Organization [facility] Address [address] [place] [address] Care Team Providers Care Anthropology Instructor Name Role Phone Blair OCHOA, Aubree Primary Care Provider Pamela Saul Cortez Jr Unavailable Reason For Referral No Information Medications Medication SIG (Take, Route, Fr equency, Duration) Notes Start Date End Date Status Lantus Active Pravastatin Sodium A ctive traMADol HCl Active metFORMIN HCl Active Problems Problem Type SNOMED Code ICD Code Onset Dates Problem Status W/U Status Risk Notes Problem Chronic hepatitis C (536912615) Chronic hepatitis C without mention of hepatic coma (070.54) Active confirmed Problem Chronic hepatitis C (695501784) Chronic hepatitis C (070.54) Active confirmed Plan Of Treatment Pending Test Test Name Order Date LIVER PROFILE 01/25/2012 LIVER PROFILE 07/21/2011 FREE T4 (FT4) 07/21/2011 TSH (THYROID STIMULATING HORMONE) 2011 CBC w DIFF 07/21/2011 CBC w/o DIFF 01/25/2012 HEPATITIS C VIRAL LOAD 01/25/2012 Future Test Test Name Order Date HCV RNA BDNA RFLX TMA 01/15/2012 Next Appt Details Provider Name:Saul ruano Jr, 05/03/2025 03:15:00 PM, [address], [address], [place], [address], Insurance Providers Payer Name Payer Address Payer Phone Subscriber Number Group Number Insured Name Patient Relationship to Insured Coverage Start Date Coverage End Date [facility] [address] [address] [place], [place] [id number] PALLAVI ROCA Self - patient is the insured Medical (General) History Medical History History ICD Code hyperlipidemia back pain Hepatitis C diabetes mellitus
--- OUTSIDE RECORDS SUMMARY | 2025-01-23 20:01 | XMS_ITS | Data Portability ---
Author Organization [facility] [address] Address [address] [place] [address] Assessment No assessment recorded. Plan of Treatment [...] By Organization Details Last Modified Time 04/30/2023 [id number] This physical does not replace the annual [...] Time 4 OC[employer]DOT PHYSICAL completed Marcia Bynum [employer] [facility] [employer] 04/30/2023 15:42:53 3 OC[employer]DOT PHYSICAL completed JOSHUA MIGUEL PA - [facility] 05/11/2022 08:56:56 Imaging Results None recorded. Procedure [...] Diagnosis SNOMED-CT Code Diagnosis ICD10 Code Diagnosis IMO Codes Diagnosis Note [id number] [facility] [facility] [address] [place] [address] 05/29/2017 15:01:54 05/29/2017 15:24:50 [id number] [facility] [facility] [facility] [address] [place] [address] 12/28/2019 12:18:16 12/28/2019 13:38:21 [id number] [facility] [facility] [address] [place] [address] 11/26/2020 14:35:05 11/26/2020 19:02:39 [id number] [address] [address] [place] [address] 05/22/2021 14:27:53 05/22/2021 16:04:17 [id number] [address] [address] [place] [address] 03/31/2016 14:40:30 03/31/2016 15:39:46 [id number] [facility] [address] [place] [address] 05/11/2022 08:05:24 05/11/2022 09:25:12 History 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, 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 [id number] Z02.1 Documentat ion for this visit can be found on the electronic DOT form or scanned copy [id number] [place] [address] [place] [address] 04/30/2023 13:41:19 04/30/2023 16:28:41 History 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, 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 [id number] Z02.1 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 [id number] Z02.4 Physical examination 588 0005 Z02.4 Health Concerns Section Related Observation LastModified by Organization Detai ls LastModified Time None Recorded Concern Status LastModified by Organization Details LastModified Time None Recorded Advance Directives Directive None Recorded Payers Insurance Date Sequence Insurance Name Policy Number Policy Olivo Covered Member ID Olivo Member ID Guarantor Name 05/11/2022 DO NOT USE Evan Puente [id number] Evan Puente 05/12/2022 PAY AT TOS Evan Puente [id number] Evan Puente 04/30/2023 OC-PAY AT TIME OF SERVICE 2022 Evan Puente OTHER OTHER Evan Puente 04/30/2023 [facility] [id number] Evan Puente [id number] Evan Puente Notes Date Note Type Note Provider Name and Address Organization Details Recorded Time 04/30/2023 text/html PhysicalReported by PatientHPIFor source of patient information, patient reportspatient arrived at urgent care ambulatoryandpatient. For patient presents for a physical for, patient reportsemployment. 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 Lexx Apodaca NP [address] [place], [address], [place] - [facility] 04/30/2023 16:27:05
--- OUTSIDE RECORDS SUMMARY | 2025-01-23 20:02 | XMS_ITS | Encounter Summary ---
Author Organization [employer] Address [address] [place] [address] Care Team Providers Care Sewer Tapper Name Role Phone Aubree Pinto MD Primary Care Provider [phone] Matt Silvestre MD Unavailable Chris Wills MD Unavailable [phone] Unavailable Saul Avalos MD Unavailable [phone] Reason for Visit * Reason Comments Med Refill Encounter Details Date Type Department Care Team (Late st Contact Info) Description 08/05/2022 Refill [facility] MEDICINE [address] [place], [place] [phone] Aubree Pinto MD [address] [place], [place] [phone] Social History Tobacco Use Types Packs/Day Years [...] documented as of this encounter Care Teams Sewer Tapper Relationship Specialty Start Date End Date Aubree Pinto MD [address] [place] [address] PCP - General Family Medicine 04/05/18 Matt Silvestre MD [address] [place] [address] Endocrinology 03/07/24 Chris Wills MD [address] [place] [address] Urology 04/19/24 Lashell Falcon [address], [place] [address] Ophthalmology 05/09/24 Saul Avalos MD [address] [place] [address] [address] [place] [phone] Gastroenterology 06/12/24 Stephani Rivera COMPLIANCE [facility] Endocrinology 04/19/24 documented as of this encounter
--- OUTSIDE RECORDS SUMMARY | 2025-01-23 20:02 | XMS_ITS | Encounter Summary ---
Author Organization [employer] Address [address]t [place] [address] Care Team Providers Care Ceramic Artist Name Role Phone Aubree Pinto MD Primary Care Provider [phone] Matt Silvestre MD Unavailable Chris Wills MD Unavailable [phone] Unavailable Saul Avalos MD Unavailable Encounter Details Date Type Department Care Team (Late st Contact Info) Description 03/15/2024 Orders Only [facility] MEDICINE [address] [place], [place] [phone] Aubree Pinto MD [address] [place], [place] [phone] Social History Tobacco Use Types Packs/Day Years [...] documented as of this encounter Care Teams Ceramic Artist Relationship Specialty Start Date End Date Aubree Pinto MD [address] [place] [address] PCP - General Family Medicine 04/05/18 Matt Silvestre MD [address] [place] [address] Endocrinology 03/07/24 Chris Wills MD [address] [place] [address] Drive [address] [place] [address] Urology 04/19/24 Lashell Falcon [address], [place] [address] Ophthalmology 05/09/24 Saul Avalos MD [address] [place] [address] [address] [place] [address] Gastroenterology 06/12/24 Stephani Rivera HEAD OF DIGITAL Endocrinology 04/19/24 documented as of this encounter
--- OUTSIDE RECORDS SUMMARY | 2025-01-23 20:02 | XMS_ITS | Clinical Summary ---
Author Organization [employer] Address [address] [facility] [address] [place] [address] Care Team Providers Care Mechanical Integrity Specialist Name Role Phone Aubree Pinto MD Primary Care Provider [phone] Matt Silvestre MD Unavailable [phone] Chris Wills MD Unavailable Lashell Falcon Unavailable Saul Avalos MD Unavailable [phone] Allergies Active Allergy Reactions Criticality Noted Date Comments Liraglutide Unknown 04/22/2023 Medications Acetaminophen 500 MG capsuleIndicatio ns:Low back pain potentially associated with radiculopathy Take 1 tab po tid pain 60 capsule 3 024 Active Omeprazole 20 MG tablet delayed-releaseI ndications:Gastr oesophageal reflux disease, unspecified whether esophagitis present Take 20 mg by mouth in the morning. 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 Active omeprazole OTC (PriLOSEC OTC) 20 MG EC tabletIndication s:Gastroesophage al reflux disease, unspecified whether esophagitis present Take 1 tab po daily 28 tablet 09/25/2 025 Active Tirzepatide-Weig ht Management (Zepbound) 12.5 MG/0.5ML solution auto-injectorInd ications:Class 1 obesity due to excess calories with serious comorbidity and body mass index (BMI) of 33.0 to 33.9 in adult Inject under the skin. 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 2024 Discontinued(M ed list cleanup (will not trigger notification to Pharmacy)) ciclopirox (Loprox) 0.77 % cream Apply topically 2 times daily. 2024 Discontinued(M ed list cleanup (will not trigger notification to Pharmacy)) Docusate Sodium (DSS) 100 MG capsule Take 100 mg by mouth if needed in the morning and at bedtime. 2024 Discontinued(M ed list cleanup (will not trigger notification to Pharmacy)) NovoLOG 100 UNIT/ML solution Inject 150 units via insulin pump daily subcutaneously 025 2024 Discontinued Zepbound 10 MG/0.5ML solution auto-injector Inject 0.5 mL under the skin every 7 (seven) days. 025 2024 Discontinued(M ed list cleanup (will not trigger notification to Pharmacy)) polyethylene glycol, PEG, 3350 (MiraLax) 17 GM/SCOOP powderIndication s:Slow transit constipation Take 17 g by mouth Once per day. 527 g 025 2024 amoxicillin-clav ulanate (Augmentin) 875-125 MG tabletIndication s:Tooth pain Take 1 tablet by mouth 2 times daily for 10 days. 20 tablet 025 2024 Active Problems Problem Noted Date Diagnosed [...] of 37.0 to 37.9 in adult 06/12/2024 Overview (12/28/2024): Baseline weight: 252 lbs, 12/28/24 down 26 lbs approx. 10% of his total body weight. -given BMI >30kg/m2 or >27kg/m2 with uncontrolled diabetes pt is a candidate for glucagon-like peptide-1s (GLP-1) to assist with weight loss. Prescribed through optometrist. -Reviewed w/ pt side effects of GLP1 and how to mitigate incl eating small portions and do not eat through sensation of fullness. -Discussed this medication should be used long-term and that obesity will be treated as a chronic condition. If and when patient stops this medicaion, weight bay come back. -Discussed the potential for thyroid cancer and multiple endocrine neoplasia, rare eye issue and pancreatitis -Discussed mor common risks include nausea/vomiting, diarrhea, injection site reaction and gastroparesis. -No personal or family h/o papillary thyroid cancer. No personal h/o pancreatitis. Does/does not have retinopathy. Refrigerate but do not freeze. -In patients who are possible child bearing, we dicussed the changes to fertility as a result of significant weight loss, this can increase fertility. We do not recommend patient become or attempt to become while on weight loss medication. Medication should be stopped at least 2 months prior to attempting conceive. If they do not become while on medicaion, they should stop and follow up with the Obgyn. control discussed. -Zepbound (tirzepatide) 10mg subcutaneously q week x 1 month, then increase to 5mg subcutaneously q week. May increased by 2.5mg q 4 weeks with max 15mg/wk -Follow up with endo for weight check and medication titration BMI Readings from Last 3 Encounters: 12/28/24 33.37 kg/m 11/24/24 35.38 kg/m 06/12/24 34.41 kg/m Wt Readings from Last 3 Encounters: 12/28/24 226 lb (103 kg) 11/24/24 239 lb 9.6 oz (109 kg) 06/12/24 233 lb (106 kg) Assessment & Plan (12/28/2024 10:52 AM EDT): Baseline weight: 252 lbs, 12/28/24 down 26 lbs approx. 10% of his total body weight. -given BMI >30kg/m2 or >27kg/m2 with uncontrolled diabetes pt is a candidate for glucagon-like peptide-1s (GLP-1) to assist with weight loss. Prescribed through optometrist. -Reviewed w/ pt side effects of GLP1 and how to mitigate incl eating small portions and do not eat through sensation of fullness. -Discussed this medication should be used long-term and that obesity will be treated as a chronic condition. If and when patient stops this medicaion, weight bay come back. -Discussed the potential for thyroid cancer and multiple endocrine neoplasia, rare eye issue and pancreatitis -Discussed mor common risks include nausea/vomiting, diarrhea, injection site reaction and gastroparesis. -No personal or family h/o papillary thyroid cancer. No personal h/o pancreatitis. Does/does not have retinopathy. Refrigerate but do not freeze. -In patients who are possible child bearing, we dicussed the changes to fertility as a result of significant weight loss, this can increase fertility. We do not recommend patient become or attempt to become while on weight loss medication. Medication should be stopped at least 2 months prior to attempting conceive. If they do not become while on medicaion, they should stop and follow up with the Obgyn. control discussed. -Zepbound (tirzepatide) 10mg subcutaneously q week x 1 month, then increase to 5mg subcutaneously q week. May increased by 2.5mg q 4 weeks with max 15mg/wk -Follow up with endo for weight check and medication titration BMI Readings from Last 3 Encounters: 12/28/24 33.37 kg/m 11/24/24 35.38 kg/m 06/12/24 34.41 kg/m Wt Readings from Last 3 Encounters: 12/28/24 226 lb (103 kg) 11/24/24 239 lb 9.6 oz (109 kg) 06/12/24 233 lb (106 kg) Assessment & Plan (06/12/2024 10:20 AM EDT): [...] due after 06/12/25 -eye care facilitated by [facility] -dental home is [facility] care proxy on file 06/23/2023 Assessment & Plan (06/12/2024 9:32 AM EDT): -next comprehensive annual evaluation due after 06/12/25 -eye care facilitated by [facility] -[facility] is [facility] care proxy on file 06/23/2023 Assessment & Plan (10/01/2023 11:21 AM EDT): -next physical exam due after 02/23/2024 -eye care facilitated by [facility] [place] -health care proxy on file 06/23/2023 Assessment & Plan (06/23/2023 4:34 PM EDT): -next physical exam due after 02/23/2024 -eye care facilitated by [facility] -health care proxy given on 06/23/2023 Assessment & Plan (02/22/2023 11:34 AM EST): -next physical exam due after 02/23/2024 -eye care facilitated by [facility] Colon cancer screening 08/06/2022 Overview (12/28/2024): -colonoscopy scheduled 08/26/22. -Pt missed appt, gave number to reschedule 02/22/2023 -referral for colonoscopy 06/23/2023 -has intake appointment January 04 2025, will call to confirm. Assessment & Plan (12/28/2024 10:52 AM EDT): -colonoscopy scheduled 08/26/22. -Pt missed appt, gave number to reschedule 02/22/2023 -referral for colonoscopy 06/23/2023 -has intake appointment January 04 2025, will call to confirm. Assessment & Plan (06/12/2024 10:20 AM EDT): [...] scheduled 08/26/22. Stage 3 chronic kidney disease (CMS/HCC) 023 Overview (12/28/2024): Lab Results Component Value Date CREATININE 1.33 10/11/2024 EGFR 56 10/11/2024 MICROALBCREU TNP 10/11/2024 MICROALBCREU 6.1 07/13/2024 LDLCHOLCAL 58 10/11/2024 -continue Lisinopril 5mg, daily. Assessment & Plan [...] Seen by pain management 02/20/22. Erectile dysfunction associa augustin with type 2 diabetes mellitus 06/19/2021 Overview (12/28/2024 10:02 AM EDT): -Seen by urologist Dr. Chris Wills 07/29/23, note from 09/13/24 reveiwed -Erectile Dysfunction and setting up insulin-dependent diabetes with component of Peyronie's associated with curvature of penis -Medications provided with daily tadalafil and on demand tadalafil -trial pentoxifylline 400 mg p.o. b.i.d. to try to help with baseline mild Peyronie's Assessment & Plan (12/28/2024 10:52 AM EDT): -Seen by urologist Dr. Chris Wills 07/29/23, note from 09/13/24 reveiwed -Erectile Dysfunction and setting up insulin-dependent diabetes with component of Peyronie's associated with curvature of penis -Medications provided with daily tadalafil and on demand tadalafil -trial pentoxifylline 400 mg p.o. b.i.d. to try to help with baseline mild Peyronie's Assessment & Plan (12/28/2024 10:02 AM EDT): >>ASSESSMENT AND PLAN FOR ERECTILE DYSFUNCTION WRITTEN ON 04/29/2022 11:55 AM BY KERMIT JOE No improvement with Viagara. Will refer to urology. Improve BS control. Assessment & Plan (12/28/2024 10:02 AM EDT): >>ASSESSMENT AND PLAN FOR ERECTILE DYSFUNCTION WRITTEN ON 08/06/2022 1:09 PM BY KERMIT JOE No improvement with Viagara. Will refer to urology. Improve BS control. Assessment & Plan (12/28/2024 10:02 AM EDT): >>ASSESSMENT AND PLAN FOR ERECTILE DYSFUNCTION WRITTEN ON 02/22/2023 9:37 AM BY TOYA SELLERS No improvement with Viagara. Will refer to urology. Improve BS control. Assessment & Plan (12/28/2024 10:02 AM EDT): >>ASSESSMENT AND PLAN FOR ERECTILE DYSFUNCTION WRITTEN ON 06/23/2023 4:27 PM BY TE SWANSON No improvement with Viagara. Will refer to urology. Improve BS control. Assessment & Plan (12/28/2024 10:02 AM EDT): >>ASSESSMENT AND PLAN FOR ERECTILE DYSFUNCTION WRITTEN ON 10/01/2023 11:19 AM BY DOMINGO MCMAHON -Seen by urologist Dr. Chris Wills 07/29/23 -Erectile Dysfunction and setting up insulin-dependent diabetes with component of Peyronie's associated with curvature of penis -Medications provided with daily tadalafil and on demand tadalafil -trial pentoxifylline 400 mg p.o. b.i.d. to try to help with baseline mild Peyronie's Latent autoimmune diabetes i n adults (GAGAN), managed as type 1 05/19/2012 Overview (12/28/2024): Pt with adult, autoimmune mediated DM Type 1 -followed by Nipple Threader Dr. Silvestre and Stephani Rivera TILE GRINDER , seen 07/12/24 -humalog insulin via insulin pump since 05/07/23 -pump Medtronic 780 G with guardian 3 sensor , guardian 4 transmitter Lab Results Component Value Date HGBA1C 8.0 (A) 12/28/2024 HGBA1C 7.8 (H) 07/13/2024 HGBA1C 8.4 (A) 06/12/2024 Lab Results Component Value Date CREATININE 1.33 10/11/2024 EGFR 56 10/11/2024 MICROALBCREU TNP 10/11/2024 MICROALBCREU 6.1 07/13/2024 LDLCHOLCAL 58 10/11/2024 -Leonardo/Arb: lisinopril 5mg -Statin therapy: atorvastatin 40mg -Diabetic foot exam: 06/12/24 -Last eye exam done at [facility] 05/04/24 -Continue lifestyle modifications -Continue current medications via endocrinology -humalog via pump -on Zepbound per optometrist. Assessment & Plan (12/28/2024 10:52 AM EDT): Pt with adult, autoimmune mediated DM Type 1 -followed by Nipple Threader Dr. Silvestre and Stephani Rivera TILE GRINDER , seen 07/12/24 -humalog insulin via insulin pump since 05/07/23 -pump Medtronic 780 G with guardian 3 sensor , guardian 4 transmitter Lab Results Component Value Date HGBA1C 8.0 (A) 12/28/2024 HGBA1C 7.8 (H) 07/13/2024 HGBA1C 8.4 (A) 06/12/2024 Lab Results Component Value Date CREATININE 1.33 10/11/2024 EGFR 56 10/11/2024 MICROALBCREU TNP 10/11/2024 MICROALBCREU 6.1 07/13/2024 LDLCHOLCAL 58 10/11/2024 -Leonardo/Arb: lisinopril 5mg -Statin therapy: atorvastatin 40mg -Diabetic foot exam: 06/12/24 -Last eye exam done at [facility] 05/04/24 -Continue lifestyle modifications -Continue current medications via endocrinology -humalog via pump -on Zepbound per optometrist. Orders: POCT Hgb A1c POCT Glucose Assessment & Plan (06/12/2024 10:19 AM EDT): Pt with adult, autoimmune mediated DM Type 1 -followed by Nipple Threader Dr. Silvestre and Stephani Rivera TILE GRINDER , seen 02/2024 -humalog insulin via insulin [...] exam: 06/12/24 -Last eye exam done at [facility] 05/04/24 -Continue lifestyle modifications -Continue current medications via endocrinology -humalog via pump -was doing well on Wegovy but stopped by insurance, awaiting appeal from optometrist. Assessment & Plan (10/01/2023 11:20 AM EDT): [...] exam: due -Last eye exam done at [facility] 08/06/2022 -Continue lifestyle modifications -Continue current medications via endocrinology -humalog via pump -wegovy Assessment & Plan (06/23/2023 4:26 PM EDT): Pt with adult, autoimmune mediated DM Type 1. -followed by Dr. Silvestre -Last eye exam done at [facility] 08/06/2022. Assessment & Plan (02/22/2023 9:37 AM EST): Pt with adult, autoimmune mediated DM Type 1. -followed by Dr. Silvestre -Last eye exam done at [facility] 08/06/2022. Assessment & Plan (08/06/2022 2:18 PM EDT): Pt with adult, autoimmune mediated DM Type 1. -followed by Dr. Silvestre. -Last eye exam done at [facility] 08/06/2022 Assessment & Plan (04/29/2022 1:15 PM EST): Pt with adult, autoimmune mediated DM Type 1. -followed by Dr. Silvestre Dyslipidemia 09/25/2011 Overview (12/28/2024): Lab Results Component Value Date CHOL 115 10/11/2024 CHOL 153 07/13/2024 CHOL 143 06/05/2023 TRIG 113 10/11/2024 TRIG 137 07/13/2024 TRIG 105 06/05/2023 HDL 35 (L) 10/11/2024 HDL 44 07/13/2024 HDL 39 (L) 06/05/2023 LDLCHOLCAL 58 10/11/2024 LDLCHOLCAL 82 07/13/2024 LDLCHOLCAL 83 06/05/2023 -continue atorvastatin 40mg -check FLP -continue lifestyle [...] potentially associated with radicu lopathy 09/25/2011 Overview (12/28/2024): Patient has have greater than 6 weeks of provider directed treatment without response. Supported treatments completed with the past three months include drugs for swelling or pain, physical therapy, and injected steroids. Despite this, upon revaluation, there is no improved symptoms. And now he has radiculopathy symptoms on the left leg suggestive of compression. -MRI ordered 06/23/23, never done Assessment & Plan (10/01/2023 11:20 AM EDT): [...] / harm reduction discussed. 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), managed as type 1 (CMS/HCC) (Primary Dx); Erectile dysfunction associated with type 2 diabetes mellitus (CMS/HCC); Tooth pain; Gastroesophageal reflux disease, unspecified whether esophagitis present; Class 1 obesity due to excess calories with serious comorbidity and body mass index (BMI) of 33.0 to 33.9 in adult; Dietary counseling; Exercise counseling; Positive depression screening; Colon cancer screening 12/28/2024 Travel 12/27/2024 Telephone [facility] [address] [place] [phone] Elisabet Coles MA 11/24/2024 1:00 PM EDT Office Visit [facility] [address] [place] [address] Tammie Castle MD S/P laparoscopic cholecystectomy (Primary Dx); Slow transit constipation 11/24/2024 Travel 11/23/2024 Telephone [facility] [address] [place] [address] Aubree Pinto MD Hospital Follow-up 11/20/2024 Orders Only [facility] External Provider, [facility] from Last 3 Months Immunizations Immunization Administration Dates Next Due Hep A, Adult 06/16/2018,12/07/2008 Hep B, adult 06/12/2024,06/23/2023,02/22/2023 Influenza injectable quadriv alent IIV4 with preservative 12/19/2018,01/01/2017 Influenza injectable quadriv alent preservative free 02/22/2023,04/06/2022,06/16/2018,03/12 Influenza, IIV3, injectable 12/25/2010, 9,02/22/2008 Influenza, Split (incl. maureen fied surface antigen) 01/19/2013 Moderna Covid-19 Vaccine 12+ 07/10/2020,06/13/19 Pfizer Covid-19 Vaccine 12+ Bivalent 04/29/2022 Pfizer [...] Answer Date Recorded Patient Health Questionnaire-9 Score 5 12/28/2024 Patient Health Questionnaire-9 Score 5 12/28/2024 Last PHQ-9: Questionnaire Data Not on file 0 12/28/2024 Housing Stability Answer Date Recorded What is [...] Answer Date Recorded Patient Health Questionnaire-2 Score 1 12/28/2024 Internet Access Answer Date Recorded Internet Access [...] Sign Reading Time Taken Comments Blood Pressure 136/88 12/28/2024 9:44 AM EDT Pulse 90 12/28/2024 9:44 AM EDT Temperature 37 C (98.6 F) 12/28/2024 9:44 AM EDT Respiratory Rate 20 12/28/2024 9:44 AM EDT Oxygen Saturation 95% 11/24/2024 12:59 PM EDT Inhaled Oxygen Concentration - - Weight 103 kg (226 lb) 12/28/2024 9:44 AM EDT Height 175.3 cm (5' 9 ) 12/28/2024 9:44 AM EDT Body Mass Index 33.37 12/28/2024 9:44 AM EDT Plan of Treatment Health Maintenance Due Date Last Done Comments CT Colonography 1968 Colonoscopy 1968 Colorectal Cancer Screening 1968 FIT DNA/Cologuard 1968 FIT 1968 FOBT 1968 Sigmoidoscopy 1968 COVID-19 Vaccine ( season) 2024 04/29/2022, 08/13/2021, 02/01/2021, Additional history exists Influenza Vaccine (#1) 2024 , 04/06/2022, 12/19/2018, Additional history exists Diabetes: Hemoglobin A1C 03/29/2025 025, 07/13/2024, 06/12/2024, Additional history exists Alcohol/Substance Use Screening 06/12/2025 06/12/2024 Diabetes: Foot Exam 06/12/2025 06/12/2024, 06/12/2024, 06/12/2024, Additional history exists SDOH Screening 06/12/2025 06/12/2024 Diabetes: Urine Protein Screening 10/11/2025 10/11/2024, 07/13/2024, 06/05/2023, Additional history exists Lipid Panel 10/11/2025 10/11/2024, 07/04, 06/05/2023, Additional history exists Depression Screening 12/28/2025 12/28/2024, 12/29/19 Disability Screening 12/28/2025 12/28/2024 Tobacco Screening 12/28/2025 12/28/2024 Eye Exam 05/04/2026 05/04/2024 DTaP/Tdap/Td Vaccines (3 - Td or Tdap) 06/13/2028 06/13/2018, 01/19/2013 RSV Patients and Patients Aged 60 years or older (1 - 1-dose 75+ series) 2043 Hepatitis A Vaccines Completed 06/16/2018, 12/08/19 09 Pneumococcal Vaccine: 50+ Years Completed 04/29/2022, 01/19/2013, [...] Associated Diagnosis Comments GLUCOSE, WHOLE BLOOD Routine 01/11/2025 3:21 PM EDT POCT GLUCOSE Routine 12/28/2024 9:45 AM EDT 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) LACTIC ACID Routine 11/20/2024 10:59 AM EDT DRUG MONITOR, PANEL 1, SCREEN, URINE Routine 11/20/2024 10:59 AM EDT URINALYSIS, COMPLETE, WITH REFLEX TO CULTURE Routine 11/20/2024 10:59 AM EDT US ABDOMEN LIMITED Routine 11/20/2024 10 :[address] ABDOMEN PELVIS W CONTRAST Routine 11/20/2024 8:08 AM EDT LIPID PANEL, STANDARD Routine 10/11/2024 2:30 PM EDT ALBUMIN, RANDOM URINE W/CREATININE Routine 10/11/2024 2:24 PM EDT DIABETES EYE EXAM Routine 05/04/2024 HIV ANTIBODY/ANTIGEN ([facility]) Routine 06/27/2022 7:23 AM EDT from Last 3 Months or Most Recently Relevant to Health Maintenance Results * (ABNORMAL) Glucose, Whole Blood (01/11/2025 3:21 PM EDT) Pathologist [facility] Glucose, Whole Blood 161(H) 60 - 115 mg/dL [facility] Comment:METER #: [id number] 0Testing performed in the Endocrinology Department [address] , [address], [facility]. 01/11/2025 3:21 PM EDT 01/11/2025 3:25 PM EDT us Generic External Data Provider LAB BLOOD ORDERAB LES Final Result Performing Organization Address City/State/[facility] Co de Phone Number [facility] [address] [place] [phone] * (ABNORMAL) POCT Hgb A1c (12/28/2024 9:45 AM EDT) [facility] Hemoglobin A1C 8.0(A) 4.0 - 5.7 % QC Media Lot # [id number] Lot# Expiration Date [id number] Blood 12/28/2024 9:45 AM EDT Aubree Pinto MD POINT OF CARE TEST ENTER/E DIT ORDERABLES Final Result * POCT Glucose (12/28/2024 9:45 AM EDT) Pathologist [facility] Glucose Blood, POC 165 60 - 200 mg/dL Blood Capillary blood specimen / Unknown 12/28/2024 9:45 AM EDT Aubree Pinot MD POINT OF CARE TEST ENTER/E DIT ORDERABLES Final Result * (ABNORMAL) Urinalysis, Complete, with Reflex to Culture (11/20/2024 10:59 AM EDT) Color Urine Yellow [facility] Appearance Urine Clear [facility] PH 5.5 5.0 - 9.0 [facility] Glucose Urine UA >=1000(A) Negative mg/dL [facility] Urine Blood Negative Negative [facility] Specific [place] - Urine >=1.030(H) 1.005 - 1.025 [facility] Urine Protein Negative Neg-Trace mg/dL [facility] Urine Ketones 40 Negative mg/dL [facility] Nitrite Urine Negative Negative [facility] Leukocyte Esterase Urine Negative Negative [facility] RBC Urine 0-2 0 - 2 /HPF [facility] Urine WBC 0-5 0 - 5 /HPF [facility] Urine Squamous Epithelial Cell 0-2 0 - 2 /HPF [facility] Urine Bacteria None Seen None Seen [facility] Hyaline Casts, Urine 0-2 0 - 2 /LPF [facility] 11/20/2024 10:5 9 AM EDT 11/20/2024 11:03 AM EDT Narrative [facility] - 11/20/2024 11:48 AM EDT [id number], Clean Catch us Generic External Data Provider LAB URINE ORDERAB LES Final Result [facility] [address] [place] [phone] * (ABNORMAL) Drug Monitoring, Panel 1, Screen, Urine (11/20/2024 10:59 AM EDT) Opiate Screen Urine POSITIVE(A) Not Detect [facility] Comment:Opiate cut-off is 30 0 ng/mL.Positive results are unconfirmed and should not be used fornon-medical purposes. Barbiturates, Urine Not Detected Not Detect [facility] Comment:Barbiturate cut-off is 200 ng/mL.Positive results are unconfirmed and should not be used fornon-medical purposes. Phencyclidine Screen Urine Not Detected Not Detect [facility] Comment:Phencyclidine cut-of f is 25 ng/mL.Positive results are unconfirmed and should not be used fornon-medical purposes. Amphetamine Screen Urine Not Detected Not Detect [facility] Comment:Amphetamine cut-off is 1000 ng/mL.Positive results are unconfirmed and should not be used fornon-medical purposes. Benzodiazepines Screen Urine Not Detected Not Detect [facility] Comment:Benzodiazepine cut-o ff is 200 ng/mL.Positive results are unconfirmed and should not be used fornon-medical purposes. Cocaine Screen Urine Not Detected Not Detect [facility] Comment:Cocaine cut-off is 3 00 ng/mL.Positive results are unconfirmed and should not be used fornon-medical purposes. Cannabinoid Screen Urine Not Detected Not Detect [facility] Comment:Cannabinoid cut-off is 50 ng/mL.Positive results are unconfirmed and should not be used fornon-medical purposes. Methadone Screen, Urine Not Detected Not Detect ng/mL [facility] Comment:Methadone cut-off is 300 ng/mL.Positive results are unconfirmed and should not be used fornon-medical purposes. FENTANYL URINE Not Detected Not Detect [facility] Comment:Fentanyl cut-off is 1 ng/mL.Positive results are unconfirmed and should not be used fornon-medical purposes. Oxycodone Urine Screen Not Detected Not Detect ng/mL [facility] Comment:Oxycodone cut-off is 100 ng/mL.Positive results are unconfirmed and should not be used fornon-medical purposes. Buprenorphine Screen Not Detected Not Detect ng/mL [facility] Comment:Buprenorphine cut-of f is 5 ng/mL.Positive results are unconfirmed and should not be used fornon-medical purposes. 11/20/2024 10:5 9 AM EDT 11/20/2024 11:03 AM EDT us Generic External Data Provider LAB URINE ORDERAB LES Final Result [facility] [address] [place] [address] [phone] * Lactic Acid (11/20/2024 10:59 AM EDT) Lactic Acid 1.3 0.5 - 2.0 mmol/L [facility] 11/20/2024 10:5 9 AM EDT 11/20/2024 11:03 AM EDT us Generic External Data Provider LAB BLOOD ORDERAB LES Final Result [facility] [address] [place] [phone] * US Abdomen Limited (11/20/2024 10:18 AM EDT) Anatomical Region Laterality Modality Abdomen Ultrasound 11/20/2024 10:1 8 AM EDT Narrative 11/20/2024 10:48 AM EDT [address] [address] Ultrasound Report Signed Patient: Evan Puenet MR#: [id number] : 1970 Acct:[id number] Age/Sex: 54 / M ADM Date: 11/20/24 Loc: .ED Attending Dr: Ordering Physician: Alma Rosa Perea DO Date of Service: 11/20/24 Procedure(s): US abdomen limited Accession Number(s): [id number] cc: Aubree Pinto MD; Alma Rosa Perea [...] 11/20/24 1044 DD/ 1018 TD/TT: 11/20/24 1020 Shell Grader: Procedure Note Donotuseinterpreter, Image - 11/20/[address] [address] Ultrasound Report Signed Patient: Evan PuenteMR#: [id number] : 1970Acct:[id number] Age/Sex: 54 / MADM Date: 11/20/24 Loc: HO.ED Attending Dr: Ordering Physician: Alma Rosa Perea DO Date of Service: 11/20/24 Procedure(s): US abdomen limited Accession Number(s): [id number] cc: Aubree Pinto MD; Alma Rosa Perea [...] 11/20/24 1044 DD/ 1018 TD/TT: 11/20/24 1020 Shell Grader: us [facility] External Provider IMG US PROCEDURES Final Result * CT Abdomen Pelvis w/ Contrast (11/20/2024 8:08 AM EDT) Anatomical Region Laterality Modality Body, Pelvis, Abdomen Computed T omography 11/20/2024 8:08 AM EDT Narrative 11/20/2024 9:48 AM EDT [address] [address] [address] Scan Report Signed Patient: Evan Puente MR#: [id number] : 1970 Acct:[id number] Age/Sex: 54 / M ADM Date: 11/20/24 Loc: .ED Attending Dr: Ordering Physician: Alma Rosa Perea DO Date of Service: 11/20/24 Procedure(s): CT abdomen pelvis w IV con Accession Number(s): [id number] cc: Aubree Pinto MD; Alma Rosa Perea DO Report Number: [id number]: Total DLP = 722.00 mGy-cm EXAMINATION: CT [...] 11/20/24 0945 DD/ 0808 TD/TT: 11/20/24 0930 Shell Grader: Procedure Note Donotuseinterpreter, Image - 11/20/[address] [address] [address] Scan Report Signed Patient: Evan PuenteMR#: [id number] : 1970Acct:[id number] Age/Sex: 54 / MADM Date: 11/20/24 Loc: HO.ED Attending Dr: Ordering Physician: Alma Rosa Perea DO Date of Service: 11/20/24 Procedure(s): CT abdomen pelvis w IV con Accession Number(s): [id number] cc: Aubree Pinto MD; Alma Rosa Perea DO Report Number: [id number]: Total DLP = 722.00 mGy-cm EXAMINATION: CT [...] in OV> 11/20/24944 DD/ 7 TD/TT: 11/20/24929 Shell Grader: [facility] External Provider IMG CT PROCEDURES Final Result * (ABNORMAL) Lipid Panel, Standard (10/11/2024 2:30 PM EDT) Triglycerides 113 <150 mg/dL [facility] Comment:Desirable Triglyceri de: less than 150 mg/dLBorderline High Triglyceride 150-199 mg/dLHigh Triglyceride: 200-499 mg/dLVery High Triglyceride: greater than or equal to 5OO mg/dL Cholesterol 115 <200 mg/dL [facility] Comment:Desirable Cholestero l: less than 200 mg/dLBorderline High Cholesterol: 200-239 mg/dLHigh Cholesterol: greater than 239 mg/dL LDL Cholesterol Calculated 58 <100 mg/dL [facility] Comment:Desirable LDL: less than 100 mg/dLNear Optimal/Above Optimal LDL: 110- 129 mg/dLBorderline High LDL: 130-159 mg/dLHigh LDL: 160-189 mg/dLVery High LDL: greater than or equal to 190 mg/dL HDL Cholesterol 35(L) >40 mg/dL [facility] Comment:Desirable HDL: great er than 40 mg/dL Note: This HDL assay may give artificially low results in patients with liver disease. 10/11/2024 2:30 PM EDT 10/11/2024 2:30 PM EDT Generic External Data Provider LAB BLOOD ORDERAB LES Final Result [facility] [address] [place] [phone] * Albumin, Random Urine W/Creatinine (10/11/2024 2:24 PM EDT) Creatinine, Urine 109.88 mg/dL [facility] Microalbumin Urine <5.0 mg/L [facility] Microalbum Creatinine Ratio Ur TNP <30 ug/mg cr [facility] Comment:Unable to calculate albumin/creatinine ratio due to lowmicroalbumin or creatinine result. 10/11/2024 2:24 PM EDT 10/11/2024 3:27 PM EDT us Generic External Data Provider LAB URINE ORDERAB LES Final Result [facility] [address] [place] [address] [phone] * Diabetes Eye Exam (05/04/2024) Pathologist [facility] Eye Exam Normal Normal Comment:[facility] Historical Provider HEALTH MAINTENANCE Final Result * HIV Ab/Ag ([facility]) (06/27/2022 7:23 AM EDT) Pathologist [facility] HIV AB/AG Nonreactive Nonreactive [facility] Comment:HIV-1 p24 Ag and/or HIV-1/HIV-2 Ab not detected.A test result that is nonreactive does not exclude thepossibility of exposure to or infection with HIV-1 and/orHIV-2. Nonreactive results in this assay for individualswith prior exposure to HIV-1 and/or HIV-2 may be due toantigen and antibody levels that are below the limit ofdetection of this assay.The [employer] HIV Ag/Ab Combo assay result andsupplemental assay results should be interpreted inconjunction with the patient's clinical presentation,history and other laboratory results. If the results areinconsistent with clinical evidence, additional testing issuggested to confirm the result. 06/27/2022 7:23 AM EDT 06/27/2022 7:23 AM EDT us [facility] External Provider LAB BLO OD ORDERABLES Final Result [facility] [address] [place] [address] [phone] from Last 3 Months or Most Recently Relevant to Health Maintenance Insurance [facility] 3 Advance Directives Documents on File Type Date Recorded Patient Account Support Associate Expl anation Advance Directives and Living Will 04/17/2024 Health Care Proxy 04/17/24 Advance Directives and Living Will 06/28/2023 Health Care Proxy 06/23/23 Care Teams Mechanical Integrity Specialist Relationship Specialty Start Date End Date [place], MD Aubree [address] [place] [address] PCP - General Family Medicine 04/05/18 Matt Silvestre MD [address] [place] [address] Endocrinology 03/07/24 Chris Wills MD [address] [place] [address] Urology 04/19/24 Lashell Falcon [address] [place], [place] [address]cristel Leavitt [address] [place] [address] Ophthalmology 05/09/24 Saul Avalos MD [address] [place] [address] [address] [place] [address] Gastroenterology 06/12/24 Stephani Rivera TILE GRINDER Endocrinology 04/19/24
--- OUTSIDE RECORDS SUMMARY | 2025-01-23 20:02 | XMS_ITS | Encounter Summary ---
Author Organization [employer] Address [address] [place] [address] Care Team Providers Care Home Day Care Provider Name Role Phone Aubree Pinto MD Primary Care Provider [phone] Matt Silvestre MD Unavailable Chris Wills MD Unavailable [phone] Lashell Falcon Unavailable Saul Avalos MD Unavailable [phone] Encounter Details Date Type Department Care Team (Late st Contact Info) Description 03/07/2024 Abstract [facility] [address] [place] [address] Aubree Pinto MD [address] [place], [place] [phone] Social History Tobacco Use Types Packs/Day Years [...] A1C 7.7(A) 4.0 - 6.0 % 10/06/2023 us Historical Provider HEALTH MAINTENANCE Final Result documented in this encounter Visit Diagnoses Not on filedocumented in this encounter Additional Health Concerns Assessment Noted Time PHQ-9 Depression Total Score: 0 09/29/19 24 2:41 PM EDT documented as of this encounter Care Teams Home Day Care Provider Relationship Specialty Start Date End Date Aubree Pinto MD [address] [place] [address] PCP - General Family Medicine 04/05/18 Matt Silvestre MD [address] [place] [address] Endocrinology 03/07/24 Chris Wills MD [address] [place] [address] Urology 04/19/24 Lashell Falcon [facility] [address] [place] [address] Ophthalmology 05/09/24 Saul Avalos MD [address] [place] [address] [place] [phone] Gastroenterology 06/12/24 Stephani Rivera CONTENT STRATEGY LEAD Endocrinology 04/19/24 documented as of this encounter
== END 2025-01-23 15:20 | disposition home or self-care (01) ==
LOC: HO.ENCR 14:49
PROVIDERS: PCP Family Medicine; Visit Provider Registered Nurse Diabetes Educator
DX: E13.9 Other specified diabetes mellitus without complications (principal)

== ENCOUNTER → 2025-01-23 14:48 | Outpatient (BNVA) | payer OTHER, SELFPAY | PROVIDERS: PCP Family Medicine; Visit Provider Registered Nurse Diabetes Educator | DX: E13.9 Other specified diabetes mellitus without complications (principal) | CPT/HCPCS: 99211 ==

== ENCOUNTER 2025-02-06 16:05 | Outpatient (AMB) | payer OTHER, SELFPAY ==
[2025-02-06 16:08] VITALS: BP 122/74; PULSE 86; O2SAT 96; BMI 33.2
--- NOTE | 2025-02-06 16:08 | MHC.OFFVIS ---
Vital Signs 02/06/25 16:08 Height 5 ft 9 in Weight 224 lb 10.417 oz BMI 33.2 BP 122/74 Blood Pressure Location Lt brachial Position Sitting Pulse 86 Pulse Source Pulse Oximeter Pulse Oximetry (%) 96 Oxygen Delivery Method Room Air Intake Visit Reasons: t1dm/zepbound adjustment. Intake Note: Patient is here for Zepbound adjustment. POC 164 Patient is requesting new sensors for satya 4 system. Dive Supervisor Required: No Accompanied by: Self / Same As Patient Allergies liraglutide Allergy (Unknown, Verified 02/06/25 16:12) Unknown Medication List - Last Reconciled 02/06/25 by Matt Silvestre MD acetone (urine) test (Ketone Care strips) As directed atorvastatin 40 mg PO BEDTIME 30 days blood sugar diagnostic (Accu-Chek Guide test strips) As directed 6x per day cane As directed ciclopirox 0.77% 1 appl topical BID 4 weeks NS COVID-19 antigen test (BinaxNOW COVID-19 Ag Self Test kit) As directed insulin aspart U-100 (Novolog U-100 Insulin aspart) 150 units continuous subcutaneous infusion DAILY Lantus Solostar U-100 Insulin (insulin glargine) 50 units (0.5 mL) subcut DAILY PRN 30 days NS lisinopril 5 mg PO DAILY tadalafil 20 mg PO ONCE PRN 30 days tirzepatide (weight loss) (Zepbound) 12.5 mg (0.5 mL) subcut QWEEK HPI Comments Details: 54 YO male seen in f/u for DM. He is on an insulin pump. He was last seen by Dr. Su on 01/11/25 He has been on both wegovy and ozempic. Since coming off Wegovy, his weight has increased from 222 pounds to 240.He reports he had been eating a balanced diet and in the morning having a protein shake. He is now on mounjaro 10mg weekly. He had a low testosterone level 01/01/24 279 and additional labs were ordered at that time. He is following up with Dr. Wills urology Initially diagnosed with T1DM approximately 2013. Current regimen: Zepbound 12.5 mg [novolog via medtronic 780G with guardian 4 sensor] Basal rate(s) (units/hour) : 12 AM? to 5 AM? 2.0 units / hr 5 AM? to 12 PM? 1.75 units / hr 12 PM? to 12 AM? 2.0 units / hr Bolus setting Insulin Carbohydrate Ratio (s) 12 AM to 4 AM? 1:3.5 4 AM to 12 AM 1:3.5 Correction Factor / Sensitivity Factor 12 AM to 12 AM?? 1:14 Active Insulin Time:? 2hr 15 min Target(s): SmartGuard target: 100 mg/dL 12 AM to 12 AM?? 120 to 130 He is using the Sparc are 93% of the time. The sensor is being used 90% of the time. Average glucose is 163 with G mi of 7.2% and coefficient of variation of 31.8%. Total daily dose of insulin is 98.4 with 47% basal and 69% autocorrection . Sensor does show some elevation in point of cares post meals Patient understands the basic concepts of pump therapy, how to give insulin for meals and snacks, how to troubleshoot for hyper and hypoglycemia. Has eyes checked yearly, last eye examhas appt 02/23 no retinopathy. Denies neuropathy, he does not see Podiatry Has nephropathy, on [THO]. 06/2023 Microalbumin 34 eGFR>60 [Has] HLD, on [statin]. Last LDL [84] measured on [06/26]. Denies history of CAD. Followed by Dr. Wills in Urology for hypogonadism and ED He denies numbness, tingling or cramps in the extremities. He wears closed toed shoes or slippers at all times. Diet/Carb counting: [Accurate] Weight: WEight incrase since off wegovy [Denies] prior episodes of DKA. 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 He has 3 children 1 in senior in high school, 1 in college for nursing in an older daughter in her early 30s with 1 child. 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), managed as type 1 Surgical History Hx laparoscopic cholecystectomy (11/21/24) History of hernia surgery H/O colonoscopy Hx of exploratory laparotomy Family History Father Diabetes Mother Diabetes Social History Household Members: Spouse and Children Housing: House Do you presently have visiting nurse or other home services: No Alcohol intake: current Alcohol intake frequency: holidays/special occasions only Alcohol type: beer Patient Tobacco Use Status: Former Tobacco user service: No Current occupational status: employed 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 Absence of acromegalic features. Neck exam reveals nl size thyroid about 15 gms. No thyroid nodules palpable. Heart S1 S2, Reg R/R. No M/R G. Skin exam reveals absence of vitiligo or acanthosis nigricans. No edema Visual exam of foot performed. No ulcerations or open lesions. No inter digit maceration or fissuring. No onychomycosis, no callouses. Sensation intact to monofilament exam. Vibratory sensation is normal with 128 Hz tuning fork. 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 He also has drops in blood sugar after correction Have patient enter carbohydrates consistently in the pump before meals as there are some postprandial elevations. Will have patient follow up with the telehealth nurse educator. 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
[2025-02-06 16:27] LABS: Glucose, Whole Blood 164 mg/dL (60-115)
--- OUTSIDE RECORDS SUMMARY | 2025-02-06 18:28 | XMS_ITS | Encounter Summary ---
Author Organization [employer] Address [address] [facility] [address]t [place] [address] Care Team Providers Care Photolithographic Stripper Name Role Phone Aubree Pinto MD Primary Care Provider [phone] Matt Silvestre MD Unavailable [phone] Chris Wills MD Unavailable [phone] Lashell Falcon Unavailable Saul Avalos MD Unavailable [phone] Encounter Details Date Type Department Care Team (Late st Contact Info) Description 02/06/2025 Orders Only GENERIC EXTERNAL DATA DEPARTMENT Provider, [...] Associated Diagnosis Comments GLUCOSE, WHOLE BLOOD Routine 02/06/2025 4:19 PM EST documented in this encounter Results * (ABNORMAL) Glucose, Whole Blood (02/06/2025 4:19 PM EST) Glucose, Whole Blood 164(H) 60 - 115 mg/dL [facility] Comment:METER #: [id number] Testing performed in the Endocrinology Department [address] , [address], [facility]. 02/06/2025 4:19 PM EST 02/06/2025 4:26 PM EST us Generic External Data Provider LAB BLOOD ORDERAB LES Final Result Performing Organization Address City/State/[facility] Co de Phone Number [facility] [address] [place] [phone] documented in this encounter Visit Diagnoses Not on filedocumented in this encounter Additional Health Concerns Assessment Noted Time PHQ-9 Depression Total Score: 5 12/29/19 25 9:46 AM EDT documented as of this encounter Care Teams Photolithographic Stripper Relationship Specialty Start Date End Date Aubree Pinto MD [address] [place] [address] PCP - General Family Medicine 04/05/18 Matt Silvestre MD [address] [place] [address] Endocrinology 03/07/24 Chris Wills MD [address] [place] [address] Urology 04/19/24 Lashell Falcon [address] [place] [address] Ophthalmology 05/09/24 Saul Avalos MD [address] [place] [address] [address] [place] [phone] Gastroenterology 06/12/24 Stephani Rivera INSECT CONTROL AIDE Endocrinology 04/19/24 documented as of this encounter
--- OUTSIDE RECORDS SUMMARY | 2025-02-06 18:28 | XMS_ITS | Patient Health Record ---
Author Organization [facility] Address [address] [place] [address] Care Team Providers Care Rail Technician Name Role Phone Blair OCHOA, Aubree Primary Care Provider Pamela Saul Cortez Jr Unavailable [phone] Reason For Referral No Information Medications Medication SIG (Take, Route, Fr equency, Duration) Notes Start Date End Date Status Lantus Active Pravastatin Sodium A ctive traMADol HCl Active metFORMIN HCl Active Problems Problem Type SNOMED Code ICD Code Onset Dates Problem Status W/U Status Risk Notes Problem Chronic hepatitis C (281567165) Chronic hepatitis C without mention of hepatic coma (070.54) Active confirmed Problem Chronic hepatitis C (227080998) Chronic hepatitis C (070.54) Active confirmed Plan [...] Name:Saul ruano Jr, 05/03/2025 03:15:00 PM, [address] [facility], [address], [place], [address], Insurance Providers Payer Name Payer Address Payer Phone Subscriber Number Group Number Insured Name Patient Relationship to Insured Coverage Start Date Coverage End Date [facility] [address] [address] [place], [place] [id number] PALLAVI ROCA Self - patient is the insured Medical (General) History Medical History History ICD Code hyperlipidemia back pain Hepatitis C diabetes mellitus
--- OUTSIDE RECORDS SUMMARY | 2025-02-06 18:28 | XMS_ITS | Data Portability ---
Author Organization [employer] [facility] [address] Address [address] [place] [address] Assessment No assessment recorded. Plan of Treatment [...] By Organization Details Last Modified Time 04/30/2023 [id number] This physical does not replace the annual [...] Time 4 OC-DOT PHYSICAL completed Marcia Bynum [employer] - [employer] 04/30/2023 15:42:53 3 OC-DOT PHYSICAL completed JOSHUA MIGUEL PA - TIME PLUS Q [employer] 05/11/2022 08:56:56 Imaging Results None recorded. Procedure [...] ICD10 Code Diagnosis IMO Codes Diagnosis Note [id number] [facility] [address] [place] [address] 05/29/2017 15:01:54 05/29/2017 15:24:50 [id number] [facility] [address] [facility] [address] [place] [address] 12/28/2019 12:18:16 12/28/2019 13:38:21 [id number] [facility] [facility] [address] [place] [address] 11/26/2020 14:35:05 11/26/2020 19:02:39 [id number] [address] [address] [place] [address] 05/22/2021 14:27:53 05/22/2021 16:04:17 [id number] [address] [address] [place] [address] 03/31/2016 14:40:30 03/31/2016 15:39:46 [id number] [facility] [address] [place] [address] 05/11/2022 08:05:24 05/11/2022 09:25:12 History 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, 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 [id number] Z02.1 Documentat ion for this visit can be found on the electronic DOT form or scanned copy [id number] [place] [address] [place] [address] 04/30/2023 13:41:19 04/30/2023 16:28:41 History 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, 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 [id number] Z02.1 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 [id number] Z02.4 Physical examination 588 0005 Z02.4 Health Concerns Section Related Observation LastModified by Organization Detai ls LastModified Time None Recorded Concern Status LastModified by Organization Details LastModified Time None Recorded Advance Directives Directive None Recorded Payers Insurance Date Sequence Insurance Name Policy Number Policy Olivo Covered Member ID Olivo Member ID Guarantor Name 05/11/2022 DO NOT USE Evan Puente [id number] Evan Puente 05/12/2022 PAY AT TOS Evan Puente [id number] Evan Puente 04/30/2023 OC-PAY AT TIME OF SERVICE 2022 Evan Puente OTHER OTHER Evan Puente 04/30/2023 1 [facility] (O) [id number] Evan Puente [id number] Evan Puente Notes Date Note Type Note Provider Name and Address Organization Details Recorded Time 04/30/2023 text/html PhysicalReported by PatientHPIFor source of patient information, patient reportspatient arrived at urgent care ambulatoryandpatient. For patient presents for a physical for, patient reportsemployment. 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 [place]x Apodaca NP [address] [place], [address], [place] - [facility] 04/30/2023 16:27:05
--- OUTSIDE RECORDS SUMMARY | 2025-02-06 18:29 | XMS_ITS | Encounter Summary ---
Author Organization [employer] Address [address] [facility] 7t [place] [address] Care Team Providers Care Press Worker Helper Name Role Phone Aburee Pinto MD Primary Care Provider [phone] Matt Silvestre MD Unavailable [phone] Chris Wills MD Unavailable [phone] Lashell Falcon Unavailable Saul Avalos MD Unavailable Encounter Details Date Type Department Care Team (Late st Contact Info) Description 03/07/2024 Abstract [facility] [address] [place] [address] Aubree iPnto MD [address] [place], [place] [phone] Social History Tobacco Use Types Packs/Day Years [...] documented as of this encounter Care Teams Press Worker Helper Relationship Specialty Start Date End Date Aubree Pinto MD [address] [place] [address] PCP - General Family Medicine 04/05/18 Matt Silvestre MD [address] [place] [address] Endocrinology 03/07/24 Chris Wills MD [address] [place] [address] Urology 04/19/24 Lashell Falcon [facility] [address] [address] Ophthalmology 05/09/24 Saul Avalos MD [address] [place] [address] [place] [phone] Gastroenterology 06/12/24 Stephani Rivera LOOPER OPERATOR Endocrinology 04/19/24 documented as of this encounter
--- OUTSIDE RECORDS SUMMARY | 2025-02-06 18:29 | XMS_ITS | Encounter Summary ---
Author Organization [employer] Address [address] [facility] 7t [place] [address] Care Team Providers Care Cosmetic Chemist Name Role Phone Aubree Pinto MD Primary Care Provider [phone] Matt Silvestre MD Unavailable Chris Wills MD Unavailable [phone] Lashell Falcon Unavailable Saul Avalos MD Unavailable Reason for Visit * Reason Comments Med Refill Encounter Details Date Type Department Care Team (Late st Contact Info) Description 08/05/2022 Refill [facility] [address] [place], [place] [phone] Aubree Pinto MD [address] [place], [place] [phone] Social History Tobacco Use Types Packs/Day Years [...] documented as of this encounter Care Teams Cosmetic Chemist Relationship Specialty Start Date End Date Aubree Pinto MD [address] [place] [address] PCP - General Family Medicine 04/05/18 Matt Silvestre MD [address] [place] [address] Endocrinology 03/07/24 Chris Wills MD [address] [place] [address] Urology 04/19/24 Lashell Falcon [address] [place] [address] Ophthalmology 05/09/24 Saul Avalos MD [address] [place] [address] [address] [place] [phone] Gastroenterology 06/12/24 Stephani Rivera CLOTHING DESIGNER Endocrinology 04/19/24 documented as of this encounter
--- OUTSIDE RECORDS SUMMARY | 2025-02-06 18:29 | XMS_ITS | Clinical Summary ---
Author Organization [employer] Address [address] [facility] 7t [place] [address] Care Team Providers Care Makeup Sales Advisor Name Role Phone Aubree Pinto MD Primary Care Provider [phone] Matt Silvestre MD Unavailable [phone] Chris Wills MD Unavailable Lashell Falcon Unavailable Saul Avalos MD Unavailable [phone] Allergies Active Allergy Reactions Criticality Noted Date [...] NEEDED FOR SEXUAL ACTIVITY 08/09/19 24 Active atorvastatin (Lipitor) 40 MG tabletIndications :Dyslipidemia TAKE 1 TABLET BY MOUTH EVERYDAY AT BEDTIME 90 tablet 3 04/14/19 25 Active insulin glargine (Lantus) 100 UNIT/ML injectionIndicati ons: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 Active omeprazole OTC (PriLOSEC OTC) 20 MG EC tabletIndications :Gastroesophageal reflux disease, unspecified whether esophagitis present Take 1 tab po daily 28 tablet 12/29/19 25 Active Tirzepatide-Weigh t Management (Zepbound) 12.5 MG/0.5ML solution auto-injectorIndi cations:Class 1 obesity due to excess calories with serious comorbidity and body mass index (BMI) of 33.0 to 33.9 in adult Inject under the skin. Active insulin aspart (NovoLOG, Fiasp) 100 UNIT/ML patient supplied pumpIndications:L atent autoimmune diabetes in adults (GAGAN), managed as type 1 (HCC) Inject under the skin continuously . Active lisinopril 5 MG tabletIndications :Essential hypertension TAKE 1 TABLET BY MOUTH EVERY DAY 90 tablet 3 01/11/20 25 Active lisinopril 5 MG tabletIndications :Essential hypertension TAKE 1 TABLET BY MOUTH EVERY DAY 90 tablet 3 01/18/20 24 025 Discontinued amoxicillin-clavu lanate (Augmentin) 875-125 MG tabletIndications :Tooth pain Take 1 tablet by mouth 2 times daily for 10 days. 20 tablet 12/29/19 25 025 Active Problems Problem Noted Date Diagnosed Date [...] to assist with weight loss. Prescribed through multifold operator. -Reviewed w/ pt side effects of GLP1 [...] to assist with weight loss. Prescribed through multifold operator. -Reviewed w/ pt side effects of GLP1 [...] due after 06/12/25 -eye care facilitated by [facility] -dental home is [facility] proxy on file 06/23/2023 Assessment & Plan (06/12/2024 9:32 AM EDT): -next comprehensive annual evaluation due after 06/12/25 -eye care facilitated by [facility] -dental home is [place] [facility] proxy on file 06/23/2023 Assessment & Plan (10/01/2023 11:21 AM EDT): -next physical exam due after 02/23/2024 -eye care facilitated by [facility] is [facility] proxy on file 06/23/2023 Assessment & Plan (06/23/2023 4:34 PM EDT): -next physical exam due after 02/23/2024 -eye care facilitated by [facility] is [facility] proxy given on 06/23/2023 Assessment & Plan (02/22/2023 11:34 AM EST): -next physical exam due after 02/23/2024 -eye care facilitated by [facility] is [place] Colon cancer screening 08/06/2022 Overview (12/28/2024): -colonoscopy [...] 2:16 PM EDT): colonoscopy scheduled 08/26/22. Stage 3a chronic kidney disease ([facility]) 2022 Overview (12/28/2024): Lab Results Component Value Date [...] autoimmune mediated DM Type 1 -followed by Attending Radiologist Dr. Silvestre and Stephani Rivera TRACTOR SWEEPER DRIVER , seen 07/12/24 -humalog insulin via insulin [...] exam: 06/12/24 -Last eye exam done at [facility] 05/04/24 -Continue lifestyle modifications -Continue current medications via endocrinology -humalog via pump -on Zepbound per multifold operator. Assessment & Plan (12/28/2024 10:52 AM EDT): Pt with adult, autoimmune mediated DM Type 1 -followed by Attending Radiologist Dr. Silvestre and Stephani Rivera TRACTOR SWEEPER DRIVER , seen 07/12/24 -humalog insulin via insulin [...] exam: 06/12/24 -Last eye exam done at [facility] 05/04/24 -Continue lifestyle modifications -Continue current medications via endocrinology -humalog via pump -on Zepbound per multifold operator. Orders: POCT Hgb A1c POCT Glucose Assessment & Plan (06/12/2024 10:19 AM EDT): Pt with adult, autoimmune mediated DM Type 1 -followed by Attending Radiologist Dr. Silvestre and Stephani Rivera TRACTOR SWEEPER DRIVER , seen 02/2024 -humalog insulin via insulin [...] exam: 06/12/24 -Last eye exam done at [facility] 05/04/24 -Continue lifestyle modifications -Continue current medications via endocrinology -humalog via pump -was doing well on Wegovy but stopped by insurance, awaiting appeal from multifold operator. Assessment & Plan (10/01/2023 11:20 AM EDT): [...] exam: due -Last eye exam done at [facility] 08/06/2022 -Continue lifestyle modifications -Continue current medications via endocrinology -humalog via pump -wegovy Assessment & Plan (06/23/2023 4:26 PM EDT): Pt with adult, autoimmune mediated DM Type 1. -followed by Dr. Silvestre -Last eye exam done at [facility] 08/06/2022. Assessment & Plan (02/22/2023 9:37 AM EST): Pt with adult, autoimmune mediated DM Type 1. -followed by Dr. Silvestre -Last eye exam done at [facility] 08/06/2022. Assessment & Plan (08/06/2022 2:18 PM EDT): Pt with adult, autoimmune mediated DM Type 1. -followed by Dr. Silvestre. -Last eye exam done at [facility] 08/06/2022 Assessment & Plan (04/29/2022 1:15 PM [...] Encounters Date Type Department Care Team Description 02/06/2025 Orders Only GENERIC EXTERNAL DATA DEPARTMENT Provider, Generic External Data 01/11/2025 Orders Only GENERIC EXTERNAL DATA DEPARTMENT Provider, Generic External Data 01/10/2025 Refill [facility] [address] [place] [phone] Aubree Pinto MD Essential hypertension 12/28/2024 9:45 AM EDT Office Visit [facility] [address] [place] [phone] Aubree Pinto MD Latent autoimmune diabetes in [...] Colon cancer screening 12/28/2024 Travel 12/27/2024 Telephone [facility] [address] [place] [address] [phone] Elisabet Coles [place] 11/24/2024 1:00 PM EDT Office Visit [facility] [address] [place] [phone] Tammie Castle MD S/P laparoscopic cholecystectomy (Primary Dx); Slow transit constipation 11/24/2024 Travel 11/23/2024 Telephone [facility] [address] [place] [phone] Aubree Pinto MD Hospital Follow-up 11/20/2024 Orders Only [facility] External Provider, [facility] from Last 3 Months Immunizations Immunization [...] Additional history exists Lipid Panel 10/11/2025 10/11/2024, 04/1 , 06/05/2023, Additional history exists Depression Screening 12/28/2025 [...] WHOLE BLOOD Routine 02/06/2025 4:19 PM EST GLUCOSE, WHOLE BLOOD Routine 01/11/2025 3:21 PM EDT POCT GLUCOSE Routine 12/28/2024 9:45 AM EDT 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 Glucose, Whole Blood 164(H) 60 - 115 mg/dL [facility] Comment:METER #: [id number] Testing performed in the Endocrinology Department [address] , [address], [facility]. 02/06/2025 4:19 PM EST 02/06/2025 4:26 PM EST us Generic External Data Provider LAB BLOOD ORDERAB LES Final Result [facility] [address] [place] [phone] * (ABNORMAL) POCT Hgb A1c (12/28/2024 9:45 AM EDT) Hemoglobin A1C 8.0(A) 4.0 - 5.7 % QC Media Lot # [id number] Lot# Expiration Date ,[id number] Blood 12/28/2024 9:45 AM EDT us Aubree Pinto MD POINT OF CARE TEST ENTER/E DIT ORDERABLES Final Result * POCT Glucose (12/28/2024 9:45 AM EDT) Glucose Blood, POC 165 60 - 200 mg/dL Blood Capillary blood specimen / Unknown 12/28/2024 9:45 AM EDT us Aubree Pinto MD POINT OF CARE TEST ENTER/E DIT ORDERABLES Final Result * (ABNORMAL) Urinalysis, Complete, with Reflex to Culture (11/20/2024 10:59 AM EDT) Color Urine Yellow [facility] Appearance Urine Clear [facility] PH 5.5 5.0 - 9.0 [facility] Glucose Urine UA >=1000(A) Negative mg/dL [facility] Urine Blood Negative Negative [facility] Specific [place] - Urine >=1.030(H) 1.005 - 1.025 [facility] Urine Protein Negative Neg-Trace mg/dL [facility] Urine Ketones 40 Negative mg/dL [facility] Nitrite Urine Negative Negative [facility] Leukocyte Esterase Urine Negative Negative [facility] RBC Urine 0-2 0 - 2 /HPF [facility] Urine WBC 0-5 0 - 5 /HPF [facility] Urine Squamous Epithelial Cell 0-2 0 - 2 /HPF [facility] Urine Bacteria None Seen None Seen [facility] Hyaline Casts, Urine 0-2 0 - 2 /LPF [facility] 11/20/2024 10:5 9 AM EDT 11/20/2024 11:03 AM EDT Narrative [facility] - 11/20/2024 11:48 AM EDT [id number], Clean Catch us Generic External Data Provider LAB URINE ORDERAB LES Final Result [facility] [address] [place] [address] [phone] * (ABNORMAL) Drug Monitoring, Panel 1, Screen, Urine (11/20/2024 10:59 AM EDT) Opiate Screen Urine POSITIVE(A) Not Detect [facility] Comment:Opiate cut-off is 30 0 ng/mL.Positive results are unconfirmed and should not be used fornon-medical purposes. Barbiturates, Urine Not Detected Not Detect [facility] Comment:Barbiturate cut-off is 200 ng/mL.Positive results are unconfirmed and should not be used fornon-medical purposes. Phencyclidine Screen Urine Not Detected Not Detect [facility] Comment:Phencyclidine cut-of f is 25 ng/mL.Positive results are unconfirmed and should not be used fornon-medical purposes. Amphetamine Screen Urine Not Detected Not Detect [facility] Comment:Amphetamine cut-off is 1000 ng/mL.Positive results are unconfirmed and should not be used fornon-medical purposes. Benzodiazepines Screen Urine Not Detected Not Detect [facility] Comment:Benzodiazepine cut-o ff is 200 ng/mL.Positive results are unconfirmed and should not be used fornon-medical purposes. Cocaine Screen Urine Not Detected Not Detect [facility] Comment:Cocaine cut-off is 3 00 ng/mL.Positive results are unconfirmed and should not be used fornon-medical purposes. Cannabinoid Screen Urine Not Detected Not Detect [facility] Comment:Cannabinoid cut-off is 50 ng/mL.Positive results are unconfirmed and should not be used fornon-medical purposes. Methadone Screen, Urine Not Detected Not Detect ng/mL [facility] Comment:Methadone cut-off is 300 ng/mL.Positive results are unconfirmed and should not be used fornon-medical purposes. FENTANYL URINE Not Detected Not Detect [facility] Comment:Fentanyl cut-off is 1 ng/mL.Positive results are unconfirmed and should not be used fornon-medical purposes. Oxycodone Urine Screen Not Detected Not Detect ng/mL [facility] Comment:Oxycodone cut-off is 100 ng/mL.Positive results are unconfirmed and should not be used fornon-medical purposes. Buprenorphine Screen Not Detected Not Detect ng/mL [facility] Comment:Buprenorphine cut-of f is 5 ng/mL.Positive results are unconfirmed and should not be used fornon-medical purposes. 11/20/2024 10:5 9 AM EDT 11/20/2024 11:03 AM EDT Generic External Data Provider LAB URINE ORDERAB LES Final Result Performing Organization Address [facility] de Phone Number [facility] [address] [place] [phone] * Lactic Acid (11/20/2024 10:59 AM EDT) Lactic Acid 1.3 0.5 - 2.0 mmol/L [facility] 11/20/2024 10:5 9 AM EDT 11/20/2024 11:03 AM EDT Generic External Data Provider LAB BLOOD ORDERAB LES Final Result Performing Organization Address [facility] de Phone Number [facility] [address] [place] [phone] * US Abdomen Limited (11/20/2024 10:18 AM EDT) Anatomical Region Laterality Modality Abdomen Ultrasound 11/20/2024 10:1 8 AM EDT Narrative 11/20/2024 10:48 AM EDT [address] [address] Ultrasound Report Signed Patient: Evan Puente MR#: [id number] : 1970 Acct:[id number] Age/Sex: 54 / M ADM Date: 11/20/24 Loc: HO.ED Attending Dr: Ordering Physician: Alma Rosa Perea DO Date of Service: 11/20/24 Procedure(s): US abdomen limited Accession Number(s): [id number] cc: Aurbee Pinto MD; Alma Rosa Perea DO EXAMINATION: [...] 11/20/24 1044 DD/ 1018 TD/TT: 11/20/24 1020 Bulb Grader: Procedure Note Donotuseinterpreter, Image - 11/20/[address] [address] Ultrasound Report Signed Patient: Evan PuenteMR#: [id number] : 1970Acct:[id number] Age/Sex: 54 / MADM Date: 11/20/24 Loc: .ED Attending Dr: Ordering Physician: Alma Rosa Perea DO Date of Service: 11/20/24 Procedure(s): US abdomen limited Accession Number(s): [id number] cc: Aubree Pinto MD; [place],Alma Rosa DO EXAMINATION: US ABDOMEN LIMITED/GALLBLADDER. CLINICAL INFORMATION: [...] Woody Stock MD 11/20/2024 10:44 AM EDT Dictated By: Woody Qureshi MD Signed By: <Electronically signed by Woody Baez MDin OV> 11/20/24 1044 DD/ 1018 TD/TT: 11/20/24 1020 Bulb Grader: us [facility] External Provider IMG US PROCEDURES Final Result * CT Abdomen Pelvis w/ Contrast (11/20/2024 8:08 AM EDT) Anatomical Region Laterality Modality Body, Pelvis, Abdomen Computed T omography 11/20/2024 8:08 AM EDT Narrative 11/20/2024 9:48 AM EDT [place] [address] CT Scan Report Signed Patient: Evan Puente MR#: [id number] : 1970 Acct:[id number] Age/Sex: 54 / M ADM Date: 11/20/24 Loc: HO.ED Attending Dr: Ordering Physician: Alma Rosa Perea DO Date of Service: 11/20/24 Procedure(s): CT abdomen pelvis w IV con Accession Number(s): [id number] cc: Aubree Pinto MD; Alma Rosa Perea DO Report Number: [id number]: Total DLP = 722.00 mGy-cm EXAMINATION: CT [...] signed by Hugo Coates MD in OV> 11/20/2445 DD/ TD/TT: 11/20/24 0930 Bulb Grader: Procedure Note Donotuseinterpreter, Image - 11/20/[address] [address] [address] Scan Report Signed Patient: Xiomara Puente#: [id number] : 1970Acct:[id number] Age/Sex: 54 / MADM Date: 11/20/24 Loc: HO.ED Attending Dr: Ordering Physician: Alma Rosa Perea DO Date of Service: 11/20/24 Procedure(s): CT abdomen pelvis w IV con Accession Number(s): [id number] cc: Aubree Pinto MD; Alma Rosa Perea DO Report Number: [id number]: Total DLP = 722.00 mGy-cm EXAMINATION: CT [...] OV> 11/20/24 0945 DD/ 0808 TD/TT: 11/20/24 09 Bulb Grader: [facility] External Provider IMG CT PROCEDURES Final Result * (ABNORMAL) Lipid Panel, Standard (10/11/2024 2:30 PM EDT) Triglycerides 113 <150 mg/dL [facility] Comment:Desirable Triglyceri de: less than 150 mg/dLBorderline High Triglyceride 150-199 mg/dLHigh Triglyceride: 200-499 mg/dLVery High Triglyceride: greater than or equal to 5OO mg/dL Cholesterol 115 <200 mg/dL [facility] Comment:Desirable Cholestero l: less than 200 mg/dLBorderline High Cholesterol: 200-239 mg/dLHigh Cholesterol: greater than 239 mg/dL LDL Cholesterol Calculated 58 <100 mg/dL [facility] Comment:Desirable LDL: less than 100 mg/dLNear Optimal/Above Optimal LDL: 110- 129 mg/dLBorderline High LDL: 130-159 mg/dLHigh LDL: 160-189 mg/dLVery High LDL: greater than or equal to 190 mg/dL HDL Cholesterol 35(L) >40 mg/dL [facility] Comment:Desirable HDL: great er than 40 mg/dL Note: This HDL assay may give artificially low results in patients with liver disease. 10/11/2024 2:30 PM EDT 10/11/2024 2:30 PM EDT Generic External Data Provider LAB BLOOD ORDERAB LES Final Result Performing Organization Address [facility] Co de Phone Number [facility] [address] [place] [phone] * Albumin, Random Urine W/Creatinine (10/11/2024 2:24 PM EDT) Creatinine, Urine 109.88 mg/dL [facility] Microalbumin Urine <5.0 mg/L [facility] Microalbum Creatinine Ratio Ur TNP <30 ug/mg cr [facility] Comment:Unable to calculate albumin/creatinine ratio due to lowmicroalbumin or creatinine result. 10/11/2024 2:24 PM EDT 10/11/2024 3:27 PM EDT Generic External Data Provider LAB URINE ORDERAB LES Final Result Performing Organization Address [facility] Co de Phone Number [facility] [address] [place] [address] [phone] * Diabetes Eye Exam (05/04/2024) Eye Exam Normal Normal Comment:[facility] Historical Provider HEALTH MAINTENANCE Final Result * HIV Ab/Ag (KIAH GAMBLE) (06/27/2022 7:23 AM EDT) HIV AB/AG Nonreactive Nonreactive [facility] Comment:HIV-1 p24 Ag and/or HIV-1/HIV-2 Ab not detected.A test result that is nonreactive does not exclude thepossibility of exposure to or infection with HIV-1 and/orHIV-2. Nonreactive results in this assay for individualswith prior exposure to HIV-1 and/or HIV-2 may be due toantigen and antibody levels that are below the limit ofdetection of this assay.The Pa Roll Forming Machine Set Up Operator HIV Ag/Ab Combo assay result andsupplemental assay results should be interpreted inconjunction with the patient's clinical presentation,history and other laboratory results. If the results areinconsistent with clinical evidence, additional testing issuggested to confirm the result. 06/27/2022 7:23 AM EDT 06/27/2022 7:23 AM EDT [facility] External Provider LAB BLO OD ORDERABLES Final Result [facility] [address] [place] [address] [phone] from Last 3 Months or Most Recently Relevant to Health Maintenance Insurance [facility] 3 Advance Directives Documents on File Type Date Recorded Patient Boring Machine Operator Double End Expl anation Advance Directives and Living Will 04/17/2024 Health Care Proxy 04/17/24 Advance Directives and Living Will 06/28/2023 Health Care Proxy 06/23/23 Care Teams Makeup Sales Advisor Relationship Specialty Start Date End Date Stewart, MD Aubree [address] [place] [phone] PCP - General Family Medicine 04/05/18 Matt Silvestre MD [address] [place] [address] Endocrinology 03/07/24 Chris Wills MD [address] [place] [address] Urology 04/19/24 Lashell Falcon [address] [place], [place] [address]cristel [address] [place] [address] Ophthalmology 05/09/24 Saul Avalos MD [address] [place] [address] [address] [place] [phone] Gastroenterology 06/12/24 Stephani Rivera TRACTOR SWEEPER DRIVER Endocrinology 04/19/24
--- OUTSIDE RECORDS SUMMARY | 2025-02-06 18:29 | XMS_ITS | Encounter Summary ---
Author Organization [employer] Address [address] [facility] 7t [place] [address] Care Team Providers Care Medical Equipment Repairer Name Role Phone Aubree Pinto MD Primary Care Provider [phone] Matt Silvestre MD Unavailable [phone] Chris Wills MD Unavailable [phone] Lashell Falcon Unavailable Saul Avalos MD Unavailable Encounter Details Date Type Department Care Team (Late st Contact Info) Description 03/15/2024 Orders Only [facility] [address] [place], [place] [phone] Aubree Pinto MD [address] [place], [place] [phone] Social History Tobacco Use Types Packs/Day Years [...] documented as of this encounter Care Teams Medical Equipment Repairer Relationship Specialty Start Date End Date Aubree Pinto MD [address] [place] [phone] PCP - General Family Medicine 04/05/18 Matt Silvestre MD [address] [place] [address] Endocrinology 03/07/24 Chris Wills MD [address] [place] [address] Drive [address] [place] [address] Urology 04/19/24 Lashell Falcon [address], [place] [address] Ophthalmology 05/09/24 Saul Avalos MD [address] [place] [address] [address] [place] [phone] Gastroenterology 06/12/24 Stephani Rivera LIVESTOCK PRODUCER Endocrinology 04/19/24 documented as of this encounter
== END 2025-02-06 16:36 | disposition home or self-care (01) ==
LOC: HO.ENCR 16:06
PROVIDERS: PCP Family Medicine; Visit Provider Internal Medicine Endocrinology, Diabetes & Metabolism
DX: E13.9 Other specified diabetes mellitus without complications (principal)
CPT/HCPCS: 99214

== ENCOUNTER → 2025-02-06 16:05 | Outpatient (BNVA) | payer OTHER, SELFPAY | PROVIDERS: PCP Family Medicine; Visit Provider Internal Medicine Endocrinology, Diabetes & Metabolism | DX: E10.21 Type 1 diabetes mellitus with diabetic nephropathy (principal); Z79.4 Long term (current) use of insulin; Z96.41 Presence of insulin pump (external) (internal) | CPT/HCPCS: 82947; 99212 ==

== ENCOUNTER 2025-02-08 14:13 | Outpatient (REF) | payer OTHER, SELFPAY ==
--- OUTSIDE RECORDS SUMMARY | 2025-02-08 17:24 | XMS_ITS | Clinical Summary ---
Author Organization [employer] Address [address] [facility] 7t [place] [address] Care Team Providers Care Roving Sizer Name Role Phone Aubree Pinto MD Primary Care Provider [phone] Matt Silvestre MD Unavailable Chris Wills MD Unavailable Lashell Falcon Unavailable Saul Avalos MD Unavailable [phone] Allergies Active Allergy Reactions Criticality Noted Date [...] 90 tablet 3 01/18/20 24 025 Discontinued Active Problems Problem Noted Date Diagnosed Date [...] to assist with weight loss. Prescribed through notary public. -Reviewed w/ pt side effects of GLP1 [...] to assist with weight loss. Prescribed through notary public. -Reviewed w/ pt side effects of GLP1 [...] due after 06/12/25 -eye care facilitated by [facility] -[place]health care proxy on file 06/23/2023 Assessment & Plan (06/12/2024 9:32 AM EDT): -next comprehensive annual evaluation due after 06/12/25 -eye care facilitated by [facility] -[place] -[facility] proxy on file 06/23/2023 Assessment & Plan (10/01/2023 11:21 AM EDT): -next physical exam due after 02/23/2024 -eye care facilitated by [facility] [place] -[facility] proxy on file 06/23/2023 Assessment & Plan (06/23/2023 4:34 PM EDT): -next physical exam due after 02/23/2024 -eye care facilitated by [facility] [place] -[facility] proxy given on 06/23/2023 Assessment & Plan (02/22/2023 11:34 AM EST): -next physical exam due after 02/23/2024 -eye care facilitated by [facility] [place] Colon cancer screening 08/06/2022 Overview (12/28/2024): -colonoscopy [...] scheduled 08/26/22. Stage 3a chronic kidney disease (CMS/HCC) 2022 Overview (12/28/2024): Lab Results Component Value [...] DOMINGO MCMAHON -Seen by urologist Dr. Chris iWlls 07/29/23 -Erectile Dysfunction and setting up insulin-dependent diabetes with component of Peyronie's associated with curvature of penis -Medications provided with daily tadalafil and on demand tadalafil -trial pentoxifylline 400 mg p.o. b.i.d. 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 Silvestre and Stephani Rivera BOTTLE WASHER , seen 02/06/25, note reviewed -humalog insulin via insulin pump since 05/07/23 [...] exam: 06/12/24 -Last eye exam done at [facility] 05/04/24 -Continue lifestyle modifications -Continue current medications via endocrinology -humalog via pump -on Zepbound per notary public. Increased to 15mg 02/06/25 Assessment & Plan (12/28/2024 10:52 AM EDT): Pt with adult, autoimmune mediated DM Type 1 -followed by [facility] Dr. Silvestre and Stephani Rivera BOTTLE WASHER , seen 07/12/24 -humalog insulin via insulin [...] exam: 06/12/24 -Last eye exam done at [facility] 05/04/24 -Continue lifestyle modifications -Continue current medications via endocrinology -humalog via pump -on Zepbound per notary public. Orders: POCT Hgb A1c POCT Glucose Assessment & Plan (06/12/2024 10:19 AM EDT): Pt with adult, autoimmune mediated DM Type 1 -followed by [facility] Dr. Silvestre and Stephani Rivera BOTTLE WASHER , seen 02/2024 -humalog insulin via insulin [...] exam: 06/12/24 -Last eye exam done at [facility] 05/04/24 -Continue lifestyle modifications -Continue current medications via endocrinology -humalog via pump -was doing well on Wegovy but stopped by insurance, awaiting appeal from notary public. Assessment & Plan (10/01/2023 11:20 AM EDT): [...] exam: due -Last eye exam done at [facility] 08/06/2022 -Continue lifestyle modifications -Continue current medications via endocrinology -humalog via pump -wegovy Assessment & Plan (06/23/2023 4:26 PM EDT): Pt with adult, autoimmune mediated DM Type 1. -followed by Dr. Silvestre -Last eye exam done at [facility] 08/06/2022. Assessment & Plan (02/22/2023 9:37 AM EST): Pt with adult, autoimmune mediated DM Type 1. -followed by Dr. Silvestre -Last eye exam done at [facility] 08/06/2022. Assessment & Plan (08/06/2022 2:18 PM EDT): Pt with adult, autoimmune mediated DM Type 1. -followed by Dr. Silvestre. -Last eye exam done at [facility] 08/06/2022 Assessment & Plan (04/29/2022 1:15 PM [...] DEPARTMENT Provider, Generic External Data 01/10/2025 Refill [facility] [address] [place] [address] Aubree Pinto MD Essential hypertension 12/28/2024 9:45 AM EDT Office Visit [facility] [address] [place] [address] Aubree Pinto MD Latent autoimmune diabetes in [...] Colon cancer screening 12/28/2024 Travel 12/27/2024 Telephone [facility] [address], [place] [phone] Brendan Colescy [place] 11/24/2024 1:00 PM EDT Office Visit [facility] [address] [place] [address] [phone] Tammie Castle MD S/P laparoscopic cholecystectomy (Primary Dx); Slow transit constipation 11/24/2024 Travel 11/23/2024 Telephone [facility] [address], [place] [phone] Aubree Pinto MD Hospital Follow-up 11/20/2024 Orders Only [facility] External Provider, [facility] from Last 3 Months Immunizations Immunization Administration [...] Additional history exists Lipid Panel 10/11/2025 10/11/2024, 04, 06/05/2023, Additional history exists Depression Screening 12/28/2025 [...] adults (GAGAN), managed as type 1 (CMS/HCC) POCT GLYCATED HEMOGLOBIN, TOTAL Routine 12/28/2024 9:45 [...] DIABETES EYE EXAM Routine 05/04/2024 HIV ANTIBODY/ANTIGEN ([facility]) Routine 06/27/2022 7:23 AM EDT from Last 3 Months or Most Recently Relevant to Health Maintenance Results * (ABNORMAL) Glucose, Whole Blood (02/06/2025 4:19 PM EST) Only the most recent of2 resultswithin the time period is included. Pathologist [facility] Glucose, Whole Blood 164(H) 60 - 115 mg/dL [facility] Comment:METER #: [id number] Testing performed in the Endocrinology Department [address] , [address], [facility]. 02/06/2025 4:19 PM EST 02/06/2025 4:26 PM EST us Generic External Data Provider LAB BLOOD ORDERAB LES Final Result [facility] [address] [place] [phone] * (ABNORMAL) POCT Hgb A1c (12/28/2024 9:45 AM EDT) Hemoglobin A1C 8.0(A) 4.0 - 5.7 % QC Media Lot # [id number] Lot# Expiration Date ,[id number] Blood 12/28/2024 9:45 AM EDT us Aubree Pinto MD POINT OF CARE TEST ENTER/E DIT ORDERABLES Final Result * POCT Glucose (12/28/2024 9:45 AM EDT) Glucose Blood, POC 165 60 - 200 mg/dL Blood Capillary blood specimen / Unknown 12/28/2024 9:45 AM EDT Aubree Pinto MD POINT OF CARE TEST ENTER/E DIT ORDERABLES Final Result * (ABNORMAL) Urinalysis, Complete, with Reflex to Culture (11/20/2024 10:59 AM EDT) Color Urine Yellow [facility] Appearance Urine Clear [facility] PH 5.5 5.0 - 9.0 [facility] Glucose Urine UA >=1000(A) Negative mg/dL [facility] Urine Blood Negative Negative [facility] Specific Benavides - Urine >=1.030(H) 1.005 - 1.025 [facility] Urine Protein Negative Neg-Trace mg/dL [facility] Urine Ketones 40 Negative mg/dL [facility] Nitrite Urine Negative Negative [facility] Leukocyte Esterase Urine Negative Negative [facility] RBC Urine 0-2 0 - 2 /HPF [facility] Urine WBC 0-5 0 - 5 /HPF [facility] Urine Squamous Epithelial Cell 0-2 0 - 2 /HPF [facility] Urine Bacteria None Seen None Seen [facility] Hyaline Casts, Urine 0-2 0 - 2 /LPF [facility] 11/20/2024 10:5 9 AM EDT 11/20/2024 11:03 AM EDT Narrative [facility] - 11/20/2024 11:48 AM EDT [id number], Clean Catch us Generic External Data Provider LAB URINE ORDERAB LES Final Result [facility] [address] [place] [phone] [phone] * (ABNORMAL) Drug Monitoring, Panel 1, Screen, Urine (11/20/2024 10:59 AM EDT) Opiate Screen Urine POSITIVE(A) Not Detect [facility] Comment:Opiate cut-off is 30 0 ng/mL.Positive results are unconfirmed and should not be used fornon-medical purposes. Barbiturates, Urine Not Detected Not Detect [facility] Comment:Barbiturate cut-off is 200 ng/mL.Positive results are unconfirmed and should not be used fornon-medical purposes. Phencyclidine Screen Urine Not Detected Not Detect [facility] Comment:Phencyclidine cut-of f is 25 ng/mL.Positive results are unconfirmed and should not be used fornon-medical purposes. Amphetamine Screen Urine Not Detected Not Detect [facility] Comment:Amphetamine cut-off is 1000 ng/mL.Positive results are unconfirmed and should not be used fornon-medical purposes. Benzodiazepines Screen Urine Not Detected Not Detect [facility] Comment:Benzodiazepine cut-o ff is 200 ng/mL.Positive results are unconfirmed and should not be used fornon-medical purposes. Cocaine Screen Urine Not Detected Not Detect [facility] Comment:Cocaine cut-off is 3 00 ng/mL.Positive results are unconfirmed and should not be used fornon-medical purposes. Cannabinoid Screen Urine Not Detected Not Detect [facility] Comment:Cannabinoid cut-off is 50 ng/mL.Positive results are unconfirmed and should not be used fornon-medical purposes. Methadone Screen, Urine Not Detected Not Detect ng/mL [facility] Comment:Methadone cut-off is 300 ng/mL.Positive results are unconfirmed and should not be used fornon-medical purposes. FENTANYL URINE Not Detected Not Detect [facility] Comment:Fentanyl cut-off is 1 ng/mL.Positive results are unconfirmed and should not be used fornon-medical purposes. Oxycodone Urine Screen Not Detected Not Detect ng/mL [facility] Comment:Oxycodone cut-off is 100 ng/mL.Positive results are unconfirmed and should not be used fornon-medical purposes. Buprenorphine Screen Not Detected Not Detect ng/mL [facility] Comment:Buprenorphine cut-of f is 5 ng/mL.Positive results are unconfirmed and should not be used fornon-medical purposes. 11/20/2024 10:5 9 AM EDT 11/20/2024 11:03 AM EDT Generic External Data Provider LAB URINE ORDERAB LES Final Result Performing Organization Address [facility] Co de Phone Number [facility] [address] [place] [phone] * Lactic Acid (11/20/2024 10:59 AM EDT) Lactic Acid 1.3 0.5 - 2.0 mmol/L [facility] 11/20/2024 10:5 9 AM EDT 11/20/2024 11:03 AM EDT Generic External Data Provider LAB BLOOD ORDERAB LES Final Result Performing Organization Address [facility] Co de Phone Number [facility] [address] [place] [phone] * US Abdomen Limited (11/20/2024 10:18 AM EDT) Anatomical Region Laterality Modality Abdomen Ultrasound 11/20/2024 10:1 8 AM EDT Narrative 11/20/2024 10:48 AM EDT [address] [address] Ultrasound Report Signed Patient: Evan Puente MR#: [id number] : 1970 Acct:[id number] Age/Sex: 54 / M ADM Date: 11/20/24 Loc: HO.ED Attending Dr: Ordering Physician: Alma Rosa Perea DO Date of Service: 11/20/24 Procedure(s): US abdomen limited Accession Number(s): [id number] cc: Aubree Pinto MD; Alma Rosa Perea [...] 11/20/24 1044 DD/ 1018 TD/TT: 11/20/24 1020 Dust Sampler: Procedure Note Donotuseinterpreter, Image - 11/20/2024 [place] [address] Ultrasound Report Signed Patient: Evan PuenteMR#: [id number] : 1970Acct:[id number] Age/Sex: 54 / MADM Date: 11/20/24 Loc: HO.ED Attending Dr: Ordering Physician: Alma Rosa Perea DO Date of Service: 11/20/24 Procedure(s): US abdomen limited Accession Number(s): [id number] cc: Aubree Pinto MD; Alma Rosa Perea [...] 11/20/24 1044 DD/ 1018 TD/TT: 11/20/24 1020 Dust Sampler: us [facility] External Provider IMG US PROCEDURES Final Result * CT Abdomen Pelvis w/ Contrast (11/20/2024 8:08 AM EDT) Anatomical Region Laterality Modality Body, Pelvis, Abdomen Computed T omography 11/20/2024 8:08 AM EDT Narrative 11/20/2024 9:48 AM EDT [place] [address] CT Scan Report Signed Patient: Evan Puente MR#: [id number] : 1970 Acct:[id number] Age/Sex: 54 / M ADM Date: 11/20/24 Loc: HO.ED Attending Dr: Ordering Physician: AlmaR osa Perea DO Date of Service: 11/20/24 Procedure(s): CT abdomen pelvis w IV con Accession Number(s): [id number] cc: Aubree Pinto MD; Alma Rosa Perea DO Report Number: [id number]: Total DLP = 722.00 mGy-cm EXAMINATION: CT [...] 11/20/24 0945 DD/ 0808 TD/TT: 11/20/24 09 Dust Sampler: Procedure Note Donotuseinterpreter, Image - 11/20/[address] [place] [address] [address] Scan Report Signed Patient: Xiomara Puente#: [id number] : 1970Acct:[id number] Age/Sex: 54 / MADM Date: 11/20/24 Loc: HO.ED Attending Dr: Ordering Physician: Alma Rosa Perea DO Date of Service: 11/20/24 Procedure(s): CT abdomen pelvis w IV con Accession Number(s): [id number] cc: Aubree Pinto MD; Alma Rosa Perea DO Report Number: [id number]: Total DLP = 722.00 mGy-cm EXAMINATION: CT [...] 11/20/24 0945 DD/ 0808 TD/TT: 11/20/24 0930 Dust Sampler: [facility] External Provider IMG CT PROCEDURES Final Result * (ABNORMAL) Lipid Panel, Standard (10/11/2024 2:30 PM EDT) Triglycerides 113 <150 mg/dL [facility] Comment:Desirable Triglyceri de: less than 150 mg/dLBorderline High Triglyceride 150-199 mg/dLHigh Triglyceride: 200-499 mg/dLVery High Triglyceride: greater than or equal to 5OO mg/dL Cholesterol 115 <200 mg/dL [facility] Comment:Desirable Cholestero l: less than 200 mg/dLBorderline High Cholesterol: 200-239 mg/dLHigh Cholesterol: greater than 239 mg/dL LDL Cholesterol Calculated 58 <100 mg/dL [facility] Comment:Desirable LDL: less than 100 mg/dLNear Optimal/Above Optimal LDL: 110- 129 mg/dLBorderline High LDL: 130-159 mg/dLHigh LDL: 160-189 mg/dLVery High LDL: greater than or equal to 190 mg/dL HDL Cholesterol 35(L) >40 mg/dL [facility] Comment:Desirable HDL: great er than 40 mg/dL Note: This HDL assay may give artificially low results in patients with liver disease. 10/11/2024 2:30 PM EDT 10/11/2024 2:30 PM EDT Generic External Data Provider LAB BLOOD ORDERAB LES Final Result Performing Organization Address [facility] Co de Phone Number [facility] [address] [place] [phone] * Albumin, Random Urine W/Creatinine (10/11/2024 2:24 PM EDT) Creatinine, Urine 109.88 mg/dL [facility] Microalbumin Urine <5.0 mg/L [facility] Microalbum Creatinine Ratio Ur TNP <30 ug/mg cr [facility] Comment:Unable to calculate albumin/creatinine ratio due to lowmicroalbumin or creatinine result. 10/11/2024 2:24 PM EDT 10/11/2024 3:27 PM EDT Generic External Data Provider LAB URINE ORDERAB LES Final Result Performing Organization Address City/[facility]/ZIP Co de Phone Number [facility] [address] [place] [phone] * Diabetes Eye Exam (05/04/2024) Eye Exam Normal Normal Comment:[facility] Historical Provider HEALTH MAINTENANCE Final Result * HIV Ab/Ag (KIAH GAMBLE) (06/27/2022 7:23 AM EDT) HIV AB/AG Nonreactive Nonreactive [facility] Comment:HIV-1 p24 Ag and/or HIV-1/HIV-2 Ab not detected.A test result that is nonreactive does not exclude thepossibility of exposure to or infection with HIV-1 and/orHIV-2. Nonreactive results in this assay for individualswith prior exposure to HIV-1 and/or HIV-2 may be due toantigen and antibody levels that are below the limit ofdetection of this assay.The Pa Top Former HIV Ag/Ab Combo assay result andsupplemental assay results should be interpreted inconjunction with the patient's clinical presentation,history and other laboratory results. If the results areinconsistent with clinical evidence, additional testing issuggested to confirm the result. 06/27/2022 7:23 AM EDT 06/27/2022 7:23 AM EDT us [facility] External Provider LAB BLO OD ORDERABLES Final Result Performing Organization Address City/State/[facility] Co de Phone Number [facility] [address] [place] [phone] from Last 3 Months or Most Recently Relevant to Health Maintenance Insurance [facility] 3 Advance Directives Documents on File Type Date Recorded Patient Bag Machine Operator Helper Expl anation Advance Directives and Living Will 04/17/2024 Health Care Proxy 04/17/24 Advance Directives and Living Will 06/28/2023 Health Care Proxy 06/23/23 Care Teams Roving Sizer Relationship Specialty Start Date End Date Aubree Pinto MD [address] [place] [phone] PCP - General Family Medicine 04/05/18 Matt Silvestre MD [address] [place] [address] Endocrinology 03/07/24 Chris Wills MD [address] [place] [address] Urology 04/19/24 Lashell Falcon [facility] [address] [place] [address] Ophthalmology 05/09/24 Saul Avalos MD [address] [place] [address] [address] [place] [address] Gastroenterology 06/12/24 Stephani Rivera BOTTLE WASHER Endocrinology 04/19/24
--- OUTSIDE RECORDS SUMMARY | 2025-02-08 17:24 | XMS_ITS | Patient Health Record ---
Author Organization [facility] Address [address] [place] [address] Care Team Providers Care Dramatic Arts Historian Name Role Phone Blair OCHOA, Aubree Primary [...] Status Risk Notes Problem Chronic hepatitis C (231147747) Chronic hepatitis C without mention of hepatic coma (070.54) Active confirmed Problem Chronic hepatitis C (197309066) Chronic hepatitis C (070.54) Active confirmed Plan [...] Name:Saul ruano Jr, 05/03/2025 03:15:00 PM, [address] [facility], [address], [place], [address], Insurance Providers Payer Name Payer Address Payer Phone Subscriber Number Group Number Insured Name Patient Relationship to Insured Coverage Start Date Coverage End Date [facility] [address] [address] [place], [place] [id number] PALLAVI ROCA Self - patient is the insured Medical (General) History Medical History History ICD Code hyperlipidemia back pain Hepatitis C diabetes mellitus
--- OUTSIDE RECORDS SUMMARY | 2025-02-08 17:24 | XMS_ITS | Encounter Summary ---
Author Organization [employer] Address [address] [facility] 7t [place] [address] Care Team Providers Care Computer Trainer Name Role Phone Aubree Pinto MD Primary Care Provider [phone] Matt Silvestre MD Unavailable [phone] Chris Wills MD Unavailable Lashell Falcon Unavailable Saul Avalos MD Unavailable Reason for Visit * Reason Comments Med Refill Encounter Details Date Type Department Care Team (Late st Contact Info) Description 08/05/2022 Refill [facility] [address] [place], [place] [phone] Aubree Pinto MD [address] [place], [place] [phone] Social History Tobacco Use Types Packs/Day Years [...] documented as of this encounter Care Teams Computer Trainer Relationship Specialty Start Date End Date Aubere Pinto MD [address] [place] [address] PCP - General Family Medicine 04/05/18 Matt Silvestre MD [address] [place] [address] Endocrinology 03/07/24 Chris Wills MD [address] [place] [address] Urology 04/19/24 Lashell Falcon [address] [place] [address] Ophthalmology 05/09/24 Saul Avalos MD [address] [place] [address] [address] [place] [phone] Gastroenterology 06/12/24 Stephani Rivera LABORATORY SCIENTIST Endocrinology 04/19/24 documented as of this encounter
--- OUTSIDE RECORDS SUMMARY | 2025-02-08 17:24 | XMS_ITS | Encounter Summary ---
Author Organization [employer] Address [address] [facility] [address] [place] [address] Care Team Providers Care Fashion Styling Intern Name Role Phone Aubree Pinto MD Primary Care Provider [phone] Matt Silvestre MD Unavailable [phone] Chris Wills MD Unavailable [phone] Lashell Falcon Unavailable Saul Avalos MD Unavailable [phone] Encounter Details Date Type Department Care Team [...] Whole Blood 164(H) 60 - 115 mg/dL [facility] Comment:METER #: [id number] Testing performed in the Endocrinology Department [address] , [address], [facility]. 02/06/2025 4:19 PM EST 02/06/2025 4:26 PM EST us Generic External Data Provider LAB BLOOD ORDERAB LES Final Result Performing Organization Address City/State/[facility] Co de Phone Number [facility] [address] [place] [phone] documented in this encounter Visit Diagnoses Not on filedocumented in this encounter Additional Health Concerns Assessment Noted Time PHQ-9 Depression Total Score: 5 12/29/19 25 9:46 AM EDT documented as of this encounter Care Teams Fashion Styling Intern Relationship Specialty Start Date End Date Aubree Pinto MD [address] [place] [address] PCP - General Family Medicine 04/05/18 Matt Silvestre MD [address] [place] [address] Endocrinology 03/07/24 Chris Wills MD [address] [place] [address] Urology 04/19/24 Lashell Falcon [address] [address] Ophthalmology 05/09/24 Saul Avalos MD [address] [place] [address] [address] [place] [phone] Gastroenterology 06/12/24 Stephani Rivera AGENCY SALES DEVELOPMENT ASSOCIATE Endocrinology 04/19/24 documented as of this encounter
--- OUTSIDE RECORDS SUMMARY | 2025-02-08 17:24 | XMS_ITS | Encounter Summary ---
Author Organization [employer] Address [address] [facility] 7t [place] [address] Care Team Providers Care Automatic Print Developer Name Role Phone Aubree Pinto MD Primary Care Provider [phone] Matt Silvestre MD Unavailable Chris Wills MD Unavailable [phone] Lashell Falcon Unavailable Saul Avalos MD Unavailable Encounter Details Date Type Department Care Team (Late st Contact Info) Description 03/15/2024 Orders Only [facility] [address] [place], [place] [phone] Aubree Pinto MD [address] [place], [place] [phone] Social History Tobacco Use Types Packs/Day Years [...] documented as of this encounter Care Teams Automatic Print Developer Relationship Specialty Start Date End Date Aubree Pinto MD [address] [place] [address] PCP - General Family Medicine 04/05/18 Matt Silvestre MD [address] [place] [address] Endocrinology 03/07/24 Chris Wills MD [address] [place] [address] Drive [address] [place] [address] Urology 04/19/24 Lashell Falcon [address] [address] Ophthalmology 05/09/24 Saul Avalos MD [address] [place] [address] [address] [place] [phone] Gastroenterology 06/12/24 Stephani Rivera DENTOFACIAL ORTHOPEDICS DENTIST Endocrinology 04/19/24 documented as of this encounter
--- OUTSIDE RECORDS SUMMARY | 2025-02-08 17:24 | XMS_ITS | Encounter Summary ---
Author Organization [facility] [employer] Address [address] [facility] 7t [place] [address] Care Team Providers Care Foreign Exchange Dealer Name Role Phone Aubree Pinto MD Primary Care Provider [phone] Matt Silvestre MD Unavailable [phone] Chris Wills MD Unavailable [phone] Lashell Falcon Unavailable Saul Avalos MD Unavailable [phone] Encounter Details Date Type Department Care Team (Late st Contact Info) Description 03/07/2024 Abstract [facility] [address] [place] [address] Aubree Pinto MD [address] [place], [place] [phone] Social History Tobacco Use Types Packs/Day Years [...] documented as of this encounter Care Teams Foreign Exchange Dealer Relationship Specialty Start Date End Date Aubree Pinto MD [address] [place] [address] PCP - General Family Medicine 04/05/18 Matt Silvestre MD [address] [place] [address] Endocrinology 03/07/24 Chris Wills MD [address] [place] [address] Urology 04/19/24 Lashell Falcon [facility] Nathan [address] [address] Ophthalmology 05/09/24 Saul Avalos MD [address] [place] [address] [place] [address] Gastroenterology 06/12/24 Stephani Rivera EMAIL CAMPAIGN SPECIALIST Endocrinology 04/19/24 documented as of this encounter
== END 2025-02-08 14:14 | disposition home or self-care (01) ==
LOC: HO.LAB 14:13
PROVIDERS: PCP Family Medicine; Visit Provider Urology
DX: E29.1 Testicular hypofunction (principal)
CPT/HCPCS: 36415; 84403

== ENCOUNTER 2025-02-23 15:39 | Outpatient (AMB) | payer OTHER, SELFPAY ==
--- OUTSIDE RECORDS SUMMARY | 2025-02-23 15:41 | XMS_ITS | Encounter Summary ---
Author Organization [employer] Address [address] [facility] 7t [place] [address] Care Team Providers Care Beach Patrol Lieutenant Name Role Phone Aubree Pinto MD Primary Care Provider [phone] Matt Silvestre MD Unavailable [phone] Chris Wills MD Unavailable Lashell Falcon Unavailable Saul Avalos MD Unavailable Reason for Visit * Reason Comments Med Refill Encounter Details Date Type Department Care Team (Late st Contact Info) Description 08/05/2022 Refill [facility] [address] [place], [place] [phone] Aubree Pinto MD [address] [place], [place] [phone] Social History Tobacco Use Types Packs/Day Years [...] documented as of this encounter Care Teams Beach Patrol Lieutenant Relationship Specialty Start Date End Date Aubree Pinto MD [address] [place] [address] PCP - General Family Medicine 04/05/18 Matt Silvestre MD [address] [place] [address] Endocrinology 03/07/24 Chris Wills MD [address] [place] [address] Urology 04/19/24 Lashell Falcon [address], [place] [address] Ophthalmology 05/09/24 Saul Avalos MD [address] [place] [address] [address] [place] [phone] Gastroenterology 06/12/24 Stephani Rivera PRODUCTION SUPV Endocrinology 04/19/24 documented as of this encounter
--- OUTSIDE RECORDS SUMMARY | 2025-02-23 15:41 | XMS_ITS | Clinical Summary ---
Author Organization [employer] Address [address] [facility] 7t [place] [address] Care Team Providers Care Field Collector Name Role Phone Aubree Pinto MD Primary Care Provider [phone] Matt Silvestre MD Unavailable [phone] Chris Wills MD Unavailable Lashell Falcon Unavailable Saul Avalos MD Unavailable Allergies Active Allergy Reactions Criticality Noted Date Comments Liraglutide Unknown 04/22/2023 Medications Acetaminophen 500 MG capsuleIndications :Low back pain potentially associated with radiculopathy Take 1 tab po tid pain 60 capsule 3 4 Active Omeprazole 20 MG tablet delayed-releaseInd ications:Gastroeso phageal reflux disease, unspecified whether esophagitis present Take 20 mg by mouth in the morning. 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 Active omeprazole OTC (PriLOSEC OTC) 20 MG EC tabletIndications: Gastroesophageal reflux disease, unspecified whether esophagitis present Take 1 tab po daily 28 tablet 5 Active Tirzepatide-Weight Management (Zepbound) 12.5 MG/0.5ML solution auto-injectorIndic ations:Class 1 obesity due to excess calories with serious comorbidity and body mass index (BMI) of 33.0 to 33.9 in adult Inject under the skin. Active insulin aspart (NovoLOG, Fiasp) 100 UNIT/ML patient supplied pumpIndications:La tent autoimmune diabetes in adults (GAGAN), managed as type 1 (HCC) Inject under the skin continuously. Active lisinopril 5 MG tabletIndications: Essential hypertension TAKE 1 TABLET BY MOUTH EVERY DAY 90 tablet 3 Active Active Problems Problem Noted Date Diagnosed [...] to assist with weight loss. Prescribed through utilities estimator and drafter. -Reviewed w/ pt side effects of GLP1 [...] to assist with weight loss. Prescribed through utilities estimator and drafter. -Reviewed w/ pt side effects of GLP1 [...] due after 06/12/25 -eye care facilitated by [facility] -d[facility] home [place]health care proxy on file 06/23/2023 Assessment & Plan (06/12/2024 9:32 AM EDT): -next comprehensive annual evaluation due after 06/12/25 -eye care facilitated by [facility] -d[facility] home [place] -[facility] care proxy on file 06/23/2023 Assessment & Plan (10/01/2023 11:21 AM EDT): -next physical exam due after 02/23/2024 -eye care facilitated by [facility] [place] [facility] care proxy on file 06/23/2023 Assessment & Plan (06/23/2023 4:34 PM EDT): -next physical exam due after 02/23/2024 -eye care facilitated by [facility] [place] care proxy given on 06/23/2023 Assessment & Plan (02/22/2023 11:34 AM EST): -next physical exam due after 02/23/2024 -eye care facilitated by [facility] [place] Colon cancer screening 08/06/2022 Overview (12/28/2024): -colonoscopy [...] autoimmune mediated DM Type 1 -followed by Barrel Tester And Drainer Dr. Silvestre and Stephani Rivera MACHINIST GENERAL , seen 02/06/25, note reviewed -humalog insulin [...] exam: 06/12/24 -Last eye exam done at [facility] 05/04/24 -Continue lifestyle modifications -Continue current medications via endocrinology -humalog via pump -on Zepbound per utilities estimator and drafter. Increased to 15mg 02/06/25 Assessment & Plan (12/28/2024 10:52 AM EDT): Pt with adult, autoimmune mediated DM Type 1 -followed by Barrel Tester And Drainer Dr. Silvestre and Stephani Rivera MACHINIST GENERAL , seen 07/12/24 -humalog insulin via insulin [...] exam: 06/12/24 -Last eye exam done at [facility] 05/04/24 -Continue lifestyle modifications -Continue current medications via endocrinology -humalog via pump -on Zepbound per utilities estimator and drafter. Orders: POCT Hgb A1c POCT Glucose Assessment & Plan (06/12/2024 10:19 AM EDT): Pt with adult, autoimmune mediated DM Type 1 -followed by Barrel Tester And Drainer Dr. Silvestre and Stephani Rivera MACHINIST GENERAL , seen 02/2024 -humalog insulin via insulin [...] exam: 06/12/24 -Last eye exam done at [facility] 05/04/24 -Continue lifestyle modifications -Continue current medications via endocrinology -humalog via pump -was doing well on Wegovy but stopped by insurance, awaiting appeal from utilities estimator and drafter. Assessment & Plan (10/01/2023 11:20 AM EDT): [...] exam: due -Last eye exam done at [facility] 08/06/2022 -Continue lifestyle modifications -Continue current medications via endocrinology -humalog via pump -wegovy Assessment & Plan (06/23/2023 4:26 PM EDT): Pt with adult, autoimmune mediated DM Type 1. -followed by Dr. Silvestre -Last eye exam done at [facility] 08/06/2022. Assessment & Plan (02/22/2023 9:37 AM EST): Pt with adult, autoimmune mediated DM Type 1. -followed by Dr. Silvestre -Last eye exam done at [facility] 08/06/2022. Assessment & Plan (08/06/2022 2:18 PM EDT): Pt with adult, autoimmune mediated DM Type 1. -followed by Dr. Silvestre. -Last eye exam done at [facility] 08/06/2022 Assessment & Plan (04/29/2022 1:15 PM [...] Encounters Date Type Department Care Team Description 02/08/2025 Orders Only GENERIC EXTERNAL DATA DEPARTMENT Provider, Generic External Data 02/06/2025 Orders Only GENERIC EXTERNAL DATA DEPARTMENT Provider, Generic External Data 01/11/2025 Orders Only GENERIC EXTERNAL DATA DEPARTMENT Provider, Generic External Data 01/10/[address] [address] Aubree Pinto MD Essential hypertension 12/28/2024 9:45 AM EDT Office Visit [facility] [address] [place] [address] Aubree Pinto MD Latent autoimmune diabetes in [...] Colon cancer screening 12/28/2024 Travel 12/27/2024 Telephone [facility] [address] [place], [place] [phone] Elisabet Coles [place] 11/24/2024 1:00 PM EDT Office Visit [facility] [address] [place] [address] Tammie Castle MD S/P laparoscopic cholecystectomy (Primary Dx); Slow transit constipation 11/24/2024 Travel 11/23/2024 Telephone [facility] [address] [place] [address] Aubree Pinto MD Hospital Follow-up from Last 3 Months Immunizations Immunization Administration [...] 1968 FIT 1968 FOBT 1968 Sigmoidoscopy 1968 RSV Patients and Patients Aged 60 years or older (1 - Risk 50-74 years 1-dose series) 2018 COVID-19 Vaccine ( season) 2024 04/29/2022, 08/13/2021, [...] history exists Depression Screening 12/28/2025 12/28/2024, 12/29/19 25 Disability Screening 12/28/2025 12/28/2024 Tobacco Screening 12/28/2025 12/28/2024 Eye Exam 05/04/2026 05/04/2024 DTaP/Tdap/Td Vaccines (3 - Td or Tdap) 06/13/2028 06/13/2018, 01/19/2013 Hepatitis A Vaccines Completed 06/16/2018, 12/08/19 Pneumococcal [...] Procedure Name Priority Date/Time Associated Diagnosis Comments TESTOSTERONE, TOTAL, MALES (ADULT), IA Routine 02/08/2025 2:25 PM EST GLUCOSE, WHOLE BLOOD Routine 02/06/2025 4:19 PM EST GLUCOSE, WHOLE BLOOD Routine 01/11/2025 3:21 PM EDT POCT GLUCOSE Routine 12/28/2024 9:45 AM EDT 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), managed as type 1 (CMS/HCC) POCT GLYCATED HEMOGLOBIN, TOTAL Routine 12/28/2024 9:45 AM EDT 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), managed as type 1 (CMS/HCC) LIPID PANEL, STANDARD Routine 10/11/2024 2:30 PM EDT ALBUMIN, RANDOM URINE W/CREATININE Routine 10/11/2024 2:24 PM EDT HM DIABETES EYE EXAM Routine 05/04/2024 HIV ANTIBODY/ANTIGEN (CA DPH) Routine 06/27/2022 7:23 AM EDT from Last 3 Months or Most Recently Relevant to Health Maintenance Results * Testosterone, Total, males (Adult), IA (02/08/2025 2:25 PM EST) Testosterone, Total 550 250 - 1100 ng/dL [facility] Comment:For additional infor matkarlos, please refer [email or web address]/faq/[email or web address](This link is being provided for informational/educational purposes only.)This test was developed and its analytical performancecharacteristics have been determined by [employer] [place], [place]. It hasnot been cleared or approved by the U.S. Food and DrugAdministration. This assay has been validated pursuantto the CLIA regulations and is used for clinicalpurposes.THIS TEST WAS PERFORMED AT:[employer] [place] [address]SYJVXEBNEIL SANTANA MD,PHD 02/08/2025 2:25 PM EST 02/08/2025 2:25 PM EST us Generic External Data Provider LAB BLOOD ORDERAB LES Final Result [facility] [address] [place] [phone] * (ABNORMAL) Glucose, Whole Blood (02/06/2025 4:19 PM EST) Only the most recent of2 resultswithin the time period is included. Glucose, Whole Blood 164(H) 60 - 115 mg/dL [facility] Comment:METER #: [id number] Testing performed in the Endocrinology Department [address] , [address], [facility]. 02/06/2025 4:19 PM EST 02/06/2025 4:26 PM EST Generic External Data Provider LAB BLOOD ORDERAB LES Final Result [facility] [address] [place] [phone] [phone] * (ABNORMAL) POCT Hgb A1c (12/28/2024 9:45 AM EDT) Hemoglobin A1C 8.0(A) 4.0 - 5.7 % QC Media Lot # [id number] Lot# Expiration Date [id number] Blood 12/28/2024 9:45 AM EDT Aubree Pinto MD POINT OF CARE TEST ENTER/E DIT ORDERABLES Final Result * POCT Glucose (12/28/2024 9:45 AM EDT) Glucose Blood, POC 165 60 - 200 mg/dL Blood Capillary blood specimen / Unknown 12/28/2024 9:45 AM EDT Aubree Pinto MD POINT OF CARE TEST ENTER/E DIT ORDERABLES Final Result * (ABNORMAL) Lipid Panel, Standard (10/11/2024 2:30 PM EDT) Triglycerides 113 <150 mg/dL [facility] Comment:Desirable Triglyceri de: less than 150 mg/dLBorderline High Triglyceride 150-199 mg/dLHigh Triglyceride: 200-499 mg/dLVery High Triglyceride: greater than or equal to 5OO mg/dL Cholesterol 115 <200 mg/dL [facility] Comment:Desirable Cholestero l: less than 200 mg/dLBorderline High Cholesterol: 200-239 mg/dLHigh Cholesterol: greater than 239 mg/dL LDL Cholesterol Calculated 58 <100 mg/dL [facility] Comment:Desirable LDL: less than 100 mg/dLNear Optimal/Above Optimal LDL: 110- 129 mg/dLBorderline High LDL: 130-159 mg/dLHigh LDL: 160-189 mg/dLVery High LDL: greater than or equal to 190 mg/dL HDL Cholesterol 35(L) >40 mg/dL [facility] Comment:Desirable HDL: great er than 40 mg/dL Note: This HDL assay may give artificially low results in patients with liver disease. 10/11/2024 2:30 PM EDT 10/11/2024 2:30 PM EDT Generic External Data Provider LAB BLOOD ORDERAB LES Final Result Performing Organization Address [facility] Co de Phone Number [facility] [address] [place] [phone] * Albumin, Random Urine W/Creatinine (10/11/2024 2:24 PM EDT) Creatinine, Urine 109.88 mg/dL [facility] Microalbumin Urine <5.0 mg/L [facility] Microalbum Creatinine Ratio Ur TNP <30 ug/mg cr [facility] Comment:Unable to calculate albumin/creatinine ratio due to lowmicroalbumin or creatinine result. 10/11/2024 2:24 PM EDT 10/11/2024 3:27 PM EDT Generic External Data Provider LAB URINE ORDERAB LES Final Result Performing Organization Address [facility]/ZIP Co de Phone Number [facility] [address] [place] [phone] * Diabetes Eye Exam (05/04/2024) Eye Exam Normal Normal Comment:[facility] Historical Provider HEALTH MAINTENANCE Final Result * HIV Ab/Ag (KIAH GAMBLE) (06/27/2022 7:23 AM EDT) HIV AB/AG Nonreactive Nonreactive [facility] Comment:HIV-1 p24 Ag and/or HIV-1/HIV-2 Ab not detected.A test result that is nonreactive does not exclude thepossibility of exposure to or infection with HIV-1 and/orHIV-2. Nonreactive results in this assay for individualswith prior exposure to HIV-1 and/or HIV-2 may be due toantigen and antibody levels that are below the limit ofdetection of this assay.The Pa Cooler Man HIV Ag/Ab Combo assay result andsupplemental assay results should be interpreted inconjunction with the patient's clinical presentation,history and other laboratory results. If the results areinconsistent with clinical evidence, additional testing issuggested to confirm the result. 06/27/2022 7:23 AM EDT 06/27/2022 7:23 AM EDT [facility] External Provider LAB BLO OD ORDERABLES Final Result [facility] [address] [place] [address] [phone] from Last 3 Months or Most Recently Relevant to Health Maintenance Insurance [facility] 3 Advance Directives Documents on File Type Date Recorded Patient Oracle Technical Architect Expl anation Advance Directives and Living Will 04/17/2024 Health Care Proxy 04/17/24 Advance Directives and Living Will 06/28/2023 Health Care Proxy 06/23/23 Care Teams Field Collector Relationship Specialty Start Date End Date Alcona, MD Aubree [address] [place] [address] PCP - General Family Medicine 04/05/18 Matt Silvestre MD [address] [place] [address] Endocrinology 03/07/24 Chris Wills MD [address] [place] [address] Urology 04/19/24 Lashell Falcon [address] [place] [address] Ophthalmology 05/09/24 Saul Avalos MD [address] [place] [address] [address] [place] [phone] Gastroenterology 06/12/24 Stephani Rivera MACHINIST GENERAL Endocrinology 04/19/24
--- OUTSIDE RECORDS SUMMARY | 2025-02-23 15:41 | XMS_ITS | Encounter Summary ---
Author Organization [employer] Address [address] [facility] 7t [place] [address] Care Team Providers Care Cloth Framer Name Role Phone Aubree Pinto MD Primary Care Provider [phone] Matt Silvestre MD Unavailable Chris Wills MD Unavailable [phone] Lashell Falcon Unavailable Saul Avalso MD Unavailable Encounter Details Date Type Department Care Team (Late st Contact Info) Description 03/07/2024 Abstract [facility] [address] [place] [address] Aubree Pinto MD [address] [place], [place] [phone] Social History Tobacco Use Types Packs/Day Years [...] documented as of this encounter Care Teams Cloth Framer Relationship Specialty Start Date End Date Aubree Pinto MD [address] [place] [phone] PCP - General Family Medicine 04/05/18 Matt Silvestre MD [address] [place] [address] Endocrinology 03/07/24 Chris Wills MD [address] [place] [address] Urology 04/19/24 Lashell Falcon [facility] Nathan [address] [address] Ophthalmology 05/09/24 Saul Avalos MD [address] [place] [address] [place] [phone] Gastroenterology 06/12/[address] MANAGER Endocrinology 04/19/24 documented as of this encounter
--- OUTSIDE RECORDS SUMMARY | 2025-02-23 15:41 | XMS_ITS | Patient Health Record ---
Author Organization [facility] Address [address] [place] [address] Care Team Providers Care Processing Operator Name Role Phone Aubree Pinto MD Primary Care Provider Pamela Saul Crotez Jr Unavailable [phone] Reason For Referral No Information Medications Medication SIG (Take, Route, Fr equency, Duration) Notes Start Date End Date Status Lantus Active Pravastatin Sodium A ctive traMADol HCl Active metFORMIN HCl Active Social History Social History Additional Details Category Social Info Options Details Miscellaneous: Marital status: 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 Problems Problem Type SNOMED Code ICD Code Onset Dates Problem Status W/U Status Risk Notes Problem Chronic hepatitis C (347911282) Chronic hepatitis C without mention of hepatic coma (070.54) Active confirmed Problem Chronic hepatitis C (547343842) Chronic hepatitis C (070.54) Active confirmed Plan Of Treatment Pending Test Test Name Order Date LIVER PROFILE 07/21/2011 LIVER PROFILE 01/25/2012 FREE T4 (FT4) 07/21/2011 TSH (THYROID STIMULATING HORMONE) 2011 CBC w DIFF 07/21/2011 CBC w/o DIFF 01/25/2012 HEPATITIS C VIRAL LOAD 01/25/2012 Future Test Test Name Order Date HCV RNA BDNA RFLX TMA 01/15/2012 Next Appt Details Provider Name:Saul ruano Jr, 05/03/2025 03:15:00 PM, [address], [address], [place], [address], Insurance Providers Payer Name Payer Address Payer Phone Subscriber Number Group Number Insured Name Patient Relationship to Insured Coverage Start Date Coverage End Date [facility] [address] [address] [place], [place] [id number] PALLAVI ROCA Self - patient is the insured Medical (General) History Medical History History ICD Code hyperlipidemia back pain Hepatitis C diabetes mellitus
--- OUTSIDE RECORDS SUMMARY | 2025-02-23 15:41 | XMS_ITS | Data Portability ---
Author Organization [facility] [employer] [facility] [address] Address [address] [place] [address] Assessment No assessment recorded. Plan of Treatment [...] By Organization Details Last Modified Time 04/30/2023 [id number] This physical does not replace the annual [...] Time 4 OC-DOT PHYSICAL completed Marcia Bynum Adaptive TCR - [employer] 04/30/2023 15:42:53 3 OC-DOT PHYSICAL completed JOSHUA MIGUEL PA - [employer] 05/11/2022 08:56:56 Imaging Results None recorded. Procedure [...] ICD10 Code Diagnosis IMO Codes Diagnosis Note [id number] [address] [facility] [address] [place] [address] 05/29/2017 15:01:54 05/29/2017 15:24:50 [id number] [address] [facility] [address] [place] [address] 12/28/2019 12:18:16 12/28/2019 13:38:21 [id number] [address] [facility] [address] [place] [address] 11/26/2020 14:35:05 11/26/2020 19:02:39 [id number] [address] [address] [place] [address] 05/22/2021 14:27:53 05/22/2021 16:04:17 [id number] [address] [place] [address] 03/31/2016 14:40:30 03/31/2016 15:39:46 [id number] [facility] [employer] [address] [place] [address] 05/11/2022 08:05:24 05/11/2022 09:25:12 History 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, 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 [id number] Z02.1 Documentat ion for this visit can be found on the electronic DOT form or scanned copy [id number] [place] [address] [place] [address] 04/30/2023 13:41:19 04/30/2023 16:28:41 History 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, 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 [id number] 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.1 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 [id number] Z02.4 Physical examination 588 0005 Z02.4 Health Concerns Section Related Observation LastModified by Organization Detai ls LastModified Time None Recorded Concern Status LastModified by Organization Details LastModified Time None Recorded Advance Directives Directive None Recorded Payers Insurance Date Sequence Insurance Name Policy Number Policy Olivo Covered Member ID Olivo Member ID Guarantor Name 05/11/2022 DO NOT USE Evan Puente [id number] Evan Puente 05/12/2022 PAY AT TOS Evan Puente [id number] Evan Puente 04/30/2023 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 For patient presents for a physical for, patient reportsemployment. 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 Lexx Apodaca NP [address] [place], [address], [place] - [facility] 04/30/2023 16:27:05
--- OUTSIDE RECORDS SUMMARY | 2025-02-23 15:41 | XMS_ITS | Encounter Summary ---
Author Organization [employer] Address [address] [facility] 7t [place] [address] Care Team Providers Care Yard Cleaner Name Role Phone Aubree Pinto MD Primary Care Provider [phone] Matt Silvestre MD Unavailable [phone] Chris Wills MD Unavailable [phone] Lashell Falcon Unavailable Saul Avalos MD Unavailable [phone] Encounter Details Date Type Department Care Team (Late st Contact Info) Description 03/15/2024 Orders Only [facility] MEDICINE [address] [place], [place] [phone] Aubree Pinto MD [address] [place], [place] [phone] Social History Tobacco Use Types Packs/Day Years [...] documented as of this encounter Care Teams Yard Cleaner Relationship Specialty Start Date End Date Aubree Pinto MD [address] [place] [address] PCP - General Family Medicine 04/05/18 Matt Silvestre MD [address] [place] [address] Endocrinology 03/07/24 Chris Wills MD [address] [place] [address] Drive [address] [place] [address] Urology 04/19/24 Lashell Falcon [address] [place] [address] Ophthalmology 05/09/24 Saul Avalos MD [address] [place] [address] [address] [place] [address] Gastroenterology 06/12/24 Stephani Rivera STORE STANDARDS ASSOCIATE Endocrinology 04/19/24 documented as of this encounter
--- NOTE | 2025-02-23 15:48 | A.OFFVIS_ITS ---
Intake Visit Reasons: 3M Testosterone(set) Intake Note: Patient Is Present for Testosterone results Urology Med: Tadalafil Antibiotic Allergy: None Blood Thinner: None Drill Press Set Up Operator Required: No Allergies liraglutide Allergy (Unknown, Verified 02/23/25 15:48) Unknown HPI Comments Details: Evan is a very pleasant male. Accompanied by his partner. He is a patient Dr. Pinto. - inguinal disruption - erectile dysfunction Telemedicine Evaluation 15 min Consultation [employer] Liat Video Six-month follow-up Enclomiphene - increased testosterone to 550 Continue good response Repeat lab work in 6 months Would like to increase tadalafil from 5 mg daily to 10 mg daily. Prescription provided [facility] - 10/27 400 02/27 550 Background insulin-dependent diabetes Low testosterone 12/27 T 280 FT 40 Erectile Dysfunction and setting up insulin-dependent diabetes with component of Peyronie's Ongoing Progressive Associated with curvature of penis Has not tried maximum oral therapy Medications provided with daily tadalafil and on demand tadalafil We will also do pentoxifylline 400 mg p.o. b.i.d. to try to help with baseline mild Peyronie's Inguinal disruption Pain on the right deep inguinal canal On exam has pain was on the lateral aspect of the inguinal canal and on the medial aspect Consistent with deep inguinal tear History of injury last December Discussed natural history of recovery from the type of injury and demonstrated exercises Can follow p.r.n. 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), managed as type 1 Surgical History Hx laparoscopic cholecystectomy (11/21/24) History of hernia surgery H/O colonoscopy Hx of exploratory laparotomy Family History Father Diabetes Mother Diabetes Social History Household Members: Spouse and Children Housing: House Do you presently have visiting nurse or other home services: No Alcohol intake: current Alcohol intake frequency: holidays/special occasions only Alcohol type: beer Patient Tobacco Use Status: Former Tobacco user service: No Current occupational status: employed 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 Review of Systems Const Denies chills and Denies fever(s) Card Reports no additional complaints and Denies syncope Resp Denies cough GI Denies abdominal pain and Denies heartburn Reports as per HPI and Denies change in libido Neuro Denies syncope Psych Denies change in libido Endo Denies change in libido Physical Exam Const General: cooperative, healthy appearing, comfortable and no acute distress Orientation/consciousness: patient oriented x3 HEENT Face and sinus: Yes normal facial exam Mouth: moist mucous membranes Neck Neck: Yes normal visual inspection, Yes full ROM and Yes trachea midline Chest Chest palpation & inspection: normal inspection of the chest Resp Effort & Inspection: normal respiratory effort, able to speak in complete sentences and no respiratory distress GI Inspection: Yes normal to inspection Back/Spine/Pelvis Cervical Spine: normal cervical lordosis Thoracic/Lumbar Spine: thoracic and lumbar spine normal to inspection Skin General skin exam: no rashes or lesions noted Neuro General: patient oriented x3, gait normal, tone normal and moves all extremities Extrem General: Yes normal to inspection and Yes capillary refill normal Telehealth Telehealth Telehealth Platform: [employer] Location of provider rendering services: practice address Location of patient: address on file Patient Identification confirmed using: Name, : Yes Telehealth method: video Patient verbally consented to treatment: Yes Patient verbally consented to billing insurance company: Yes Patient informed of any privacy concerns related to visit: Yes Minutes spent on Phone/Video with Pt.: 15 Assessment & Plan Assessment & Plan (1) Erectile dysfunction associated with type 2 diabetes mellitus: Code(s): E11.69 - Type 2 diabetes mellitus with other specified complication; N52.1 - Erectile dysfunction due to diseases classified elsewhere Category: Medical (2) Hypogonadism in male: Code(s): E29.1 - Testicular hypofunction Category: Medical Plan Six-month follow-up labs Orders: Orders Prostate Specific Antigen 5 Months E29.1 - Testicular hypofunction Hematocrit 5 Months E29.1 - Testicular hypofunction Testosterone, Total 5 Months E29.1 - Testicular hypofunction Medications: New [enclomiphene] [facility] [place] - Fax Patient Cell Number - [phone] 1 tab PO DAILY 90 tabs 1RF [facility] [place] - Fax 90 days E29.1 - Testicular hypofunction Changed From tadalafil 5 mg PO DAILY 90 tabs 0RF sexual activity 90 days E11.69 - Type 2 diabetes mellitus with other specified complication, N52.1 - Erectile dysfunction due to diseases classified elsewhere To tadalafil 10 mg PO DAILY 90 tabs 1RF sexual activity 90 days E11.69 - Type 2 diabetes mellitus with other specified complication, N52.1 - Erectile dysfunction due to diseases classified elsewhere Patient Instructions: This note is constructed using voice recognition software. While every effort has been made to ensure accuracy market editor errors may have been included. Imaging studies, laboratory and physical exam results were discussed and reviewed in detail. No major barriers to patient understanding were identified. An opportunity to ask questions regarding the treatment plan was provided. All questions were answered. The patient expressed understanding and agreement with the above treatment plan. The patient is aware they should contact our office by phone for worsening of their current condition or the appearance of new urologic symptoms. Compliance is encouraged with any medications and followup testing that is ordered. It is a privilege to participate in the urologic care of your patient. If you h ave any questions or concerns regarding treatment for the above conditions, or other urologic issues, please do not hesitate to contact me. The office telephone contact is [phone]. Sincerely, Dr Chris Wills MD, PAULINE [facility] - Urology Compassionate Specialist Care for the Genitourinary System Coding Level of Care Code Complex visit Add On G2211 Diagnoses Erectile dysfunction associated with type 2 diabetes mellitus E11.69; N52.1 Hypogonadism in male E29.1
== END 2025-02-23 17:00 | disposition home or self-care (01) ==
LOC: HO.HUSH 15:39
PROVIDERS: PCP Family Medicine; Visit Provider Urology
DX: E11.69 Type 2 diabetes mellitus with other specified complication (principal); N52.1 Erectile dysfunction due to diseases classified elsewhere; E29.1 Testicular hypofunction
CPT/HCPCS: 99214

== ENCOUNTER 2025-03-22 14:51 | Outpatient (AMB) | payer OTHER, SELFPAY ==
--- NOTE | 2025-03-22 15:22 | MHC.AMDMED ---
Intake Intake Visit Reasons: 60 min Flexo Press Operator Required: No Accompanied by: Self / Same As Patient Allergies liraglutide Allergy (Unknown, Verified 02/23/25 15:48) Unknown HPI Comprehensive Diabetes Asmnt Most Recent Diabetes Results: Hemoglobin A1c 10.5 % 12/15/19 Microalb/Creat Ratio TNP 10/11/24 Cholesterol, (<200) 115 mg/dL 10/11/24 HDL Cholesterol, (>40) 35 mg/dL L 10/11/24 Triglycerides, (<150) 113 mg/dL 10/11/24 Creatinine, (0.5-1.4) 0.85 mg/dL 11/21/24 BUN, (9-16) 11 mg/dL 11/21/24 Sodium, (135-145) 136 mmol/L 11/21/24 Potassium, (3.3-5.1) 4.1 mmol/L 11/21/24 Chloride, (96-108) 104 mmol/L 11/21/24 Carbon Dioxide, (22-29) 21 mmol/L L 11/21/24 Calcium, (8.4-10.2) 8.7 mg/dL 11/21/24 AST, (5-37) 41 U/L H 11/21/24 ALT, (0-40) 29 U/L 11/21/24 Total Protein, (6.5-8.0) 6.1 g/dL L 11/21/24 Albumin, (3.5-5.0) 3.7 g/dL 11/21/24 [facility] Medical History Ventral hernia (02/11/23) Back pain Depression Elevated cholesterol Elevated serum creatinine Vitamin D deficiency Diabetic nephropathy associated with type 1 diabetes mellitus Obesity (BMI 30-39.9) Hypertension 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), managed as type 1 Surgical History Hx laparoscopic cholecystectomy (11/21/24) History of hernia surgery H/O colonoscopy Hx of exploratory laparotomy Family History Father Diabetes Mother Diabetes Social History Household Members: Spouse and Children Housing: House Do you presently have visiting nurse or other home services: No Alcohol intake: current Alcohol intake frequency: holidays/special occasions only Alcohol type: beer Patient Tobacco Use Status: Former Tobacco user service: No Current occupational status: employed 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 Su Patient is experiencing slight postprandial increase after 2pm. Today's visit we discussed adjusting insulin to carb ratio. Patient concerned if increasing ratio would cause hypoglycemia. Patient agreed on small change in insulin to carb ratio. Patient has decided to transition over to instinct 15 day where sensor. He is still waiting to receive sensors from [employer]. Recommended to patient he contact [employer] regarding updating MiniMed loco. Patient will follow-up with early childhood special educator in 3 months See changes made to insulin pump settings today. Settings verified by CDCES Basal rate(s) (units/hour) : 12 AM? to 5 AM? 2.0 units / hr 5 AM? to 12 PM? 1.75 units / hr 12 PM? to 12 AM? 2.0 units / hr Bolus setting Insulin Carbohydrate Ratio (s) 12 AM to 2 PM 1:3.5 New 2 PM to 12 AM 1:3 Correction Factor / Sensitivity Factor 12 AM to 12 AM?? 1:14 Active Insulin Time:? 2 hours 15 minutes Target(s): SmartGuard target: 100 mg/dL 12 AM to 12 AM?? 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
--- OUTSIDE RECORDS SUMMARY | 2025-03-22 18:57 | XMS_ITS | Data Portability ---
Author Organization [employer] [address] Address [address] [place] [address] Assessment No assessment recorded. Plan of Treatment [...] By Organization Details Last Modified Time 04/30/2023 [id number] This physical does not replace the annual [...] Time 4 OC-DOT PHYSICAL completed Marcia Bynum [employer] 04/30/2023 15:42:53 3 OC-DOT PHYSICAL completed JOSHUA MIGUEL PA - [employer] 05/11/2022 08:56:56 Imaging Results None recorded. Procedure [...] ICD10 Code Diagnosis IMO Codes Diagnosis Note [id number] [facility] [address] [facility] [address] [place] [address] 05/29/2017 15:01:54 05/29/2017 15:24:50 [id number] [address] [facility] [address] [place] [address] 12/28/2019 12:18:16 12/28/2019 13:38:21 [id number] [facility] [facility] [address] [place] [address] 11/26/2020 14:35:05 11/26/2020 19:02:39 [id number] [address] [place] [address] 05/22/2021 14:27:53 05/22/2021 16:04:17 [id number] [address] [address] [place] [address] 03/31/2016 14:40:30 03/31/2016 15:39:46 [id number] [facility] [employer] [address] [place] [address] 05/11/2022 08:05:24 05/11/2022 09:25:12 History 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, 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 [id number] Z02.1 Documentat ion for this visit can be found on the electronic DOT form or scanned copy [id number] [place] [address] [place] [address] 04/30/2023 13:41:19 04/30/2023 16:28:41 History 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, 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 [id number] Z02.1 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 [id number] Z02.4 Physical examination 588 0005 Z02.4 Health Concerns Section Related Observation LastModified by Organization Detai ls LastModified Time None Recorded Concern Status LastModified by Organization Details LastModified Time None Recorded Advance Directives Directive None Recorded Payers Insurance Date Sequence Insurance Name Policy Number Policy Olivo Covered Member ID Olivo Member ID Guarantor Name 05/11/2022 DO NOT USE Evan Puente [id number] Evan Puente 05/12/2022 PAY AT TOS Evan Puente [id number] Evan Puente 04/30/2023 OC-PAY AT TIME OF SERVICE 2022 Evan Puente OTHER OTHER Evan Puente 04/30/2023 1 [facility] (O) [id number] Evan Puente [id number] Evan Puente Notes Date Note Type Note Provider Name and Address Organization Details Recorded Time 04/30/2023 text/html PhysicalReported by PatientHPIFor source of patient information, patient reportspatient arrived at urgent care ambulatoryandpatient. For patient presents for a physical for, patient reportsemployment. 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 Lexx Apodaca NP [address] [place], [address], [place] - [facility] 04/30/2023 16:27:05
--- OUTSIDE RECORDS SUMMARY | 2025-03-22 18:57 | XMS_ITS | Patient Health Record ---
Author Organization [employer] Address [address] [place] [address] Care Team Providers Care Insurance Follow Up Rep Name Role Phone Aubree Pinto MD Primary [...] Status Risk Notes Problem Chronic hepatitis C (282547518) Chronic hepatitis C without mention of hepatic coma (070.54) Active confirmed Problem Chronic hepatitis C (586722330) Chronic hepatitis C (070.54) Active confirmed Plan [...] 03:15:00 PM, [address], [address], [place], [address], Insurance Providers Payer Name Payer Address Payer Phone Subscriber Number Group Number Insured Name Patient Relationship to Insured Coverage Start Date Coverage End Date [employer] Health Plan [address] [address] [place], [place] [id number] PALLAVI ROCA Self - patient is the insured Medical (General) History Medical History History ICD Code hyperlipidemia back pain Hepatitis C diabetes mellitus
--- OUTSIDE RECORDS SUMMARY | 2025-03-22 18:57 | XMS_ITS | Encounter Summary ---
Author Organization [employer] Address [address] [facility] 7t [place] [address] Care Team Providers Care Digital Watch Assembler Name Role Phone Aubree Pinto MD Primary Care Provider [phone] Matt Silvestre MD Unavailable [phone] Chris Wills MD Unavailable [phone] Lashell Falcon Unavailable Saul Avalos MD Unavailable Encounter Details Date Type Department Care Team (Late st Contact Info) Description 03/07/2024 Abstract [facility] MEDICINE [address] [place] [address] Aubree Pinto MD [address] [place], [place] [phone] Social History Tobacco Use Types Packs/Day Years [...] documented as of this encounter Care Teams Digital Watch Assembler Relationship Specialty Start Date End Date Aubree Pinto MD [address] [place] [address] PCP - General Family Medicine 04/05/18 Matt Silvestre MD [address] [place] [address] Endocrinology 03/07/24 Chris Wills MD [address] [place] [address] Urology 04/19/[address] [facility] [address] [place] [address] Ophthalmology 05/09/24 Saul Avalos MD [address] [place] [address] [place] [address] Gastroenterology 06/12/24 Stephani Rivera DIALS INSPECTOR Endocrinology 04/19/24 documented as of this encounter
--- OUTSIDE RECORDS SUMMARY | 2025-03-22 18:57 | XMS_ITS | Encounter Summary ---
Author Organization [employer] Address [address] [facility] 7t [place] [address] Care Team Providers Care Bridge Gang Worker Name Role Phone Aubree Pinto MD Primary Care Provider [phone] Matt Silvestre MD Unavailable [phone] Chris Wills MD Unavailable [phone] Lashell Falcon Unavailable Saul Avalos MD Unavailable [phone] Encounter Details Date Type Department Care Team (Late st Contact Info) Description 03/15/2024 Orders Only [facility] MEDICINE [address] [place], [place] [phone] Aubree Pinto MD [address] [place], [place] [phone] Social History Tobacco Use Types Packs/Day Years [...] documented as of this encounter Care Teams Bridge Gang Worker Relationship Specialty Start Date End Date Aubree Pinto MD [address] [place] [address] PCP - General Family Medicine 04/05/18 Matt Silvestre MD [address] [place] [address] Endocrinology 03/07/24 Chris Wills MD [address] [place] [address] Drive [address] [place] [address] Urology 04/19/24 Lashell Falcon [address] [place] [address] Ophthalmology 05/09/24 Saul Avalos MD [address] [place] [address] [address] [place] [address] Gastroenterology 06/12/24 Stephani Rivera ER PHYSICIAN Endocrinology 04/19/24 documented as of this encounter
--- OUTSIDE RECORDS SUMMARY | 2025-03-22 18:57 | XMS_ITS | Clinical Summary ---
Author Organization [employer] Address [address] [facility] [address] [place] [address] Care Team Providers Care Lace Burn Out Tender Name Role Phone Aubree Pinto MD Primary Care Provider [phone] Matt Silvestre MD Unavailable [phone] Chris Wills MD Unavailable Lashell Falcon Unavailable Saul Avalos MD Unavailable [phone] Allergies Active Allergy Reactions Criticality Noted Date [...] to assist with weight loss. Prescribed through missile technician. -Reviewed w/ pt side effects of GLP1 [...] to assist with weight loss. Prescribed through missile technician. -Reviewed w/ pt side effects of GLP1 [...] due after 06/12/25 -eye care facilitated by [facility] -d[place] -health care proxy on file 06/23/2023 Assessment & Plan (06/12/2024 9:32 AM EDT): -next comprehensive annual evaluation due after 06/12/25 -eye care facilitated by [facility] -d[place] -[facility] care proxy on file 06/23/2023 Assessment & Plan (10/01/2023 11:21 AM EDT): -next physical exam due after 02/23/2024 -eye care facilitated by [facility] [place] -[facility] care proxy on file 06/23/2023 Assessment & Plan (06/23/2023 4:34 PM EDT): -next physical exam due after 02/23/2024 -eye care facilitated by [facility] [place] [facility] care proxy given on 06/23/2023 Assessment & Plan (02/22/2023 11:34 AM EST): -next physical exam due after 02/23/2024 -eye care facilitated by [facility] [place] Colon cancer screening 08/06/2022 Overview (12/28/2024): -colonoscopy [...] autoimmune mediated DM Type 1 -followed by [employer] Buttonhole Machine Operator Dr. Silvestre and Stephani Rivera DRESSMAKER OR TAILOR , seen 02/06/25, note reviewed -humalog insulin [...] exam: 06/12/24 -Last eye exam done at [facility] 05/04/24 -Continue lifestyle modifications -Continue current medications via endocrinology -humalog via pump -on Zepbound per missile technician. Increased to 15mg 02/06/25 Assessment & Plan (12/28/2024 10:52 AM EDT): Pt with adult, autoimmune mediated DM Type 1 -followed by [employer] Operator Dr. Silvestre and Stephani Rivera DRESSMAKER OR TAILOR , seen 07/12/24 -humalog insulin via insulin [...] exam: 06/12/24 -Last eye exam done at [facility] 05/04/24 -Continue lifestyle modifications -Continue current medications via endocrinology -humalog via pump -on Zepbound per missile technician. Orders: POCT Hgb A1c POCT Glucose Assessment & Plan (06/12/2024 10:19 AM EDT): Pt with adult, autoimmune mediated DM Type 1 -followed by [employer] Buttonhole Machine Operator Dr. Silvestre and Stephani Rivera DRESSMAKER OR TAILOR , seen 02/2024 -humalog insulin via insulin [...] exam: 06/12/24 -Last eye exam done at [facility] 05/04/24 -Continue lifestyle modifications -Continue current medications via endocrinology -humalog via pump -was doing well on Wegovy but stopped by insurance, awaiting appeal from missile technician. Assessment & Plan (10/01/2023 11:20 AM EDT): [...] exam: due -Last eye exam done at [facility] 08/06/2022 -Continue lifestyle modifications -Continue current medications via endocrinology -humalog via pump -wegovy Assessment & Plan (06/23/2023 4:26 PM EDT): Pt with adult, autoimmune mediated DM Type 1. -followed by Dr. Silvestre -Last eye exam done at [facility] 08/06/2022. Assessment & Plan (02/22/2023 9:37 AM EST): Pt with adult, autoimmune mediated DM Type 1. -followed by Dr. Silvestre -Last eye exam done at [facility] 08/06/2022. Assessment & Plan (08/06/2022 2:18 PM EDT): Pt with adult, autoimmune mediated DM Type 1. -followed by Dr. Silvestre. -Last eye exam done at [facility] 08/06/2022 Assessment & Plan (04/29/2022 1:15 PM [...] DEPARTMENT Provider, Generic External Data 01/10/[address] [address] Aubree Pinto MD Essential hypertension 12/28/2024 9:45 AM EDT Office Visit [facility] MEDICINE [address] [place] [address] Aubree Pinto MD Latent autoimmune diabetes in [...] Colon cancer screening 12/28/2024 Travel 12/27/2024 Telephone [facility] WALK-IN CENTER [address] [place] [address] Elisabet Coles [place] from Last 3 Months Immunizations Immunization Administration [...] 10/11/2025 10/11/2024, 04/, 06/05/2023, Additional history exists Depression Screening 12/28/2025 [...] in adults (GAGAN), managed as type 1 ([facility]) POCT GLYCATED HEMOGLOBIN, TOTAL Routine 12/28/2024 9:45 AM EDT 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), managed as type 1 ([facility]) LIPID PANEL, STANDARD Routine 10/11/2024 2:30 PM EDT ALBUMIN, RANDOM URINE W/CREATININE Routine 10/11/2024 2:24 PM EDT [facility] DIABETES EYE EXAM Routine 05/04/2024 HIV ANTIBODY/ANTIGEN ([place] D[facility]) Routine 06/27/2022 7:23 AM EDT from Last 3 Months or Most Recently Relevant to Health Maintenance Results * Testosterone, Total, males (Adult), IA (02/08/2025 2:25 PM EST) Testosterone, Total 550 250 - 1100 ng/dL [facility] Comment:For additional infor mation, please refer tohttp://education.Zirtual/faq/[email or web address](This link is being provided for informational/educational purposes only.)This test was developed and its analytical performancecharacteristics have been determined by [facility], [place]. It hasnot been cleared or approved by the U.S. Food and DrugAdministration. This assay has been validated pursuantto the CLIA regulations and is used for clinicalpurposes.THIS TEST WAS PERFORMED AT:[employer] [place] [address]JJSETPYNEIL SANTANA MD,PHD 02/08/2025 2:25 PM EST 02/08/2025 2:25 PM EST us Generic External Data Provider LAB BLOOD ORDERAB LES Final Result Performing Organization Address City/[facility] Co de Phone Number [facility] [address] [place] [phone] * (ABNORMAL) Glucose, Whole Blood (02/06/2025 4:19 PM EST) Only the most recent of2 resultswithin the time period is included. Pathologist [facility] Glucose, Whole Blood 164(H) 60 - 115 mg/dL [facility] Comment:METER #: [id number] Testing performed in the Endocrinology Department [address] , [address], [facility]. 02/06/2025 4:19 PM EST 02/06/2025 4:26 PM EST us Generic External Data Provider LAB BLOOD ORDERAB LES Final Result [facility] [address] [place] [address] [phone] * (ABNORMAL) POCT Hgb A1c (12/28/2024 9:45 AM EDT) Pathologist [facility] Hemoglobin A1C 8.0(A) 4.0 - 5.7 % QC Media Lot # [id number] Lot# Expiration Date ,[id number] Blood 12/28/2024 9:45 AM EDT Aubree Pinto MD POINT OF CARE TEST ENTER/E DIT ORDERABLES Final Result * POCT Glucose (12/28/2024 9:45 AM EDT) Pathologist [facility] Glucose Blood, POC 165 60 - 200 mg/dL Blood Capillary blood specimen / Unknown 12/28/2024 9:45 AM EDT Aubree Pinto MD POINT OF CARE TEST ENTER/E DIT ORDERABLES Final Result * (ABNORMAL) Lipid Panel, Standard (10/11/2024 2:30 PM EDT) Pathologist [facility] Triglycerides 113 <150 mg/dL [facility] Comment:Desirable Triglyceri de: less than 150 mg/dLBorderline High Triglyceride 150-199 mg/dLHigh Triglyceride: 200-499 mg/dLVery High Triglyceride: greater than or equal to 5OO mg/dL Cholesterol 115 <200 mg/dL [facility] Comment:Desirable Cholestero l: less than 200 mg/dLBorderline High Cholesterol: 200-239 mg/dLHigh Cholesterol: greater than 239 mg/dL LDL Cholesterol Calculated 58 <100 mg/dL [facility] Comment:Desirable LDL: less than 100 mg/dLNear Optimal/Above Optimal LDL: 110- 129 mg/dLBorderline High LDL: 130-159 mg/dLHigh LDL: 160-189 mg/dLVery High LDL: greater than or equal to 190 mg/dL HDL Cholesterol 35(L) >40 mg/dL [facility] Comment:Desirable HDL: great er than 40 mg/dL Note: This HDL assay may give artificially low results in patients with liver disease. 10/11/2024 2:30 PM EDT 10/11/2024 2:30 PM EDT Generic External Data Provider LAB BLOOD ORDERAB LES Final Result Performing Organization Address [facility]/ZIP Co de Phone Number [facility] [address] [place] [phone] * Albumin, Random Urine W/Creatinine (10/11/2024 2:24 PM EDT) Creatinine, Urine 109.88 mg/dL [facility] Microalbumin Urine <5.0 mg/L [facility] Microalbum Creatinine Ratio Ur TNP <30 ug/mg cr [facility] Comment:Unable to calculate albumin/creatinine ratio due to lowmicroalbumin or creatinine result. 10/11/2024 2:24 PM EDT 10/11/2024 3:27 PM EDT Generic External Data Provider LAB URINE ORDERAB LES Final Result Performing Organization Address [facility] Co de Phone Number [facility] [address] [place] [phone] * Diabetes Eye Exam (05/04/2024) Eye Exam Normal Normal Comment:[facility] Historical Provider HEALTH MAINTENANCE Final Result * HIV Ab/Ag (KIAH GAMBLE) (06/27/2022 7:23 AM EDT) HIV AB/AG Nonreactive Nonreactive [facility] Comment:HIV-1 p24 Ag and/or HIV-1/HIV-2 Ab not detected.A test result that is nonreactive does not exclude thepossibility of exposure to or infection with HIV-1 and/orHIV-2. Nonreactive results in this assay for individualswith prior exposure to HIV-1 and/or HIV-2 may be due toantigen and antibody levels that are below the limit ofdetection of this assay.The Pa It Application Administrator HIV Ag/Ab Combo assay result andsupplemental assay results should be interpreted inconjunction with the patient's clinical presentation,history and other laboratory results. If the results areinconsistent with clinical evidence, additional testing issuggested to confirm the result. 06/27/2022 7:23 AM EDT 06/27/2022 7:23 AM EDT [facility] External Provider LAB BLO OD ORDERABLES Final Result [facility] [address] [place] [phone] [phone] from Last 3 Months or Most Recently Relevant to Health Maintenance Insurance [facility] 3 Advance Directives Documents on File Type Date Recorded Patient Pump And Still Operator Expl anation Advance Directives and Living Will 04/17/2024 Health Care Proxy 04/17/24 Advance Directives and Living Will 06/28/2023 Health Care Proxy 06/23/23 Care Teams Lace Burn Out Tender Relationship Specialty Start Date End Date Aubree Pinto MD [address] [place] [address] PCP - General Family Medicine 04/05/18 Matt Silvestre MD [address] [place] [address] Endocrinology 03/07/24 Chris Wills MD [address] [place] [address] Urology 04/19/24 Lashell Falcon [address] [place], [place] [address]cristel [place]av[place] [address] [address] Ophthalmology 05/09/24 Saul Avalos MD [address] [place] [address] [address] [place] [phone] Gastroenterology 06/12/24 Stephani Rivera DRESSMAKER OR TAILOR Endocrinology 04/19/24
--- OUTSIDE RECORDS SUMMARY | 2025-03-22 18:57 | XMS_ITS | Encounter Summary ---
Author Organization [employer] Address [address] [facility] [address] 7[address] [place] [address] Care Team Providers Care Pottery Kiln Builder Name Role Phone Aubree Pinto MD Primary Care Provider [phone] Matt Silvestre MD Unavailable Chris Wills MD Unavailable Lashell Falcon Unavailable Saul Avalos MD Unavailable Reason for Visit * Reason Comments Med Refill Encounter Details Date Type Department Care Team (Late st Contact Info) Description 08/05/2022 Refill [facility] MEDICINE [address] [place], [place] [phone] Aubree Pinto MD [address] [place], [place] [phone] Social History Tobacco Use Types Packs/Day Years [...] documented as of this encounter Care Teams Pottery Kiln Builder Relationship Specialty Start Date End Date Aubree Pinto MD [address] [place] [address] PCP - General Family Medicine 04/05/18 Matt Silvestre MD [address] [place] [address] Endocrinology 03/07/24 Chris Wills MD [address] [place] [address] Urology 04/19/24 Lashell Falcon [address] [place] [address] Ophthalmology 05/09/24 Saul Avalos MD [address] [place] [address] [address] [place] [phone] Gastroenterology 06/12/24 Stephani Rivera INDUSTRIAL MAINTENANCE REPAIRER Endocrinology 04/19/24 documented as of this encounter
== END 2025-03-22 16:03 | disposition home or self-care (01) ==
LOC: HO.ENCR 14:51
PROVIDERS: PCP Family Medicine; Visit Provider Registered Nurse Diabetes Educator
DX: E13.9 Other specified diabetes mellitus without complications (principal)

== ENCOUNTER → 2025-03-22 14:51 | Outpatient (BNVA) | payer OTHER, SELFPAY | PROVIDERS: PCP Family Medicine; Visit Provider Registered Nurse Diabetes Educator | DX: E13.9 Other specified diabetes mellitus without complications (principal); Z79.4 Long term (current) use of insulin; Z96.41 Presence of insulin pump (external) (internal) | CPT/HCPCS: 99211 ==

== ENCOUNTER → 2025-03-23 15:02 | Outpatient (BNVA) | payer SELFPAY | PROVIDERS: PCP Family Medicine; Visit Provider Physician Assistant Medical | DX: Z02.79 Encounter for issue of other medical certificate (principal) ==